=== PATIENT | male | born 1950 | race Caucasian/White ===

== ENCOUNTER → 2017-06-15 | Outpatient (CLI) | payer MEDICARE, OTHER ==
--- NOTE | 2017-06-15 11:23 | RAD ---
Indication restage lung malignancy. PET/CT was performed from the skull through the proximal thigh. CT was performed primarily for localization and attenuation purposes as opposed to primary diagnostic purposes. Note is made of a previous examination 03/22/2013 demonstrating a solid mass in the right lower lobe most compatible with primary malignancy and a semisolid mass in the right upper lobe compatible with inflammation or adenocarcinoma. 12.5 mCi of FDG was administered. The blood sugar during the examination was 79. The history of surgical removal of the right lower lobe has been provided. On CT the visualized brain appears unremarkable. No significant finding is seen in the neck. In the chest a nonsolid parenchymal opacity is noted in the right upper lobe. It appears slightly more organized on today's examination than on the study 4 years ago. There is a nodular density in the right lower lobe laterally measuring approximately 11 mm.. No significant finding is seen in the abdomen or pelvis. The prostate is slightly enlarged. There is deformity, compatible with a healed fracture, involving the right ischium. On PET the radiopharmaceutical is symmetrically distributed in the visualized brain. No abnormal activity is seen in the neck. The nonsolid parenchymal opacity in the right upper lobe demonstrates low level FDG activity with a maximum SUV is approximately 1.3. Again the findings could be reflective of an inflammatory process but a low-grade adenocarcinoma is not excluded. The 11 mm nodule in the right lower lobe is mildly FDG avid. Maximum SUV is 2.8. This may reflect a focus of inflammation or chronic scarring. Recurrent neoplastic disease is not entirely excluded The FDG is physiologically distributed in the abdomen and pelvis. IMPRESSION: 11 mm nodule in the right lower lobe is mildly FDG avid. Maximum SUV approximately 2.8. This may reflect a focus of scarring or inflammation. Recurrent neoplastic disease however is not entirely excluded. Nonsolid parenchymal opacity in the right upper lobe slightly more organized than on the study 4 years ago. There is low-level FDG uptake associated with this process. Maximum SUV approximately 1.3. Inflammation or low-grade malignancy are the primary considerations.
== END | disposition home or self-care (01) ==
LOC: PETSC 08:37
PROVIDERS: ATTEND Internal Medicine
DX: R91.1 Solitary pulmonary nodule (principal)
CPT/HCPCS: 78815; A9552

== ENCOUNTER 2017-08-07 16:02 | Inpatient (IN) | payer MEDICARE, OTHER ==
[~2017-08-07] VITALS: Ht 175.3 cm; Wt 51.3 kg
[2017-08-07 19:15] VITALS: BP 136/83
--- NOTE | 2017-08-07 23:05 | HP ---
ADMIT DATE: 08/07/2017 CHIEF COMPLAINT: Shortness of breath. HISTORY OF PRESENT ILLNESS: The patient is a pleasant elderly male who has known previous lung cancer, it was on the right. He had 2 wedge resections done. Apparently, he did not require any chemo or radiation therapy. Now he presents to [facility] ER with shortness of breath and was noted to have a massive left pleural effusion. I talked to the ER doctor who are transferring him here to our facility with consultation to Interventional Radiology to drain it and with Pulmonary Medicine. PAST MEDICAL HISTORY: Lung cancer, hard of hearing. ALLERGIES: None. FAMILY HISTORY: Diabetes. SOCIAL HISTORY: He is retired. Does not drink, smoke or take drugs. MEDICATIONS: Reviewed. REVIEW OF SYSTEMS: GENERAL: No history of weight change, weakness or fevers. SKIN: No bruising, hair changes or rashes. EYES: No blurred, double or loss of vision. NOSE AND THROAT: No history of nosebleeds, hoarseness or sore throat. HEART: No history of palpitations, chest pain or shortness of breath on exertion. PULMONARY: He complains of shortness of breath. GASTROINTESTINAL: Denies changes in appetite, nausea, vomiting, diarrhea or constipation. GENITOURINARY: No history of frequency, urgency, hesitancy or nocturia. NEUROLOGIC: Denies history of numbness, tingling, tremor or weakness. PSYCHIATRIC: No history of panic, anxiety or depression. ENDOCRINE: No history of heat or cold intolerance, polyuria or polydipsia. EXTREMITIES: Denies muscle weakness, joint pain, pain on walking or stiffness. PHYSICAL EXAMINATION: VITAL SIGNS: Temperature afebrile, pulse 74, respirations 18, blood pressure 142/91. GENERAL: He is alert, cooperative. HEART: Normal S1, S2. LUNGS: Diminished on the left. ABDOMEN: Soft. EXTREMITIES: 1+ edema. SKIN: No rashes. PSYCHIATRIC: He is a little anxious. VASCULAR: Good capillary refill. ENDOCRINE: No thyromegaly. LYMPHATICS: No cervical nodes. HEMATOPOIETIC: No bruising. LABORATORY DATA: Pending. ASSESSMENT AND PLAN: Large left pleural effusion, suspect possible malignancy. The patient is being admitted. We will consult Interventional Radiology to drain it and we will have to analyze it. Consult Pulmonary Medicine. DuoNeb, empiric intravenous antibiotics, oxygen per nasal cannula p.r.n. Continue his home medicines. Consult Dr. Goncalves. Prognosis is guarded. JENNIFER PAGAN DO DR: BRI/nini JOB#: [id number] / [id number]
[2017-08-07] MEDS ORDERED: ASPI-630 PO (23:09)
[2017-08-07] MEDS ORDERED: MELA3TAB2 PO (23:09)
[2017-08-07 23:12] VITALS: BP 129/79
[2017-08-08] VITALS (11 sets, daily range): BP systolic 85–142; BP diastolic 56–86
[2017-08-08] MEDS: LORazepam 1 MG TABLET PO PRN (01:52)
--- NOTE | 2017-08-08 04:04 | ACF ---
Admission Forms Criteria PLEURAL EFFUSION Clinical Indications for Admission to Inpatient Care (Place 'X' for any and all applicable criteria): Admission is indicated for 1 or more of the following (1)(2)(3): [X]I. Pneumonia-related effusion requiring drainage as indicated by 1 or more of the following [A]: [X]a) Large pleural effusion (symptomatic or greater than one-half of hemithorax) [ ]b) Loculated effusion [ ]c) Pleural fluid analysis results, including ANY ONE of the following: [ ]i) Positive Gram stain or culture for bacteria [ ]ii) Pus [ ]iii) pH less than 7.20 [ ]d) Parapneumonic effusion with glucose less than 60 mg/dL (3.33 mmol/L) [ ]II. Inpatient admission required rather than observation care (Also use Pleural Effusion: Observation Care criteria as appropriate) because of 1 or more of the following: [ ]1) Hemodynamic instability [ ]2) Respiratory findings (Tachypnea, dyspnea) that persist despite observation care treatment [ ]3) Hypoxemia or hypercapnia that persists despite observation care treatment [ ]4) Complication of drainage (e.g., pneumothorax) that requires inpatient care [ ]5) Etiology that requires inpatient care (e.g., pulmonary embolism, trauma) [ ]6) Severe pain requiring acute inpatient management [ ]7) Chest tube placement with active evacuation (eg, suction, drainage) [ ]8) Pulmonary artery catheter monitoring [ ]9) Epidural analgesia(7) [ ]10) Immediate inpatient surgery [ ]11) Other condition, treatment, or monitoring requiring inpatient admission [ ]III. Hemothorax [ ]IV. Empyema [ ]V. Pleural effusion with concomitant pneumothorax [ ]. Recurrent or malignant pleural effusion requiring pleurodesis (4) [ ]VII. Respiratory distress Extended stay beyond goal length of stay may be needed for (27)(28): [ ]a) Empyema or complicated parapneumonic effusion (24)(29) [ ]b) Malignant pleural effusion (4) [ ]c) Pleural effusion due to trauma or perforated esophagus [ ]d) Pleural effusion due to pulmonary embolism (30) [ ]e) Clinically significant re-expansion pulmonary edema [ ]f) Hemothorax [ ]g) Renal failure [ ]h) Complications of thoracentesis, thoracostomy tube, or pleural cath. placement [ ]j) Trapped lung (e.g., benign or malignant thickened pleura preventing lung re-expansion) (31) [ ]i) Underlying etiology necessitates ongoing inpatient care (e.g., pneumonia, heart failure, malignancy) The original [facility] [employer] content created by [facility] has been revised. The portions of the content which have been revised are identified through the use of italic text, and [facility] has neither reviewed nor approved the modified material. All other unmodified content is copyright [facility]. Please see references footnoted in the original [facility] edition 2014 Admission Criteria Met?: Yes WOLF ERVIN Aug 08, 2017 04:04
[2017-08-08 06:28] LABS: BASO % 0 % (0-3); EOS % 0 % (0-3); HEMATOCRIT 44.9 % (39.0-53.0); HEMOGLOBIN 15.7 g/dL (13.0-17.5); LYMPH # 0.5 x10^3/uL (1.0-4.8); LYMPH % 7 % (24-48); MEAN CORPUSCULAR HEMOGLOBIN 38 pg (25-35); MEAN CORPUSCULAR HGB CONC 35 g/dL (31-37); MEAN CORPUSCULAR VOLUME 110 fL (79-100); MONO % 11 % (0-9); NEUT % 81 % (31-73); PLATELET COUNT 107 x10^3/uL (140-400); RED CELL DISTRIBUTION WIDTH 16.5 % (11.5-14.5); WHITE BLOOD COUNT 6.7 x10^3/uL (4.0-11.0)
[2017-08-08 06:51] LABS: CALCIUM 8.1 mg/dL (8.5-10.1); CREATININE 0.5 mg/dL (0.7-1.3); GFR 165.4; POTASSIUM 4.2 mmol/L (3.5-5.1)
[2017-08-08] MEDS: ASPIRIN 325 MG TABLET PO SCH (08:00)
[2017-08-08 08:13] LABS: INR 1.2 (0.8-1.1); PROTHROMBIN TIME PATIENT 14.9 SEC (11.7-14.0)
[2017-08-08 08:25] LABS: HCO3 ABG 22 mmol/L (21-28); PCO2 ABG 38 mmHg (35-46); PO2 ABG 63 mmHg (65-108); SAT O2 ABG 91 % (92-99)
[2017-08-08 08:40] LABS: PH ABG 7.39 (7.35-7.45)
[2017-08-08] MEDS ORDERED: ONDANSETRON PF 4 MG/2 ML VIAL. IV PRN (09:00)
[2017-08-08] MEDS ORDERED: ACETAMINOPHEN 500 MG TABLET PO PRN (09:00)
[2017-08-08] MEDS ORDERED: KETOROLAC 15 MG/ML VIAL. IV PRN (09:00)
[2017-08-08] MEDS ORDERED: HYDROcodone/APAP 5/325MG 1 TAB TABLET PO PRN (09:00)
[2017-08-08] MEDS ORDERED: MAGNESIUM HYDROXIDE 2,400 MG/30 ML ORAL.SUSP. PO PRN (09:00)
[2017-08-08] MEDS ORDERED: MORPHINE SULFATE 2 MG/ML DISP.SYRIN. IV PRN (09:00)
[2017-08-08] MEDS: MULTIVITAMIN with MINERAL TABLET. PO SCH (09:00)
[2017-08-08 10:09] LABS: ALBUMIN 2.8 g/dL (3.4-5.0)
--- NOTE | 2017-08-08 12:00 | PDOC ---
PROGRESS NOTES Chief Complaint Chief Complaint 1. LArge pleural effusion 2. Hx lung CA s/p wedge resection x 2 (follows with onc in [place]) - no radiation or chemo needed 3. SOA sec to above 4., ANemai of malignancy/inflammation 5. MOd PCM 6. HYponatremia in a cancer pt (SIADH syndrome?) 7. HYpocalcemia in the background of low albumin History of Present Illness History of Present Illness SOA but hemodynamically stable Never had thoracentesis in past, pleural fluid is news to family HAd PET scans? not too long ago "ok" per family Follows closely with onc at [place] PLAN COnsult IR for thoracentesis Send for pleural fluid studies Pulmo consulted NPO for now till procedure Dw RN francois Cont home meds (not much) PT.OT Reg diet after procedure Vitals Vitals Vital Signs Date Time Temp Pulse Resp B/P (MAP) Pulse Ox O2 Delivery O2 Flow Rate FiO2 08/08/17 11:25 24 90 Nasal Cannula 3.0 08/08/17 07:55 97.9 93 131/77 (95) 97.9 Physical Exam General: Alert, Oriented X3, Cooperative Heart: Regular rate Lungs: Other (dec BS RT) Abdomen: Normal bowel sounds, Soft Extremities: No clubbing, No cyanosis Skin: No rashes, No breakdown Labs LABS Laboratory Tests Test 08/08/17 05:35 08/08/17 08:23 White Blood Count 6.7 x10^3/uL (4.0-11.0) Red Blood Count 4.10 x10^6/uL (4.30-5.70) Hemoglobin 15.7 g/dL (13.0-17.5) Hematocrit 44.9 % (39.0-53.0) Mean Corpuscular Volume 110 fL (79-100) Mean Corpuscular Hemoglobin 38 pg (25-35) Mean Corpuscular Hemoglobin Concent 35 g/dL (31-37) Red Cell Distribution Width 16.5 % (11.5-14.5) Platelet Count 107 x10^3/uL (140-400) Neutrophils (%) (Auto) 81 % (31-73) Lymphocytes (%) (Auto) 7 % (24-48) Monocytes (%) (Auto) 11 % (0-9) Eosinophils (%) (Auto) 0 % (0-3) Basophils (%) (Auto) 0 % (0-3) Neutrophils # (Auto) 5.4 x10^3uL (1.8-7.7) Lymphocytes # (Auto) 0.5 x10^3/uL (1.0-4.8) Monocytes # (Auto) 0.8 x10^3/uL (0.0-1.1) Eosinophils # (Auto) 0.0 x10^3/uL (0.0-0.7) Basophils # (Auto) 0.0 x10^3/uL (0.0-0.2) Prothrombin Time 14.9 SEC (11.7-14.0) Prothromb Time International Ratio 1.2 (0.8-1.1) Sodium Level 125 mmol/L (136-145) Potassium Level 4.2 mmol/L (3.5-5.1) Chloride Level 90 mmol/L (98-107) Carbon Dioxide Level 25 mmol/L (21-32) Anion Gap 10 (6-14) Blood Urea Nitrogen 9 mg/dL (8-26) Creatinine 0.5 mg/dL (0.7-1.3) Estimated GFR (Cockcroft-Gault) 165.4 Glucose Level 91 mg/dL (70-99) Calcium Level 8.1 mg/dL (8.5-10.1) Lactate Dehydrogenase 467 U/L (85-227) Albumin 2.8 g/dL (3.4-5.0) O2 Saturation 91 % (92-99) Arterial Blood pH 7.39 (7.35-7.45) Arterial Blood pCO2 at Patient Temp 38 mmHg (35-46) Arterial Blood pO2 at Patient Temp 63 mmHg (65-108) Arterial Blood HCO3 22 mmol/L (21-28) Arterial Blood Base Excess -2 mmol/L (-3-3) Review of Systems Review of Systems soa Comment Review of Relevant I have reviewed the following items tita (where applicable) has been applied. Labs Laboratory Tests Test 08/08/17 05:35 08/08/17 08:23 White Blood Count 6.7 x10^3/uL (4.0-11.0) Red Blood Count 4.10 x10^6/uL (4.30-5.70) Hemoglobin 15.7 g/dL (13.0-17.5) Hematocrit 44.9 % (39.0-53.0) Mean Corpuscular Volume 110 fL (79-100) Mean Corpuscular Hemoglobin 38 pg (25-35) Mean Corpuscular Hemoglobin Concent 35 g/dL (31-37) Red Cell Distribution Width 16.5 % (11.5-14.5) Platelet Count 107 x10^3/uL (140-400) Neutrophils (%) (Auto) 81 % (31-73) Lymphocytes (%) (Auto) 7 % (24-48) Monocytes (%) (Auto) 11 % (0-9) Eosinophils (%) (Auto) 0 % (0-3) Basophils (%) (Auto) 0 % (0-3) Neutrophils # (Auto) 5.4 x10^3uL (1.8-7.7) Lymphocytes # (Auto) 0.5 x10^3/uL (1.0-4.8) Monocytes # (Auto) 0.8 x10^3/uL (0.0-1.1) Eosinophils # (Auto) 0.0 x10^3/uL (0.0-0.7) Basophils # (Auto) 0.0 x10^3/uL (0.0-0.2) Prothrombin Time 14.9 SEC (11.7-14.0) Prothromb Time International Ratio 1.2 (0.8-1.1) Sodium Level 125 mmol/L (136-145) Potassium Level 4.2 mmol/L (3.5-5.1) Chloride Level 90 mmol/L (98-107) Carbon Dioxide Level 25 mmol/L (21-32) Anion Gap 10 (6-14) Blood Urea Nitrogen 9 mg/dL (8-26) Creatinine 0.5 mg/dL (0.7-1.3) Estimated GFR (Cockcroft-Gault) 165.4 Glucose Level 91 mg/dL (70-99) Calcium Level 8.1 mg/dL (8.5-10.1) Lactate Dehydrogenase 467 U/L (85-227) Albumin 2.8 g/dL (3.4-5.0) O2 Saturation 91 % (92-99) Arterial Blood pH 7.39 (7.35-7.45) Arterial Blood pCO2 at Patient Temp 38 mmHg (35-46) Arterial Blood pO2 at Patient Temp 63 mmHg (65-108) Arterial Blood HCO3 22 mmol/L (21-28) Arterial Blood Base Excess -2 mmol/L (-3-3) Laboratory Tests Test 08/08/17 05:35 08/08/17 08:23 White Blood Count 6.7 x10^3/uL (4.0-11.0) Red Blood Count 4.10 x10^6/uL (4.30-5.70) Hemoglobin 15.7 g/dL (13.0-17.5) Hematocrit 44.9 % (39.0-53.0) Mean Corpuscular Volume 110 fL (79-100) Mean Corpuscular Hemoglobin 38 pg (25-35) Mean Corpuscular Hemoglobin Concent 35 g/dL (31-37) Red Cell Distribution Width 16.5 % (11.5-14.5) Platelet Count 107 x10^3/uL (140-400) Neutrophils (%) (Auto) 81 % (31-73) Lymphocytes (%) (Auto) 7 % (24-48) Monocytes (%) (Auto) 11 % (0-9) Eosinophils (%) (Auto) 0 % (0-3) Basophils (%) (Auto) 0 % (0-3) Neutrophils # (Auto) 5.4 x10^3uL (1.8-7.7) Lymphocytes # (Auto) 0.5 x10^3/uL (1.0-4.8) Monocytes # (Auto) 0.8 x10^3/uL (0.0-1.1) Eosinophils # (Auto) 0.0 x10^3/uL (0.0-0.7) Basophils # (Auto) 0.0 x10^3/uL (0.0-0.2) Prothrombin Time 14.9 SEC (11.7-14.0) Prothromb Time International Ratio 1.2 (0.8-1.1) Sodium Level 125 mmol/L (136-145) Potassium Level 4.2 mmol/L (3.5-5.1) Chloride Level 90 mmol/L (98-107) Carbon Dioxide Level 25 mmol/L (21-32) Anion Gap 10 (6-14) Blood Urea Nitrogen 9 mg/dL (8-26) Creatinine 0.5 mg/dL (0.7-1.3) Estimated GFR (Cockcroft-Gault) 165.4 Glucose Level 91 mg/dL (70-99) Calcium Level 8.1 mg/dL (8.5-10.1) Lactate Dehydrogenase 467 U/L (85-227) Albumin 2.8 g/dL (3.4-5.0) O2 Saturation 91 % (92-99) Arterial Blood pH 7.39 (7.35-7.45) Arterial Blood pCO2 at Patient Temp 38 mmHg (35-46) Arterial Blood pO2 at Patient Temp 63 mmHg (65-108) Arterial Blood HCO3 22 mmol/L (21-28) Arterial Blood Base Excess -2 mmol/L (-3-3) Medications Current Medications Ceftriaxone Sodium 1 gm/ Sodium Chloride 50 ml @ 100 mls/hr Q24H IV Last administered on 08/07/17 21:23; Start 08/07/17 at 21:00 Aspirin (Yaneth Aspirin) 325 mg DAILYWBKFT PO ; Start 08/08/17 at 08:00 Multivitamins (Thera M Plus) 1 tab DAILY PO ; Start 08/08/17 at 09:00 Lorazepam (Ativan) 2 mg PRN Q6HRS PRN PO WITHDRAWAL IRRITABILITY Last administered on 08/08/17 01:52; Start 08/07/17 at 20:15 Ondansetron HCl (Zofran) 4 mg PRN Q6HRS PRN IV NAUSEA/VOMITING 1ST CHOICE; Start 08/08/17 at 09:00 Acetaminophen (Tylenol) 500 mg PRN Q6HRS PRN PO MILD PAIN / TEMP; Start at 09:00 Ketorolac Tromethamine (Toradol) 15 mg PRN Q6HRS PRN IV PAIN; Start 08/08/17 at 09:00; Stop 08/13/17 at 08:59 Morphine Sulfate 1 mg PRN Q2HR PRN IV PAIN PAIN SEV; Start 08/08/17 at 09:00 Non-Formulary Medication 1 tab QHS PO ; Start 08/08/17 at 21:00; Status UNV Acetaminophen/ Hydrocodone Bitart (Lortab 5/325) 1 tab PRN Q4HRS PRN PO PAIN MILD TO MOD; Start 08/08/17 at 09:00 Magnesium Hydroxide (Milk Of Magnesia) 2,400 mg PRN DAILY PRN PO CONSTIPATION; Start 08/08/17 at 09:00 Active Scripts Active Reported Melatonin 3 Mg Tablet 1 Tab PO QHS Aspirin 81 Mg Tab.chew 81 Mg PO DAILY Vitals/I & O Vital Sign - Last 24 Hours 08/07/17 08/07/17 08/07/17 08/07/17 19:15 19:15 19:15 19:20 Temp 97.7 97.7 97.7 97.7 Pulse 97 97 Resp 26 26 B/P (MAP) 136/83 (100) 136/83 (100) Pulse Ox 85 85 90 O2 Delivery Room Air Room Air Nasal Cannula Nasal Cannula O2 Flow Rate 4.0 2.0 08/07/17 08/07/17 08/07/17 08/08/17 19:25 20:00 23:12 03:45 Temp 98.2 97.7 98.2 97.7 Pulse 89 103 Resp 20 20 B/P (MAP) 129/79 (96) 142/86 (104) Pulse Ox 92 94 97 O2 Delivery Nasal Cannula Nasal Cannula Nasal Cannula Nasal Cannula O2 Flow Rate 4.0 4.0 4.0 2.0 08/08/17 08/08/17 08/08/17 08/08/17 07:55 08:15 08:18 09:45 Temp 97.9 97.9 Pulse 93 Resp 18 B/P (MAP) 131/77 (95) Pulse Ox 94 O2 Delivery Nasal Cannula Nasal Cannula Nasal Cannula Nasal Cannula O2 Flow Rate 4.0 3.0 2.0 4.0 08/08/17 11:25 Resp 24 Pulse Ox 90 O2 Delivery Nasal Cannula O2 Flow Rate 3.0 Intake and Output 08/08/17 08/08/17 08/09/17 15:00 23:00 07:00 Output Total 1400 ml Balance -1400 ml SCOT MORILLO MD Aug 08, 2017 12:00
--- NOTE | 2017-08-08 13:58 | RAD ---
Ultrasound and fluoroscopically guided placement of a left thoracostomy tube 08/08/2017 Impression: Large left pleural effusion. Discussion: The risks and benefits of the procedure were discussed the patient and/or his group sales representative. Informed consent was obtained. A timeout procedure was performed. The left chest was prepped and draped using sterile barrier technique. All elements of maximal sterile barrier technique including the use of a cap, mask, sterile gown, sterile gloves, large sterile sheet, appropriate hand hygiene, and 2% chlorhexidine for cutaneous antisepsis (or acceptable alternative antiseptic per current guidelines) were followed for this procedure. Ultrasound evaluation demonstrated a mildly complex left pleural fluid collection. Once the site for skin entry been selected 1% lidocaine without epinephrine was administered to the skin and subcutaneous tissues. Under direct ultrasound guidance a 5 Macedonian sheath needle was advanced into the pleural space. Serosanguineous fluid was aspirated. No 35 guidewire was advanced into the pleural space under fluoroscopy, over which, following dilatation, 14 Macedonian pigtail drainage catheter was advanced to the pleural space. The catheter was connected to a Pleur-evac device at -20 cm water. The catheter was secured in place with 2-0 Prolene suture. Sterile dressing was applied. No immediate complications were identified. Fluoroscopy time 0.9 minutes . Dose area product 4.0 Gycm2 The procedure was performed under conscious sedation including continuous cardiopulmonary monitoring via a dedicated sedation nurse. Sedation time: 20 minutes Impression: Successful placement of a left sided thoracostomy tube.
--- NOTE | 2017-08-08 14:14 | CONS ---
DATE OF CONSULTATION: 08/08/2017 DATE OF SERVICE: 08/08/2017 ATTENDING PHYSICIAN: Dr. Weldon. REASON FOR CONSULTATION: The patient is seen in pulmonary consultation at the request of Dr. Weldon for increasing shortness of air and abnormal x-ray. HISTORY OF PRESENT ILLNESS: The patient is a 67-year-old male with a history of lung cancer diagnosed approximately 4 years ago. He had some wedge resection of the right lung. Subsequently, he received no chemo or radiation. The patient has been closely followed by Dr. Fercho Rowe. According to the , he had a CT of the chest approximately 6 months ago. The patient has been more short of breath for approximately a month. Over the last 2-3 days, he had increasing shortness of breath, decreased level of activity. No fever, chills or night sweats. No productive cough. He apparently recently fell and had some pain and had an x-ray several days ago, he was not treated for any disorders. PAST MEDICAL HISTORY: 1. Lung cancer as described above, diagnosed 4 years ago, status post wedge resection of the right lung with no subsequent chemoradiation followed by Dr. Fercho Rowe. Surgery for was performed by Dr. Garcia. 2. No history of coronary artery disease, DVT, pulmonary embolism, tobacco dependence in remission, quit 4 years ago. ALLERGIES: No known drug allergies. FAMILY HISTORY: Remarkable for diabetes. SOCIAL HISTORY: He is currently retired. He has not been getting out of the house for the past month. He used to cut his grass approximately 4 weeks ago, quit tobacco 4 years ago. No history of alcoholism. REVIEW OF SYSTEMS: As indicated above, otherwise other systems were reviewed and negative. GENERAL: He has had some weakness, but no significant weight change. SKIN: No new skin lesions or pigmentations. HEART: No palpitations or chest pain and some increasing shortness of breath with exertion. PULMONARY: As indicated above. GASTROINTESTINAL: Denies nausea, vomiting, diarrhea. GENITOURINARY: No dysuria or frequency. NEUROLOGIC: Some weakness, no headaches or diplopia. PSYCHIATRIC: No panic disorders or depression. EXTREMITIES: Weakness, otherwise no increasing edema. PHYSICAL EXAMINATION: GENERAL: The patient appeared to be older than stated age. He appeared to be cachectic and chronically ill. VITAL SIGNS: He is on 2 liters of oxygen supplementation since admission, he has been afebrile. HEENT: Eyes, the sclerae were nonicteric. NECK: Jugular venous distention was not elevated. No lymphadenopathy. CHEST: Full expansion. LUNGS: Diminished breath sounds on the left. No wheezes. CARDIOVASCULAR: Regular rate and rhythm with S1, S2, no S3. ABDOMEN: Soft, nontender, nondistended. EXTREMITIES: No clubbing or cyanosis. No pitting edema. NEUROLOGIC: The patient was sitting up in the chair, weak, but able to follow commands. Detailed neuro exam was not performed. LABORATORY DATA: White count was normal. Hemoglobin and hematocrit were noted. INR was 1.2. Arterial blood gas: pH of 7.39, PaCO2 of 38, pO2 of 63. Electrolytes were noted. Sodium was low, potassium was normal. Chloride was low. BUN and creatinine were noted. Calcium level was low, albumin was low. Chest x-ray as indicated above. IMPRESSION: 1. Acute respiratory failure secondary to large left-sided effusion. 2. Abnormal x-ray/left-sided effusion, suspect malignant pleural effusion, clinically doubt parapneumonic effusion. 3. Hyponatremia secondary to above or related to his underlying history of malignancy with recurrence. 4. Generalized weakness. 5. Severe protein malnutrition, present upon admission. 6. Chronic obstructive pulmonary disease. 7. Tobacco dependence, quit 4 years ago. PLAN: 1. Case was discussed with the interventional radiologist. We will proceed with chest tube placement. Send pleural fluid for routine analysis. Chest tube will remain in place, possible talc pleurodesis in the near future. 2. Consult dietitian for protein malnutrition. 3. Monitor sodium. 4. Obtain old records. 5. Above was discussed with and daughter at the bedside, and answered all of their questions. HERNAN GARZA MD DR: RITA/nini JOB#: [id number] / [id number]
[2017-08-08 14:21] LABS: BF CLARITY TURBID; BF COLOR RED
[2017-08-08] MEDS ORDERED: NON FORMULARY ITEM (Melatonin 1 TAB) PO SCH (21:00)
--- NOTE | 2017-08-09 01:12 | CONS ---
DATE OF CONSULTATION: 08/08/2017 REQUESTING PHYSICIAN: Dr. Joanna Weldon. REASON FOR CONSULTATION: Lung cancer and pleural effusion on the left side. HISTORY OF PRESENT ILLNESS: Mr. William Heaton is a 67-year-old gentleman who was diagnosed with lung cancer approximately in 2012. He had wedge resection of the right lung and he did not receive any chemotherapy or radiation therapy. He has been followed by his agriculture professor, Dr. Fercho Rowe. He has been having a CT scan every 6 months per the patient's and he has not had any evidence of recurrence. Review of the records available at [facility] indicated that the patient had a PET scan on 06/15/2017 which revealed a 11 mm nodule in the right lower lobe with an SUV of 2.8, which could reflect scarring or inflammation. There is a nonsolid parenchymal opacity in the right upper lobe which is more organized when compared to the prior study, 4 years ago. He was admitted to [facility] on 08/07/2017 with complaints of worsening shortness of breath. He has had worsening shortness of breath for almost a month, but further increased 2 to 3 days prior to admission. He also had generalized weakness and decreased level of activity. No fevers, chills or night sweats. No loss of weight or loss of appetite. No hemoptysis. He underwent a chest x-ray that revealed left-sided pleural effusion. Interventional Radiology was consulted and the patient underwent left thoracostomy tube placement on 08/08/2017. Serosanguineous fluid was aspirated. I was asked to see the patient for further evaluation regarding lung cancer. PAST MEDICAL HISTORY: 1. Lung cancer as described above. I will also obtain records from his prior treatment. He was operated on by Dr. Garcia and he has been followed by agriculture professor, Dr. Fercho Rowe. 2. Coronary artery disease. 3. DVT. 4. PE. 5. History of tobacco abuse, that he quit in 2012. SOCIAL HISTORY: He has quit smoking in 2012. He is retired. No alcohol abuse. FAMILY HISTORY: Sister had lung cancer, mother had breast cancer. REVIEW OF SYSTEMS: A 12-point review of system was performed. Pertinent positives are mentioned in the history of present illness. Rest of the system review is negative. PHYSICAL EXAMINATION: GENERAL APPEARANCE: Mr. William Heaton is a 67-year-old gentleman who is in no acute cardiorespiratory distress. VITAL SIGNS: Blood pressure 85/56, temperature 98.3. HEENT: Atraumatic, normocephalic. Eyes: No icterus. NECK: Supple. CHEST: Bilaterally symmetrical. HEART: S1, S2 normal. ABDOMEN: Soft, nontender. CENTRAL NERVOUS SYSTEM: No focal deficits. LYMPHATICS: No lymphadenopathy. SKIN: No rashes. PSYCHOLOGIC: Mood and affect are appropriate. MUSCULOSKELETAL: No joint effusions. LABORATORY DATA: On 08/08/2017, WBC 6.7, hemoglobin 15.7, MCV 110, platelet count 107. Creatinine 0.5. IMPRESSION AND PLAN: 1. Lung cancer in 2012. I will obtain the records from his prior surgery and treatment. There is no history of chemotherapy or radiation therapy. His PET scan on 06/15/2017 did not reveal any definite evidence of recurrence. He has now developed significant pleural effusion on the left side. This is concerning for malignancy. Await cytology report. Appreciate pulmonary consultation. 2. Pleural effusion. He has got a thoracostomy tube in place. Appreciate interventional radiology management and pulmonary management. 3. Elevated MCV of 110. His platelets are also decreased to 107. Hemoglobin is normal at 15.7. I will check B12 and folic acid levels. 4. Thrombocytopenia. We will continue to monitor. This could be a reactive process. NATHALIE NAIDU MD DR: KAMILAH/nini JOB#: [id number] / [id number] IRVIN
[2017-08-09 03:47] VITALS: BP 141/77
[2017-08-09 05:07] LABS: BASO % 1 % (0-3); EOS % 0 % (0-3); HEMATOCRIT 47.1 % (39.0-53.0); HEMOGLOBIN 16.4 g/dL (13.0-17.5); LYMPH # 0.4 x10^3/uL (1.0-4.8); LYMPH % 10 % (24-48); MEAN CORPUSCULAR HEMOGLOBIN 38 pg (25-35); MEAN CORPUSCULAR HGB CONC 35 g/dL (31-37); MEAN CORPUSCULAR VOLUME 109 fL (79-100); MONO % 12 % (0-9); NEUT % 78 % (31-73); PLATELET COUNT 108 x10^3/uL (140-400); RED BLOOD COUNT 4.33 x10^6/uL (4.30-5.70); RED CELL DISTRIBUTION WIDTH 16.5 % (11.5-14.5); WHITE BLOOD COUNT 4.5 x10^3/uL (4.0-11.0)
[2017-08-09 05:22] LABS: CALCIUM 8.1 mg/dL (8.5-10.1); CREATININE 0.4 mg/dL (0.7-1.3); GFR 213.9; POTASSIUM 4.1 mmol/L (3.5-5.1)
[2017-08-09 07:00] VITALS: BP 140/91
[2017-08-09 07:54] LABS: PLT ESTIMATE DECREASED (ADEQUATE)
[2017-08-09 07:55] LABS: ANISOCYTOSIS SLIGHT
[2017-08-09] MEDS: ASPIRIN 325 MG TABLET PO SCH (08:54)
[2017-08-09] MEDS: MULTIVITAMIN with MINERAL TABLET. PO SCH (08:54)
--- NOTE | 2017-08-09 10:22 | PDOC ---
PROGRESS NOTES Chief Complaint Chief Complaint 1. LArge pleural effusion s/p thoracentesis 1.5 L (08/08) 2. Hx lung CA s/p wedge resection x 2 (follows with onc in [place]) - no radiation or chemo needed 3. SOA sec to above 4., ANemai of malignancy/inflammation 5. MOd PCM 6. HYponatremia in a cancer pt (SIADH syndrome?) 7. HYpocalcemia in the background of low albumin History of Present Illness History of Present Illness NA better 128 FAmily does not know if Na was low in [place] DOing well and looking good this AM! Munching on fruits 2 L out overnight> - per RN BLoody pleural fluid per tap Cytology not yet avail today - maybe matt PLAN: Re check CXR today Await pleural fluid studies PT/OT Follow pulmo and heme onc recs Monitor hyponatremia - TSH is normal Dw family Vitals Vitals Vital Signs Date Time Temp Pulse Resp B/P (MAP) Pulse Ox O2 Delivery O2 Flow Rate FiO2 08/09/17 07:00 98.0 90 20 140/91 (107) 98 Room Air 98.0 08/09/17 03:47 2.0 Physical Exam General: Alert, Oriented X3, Cooperative Heart: Regular rate Lungs: Other (dec BS RT) Abdomen: Normal bowel sounds, Soft Extremities: No clubbing, No cyanosis Skin: No rashes, No breakdown Labs LABS Laboratory Tests Test 08/08/17 11:15 08/09/17 04:35 Body Fluid Source Pleural Body Fluid Color Red Body Fluid Clarity Turbid Body Fluid pH 7.3 Body Fluid Nucleated Cells 1496 /cmm Body Fluid Mononuclear WBCs (%) 4 % Body Fluid Polymorphonuclear Cells 96 % Body Fluid Total RBCs Counted 233604 /cmm White Blood Count 4.5 x10^3/uL (4.0-11.0) Red Blood Count 4.33 x10^6/uL (4.30-5.70) Hemoglobin 16.4 g/dL (13.0-17.5) Hematocrit 47.1 % (39.0-53.0) Mean Corpuscular Volume 109 fL (79-100) Mean Corpuscular Hemoglobin 38 pg (25-35) Mean Corpuscular Hemoglobin Concent 35 g/dL (31-37) Red Cell Distribution Width 16.5 % (11.5-14.5) Platelet Count 108 x10^3/uL (140-400) Neutrophils (%) (Auto) 78 % (31-73) Lymphocytes (%) (Auto) 10 % (24-48) Monocytes (%) (Auto) 12 % (0-9) Eosinophils (%) (Auto) 0 % (0-3) Basophils (%) (Auto) 1 % (0-3) Neutrophils # (Auto) 3.5 x10^3uL (1.8-7.7) Lymphocytes # (Auto) 0.4 x10^3/uL (1.0-4.8) Monocytes # (Auto) 0.5 x10^3/uL (0.0-1.1) Eosinophils # (Auto) 0.0 x10^3/uL (0.0-0.7) Basophils # (Auto) 0.0 x10^3/uL (0.0-0.2) Segmented Neutrophils % 88 % (35-66) Lymphocytes % 7 % (24-48) Monocytes % 5 % (0-10) Platelet Estimate Decreased (ADEQUATE) Anisocytosis Slight Sodium Level 128 mmol/L (136-145) Potassium Level 4.1 mmol/L (3.5-5.1) Chloride Level 93 mmol/L (98-107) Carbon Dioxide Level 27 mmol/L (21-32) Anion Gap 8 (6-14) Blood Urea Nitrogen 8 mg/dL (8-26) Creatinine 0.4 mg/dL (0.7-1.3) Estimated GFR (Cockcroft-Gault) 213.9 Glucose Level 71 mg/dL (70-99) Calcium Level 8.1 mg/dL (8.5-10.1) Thyroid Stimulating Hormone (TSH) 1.782 uIU/mL (0.358-3.74) Review of Systems Review of Systems no pain post CT site Comment Review of Relevant I have reviewed the following items tita (where applicable) has been applied. Labs Laboratory Tests Test 08/08/17 05:35 08/08/17 08:23 08/08/17 11:15 08/09/17 04:35 White Blood Count 6.7 x10^3/uL (4.0-11.0) 4.5 x10^3/uL (4.0-11.0) Red Blood Count 4.10 x10^6/uL (4.30-5.70) 4.33 x10^6/uL (4.30-5.70) Hemoglobin 15.7 g/dL (13.0-17.5) 16.4 g/dL (13.0-17.5) Hematocrit 44.9 % (39.0-53.0) 47.1 % (39.0-53.0) Mean Corpuscular Volume 110 fL (79-100) 109 fL (79-100) Mean Corpuscular Hemoglobin 38 pg (25-35) 38 pg (25-35) Mean Corpuscular Hemoglobin Concent 35 g/dL (31-37) 35 g/dL (31-37) Red Cell Distribution Width 16.5 % (11.5-14.5) 16.5 % (11.5-14.5) Platelet Count 107 x10^3/uL (140-400) 108 x10^3/uL (140-400) Neutrophils (%) (Auto) 81 % (31-73) 78 % (31-73) Lymphocytes (%) (Auto) 7 % (24-48) 10 % (24-48) Monocytes (%) (Auto) 11 % (0-9) 12 % (0-9) Eosinophils (%) (Auto) 0 % (0-3) 0 % (0-3) Basophils (%) (Auto) 0 % (0-3) 1 % (0-3) Neutrophils # (Auto) 5.4 x10^3uL (1.8-7.7) 3.5 x10^3uL (1.8-7.7) Lymphocytes # (Auto) 0.5 x10^3/uL (1.0-4.8) 0.4 x10^3/uL (1.0-4.8) Monocytes # (Auto) 0.8 x10^3/uL (0.0-1.1) 0.5 x10^3/uL (0.0-1.1) Eosinophils # (Auto) 0.0 x10^3/uL (0.0-0.7) 0.0 x10^3/uL (0.0-0.7) Basophils # (Auto) 0.0 x10^3/uL (0.0-0.2) 0.0 x10^3/uL (0.0-0.2) Prothrombin Time 14.9 SEC (11.7-14.0) Prothromb Time International Ratio 1.2 (0.8-1.1) Sodium Level 125 mmol/L (136-145) 128 mmol/L (136-145) Potassium Level 4.2 mmol/L (3.5-5.1) 4.1 mmol/L (3.5-5.1) Chloride Level 90 mmol/L (98-107) 93 mmol/L (98-107) Carbon Dioxide Level 25 mmol/L (21-32) 27 mmol/L (21-32) Anion Gap 10 (6-14) 8 (6-14) Blood Urea Nitrogen 9 mg/dL (8-26) 8 mg/dL (8-26) Creatinine 0.5 mg/dL (0.7-1.3) 0.4 mg/dL (0.7-1.3) Estimated GFR (Cockcroft-Gault) 165.4 213.9 Glucose Level 91 mg/dL (70-99) 71 mg/dL (70-99) Calcium Level 8.1 mg/dL (8.5-10.1) 8.1 mg/dL (8.5-10.1) Lactate Dehydrogenase 467 U/L (85-227) Albumin 2.8 g/dL (3.4-5.0) O2 Saturation 91 % (92-99) Arterial Blood pH 7.39 (7.35-7.45) Arterial Blood pCO2 at Patient Temp 38 mmHg (35-46) Arterial Blood pO2 at Patient Temp 63 mmHg (65-108) Arterial Blood HCO3 22 mmol/L (21-28) Arterial Blood Base Excess -2 mmol/L (-3-3) Body Fluid Source Pleural Body Fluid Color Red Body Fluid Clarity Turbid Body Fluid pH 7.3 Body Fluid Nucleated Cells 1496 /cmm Body Fluid Mononuclear WBCs (%) 4 % Body Fluid Polymorphonuclear Cells 96 % Body Fluid Total RBCs Counted 554177 /cmm Segmented Neutrophils % 88 % (35-66) Lymphocytes % 7 % (24-48) Monocytes % 5 % (0-10) Platelet Estimate Decreased (ADEQUATE) Anisocytosis Slight Thyroid Stimulating Hormone (TSH) 1.782 uIU/mL (0.358-3.74) Laboratory Tests Test 08/08/17 11:15 08/09/17 04:35 Body Fluid Source Pleural Body Fluid Color Red Body Fluid Clarity Turbid Body Fluid pH 7.3 Body Fluid Nucleated Cells 1496 /cmm Body Fluid Mononuclear WBCs (%) 4 % Body Fluid Polymorphonuclear Cells 96 % Body Fluid Total RBCs Counted 875760 /cmm White Blood Count 4.5 x10^3/uL (4.0-11.0) Red Blood Count 4.33 x10^6/uL (4.30-5.70) Hemoglobin 16.4 g/dL (13.0-17.5) Hematocrit 47.1 % (39.0-53.0) Mean Corpuscular Volume 109 fL (79-100) Mean Corpuscular Hemoglobin 38 pg (25-35) Mean Corpuscular Hemoglobin Concent 35 g/dL (31-37) Red Cell Distribution Width 16.5 % (11.5-14.5) Platelet Count 108 x10^3/uL (140-400) Neutrophils (%) (Auto) 78 % (31-73) Lymphocytes (%) (Auto) 10 % (24-48) Monocytes (%) (Auto) 12 % (0-9) Eosinophils (%) (Auto) 0 % (0-3) Basophils (%) (Auto) 1 % (0-3) Neutrophils # (Auto) 3.5 x10^3uL (1.8-7.7) Lymphocytes # (Auto) 0.4 x10^3/uL (1.0-4.8) Monocytes # (Auto) 0.5 x10^3/uL (0.0-1.1) Eosinophils # (Auto) 0.0 x10^3/uL (0.0-0.7) Basophils # (Auto) 0.0 x10^3/uL (0.0-0.2) Segmented Neutrophils % 88 % (35-66) Lymphocytes % 7 % (24-48) Monocytes % 5 % (0-10) Platelet Estimate Decreased (ADEQUATE) Anisocytosis Slight Sodium Level 128 mmol/L (136-145) Potassium Level 4.1 mmol/L (3.5-5.1) Chloride Level 93 mmol/L (98-107) Carbon Dioxide Level 27 mmol/L (21-32) Anion Gap 8 (6-14) Blood Urea Nitrogen 8 mg/dL (8-26) Creatinine 0.4 mg/dL (0.7-1.3) Estimated GFR (Cockcroft-Gault) 213.9 Glucose Level 71 mg/dL (70-99) Calcium Level 8.1 mg/dL (8.5-10.1) Thyroid Stimulating Hormone (TSH) 1.782 uIU/mL (0.358-3.74) Medications Current Medications Ceftriaxone Sodium 1 gm/ Sodium Chloride 50 ml @ 100 mls/hr Q24H IV Last administered on 08/08/17 20:01; Start 08/07/17 at 21:00 Aspirin (Yaneth Aspirin) 325 mg DAILYWBKFT PO Last administered on 08/09/17 08: 54; Start 08/08/17 at 08:00 Multivitamins (Thera M Plus) 1 tab DAILY PO Last administered on 08/09/17 08: 54; Start 08/08/17 at 09:00 Lorazepam (Ativan) 2 mg PRN Q6HRS PRN PO WITHDRAWAL IRRITABILITY Last administered on 08/08/17 01:52; Start 08/07/17 at 20:15 Ondansetron HCl (Zofran) 4 mg PRN Q6HRS PRN IV NAUSEA/VOMITING 1ST CHOICE; Start 08/08/17 at 09:00 Acetaminophen (Tylenol) 500 mg PRN Q6HRS PRN PO MILD PAIN / TEMP; Start at 09:00 Ketorolac Tromethamine (Toradol) 15 mg PRN Q6HRS PRN IV PAIN; Start 08/08/17 at 09:00; Stop 08/13/17 at 08:59 Morphine Sulfate 1 mg PRN Q2HR PRN IV PAIN PAIN SEV; Start 08/08/17 at 09:00 Non-Formulary Medication 1 tab QHS PO ; Start 08/08/17 at 21:00; Status UNV Acetaminophen/ Hydrocodone Bitart (Lortab 5/325) 1 tab PRN Q4HRS PRN PO PAIN MILD TO MOD; Start 08/08/17 at 09:00 Magnesium Hydroxide (Milk Of Magnesia) 2,400 mg PRN DAILY PRN PO CONSTIPATION; Start 08/08/17 at 09:00 Active Scripts Active Reported Melatonin 3 Mg Tablet 1 Tab PO QHS Aspirin 81 Mg Tab.chew 81 Mg PO DAILY Vitals/I & O Vital Sign - Last 24 Hours 08/08/17 08/08/17 08/08/17 08/08/17 11:25 11:53 12:08 12:23 Temp 97.9 97.9 Pulse 94 88 83 Resp 24 19 14 15 B/P (MAP) 94/63 (73) 93/64 (74) 95/63 (74) Pulse Ox 90 100 100 100 O2 Delivery Nasal Cannula Nasal Cannula Nasal Cannula Nasal Cannula O2 Flow Rate 3.0 2.0 2.0 2.0 08/08/17 08/08/17 08/08/17 08/08/17 12:38 13:09 13:38 15:00 Temp 97.5 97.5 Pulse 84 83 87 83 Resp 16 16 15 15 B/P (MAP) 102/64 (77) 98/62 (74) 96/63 (74) 94/63 (73) Pulse Ox 100 100 100 100 O2 Delivery Nasal Cannula Nasal Cannula Nasal Cannula Nasal Cannula O2 Flow Rate 2.0 2.0 2.0 2.0 08/08/17 08/08/17 08/08/17 08/09/17 19:00 20:00 22:48 03:47 Temp 98.3 98.2 98.6 98.3 98.2 98.6 Pulse 87 84 78 Resp 18 18 18 B/P (MAP) 85/56 (66) 94/63 (73) 141/77 (98) Pulse Ox 100 97 100 O2 Delivery Nasal Cannula Nasal Cannula Nasal Cannula Nasal Cannula O2 Flow Rate 2.0 4.0 2.0 2.0 08/09/17 07:00 Temp 98.0 98.0 Pulse 90 Resp 20 B/P (MAP) 140/91 (107) Pulse Ox 98 O2 Delivery Room Air SCOT MORILLO MD Aug 09, 2017 10:22
[2017-08-09 10:26] LABS: FOLATE 4.69 ng/ml (3.2-20.0)
[2017-08-09 11:00] VITALS: BP 126/78
--- NOTE | 2017-08-09 11:14 | PDOC ---
PROGRESS NOTES Subjective Subjective c/c - f/u of Lung cancer ROS - Dyspnea better Objective Objective Vital Signs Date Time Temp Pulse Resp B/P (MAP) Pulse Ox O2 Delivery O2 Flow Rate FiO2 08/09/17 07:00 98.0 90 20 140/91 (107) 98 Room Air 98.0 08/09/17 03:47 2.0 Physical Exam Heart: Normal S1, Normal S2 General: Alert, Oriented X3 Lungs: Clear to auscultation Assessment Assessment IMPRESSION AND PLAN: 1. Lung cancer in 2012. I will obtain the records from his prior surgery and treatment. There is no history of chemotherapy or radiation therapy. His PET scan on 06/15/2017 did not reveal any definite evidence of recurrence. He has now developed significant pleural effusion on the left side. This is concerning for malignancy. Await cytology report. Appreciate pulmonary consultation. 2. Pleural effusion. He has got a thoracostomy tube in place. Appreciate interventional radiology management and pulmonary management. Dyspnea better 3. Elevated MCV of 110. His platelets are also decreased to 107. Hemoglobin is normal at 15.7. B12 and folic acid levels are normal. 4. Thrombocytopenia. We will continue to monitor. This could be a reactive process. Comment Review of Relevant I have reviewed the following items tita (where applicable) has been applied. Labs Laboratory Tests Test 08/08/17 05:35 08/08/17 08:23 08/08/17 11:15 08/09/17 04:35 White Blood Count 6.7 x10^3/uL (4.0-11.0) 4.5 x10^3/uL (4.0-11.0) Red Blood Count 4.10 x10^6/uL (4.30-5.70) 4.33 x10^6/uL (4.30-5.70) Hemoglobin 15.7 g/dL (13.0-17.5) 16.4 g/dL (13.0-17.5) Hematocrit 44.9 % (39.0-53.0) 47.1 % (39.0-53.0) Mean Corpuscular Volume 110 fL (79-100) 109 fL (79-100) Mean Corpuscular Hemoglobin 38 pg (25-35) 38 pg (25-35) Mean Corpuscular Hemoglobin Concent 35 g/dL (31-37) 35 g/dL (31-37) Red Cell Distribution Width 16.5 % (11.5-14.5) 16.5 % (11.5-14.5) Platelet Count 107 x10^3/uL (140-400) 108 x10^3/uL (140-400) Neutrophils (%) (Auto) 81 % (31-73) 78 % (31-73) Lymphocytes (%) (Auto) 7 % (24-48) 10 % (24-48) Monocytes (%) (Auto) 11 % (0-9) 12 % (0-9) Eosinophils (%) (Auto) 0 % (0-3) 0 % (0-3) Basophils (%) (Auto) 0 % (0-3) 1 % (0-3) Neutrophils # (Auto) 5.4 x10^3uL (1.8-7.7) 3.5 x10^3uL (1.8-7.7) Lymphocytes # (Auto) 0.5 x10^3/uL (1.0-4.8) 0.4 x10^3/uL (1.0-4.8) Monocytes # (Auto) 0.8 x10^3/uL (0.0-1.1) 0.5 x10^3/uL (0.0-1.1) Eosinophils # (Auto) 0.0 x10^3/uL (0.0-0.7) 0.0 x10^3/uL (0.0-0.7) Basophils # (Auto) 0.0 x10^3/uL (0.0-0.2) 0.0 x10^3/uL (0.0-0.2) Prothrombin Time 14.9 SEC (11.7-14.0) Prothromb Time International Ratio 1.2 (0.8-1.1) Sodium Level 125 mmol/L (136-145) 128 mmol/L (136-145) Potassium Level 4.2 mmol/L (3.5-5.1) 4.1 mmol/L (3.5-5.1) Chloride Level 90 mmol/L (98-107) 93 mmol/L (98-107) Carbon Dioxide Level 25 mmol/L (21-32) 27 mmol/L (21-32) Anion Gap 10 (6-14) 8 (6-14) Blood Urea Nitrogen 9 mg/dL (8-26) 8 mg/dL (8-26) Creatinine 0.5 mg/dL (0.7-1.3) 0.4 mg/dL (0.7-1.3) Estimated GFR (Cockcroft-Gault) 165.4 213.9 Glucose Level 91 mg/dL (70-99) 71 mg/dL (70-99) Calcium Level 8.1 mg/dL (8.5-10.1) 8.1 mg/dL (8.5-10.1) Lactate Dehydrogenase 467 U/L (85-227) Albumin 2.8 g/dL (3.4-5.0) O2 Saturation 91 % (92-99) Arterial Blood pH 7.39 (7.35-7.45) Arterial Blood pCO2 at Patient Temp 38 mmHg (35-46) Arterial Blood pO2 at Patient Temp 63 mmHg (65-108) Arterial Blood HCO3 22 mmol/L (21-28) Arterial Blood Base Excess -2 mmol/L (-3-3) Body Fluid Source Pleural Body Fluid Color Red Body Fluid Clarity Turbid Body Fluid pH 7.3 Body Fluid Nucleated Cells 1496 /cmm Body Fluid Mononuclear WBCs (%) 4 % Body Fluid Polymorphonuclear Cells 96 % Body Fluid Total RBCs Counted 926219 /cmm Segmented Neutrophils % 88 % (35-66) Lymphocytes % 7 % (24-48) Monocytes % 5 % (0-10) Platelet Estimate Decreased (ADEQUATE) Anisocytosis Slight Vitamin B12 Level 525 pg/mL (247-911) Serum Folate 4.69 ng/ml (3.2-20.0) Thyroid Stimulating Hormone (TSH) 1.782 uIU/mL (0.358-3.74) Laboratory Tests Test 08/08/17 11:15 08/09/17 04:35 Body Fluid Source Pleural Body Fluid Color Red Body Fluid Clarity Turbid Body Fluid pH 7.3 Body Fluid Nucleated Cells 1496 /cmm Body Fluid Mononuclear WBCs (%) 4 % Body Fluid Polymorphonuclear Cells 96 % Body Fluid Total RBCs Counted 372989 /cmm White Blood Count 4.5 x10^3/uL (4.0-11.0) Red Blood Count 4.33 x10^6/uL (4.30-5.70) Hemoglobin 16.4 g/dL (13.0-17.5) Hematocrit 47.1 % (39.0-53.0) Mean Corpuscular Volume 109 fL (79-100) Mean Corpuscular Hemoglobin 38 pg (25-35) Mean Corpuscular Hemoglobin Concent 35 g/dL (31-37) Red Cell Distribution Width 16.5 % (11.5-14.5) Platelet Count 108 x10^3/uL (140-400) Neutrophils (%) (Auto) 78 % (31-73) Lymphocytes (%) (Auto) 10 % (24-48) Monocytes (%) (Auto) 12 % (0-9) Eosinophils (%) (Auto) 0 % (0-3) Basophils (%) (Auto) 1 % (0-3) Neutrophils # (Auto) 3.5 x10^3uL (1.8-7.7) Lymphocytes # (Auto) 0.4 x10^3/uL (1.0-4.8) Monocytes # (Auto) 0.5 x10^3/uL (0.0-1.1) Eosinophils # (Auto) 0.0 x10^3/uL (0.0-0.7) Basophils # (Auto) 0.0 x10^3/uL (0.0-0.2) Segmented Neutrophils % 88 % (35-66) Lymphocytes % 7 % (24-48) Monocytes % 5 % (0-10) Platelet Estimate Decreased (ADEQUATE) Anisocytosis Slight Sodium Level 128 mmol/L (136-145) Potassium Level 4.1 mmol/L (3.5-5.1) Chloride Level 93 mmol/L (98-107) Carbon Dioxide Level 27 mmol/L (21-32) Anion Gap 8 (6-14) Blood Urea Nitrogen 8 mg/dL (8-26) Creatinine 0.4 mg/dL (0.7-1.3) Estimated GFR (Cockcroft-Gault) 213.9 Glucose Level 71 mg/dL (70-99) Calcium Level 8.1 mg/dL (8.5-10.1) Vitamin B12 Level 525 pg/mL (247-911) Serum Folate 4.69 ng/ml (3.2-20.0) Thyroid Stimulating Hormone (TSH) 1.782 uIU/mL (0.358-3.74) Medications Current Medications Ceftriaxone Sodium 1 gm/ Sodium Chloride 50 ml @ 100 mls/hr Q24H IV Last administered on 08/08/17 20:01; Start 08/07/17 at 21:00 Aspirin (Yaneth Aspirin) 325 mg DAILYWBKFT PO Last administered on 08/09/17 08: 54; Start 08/08/17 at 08:00 Multivitamins (Thera M Plus) 1 tab DAILY PO Last administered on 08/09/17 08: 54; Start 08/08/17 at 09:00 Lorazepam (Ativan) 2 mg PRN Q6HRS PRN PO WITHDRAWAL IRRITABILITY Last administered on 08/08/17 01:52; Start 08/07/17 at 20:15 Ondansetron HCl (Zofran) 4 mg PRN Q6HRS PRN IV NAUSEA/VOMITING 1ST CHOICE; Start 08/08/17 at 09:00 Acetaminophen (Tylenol) 500 mg PRN Q6HRS PRN PO MILD PAIN / TEMP; Start at 09:00 Ketorolac Tromethamine (Toradol) 15 mg PRN Q6HRS PRN IV PAIN; Start 08/08/17 at 09:00; Stop 08/13/17 at 08:59 Morphine Sulfate 1 mg PRN Q2HR PRN IV PAIN PAIN SEV; Start 08/08/17 at 09:00 Non-Formulary Medication 1 tab QHS PO ; Start 08/08/17 at 21:00; Status UNV Acetaminophen/ Hydrocodone Bitart (Lortab 5/325) 1 tab PRN Q4HRS PRN PO PAIN MILD TO MOD; Start 08/08/17 at 09:00 Magnesium Hydroxide (Milk Of Magnesia) 2,400 mg PRN DAILY PRN PO CONSTIPATION; Start 08/08/17 at 09:00 Active Scripts Active Reported Melatonin 3 Mg Tablet 1 Tab PO QHS Aspirin 81 Mg Tab.chew 81 Mg PO DAILY Vitals/I & O Vital Sign - Last 24 Hours 08/08/17 08/08/17 08/08/17 08/08/17 11:25 11:53 12:08 12:23 Temp 97.9 97.9 Pulse 94 88 83 Resp 24 19 14 15 B/P (MAP) 94/63 (73) 93/64 (74) 95/63 (74) Pulse Ox 90 100 100 100 O2 Delivery Nasal Cannula Nasal Cannula Nasal Cannula Nasal Cannula O2 Flow Rate 3.0 2.0 2.0 2.0 08/08/17 08/08/17 08/08/17 08/08/17 12:38 13:09 13:38 15:00 Temp 97.5 97.5 Pulse 84 83 87 83 Resp 16 16 15 15 B/P (MAP) 102/64 (77) 98/62 (74) 96/63 (74) 94/63 (73) Pulse Ox 100 100 100 100 O2 Delivery Nasal Cannula Nasal Cannula Nasal Cannula Nasal Cannula O2 Flow Rate 2.0 2.0 2.0 2.0 08/08/17 08/08/17 08/08/17 08/09/17 19:00 20:00 22:48 03:47 Temp 98.3 98.2 98.6 98.3 98.2 98.6 Pulse 87 84 78 Resp 18 18 18 B/P (MAP) 85/56 (66) 94/63 (73) 141/77 (98) Pulse Ox 100 97 100 O2 Delivery Nasal Cannula Nasal Cannula Nasal Cannula Nasal Cannula O2 Flow Rate 2.0 4.0 2.0 2.0 08/09/17 07:00 Temp 98.0 98.0 Pulse 90 Resp 20 B/P (MAP) 140/91 (107) Pulse Ox 98 O2 Delivery Room NATHALIE Boo MD Aug 09, 2017 11:14
[2017-08-09] MEDS ORDERED: chlordiazePOXIDE HCL 25 MG CAPSULE PO PRN (11:15)
[2017-08-09] MEDS: MULTIVIT INFUSN,ADULT 4,VIT K 10 ML, FOLIC ACID 1 MG, THIAMINE 100 MG in IV DEXTROSE 5 ... IV SCH (11:51)
--- NOTE | 2017-08-09 14:05 | PDOC ---
PULMONARY PROGRESS NOTES Subjective PT LESS SOA Vitals Vital Signs Date Time Temp Pulse Resp B/P (MAP) Pulse Ox O2 Delivery O2 Flow Rate FiO2 08/09/17 11:00 97.8 87 20 126/78 (94) 98 Room Air 97.8 08/09/17 03:47 2.0 ROS: No Nausea, No Abdominal Pain, No Increase Cough General: Alert Lungs: Clear, Other (dec BS RT) Cardiovascular: S1, S2 Abdomen: Soft, Non-tender Neuro Exam: Alert Extremities: No Edema Skin: Warm Labs Laboratory Tests Test 08/08/17 05:35 08/08/17 08:23 08/08/17 11:15 08/09/17 04:35 White Blood Count 6.7 x10^3/uL (4.0-11.0) 4.5 x10^3/uL (4.0-11.0) Red Blood Count 4.10 x10^6/uL (4.30-5.70) 4.33 x10^6/uL (4.30-5.70) Hemoglobin 15.7 g/dL (13.0-17.5) 16.4 g/dL (13.0-17.5) Hematocrit 44.9 % (39.0-53.0) 47.1 % (39.0-53.0) Mean Corpuscular Volume 110 fL (79-100) 109 fL (79-100) Mean Corpuscular Hemoglobin 38 pg (25-35) 38 pg (25-35) Mean Corpuscular Hemoglobin Concent 35 g/dL (31-37) 35 g/dL (31-37) Red Cell Distribution Width 16.5 % (11.5-14.5) 16.5 % (11.5-14.5) Platelet Count 107 x10^3/uL (140-400) 108 x10^3/uL (140-400) Neutrophils (%) (Auto) 81 % (31-73) 78 % (31-73) Lymphocytes (%) (Auto) 7 % (24-48) 10 % (24-48) Monocytes (%) (Auto) 11 % (0-9) 12 % (0-9) Eosinophils (%) (Auto) 0 % (0-3) 0 % (0-3) Basophils (%) (Auto) 0 % (0-3) 1 % (0-3) Neutrophils # (Auto) 5.4 x10^3uL (1.8-7.7) 3.5 x10^3uL (1.8-7.7) Lymphocytes # (Auto) 0.5 x10^3/uL (1.0-4.8) 0.4 x10^3/uL (1.0-4.8) Monocytes # (Auto) 0.8 x10^3/uL (0.0-1.1) 0.5 x10^3/uL (0.0-1.1) Eosinophils # (Auto) 0.0 x10^3/uL (0.0-0.7) 0.0 x10^3/uL (0.0-0.7) Basophils # (Auto) 0.0 x10^3/uL (0.0-0.2) 0.0 x10^3/uL (0.0-0.2) Prothrombin Time 14.9 SEC (11.7-14.0) Prothromb Time International Ratio 1.2 (0.8-1.1) Sodium Level 125 mmol/L (136-145) 128 mmol/L (136-145) Potassium Level 4.2 mmol/L (3.5-5.1) 4.1 mmol/L (3.5-5.1) Chloride Level 90 mmol/L (98-107) 93 mmol/L (98-107) Carbon Dioxide Level 25 mmol/L (21-32) 27 mmol/L (21-32) Anion Gap 10 (6-14) 8 (6-14) Blood Urea Nitrogen 9 mg/dL (8-26) 8 mg/dL (8-26) Creatinine 0.5 mg/dL (0.7-1.3) 0.4 mg/dL (0.7-1.3) Estimated GFR (Cockcroft-Gault) 165.4 213.9 Glucose Level 91 mg/dL (70-99) 71 mg/dL (70-99) Calcium Level 8.1 mg/dL (8.5-10.1) 8.1 mg/dL (8.5-10.1) Lactate Dehydrogenase 467 U/L (85-227) Albumin 2.8 g/dL (3.4-5.0) O2 Saturation 91 % (92-99) Arterial Blood pH 7.39 (7.35-7.45) Arterial Blood pCO2 at Patient Temp 38 mmHg (35-46) Arterial Blood pO2 at Patient Temp 63 mmHg (65-108) Arterial Blood HCO3 22 mmol/L (21-28) Arterial Blood Base Excess -2 mmol/L (-3-3) Body Fluid Source Pleural Body Fluid Color Red Body Fluid Clarity Turbid Body Fluid pH 7.3 Body Fluid Nucleated Cells 1496 /cmm Body Fluid Mononuclear WBCs (%) 4 % Body Fluid Polymorphonuclear Cells 96 % Body Fluid Total RBCs Counted 173196 /cmm Segmented Neutrophils % 88 % (35-66) Lymphocytes % 7 % (24-48) Monocytes % 5 % (0-10) Platelet Estimate Decreased (ADEQUATE) Anisocytosis Slight Vitamin B12 Level 525 pg/mL (247-911) Serum Folate 4.69 ng/ml (3.2-20.0) Thyroid Stimulating Hormone (TSH) 1.782 uIU/mL (0.358-3.74) Laboratory Tests Test 08/09/17 04:35 White Blood Count 4.5 x10^3/uL (4.0-11.0) Red Blood Count 4.33 x10^6/uL (4.30-5.70) Hemoglobin 16.4 g/dL (13.0-17.5) Hematocrit 47.1 % (39.0-53.0) Mean Corpuscular Volume 109 fL (79-100) Mean Corpuscular Hemoglobin 38 pg (25-35) Mean Corpuscular Hemoglobin Concent 35 g/dL (31-37) Red Cell Distribution Width 16.5 % (11.5-14.5) Platelet Count 108 x10^3/uL (140-400) Neutrophils (%) (Auto) 78 % (31-73) Lymphocytes (%) (Auto) 10 % (24-48) Monocytes (%) (Auto) 12 % (0-9) Eosinophils (%) (Auto) 0 % (0-3) Basophils (%) (Auto) 1 % (0-3) Neutrophils # (Auto) 3.5 x10^3uL (1.8-7.7) Lymphocytes # (Auto) 0.4 x10^3/uL (1.0-4.8) Monocytes # (Auto) 0.5 x10^3/uL (0.0-1.1) Eosinophils # (Auto) 0.0 x10^3/uL (0.0-0.7) Basophils # (Auto) 0.0 x10^3/uL (0.0-0.2) Segmented Neutrophils % 88 % (35-66) Lymphocytes % 7 % (24-48) Monocytes % 5 % (0-10) Platelet Estimate Decreased (ADEQUATE) Anisocytosis Slight Sodium Level 128 mmol/L (136-145) Potassium Level 4.1 mmol/L (3.5-5.1) Chloride Level 93 mmol/L (98-107) Carbon Dioxide Level 27 mmol/L (21-32) Anion Gap 8 (6-14) Blood Urea Nitrogen 8 mg/dL (8-26) Creatinine 0.4 mg/dL (0.7-1.3) Estimated GFR (Cockcroft-Gault) 213.9 Glucose Level 71 mg/dL (70-99) Calcium Level 8.1 mg/dL (8.5-10.1) Vitamin B12 Level 525 pg/mL (247-911) Serum Folate 4.69 ng/ml (3.2-20.0) Thyroid Stimulating Hormone (TSH) 1.782 uIU/mL (0.358-3.74) Medications Active Scripts Medications Dose Route/Sig Max Daily Dose Days Date Category Melatonin 3 Mg Tablet 1 Tab PO QHS 08/07/17 Reported Aspirin 81 Mg Tab.chew 81 Mg PO DAILY 08/07/17 Reported Impression . 1. Acute respiratory failure secondary to large left-sided effusion. 2. Abnormal x-ray/left-sided effusion, suspect malignant pleural effusion, clinically doubt parapneumonic effusion. 3. Hyponatremia secondary to above or related to his underlying history of malignancy with recurrence. 4. Generalized weakness. 5. Severe protein malnutrition, present upon admission. 6. Chronic obstructive pulmonary disease. 7. Tobacco dependence, quit 4 years ago. Plan . SUSPECT PLEURAL FLUID SEC TO RECENT FALL/HEMOTHORAX 1. CONTINUE CHEST TUBE DRAINAGE 2. Consult dietitian for protein malnutrition. 3. Monitor sodium. 4. Obtain old records. HERNAN GARZA MD Aug 09, 2017 14:05
[2017-08-09 14:24] LABS: BODY FLUID ALBUMIN 1.8 g/dL (.)
[2017-08-09 15:00] VITALS: BP 115/73
[2017-08-09] MEDS ORDERED: hydrALAZINE 20 MG/ML VIAL. IVP PRN (15:45)
[2017-08-09 19:00] VITALS: BP 114/77
[2017-08-09 23:00] VITALS: BP_SYST 125; BP_SYST 141; BP_DIAS 69; BP_DIAS 86
[2017-08-10 03:00] VITALS: BP 135/82
[2017-08-10 05:34] LABS: BASO % 1 % (0-3); EOS % 0 % (0-3); HEMATOCRIT 45.6 % (39.0-53.0); HEMOGLOBIN 16.1 g/dL (13.0-17.5); LYMPH # 0.4 x10^3/uL (1.0-4.8); LYMPH % 9 % (24-48); MEAN CORPUSCULAR HEMOGLOBIN 39 pg (25-35); MEAN CORPUSCULAR HGB CONC 35 g/dL (31-37); MEAN CORPUSCULAR VOLUME 110 fL (79-100); MONO % 11 % (0-9); NEUT % 79 % (31-73); PLATELET COUNT 115 x10^3/uL (140-400); RED BLOOD COUNT 4.16 x10^6/uL (4.30-5.70); RED CELL DISTRIBUTION WIDTH 16.1 % (11.5-14.5)
[2017-08-10 05:52] LABS: CALCIUM 7.9 mg/dL (8.5-10.1); CREATININE 0.5 mg/dL (0.7-1.3); GFR 165.4; POTASSIUM 3.4 mmol/L (3.5-5.1)
[2017-08-10 07:50] VITALS: BP 140/82
--- NOTE | 2017-08-10 08:19 | RAD ---
Indication pleural fluid. A single view of the chest was obtained and is compared to an examination one day earlier. Volume loss in the left lung is unchanged. Chronic background changes of emphysema or fibrosis are noted appearing similar. Heart and pulmonary vessels are unchanged. Pleural-based catheter on the left is noted. A significant change in the appearance of the chest is not seen. IMPRESSION: No significant change relative to yesterday's study
[2017-08-10] MEDS: ASPIRIN 325 MG TABLET PO SCH (08:39)
[2017-08-10] MEDS: MULTIVIT INFUSN,ADULT 4,VIT K 10 ML, FOLIC ACID 1 MG, THIAMINE 100 MG in IV DEXTROSE 5 ... IV SCH (08:39)
[2017-08-10] MEDS: MULTIVITAMIN with MINERAL TABLET. PO SCH (08:39)
--- NOTE | 2017-08-10 09:07 | RAD ---
Indication reevaluate pleural fluid. A single view of the chest was obtained. No prior plain film imaging of the chest is available. Note is made of the interventional procedure at which time a thoracostomy tube was placed 08/08/2017. The heart and pulmonary vessels appear within normal limits. Pleural drainage catheter is noted at the left lung base. There is some volume loss in the left mid and lower lung field likely reflecting atelectasis or scar. An acute finding on the right is not seen. There is no pneumothorax. IMPRESSION: Volume loss in the left lung likely reflecting atelectasis or scar. Thoracostomy tube on the left.
--- NOTE | 2017-08-10 09:09 | PDOC ---
PROGRESS NOTES Subjective Subjective c/c - f/u of Lung cancer ROS - dyspnea better Objective Objective Vital Signs Date Time Temp Pulse Resp B/P (MAP) Pulse Ox O2 Delivery O2 Flow Rate FiO2 08/10/17 07:50 97.5 81 19 140/82 (101) 94 Room Air 97.5 08/09/17 03:47 2.0 Physical Exam Heart: Normal S1, Normal S2 General: Alert, Oriented X3 Neuro: Normal speech Psych/Mental Status: Mental status NL Assessment Assessment IMPRESSION AND PLAN: 1. Lung cancer in 2012. I will obtain the records from his prior surgery and treatment. There is no history of chemotherapy or radiation therapy. His PET scan on 06/15/2017 did not reveal any definite evidence of recurrence. He has now developed significant pleural effusion on the left side. This is concerning for malignancy vs fall related. Await cytology report. Appreciate pulmonary consultation. 2. Pleural effusion. He has got a thoracostomy tube in place. Appreciate interventional radiology management and pulmonary management. Dyspnea better 3. Elevated MCV of 110. His platelets are also decreased to 107. Hemoglobin is normal at 15.7. B12 and folic acid levels are normal. Monitor. 4. Thrombocytopenia. We will continue to monitor. This could be a reactive process. Comment Review of Relevant I have reviewed the following items tita (where applicable) has been applied. Labs Laboratory Tests Test 08/08/17 11:15 08/09/17 04:35 08/10/17 03:25 Body Fluid Source Pleural Body Fluid Color Red Body Fluid Clarity Turbid Body Fluid pH 7.3 Body Fluid Nucleated Cells 1496 /cmm Body Fluid Mononuclear WBCs (%) 4 % Body Fluid Polymorphonuclear Cells 96 % Body Fluid Total RBCs Counted 044144 /cmm Body Fluid Glucose 78 mg/dL (.) Body Fluid Albumin 1.8 g/dL (.) Body Fluid Lactate Dehydrogenase 834 IU/L (.) White Blood Count 4.5 x10^3/uL (4.0-11.0) 4.0 x10^3/uL (4.0-11.0) Red Blood Count 4.33 x10^6/uL (4.30-5.70) 4.16 x10^6/uL (4.30-5.70) Hemoglobin 16.4 g/dL (13.0-17.5) 16.1 g/dL (13.0-17.5) Hematocrit 47.1 % (39.0-53.0) 45.6 % (39.0-53.0) Mean Corpuscular Volume 109 fL (79-100) 110 fL (79-100) Mean Corpuscular Hemoglobin 38 pg (25-35) 39 pg (25-35) Mean Corpuscular Hemoglobin Concent 35 g/dL (31-37) 35 g/dL (31-37) Red Cell Distribution Width 16.5 % (11.5-14.5) 16.1 % (11.5-14.5) Platelet Count 108 x10^3/uL (140-400) 115 x10^3/uL (140-400) Neutrophils (%) (Auto) 78 % (31-73) 79 % (31-73) Lymphocytes (%) (Auto) 10 % (24-48) 9 % (24-48) Monocytes (%) (Auto) 12 % (0-9) 11 % (0-9) Eosinophils (%) (Auto) 0 % (0-3) 0 % (0-3) Basophils (%) (Auto) 1 % (0-3) 1 % (0-3) Neutrophils # (Auto) 3.5 x10^3uL (1.8-7.7) 3.2 x10^3uL (1.8-7.7) Lymphocytes # (Auto) 0.4 x10^3/uL (1.0-4.8) 0.4 x10^3/uL (1.0-4.8) Monocytes # (Auto) 0.5 x10^3/uL (0.0-1.1) 0.5 x10^3/uL (0.0-1.1) Eosinophils # (Auto) 0.0 x10^3/uL (0.0-0.7) 0.0 x10^3/uL (0.0-0.7) Basophils # (Auto) 0.0 x10^3/uL (0.0-0.2) 0.0 x10^3/uL (0.0-0.2) Segmented Neutrophils % 88 % (35-66) Lymphocytes % 7 % (24-48) Monocytes % 5 % (0-10) Platelet Estimate Decreased (ADEQUATE) Anisocytosis Slight Sodium Level 128 mmol/L (136-145) 130 mmol/L (136-145) Potassium Level 4.1 mmol/L (3.5-5.1) 3.4 mmol/L (3.5-5.1) Chloride Level 93 mmol/L (98-107) 95 mmol/L (98-107) Carbon Dioxide Level 27 mmol/L (21-32) 30 mmol/L (21-32) Anion Gap 8 (6-14) 5 (6-14) Blood Urea Nitrogen 8 mg/dL (8-26) 5 mg/dL (8-26) Creatinine 0.4 mg/dL (0.7-1.3) 0.5 mg/dL (0.7-1.3) Estimated GFR (Cockcroft-Gault) 213.9 165.4 Glucose Level 71 mg/dL (70-99) 75 mg/dL (70-99) Calcium Level 8.1 mg/dL (8.5-10.1) 7.9 mg/dL (8.5-10.1) Vitamin B12 Level 525 pg/mL (247-911) Serum Folate 4.69 ng/ml (3.2-20.0) Thyroid Stimulating Hormone (TSH) 1.782 uIU/mL (0.358-3.74) Magnesium Level 1.9 mg/dL (1.8-2.4) Laboratory Tests Test 08/10/17 03:25 White Blood Count 4.0 x10^3/uL (4.0-11.0) Red Blood Count 4.16 x10^6/uL (4.30-5.70) Hemoglobin 16.1 g/dL (13.0-17.5) Hematocrit 45.6 % (39.0-53.0) Mean Corpuscular Volume 110 fL (79-100) Mean Corpuscular Hemoglobin 39 pg (25-35) Mean Corpuscular Hemoglobin Concent 35 g/dL (31-37) Red Cell Distribution Width 16.1 % (11.5-14.5) Platelet Count 115 x10^3/uL (140-400) Neutrophils (%) (Auto) 79 % (31-73) Lymphocytes (%) (Auto) 9 % (24-48) Monocytes (%) (Auto) 11 % (0-9) Eosinophils (%) (Auto) 0 % (0-3) Basophils (%) (Auto) 1 % (0-3) Neutrophils # (Auto) 3.2 x10^3uL (1.8-7.7) Lymphocytes # (Auto) 0.4 x10^3/uL (1.0-4.8) Monocytes # (Auto) 0.5 x10^3/uL (0.0-1.1) Eosinophils # (Auto) 0.0 x10^3/uL (0.0-0.7) Basophils # (Auto) 0.0 x10^3/uL (0.0-0.2) Sodium Level 130 mmol/L (136-145) Potassium Level 3.4 mmol/L (3.5-5.1) Chloride Level 95 mmol/L (98-107) Carbon Dioxide Level 30 mmol/L (21-32) Anion Gap 5 (6-14) Blood Urea Nitrogen 5 mg/dL (8-26) Creatinine 0.5 mg/dL (0.7-1.3) Estimated GFR (Cockcroft-Gault) 165.4 Glucose Level 75 mg/dL (70-99) Calcium Level 7.9 mg/dL (8.5-10.1) Magnesium Level 1.9 mg/dL (1.8-2.4) Microbiology 08/08/17 Gram Stain - Final, Complete Medications Current Medications Ceftriaxone Sodium 1 gm/ Sodium Chloride 50 ml @ 100 mls/hr Q24H IV Last administered on 08/08/17 20:01; Start 08/07/17 at 21:00; Stop 08/09/17 at 11:16 ; Status DC Aspirin (Yaneth Aspirin) 325 mg [id number] PO Last administered on 08/10/17 08: 39; Start 08/08/17 at 08:00 Multivitamins (Thera M Plus) 1 tab DAILY PO Last administered on 08/10/17 08: 39; Start 08/08/17 at 09:00 Lorazepam (Ativan) 2 mg PRN Q6HRS PRN PO WITHDRAWAL IRRITABILITY Last administered on 08/08/17 01:52; Start 08/07/17 at 20:15 Ondansetron HCl (Zofran) 4 mg PRN Q6HRS PRN IV NAUSEA/VOMITING 1ST CHOICE; Start 08/08/17 at 09:00 Acetaminophen (Tylenol) 500 mg PRN Q6HRS PRN PO MILD PAIN / TEMP; Start at 09:00 Ketorolac Tromethamine (Toradol) 15 mg PRN Q6HRS PRN IV PAIN; Start 08/08/17 at 09:00; Stop 08/13/17 at 08:59 Morphine Sulfate 1 mg PRN Q2HR PRN IV PAIN PAIN SEV; Start 08/08/17 at 09:00 Non-Formulary Medication 1 tab QHS PO ; Start 08/08/17 at 21:00; Status UNV Acetaminophen/ Hydrocodone Bitart (Lortab 5/325) 1 tab PRN Q4HRS PRN PO PAIN MILD TO MOD Last administered on 08/09/17 18:25; Start 08/08/17 at 09:00 Magnesium Hydroxide (Milk Of Magnesia) 2,400 mg PRN DAILY PRN PO CONSTIPATION Last administered on 08/10/17 06:34; Start 08/08/17 at 09:00 Chlordiazepoxide (Librium) 25 mg PRN Q6HRS PRN PO ANXIETY / AGITATION; Start at 11:15 Multivitamins 10 ml/Folic Acid 1 mg/Thiamine HCl 100 mg/Dextrose/ Sodium Chloride 1,011.1 ml @ 100 mls/ hr DAILY IV Last administered on 08/10/17 08: 39; Start 08/09/17 at 12:00 Hydralazine HCl (Apresoline) 10 mg PRN Q4HRS PRN IVP ELEVATED BP, SEE COMMENTS ; Start 08/09/17 at 15:45; Status Cancel Active Scripts Active Reported Melatonin 3 Mg Tablet 1 Tab PO QHS Aspirin 81 Mg Tab.chew 81 Mg PO DAILY Vitals/I & O Vital Sign - Last 24 Hours 08/09/17 08/09/17 08/09/17 08/09/17 11:00 15:00 18:25 19:00 Temp 97.8 97.7 97.4 97.8 97.7 97.4 Pulse 87 85 80 Resp 20 20 18 B/P (MAP) 126/78 (94) 115/73 (87) 114/77 (89) Pulse Ox 98 100 94 O2 Delivery Room Air Room Air Room Air Room Air 9/13/17 08/09/17 08/09/17 08/10/17 19:30 20:00 23:00 03:00 Temp 97.6 98.1 97.6 98.1 Pulse 81 75 Resp 18 18 18 B/P (MAP) 125/86 (99) 135/82 (99) Pulse Ox 97 98 99 O2 Delivery Room Air Room Air Room Air Room Air 08/10/17 07:50 Temp 97.5 97.5 Pulse 81 Resp 19 B/P (MAP) 140/82 (101) Pulse Ox 94 O2 Delivery Room Air NATHALIE NAIDU MD Aug 10, 2017 09:09
--- NOTE | 2017-08-10 09:09 | PDOC ---
PULMONARY PROGRESS NOTES Subjective PT LESS SOA Vitals Vital Signs Date Time Temp Pulse Resp B/P (MAP) Pulse Ox O2 Delivery O2 Flow Rate FiO2 08/10/17 07:50 97.5 81 19 140/82 (101) 94 Room Air 97.5 ROS: No Nausea, No Abdominal Pain, No Increase Cough General: Alert Lungs: Clear, Other (dec BS RT) Cardiovascular: S1, S2 Abdomen: Soft, Non-tender Neuro Exam: Alert Extremities: No Edema Skin: Warm Labs Laboratory Tests Test 08/08/17 11:15 08/09/17 04:35 08/10/17 03:25 Body Fluid Source Pleural Body Fluid Color Red Body Fluid Clarity Turbid Body Fluid pH 7.3 Body Fluid Nucleated Cells 1496 /cmm Body Fluid Mononuclear WBCs (%) 4 % Body Fluid Polymorphonuclear Cells 96 % Body Fluid Total RBCs Counted 140056 /cmm Body Fluid Glucose 78 mg/dL (.) Body Fluid Albumin 1.8 g/dL (.) Body Fluid Lactate Dehydrogenase 834 IU/L (.) White Blood Count 4.5 x10^3/uL (4.0-11.0) 4.0 x10^3/uL (4.0-11.0) Red Blood Count 4.33 x10^6/uL (4.30-5.70) 4.16 x10^6/uL (4.30-5.70) Hemoglobin 16.4 g/dL (13.0-17.5) 16.1 g/dL (13.0-17.5) Hematocrit 47.1 % (39.0-53.0) 45.6 % (39.0-53.0) Mean Corpuscular Volume 109 fL (79-100) 110 fL (79-100) Mean Corpuscular Hemoglobin 38 pg (25-35) 39 pg (25-35) Mean Corpuscular Hemoglobin Concent 35 g/dL (31-37) 35 g/dL (31-37) Red Cell Distribution Width 16.5 % (11.5-14.5) 16.1 % (11.5-14.5) Platelet Count 108 x10^3/uL (140-400) 115 x10^3/uL (140-400) Neutrophils (%) (Auto) 78 % (31-73) 79 % (31-73) Lymphocytes (%) (Auto) 10 % (24-48) 9 % (24-48) Monocytes (%) (Auto) 12 % (0-9) 11 % (0-9) Eosinophils (%) (Auto) 0 % (0-3) 0 % (0-3) Basophils (%) (Auto) 1 % (0-3) 1 % (0-3) Neutrophils # (Auto) 3.5 x10^3uL (1.8-7.7) 3.2 x10^3uL (1.8-7.7) Lymphocytes # (Auto) 0.4 x10^3/uL (1.0-4.8) 0.4 x10^3/uL (1.0-4.8) Monocytes # (Auto) 0.5 x10^3/uL (0.0-1.1) 0.5 x10^3/uL (0.0-1.1) Eosinophils # (Auto) 0.0 x10^3/uL (0.0-0.7) 0.0 x10^3/uL (0.0-0.7) Basophils # (Auto) 0.0 x10^3/uL (0.0-0.2) 0.0 x10^3/uL (0.0-0.2) Segmented Neutrophils % 88 % (35-66) Lymphocytes % 7 % (24-48) Monocytes % 5 % (0-10) Platelet Estimate Decreased (ADEQUATE) Anisocytosis Slight Sodium Level 128 mmol/L (136-145) 130 mmol/L (136-145) Potassium Level 4.1 mmol/L (3.5-5.1) 3.4 mmol/L (3.5-5.1) Chloride Level 93 mmol/L (98-107) 95 mmol/L (98-107) Carbon Dioxide Level 27 mmol/L (21-32) 30 mmol/L (21-32) Anion Gap 8 (6-14) 5 (6-14) Blood Urea Nitrogen 8 mg/dL (8-26) 5 mg/dL (8-26) Creatinine 0.4 mg/dL (0.7-1.3) 0.5 mg/dL (0.7-1.3) Estimated GFR (Cockcroft-Gault) 213.9 165.4 Glucose Level 71 mg/dL (70-99) 75 mg/dL (70-99) Calcium Level 8.1 mg/dL (8.5-10.1) 7.9 mg/dL (8.5-10.1) Vitamin B12 Level 525 pg/mL (247-911) Serum Folate 4.69 ng/ml (3.2-20.0) Thyroid Stimulating Hormone (TSH) 1.782 uIU/mL (0.358-3.74) Magnesium Level 1.9 mg/dL (1.8-2.4) Laboratory Tests Test 08/10/17 03:25 White Blood Count 4.0 x10^3/uL (4.0-11.0) Red Blood Count 4.16 x10^6/uL (4.30-5.70) Hemoglobin 16.1 g/dL (13.0-17.5) Hematocrit 45.6 % (39.0-53.0) Mean Corpuscular Volume 110 fL (79-100) Mean Corpuscular Hemoglobin 39 pg (25-35) Mean Corpuscular Hemoglobin Concent 35 g/dL (31-37) Red Cell Distribution Width 16.1 % (11.5-14.5) Platelet Count 115 x10^3/uL (140-400) Neutrophils (%) (Auto) 79 % (31-73) Lymphocytes (%) (Auto) 9 % (24-48) Monocytes (%) (Auto) 11 % (0-9) Eosinophils (%) (Auto) 0 % (0-3) Basophils (%) (Auto) 1 % (0-3) Neutrophils # (Auto) 3.2 x10^3uL (1.8-7.7) Lymphocytes # (Auto) 0.4 x10^3/uL (1.0-4.8) Monocytes # (Auto) 0.5 x10^3/uL (0.0-1.1) Eosinophils # (Auto) 0.0 x10^3/uL (0.0-0.7) Basophils # (Auto) 0.0 x10^3/uL (0.0-0.2) Sodium Level 130 mmol/L (136-145) Potassium Level 3.4 mmol/L (3.5-5.1) Chloride Level 95 mmol/L (98-107) Carbon Dioxide Level 30 mmol/L (21-32) Anion Gap 5 (6-14) Blood Urea Nitrogen 5 mg/dL (8-26) Creatinine 0.5 mg/dL (0.7-1.3) Estimated GFR (Cockcroft-Gault) 165.4 Glucose Level 75 mg/dL (70-99) Calcium Level 7.9 mg/dL (8.5-10.1) Magnesium Level 1.9 mg/dL (1.8-2.4) Medications Active Scripts Medications Dose Route/Sig Max Daily Dose Days Date Category Melatonin 3 Mg Tablet 1 Tab PO QHS 08/07/17 Reported Aspirin 81 Mg Tab.chew 81 Mg PO DAILY 08/07/17 Reported Impression . 1. Acute respiratory failure secondary to large left-sided effusion. 2. Abnormal x-ray/left-sided effusion, suspect malignant pleural effusion, clinically doubt parapneumonic effusion. 3. Hyponatremia secondary to above or related to his underlying history of malignancy with recurrence. 4. Generalized weakness. 5. Severe protein malnutrition, present upon admission. 6. Chronic obstructive pulmonary disease. 7. Tobacco dependence, quit 4 years ago. Plan . SUSPECT PLEURAL FLUID SEC TO RECENT FALL/HEMOTHORAX 1. CONTINUE CHEST TUBE DRAINAGE HAD GREATER THAN 200 CC IN 24 HOURS 2. Consult dietitian for protein malnutrition. 3. Monitor sodium. 4. Obtain old records. HERNAN GARZA MD Aug 10, 2017 09:09
--- NOTE | 2017-08-10 09:20 | EKG ---
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
--- NOTE | 2017-08-10 09:29 | PATHOLOGY ---
CYTOPATHOLOGY REPORT CLINICAL HISTORY: Left pleural effusion SPECIMEN(S) RECEIVED: A.Pleural fluid, Left FINAL DIAGNOSIS: A. Pleural fluid, left: - Few atypical cells identified. - See comment. COMMENT: Immunoperoxidase stain BerEP4: Negative Immunoperoxidase stain Calretinin. Positive The atypical cells are mesothelial in origin and likely reactive. Suggest clinical correlation. (SHA:mml; 08/09/2017) PATHOLOGIST: Rashi Baker M.D. REPORT ELECTRONICALLY SIGNED BY: Rashi Baker M.D. DATE/TIME: 08/10/2017 09:28 GROSS PATHOLOGY: A. Pleural fluid, Left: The specimen is submitted unfixed, labeled "Ravinder Heaton". Received by the Cytology Department is 30 mL of cloudy red fluid. One ThinPrep slide and a formalin fixed cell block were prepared. ( 08.08.2017) CREATIVE SERVICES COORDINATOR(S): COOKIE Guy(ASCP) INITIAL CPT CODE(S): A; 22913, 67945, 77382, 71792 Professional services performed [place] [address] Technical services performed by [facility] at [address] [place] [address], [address], [place] [address]. PATIENT: RAVINDER HEATON /AGE: 8 1950 (Age: 67) SEX: M PATIENT #: [id number] ALT CASE #: SPECIMEN COLLECTION DATE: 08/07/2017 SPECIMEN RECEIVED DATE: 08/08/[address] [facility] [address] [place] [address], [address] [place] [address] PHONE: [phone] DIRECTOR: Bartolome Baker M.D. * * * END OF REPORT * * *
[2017-08-10] MEDS ORDERED: POTASSIUM CHLORIDE 20 MEQ TABLET.ER. PO ONE (09:30)
[2017-08-10] MEDS: POTASSIUM & SODIUM PHOSPHATES PACKET. PO SCH ×2 (09:52→22:49)
--- NOTE | 2017-08-10 09:57 | PDOC2 ---
TEJINDER SELF ASSISTANT FIELD HOCKEY COACH 08/10/17 0957: CARDIAC CONSULT DATE OF CONSULT Date of Consult DATE: 08/10/17 TIME: 09:46 REASON FOR CONSULT Reason for Consult: SOA BNP 1350 ? new CHF REFERRING PHYSICIAN Referring Physician: Dr. Singh SOURCE Source: Chart review, Patient HISTORY OF PRESENT ILLNESS HISTORY OF PRESENT ILLNESS This is a 67 yo male who initially presented to [facility] with complaints of shortness of breath and cough that had been present for the last week. Patient reports traumatic fall about a month ago. Stood up and lost his balance. Fell striking his left lateral side. reports "extremely large, dark" bruising to his left side, which has vastly resolved. Upon arrival to [facility], CXR noted with large left pleural effusion. BNP mildly elevated at 1076. Patient was transferred to [facility] for further evaluation and care. Left chest pleural tub was placed. Patient reports immediate improvement in symptoms. Previous h/o lung CA s/p right lung resection. Had recent PET scan that was reportedly normal. No previous history of CAD or CHF. Presently denies any chest pain, SOA, orthopnea , [place], palpitations, dizziness, or diaphoresis. Does have some mild pedal edema , which has improved since admission. PAST MEDICAL HISTORY Cardiovascular: No pertinent hx Pulmonary: COPD GI: No pertinent hx Heme/Onc: Cancer (lung ) Hepatobiliary: No pertinent hx Psych: No pertinent hx Musculoskeletal: Osteoarthritis Rheumatologic: No pertinent hx Infectious disease: No pertinent hx ENT: No pertinent hx Renal/: No pertinent hx Endocrine: No pertinent hx Dermatology: Basal cell PAST SURGICAL HISTORY Past Surgical History: Other (right lung resection ) FAMILY HISTORY Family History: Diabetes SOCIAL HISTORY Smoke: No ALCOHOL: other (daily (6-7 beers per day)) Lives: with Family CURRENT MEDICATIONS CURRENT MEDICATIONS Current Medications Medications (Trade) Dose Ordered Sig/[place] Route PRN Reason Start Time Stop Time Status Last Admin Dose Admin Multivitamins 10 ml/Folic Acid 1 mg/Thiamine HCl 100 mg/Dextrose/ Sodium Chloride 1,011.1 ml @ 100 mls/ hr DAILY IV 08/09/17 12:00 08/10/17 08:39 ALLERGIES ALLERGIES: Coded Allergies: No Known Allergies (Verified Allergy, Unknown, 08/07/17) ROS Review of System 14 point ROS conducted with pertinent positives noted above in HPI. PHYSICAL EXAM General: Alert, Oriented X3, Cooperative, No acute distress HEENT: Atraumatic, Mucous membr. moist/pink Lungs: Clear to auscultation, Other (Left pleural tube intact) Heart: Regular rate, Normal S1, Normal S2, Other (No JVD) Abdomen: Soft Extremities: Normal pulses, Other (trace pedal edema ) Skin: Other (thin, friable ) Neuro: Normal speech, Sensation intact Psych/Mental Status: Mental status NL, Mood NL MUSCULOSKELETAL: Osteoarthritic changes both hands VITALS VITALS Vital Signs Date Time Temp Pulse Resp B/P (MAP) Pulse Ox O2 Delivery O2 Flow Rate FiO2 08/10/17 07:50 97.5 81 19 140/82 (101) 94 Room Air 97.5 LABS Lab: Laboratory Tests Test 08/10/17 03:25 White Blood Count 4.0 x10^3/uL (4.0-11.0) Red Blood Count 4.16 x10^6/uL (4.30-5.70) Hemoglobin 16.1 g/dL (13.0-17.5) Hematocrit 45.6 % (39.0-53.0) Mean Corpuscular Volume 110 fL (79-100) Mean Corpuscular Hemoglobin 39 pg (25-35) Mean Corpuscular Hemoglobin Concent 35 g/dL (31-37) Red Cell Distribution Width 16.1 % (11.5-14.5) Platelet Count 115 x10^3/uL (140-400) Neutrophils (%) (Auto) 79 % (31-73) Lymphocytes (%) (Auto) 9 % (24-48) Monocytes (%) (Auto) 11 % (0-9) Eosinophils (%) (Auto) 0 % (0-3) Basophils (%) (Auto) 1 % (0-3) Neutrophils # (Auto) 3.2 x10^3uL (1.8-7.7) Lymphocytes # (Auto) 0.4 x10^3/uL (1.0-4.8) Monocytes # (Auto) 0.5 x10^3/uL (0.0-1.1) Eosinophils # (Auto) 0.0 x10^3/uL (0.0-0.7) Basophils # (Auto) 0.0 x10^3/uL (0.0-0.2) Sodium Level 130 mmol/L (136-145) Potassium Level 3.4 mmol/L (3.5-5.1) Chloride Level 95 mmol/L (98-107) Carbon Dioxide Level 30 mmol/L (21-32) Anion Gap 5 (6-14) Blood Urea Nitrogen 5 mg/dL (8-26) Creatinine 0.5 mg/dL (0.7-1.3) Estimated GFR (Cockcroft-Gault) 165.4 Glucose Level 75 mg/dL (70-99) Calcium Level 7.9 mg/dL (8.5-10.1) Magnesium Level 1.9 mg/dL (1.8-2.4) ASSESSMENT/PLAN ASSESSMENT/PLAN 1. Mild NT Pro BNP elevation 2. Acute respiratory failure; resolved 3. Large left pleural effusion likely secondary to recent traumatic fall; s/p chest tube placement 4. H/o lung CA s/p wedge resection 5. Hyponatremia Recommendations Dyspnea related to localized pleural fluid secondary to hemothorax, doubt CHF Will check echo to assess LV function May hold ASA as warranted Supportive care. Further recommendations pending diagnostics. Problems: DAMON HEAD MD 08/10/17 2247: CARDIAC CONSULT ALLERGIES ALLERGIES: Coded Allergies: No Known Allergies (Verified Allergy, Unknown, 08/07/17) ASSESSMENT/PLAN ASSESSMENT/PLAN Pt. seen and examined. 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 67 y.o male with near syncopal fall related to vagal issues. Echo reviewed, no clear cardiac abnormalities to cause significant effusion supportive care. outpt f/u to determine if symptoms improved. thanks for consultation. pls call with questions. Problems: TEJINDER SELF APRN Aug 10, 2017 09:57 DAMON HEAD MD Aug 10, 2017 22:47
[2017-08-10 10:48] VITALS: BP 114/81
--- NOTE | 2017-08-10 11:16 | PDOC ---
PROGRESS NOTES Chief Complaint Chief Complaint 1. LArge pleural effusion s/p thoracentesis 1.5 L (08/08) 2. Hx lung CA s/p wedge resection x 2 (follows with onc in [place]) - no radiation or chemo needed 3. SOA sec to above 4., ANemai of malignancy/inflammation 5. MOd PCM 6. HYponatremia in a cancer pt (SIADH syndrome?) BETTER 7. HYpocalcemia in the background of low albumin History of Present Illness History of Present Illness NA cont to improve to 130 from 125 on admit Less confusion, on banana bag - drinks 6-7 beers a day CHets tube output 280s yesterday day shift , 150cc rn night No pain, SOA better K and NA low side Eating some CXR today no change from post CT CXR PLAN: Start neurophosp packate, BID first dose today Chest tube usually dc if output < 30 Eager to go home -hopefully 48 hrs when output < 30cc Dw dtr and YAO Gregg Vitals Vitals Vital Signs Date Time Temp Pulse Resp B/P (MAP) Pulse Ox O2 Delivery O2 Flow Rate FiO2 08/10/17 10:48 98.0 88 18 114/81 (92) 100 Room Air 98.0 Physical Exam General: Alert, Oriented X3 Heart: Normal S1, Normal S2 Lungs: Clear, Other (dec BS RT) Abdomen: Normal bowel sounds, Soft Extremities: No clubbing, No cyanosis Skin: No rashes, No breakdown Labs LABS Laboratory Tests Test 08/10/17 03:25 White Blood Count 4.0 x10^3/uL (4.0-11.0) Red Blood Count 4.16 x10^6/uL (4.30-5.70) Hemoglobin 16.1 g/dL (13.0-17.5) Hematocrit 45.6 % (39.0-53.0) Mean Corpuscular Volume 110 fL (79-100) Mean Corpuscular Hemoglobin 39 pg (25-35) Mean Corpuscular Hemoglobin Concent 35 g/dL (31-37) Red Cell Distribution Width 16.1 % (11.5-14.5) Platelet Count 115 x10^3/uL (140-400) Neutrophils (%) (Auto) 79 % (31-73) Lymphocytes (%) (Auto) 9 % (24-48) Monocytes (%) (Auto) 11 % (0-9) Eosinophils (%) (Auto) 0 % (0-3) Basophils (%) (Auto) 1 % (0-3) Neutrophils # (Auto) 3.2 x10^3uL (1.8-7.7) Lymphocytes # (Auto) 0.4 x10^3/uL (1.0-4.8) Monocytes # (Auto) 0.5 x10^3/uL (0.0-1.1) Eosinophils # (Auto) 0.0 x10^3/uL (0.0-0.7) Basophils # (Auto) 0.0 x10^3/uL (0.0-0.2) Sodium Level 130 mmol/L (136-145) Potassium Level 3.4 mmol/L (3.5-5.1) Chloride Level 95 mmol/L (98-107) Carbon Dioxide Level 30 mmol/L (21-32) Anion Gap 5 (6-14) Blood Urea Nitrogen 5 mg/dL (8-26) Creatinine 0.5 mg/dL (0.7-1.3) Estimated GFR (Cockcroft-Gault) 165.4 Glucose Level 75 mg/dL (70-99) Calcium Level 7.9 mg/dL (8.5-10.1) Magnesium Level 1.9 mg/dL (1.8-2.4) Review of Systems Review of Systems no inc soa, less confusion Comment Review of Relevant I have reviewed the following items tita (where applicable) has been applied. Labs Laboratory Tests Test 08/08/17 11:15 08/09/17 04:35 08/10/17 03:25 Body Fluid Source Pleural Body Fluid Color Red Body Fluid Clarity Turbid Body Fluid pH 7.3 Body Fluid Nucleated Cells 1496 /cmm Body Fluid Mononuclear WBCs (%) 4 % Body Fluid Polymorphonuclear Cells 96 % Body Fluid Total RBCs Counted 588892 /cmm Body Fluid Glucose 78 mg/dL (.) Body Fluid Albumin 1.8 g/dL (.) Body Fluid Lactate Dehydrogenase 834 IU/L (.) White Blood Count 4.5 x10^3/uL (4.0-11.0) 4.0 x10^3/uL (4.0-11.0) Red Blood Count 4.33 x10^6/uL (4.30-5.70) 4.16 x10^6/uL (4.30-5.70) Hemoglobin 16.4 g/dL (13.0-17.5) 16.1 g/dL (13.0-17.5) Hematocrit 47.1 % (39.0-53.0) 45.6 % (39.0-53.0) Mean Corpuscular Volume 109 fL (79-100) 110 fL (79-100) Mean Corpuscular Hemoglobin 38 pg (25-35) 39 pg (25-35) Mean Corpuscular Hemoglobin Concent 35 g/dL (31-37) 35 g/dL (31-37) Red Cell Distribution Width 16.5 % (11.5-14.5) 16.1 % (11.5-14.5) Platelet Count 108 x10^3/uL (140-400) 115 x10^3/uL (140-400) Neutrophils (%) (Auto) 78 % (31-73) 79 % (31-73) Lymphocytes (%) (Auto) 10 % (24-48) 9 % (24-48) Monocytes (%) (Auto) 12 % (0-9) 11 % (0-9) Eosinophils (%) (Auto) 0 % (0-3) 0 % (0-3) Basophils (%) (Auto) 1 % (0-3) 1 % (0-3) Neutrophils # (Auto) 3.5 x10^3uL (1.8-7.7) 3.2 x10^3uL (1.8-7.7) Lymphocytes # (Auto) 0.4 x10^3/uL (1.0-4.8) 0.4 x10^3/uL (1.0-4.8) Monocytes # (Auto) 0.5 x10^3/uL (0.0-1.1) 0.5 x10^3/uL (0.0-1.1) Eosinophils # (Auto) 0.0 x10^3/uL (0.0-0.7) 0.0 x10^3/uL (0.0-0.7) Basophils # (Auto) 0.0 x10^3/uL (0.0-0.2) 0.0 x10^3/uL (0.0-0.2) Segmented Neutrophils % 88 % (35-66) Lymphocytes % 7 % (24-48) Monocytes % 5 % (0-10) Platelet Estimate Decreased (ADEQUATE) Anisocytosis Slight Sodium Level 128 mmol/L (136-145) 130 mmol/L (136-145) Potassium Level 4.1 mmol/L (3.5-5.1) 3.4 mmol/L (3.5-5.1) Chloride Level 93 mmol/L (98-107) 95 mmol/L (98-107) Carbon Dioxide Level 27 mmol/L (21-32) 30 mmol/L (21-32) Anion Gap 8 (6-14) 5 (6-14) Blood Urea Nitrogen 8 mg/dL (8-26) 5 mg/dL (8-26) Creatinine 0.4 mg/dL (0.7-1.3) 0.5 mg/dL (0.7-1.3) Estimated GFR (Cockcroft-Gault) 213.9 165.4 Glucose Level 71 mg/dL (70-99) 75 mg/dL (70-99) Calcium Level 8.1 mg/dL (8.5-10.1) 7.9 mg/dL (8.5-10.1) Vitamin B12 Level 525 pg/mL (247-911) Serum Folate 4.69 ng/ml (3.2-20.0) Thyroid Stimulating Hormone (TSH) 1.782 uIU/mL (0.358-3.74) Magnesium Level 1.9 mg/dL (1.8-2.4) Laboratory Tests Test 08/10/17 03:25 White Blood Count 4.0 x10^3/uL (4.0-11.0) Red Blood Count 4.16 x10^6/uL (4.30-5.70) Hemoglobin 16.1 g/dL (13.0-17.5) Hematocrit 45.6 % (39.0-53.0) Mean Corpuscular Volume 110 fL (79-100) Mean Corpuscular Hemoglobin 39 pg (25-35) Mean Corpuscular Hemoglobin Concent 35 g/dL (31-37) Red Cell Distribution Width 16.1 % (11.5-14.5) Platelet Count 115 x10^3/uL (140-400) Neutrophils (%) (Auto) 79 % (31-73) Lymphocytes (%) (Auto) 9 % (24-48) Monocytes (%) (Auto) 11 % (0-9) Eosinophils (%) (Auto) 0 % (0-3) Basophils (%) (Auto) 1 % (0-3) Neutrophils # (Auto) 3.2 x10^3uL (1.8-7.7) Lymphocytes # (Auto) 0.4 x10^3/uL (1.0-4.8) Monocytes # (Auto) 0.5 x10^3/uL (0.0-1.1) Eosinophils # (Auto) 0.0 x10^3/uL (0.0-0.7) Basophils # (Auto) 0.0 x10^3/uL (0.0-0.2) Sodium Level 130 mmol/L (136-145) Potassium Level 3.4 mmol/L (3.5-5.1) Chloride Level 95 mmol/L (98-107) Carbon Dioxide Level 30 mmol/L (21-32) Anion Gap 5 (6-14) Blood Urea Nitrogen 5 mg/dL (8-26) Creatinine 0.5 mg/dL (0.7-1.3) Estimated GFR (Cockcroft-Gault) 165.4 Glucose Level 75 mg/dL (70-99) Calcium Level 7.9 mg/dL (8.5-10.1) Magnesium Level 1.9 mg/dL (1.8-2.4) Microbiology 08/08/17 Gram Stain - Final, Complete Medications Current Medications Ceftriaxone Sodium 1 gm/ Sodium Chloride 50 ml @ 100 mls/hr Q24H IV Last administered on 08/08/17 20:01; Start 08/07/17 at 21:00; Stop 08/09/17 at 11:16 ; Status DC Aspirin (Yaneth Aspirin) 325 mg DAILYWBKFT PO Last administered on 08/10/17 08: 39; Start 08/08/17 at 08:00 Multivitamins (Thera M Plus) 1 tab DAILY PO Last administered on 08/10/17 08: 39; Start 08/08/17 at 09:00 Lorazepam (Ativan) 2 mg PRN Q6HRS PRN PO WITHDRAWAL IRRITABILITY Last administered on 08/08/17 01:52; Start 08/07/17 at 20:15 Ondansetron HCl (Zofran) 4 mg PRN Q6HRS PRN IV NAUSEA/VOMITING 1ST CHOICE; Start 08/08/17 at 09:00 Acetaminophen (Tylenol) 500 mg PRN Q6HRS PRN PO MILD PAIN / TEMP; Start at 09:00 Ketorolac Tromethamine (Toradol) 15 mg PRN Q6HRS PRN IV PAIN; Start 08/08/17 at 09:00; Stop 08/13/17 at 08:59 Morphine Sulfate 1 mg PRN Q2HR PRN IV PAIN PAIN SEV; Start 08/08/17 at 09:00 Non-Formulary Medication 1 tab QHS PO ; Start 08/08/17 at 21:00; Status UNV Acetaminophen/ Hydrocodone Bitart (Lortab 5/325) 1 tab PRN Q4HRS PRN PO PAIN MILD TO MOD Last administered on 08/09/17 18:25; Start 08/08/17 at 09:00 Magnesium Hydroxide (Milk Of Magnesia) 2,400 mg PRN DAILY PRN PO CONSTIPATION Last administered on 08/10/17 06:34; Start 08/08/17 at 09:00 Chlordiazepoxide (Librium) 25 mg PRN Q6HRS PRN PO ANXIETY / AGITATION; Start at 11:15 Multivitamins 10 ml/Folic Acid 1 mg/Thiamine HCl 100 mg/Dextrose/ Sodium Chloride 1,011.1 ml @ 100 mls/ hr DAILY IV Last administered on 08/10/17 08: 39; Start 08/09/17 at 12:00 Hydralazine HCl (Apresoline) 10 mg PRN Q4HRS PRN IVP ELEVATED BP, SEE COMMENTS ; Start 08/09/17 at 15:45; Status Cancel Potassium Phos/ Sodium Phos (Phos-Nak) 1 pkt BID PO Last administered on 09:52; Start 08/10/17 at 09:30 Potassium Chloride (Klor-Con) 20 meq 1X ONCE PO Last administered on 09:51; Start 08/10/17 at 09:30; Stop 08/10/17 at 09:31; Status DC Active Scripts Active Reported Melatonin 3 Mg Tablet 1 Tab PO QHS Aspirin 81 Mg Tab.chew 81 Mg PO DAILY Vitals/I & O Vital Sign - Last 24 Hours 08/09/17 08/09/17 08/09/17 08/09/17 15:00 18:25 19:00 19:30 Temp 97.7 97.4 97.7 97.4 Pulse 85 80 Resp 20 18 18 B/P (MAP) 115/73 (87) 114/77 (89) Pulse Ox 100 94 97 O2 Delivery Room Air Room Air Room Air Room Air 08/09/17 08/09/17 08/10/17 08/10/17 20:00 23:00 03:00 07:50 Temp 97.6 98.1 97.5 97.6 98.1 97.5 Pulse 81 75 81 Resp 18 18 19 B/P (MAP) 125/86 (99) 135/82 (99) 140/82 (101) Pulse Ox 98 99 94 O2 Delivery Room Air Room Air Room Air Room Air 08/10/17 08/10/17 07:50 10:48 Temp 98.0 98.0 Pulse 88 Resp 18 B/P (MAP) 114/81 (92) Pulse Ox 100 O2 Delivery Room Air Room Air Intake and Output 08/10/17 08/10/17 08/11/17 15:00 23:00 07:00 Intake Total 180 ml Balance 180 ml SCOT MORILLO MD Aug 10, 2017 11:16
[2017-08-10 14:45] VITALS: BP 126/83
--- NOTE | 2017-08-10 16:24 | CARD ---
APPROVED REPORT EXAM: Two-dimensional and M-mode echocardiogram with Doppler and color Doppler. Other Information Quality : Technically Limited Rhythm : NSRTechnically limited study due to body habitus and positioning. INDICATION Dyspnea 2D DIMENSIONS Left Atrium(2D)2.7 (1.6-4.0cm)IVSd0.8 (0.7-1.1cm) Aortic Root(2D)3.1 (2.0-3.7cm)LVDd3.7 (3.9-5.9cm) LVOT Diameter2.2 (1.8-2.4cm)PWd0.8 (0.7-1.1cm) LVDs2.0 (2.5-4.0cm)SV17.8 ml LVEF(%)60.0 (>50%) Aortic Valve AoV Peak Noe.78.8cm/sAoV VTI14.5cm AO Peak GR.2.5mmHgLVOT VTI 12.44cm AO Mean GR.1mmHg Mitral Valve MV E Nctrvcbk47.6cm/sMV E Peak Gr.1mmHg MV DECEL [id number] A Cdzffpbj37.6cm/s MV E Mean Gr.1mmHgMV PLC71gw E/A Ratio0.7MV A Ndhcvedf93oa MVA (PHT)3.79cm2 TDI Lateral E' P. V7.60cm/sMedial E' P. V11.15cm/s E/Lateral E'6.5E/Medial E'4.4 Tricuspid Valve TR P. Epjewwjw992fx/sRAP FKNSVOTO9ueQm TR Peak Gr.57zkFtIVLD49suNq LEFT VENTRICLE The left ventricle is normal size. There is normal left ventricular wall thickness. Left ventricle sy stolic function is normal. The Ejection Fraction is 60-65%. Wall motion difficult to characterize due to suboptimal images. Grossly normal. Tissue Doppler imaging reveals mild left ventricular diastolic dysfunction. RIGHT VENTRICLE The right ventricle is normal size. The right ventricular systolic function is normal. AORTIC VALVE The aortic valve is not well visualized due to off axis images. No short axis image obtained. Doppler and Color Flow revealed no significant aortic regurgitation. There is no significant aortic valvular stenosis. MITRAL VALVE There is no mitral valve stenosis. Doppler and Color Flow revealed mild mitral regurgitation. TRICUSPID VALVE Doppler and Color Flow revealed mild tricuspid regurgitation. The PA pressure was estimated at 19 mmH g. There is no tricuspid valve stenosis. PULMONIC VALVE The pulmonic valve was not visualized. GREAT VESSELS Not well visualized. Pulmonary veins not recorded. The IVC is normal in size and collapses >50% with inspiration. PERICARDIAL EFFUSION There is no evidence of significant pericardial effusion. Critical Notification Critical Value: No <Conclusion> Left ventricle systolic function is normal. The Ejection Fraction is 60-65%. There is normal LV segmental wall motion. Wall motion difficult to characterize due to suboptimal images. Grossly normal. Doppler and Color Flow revealed mild tricuspid regurgitation. The PA pressure was estimated at 19 mmH g.
[2017-08-10 19:00] VITALS: BP 141/82
[2017-08-10] MEDS: LORazepam 1 MG TABLET PO PRN (22:49)
[2017-08-10 22:54] VITALS: BP 157/85
[2017-08-11 03:00] VITALS: BP 140/80
[2017-08-11 05:30] LABS: BASO % 1 % (0-3); EOS % 1 % (0-3); HEMATOCRIT 41.1 % (39.0-53.0); HEMOGLOBIN 14.6 g/dL (13.0-17.5); LYMPH # 0.4 x10^3/uL (1.0-4.8); LYMPH % 14 % (24-48); MEAN CORPUSCULAR HEMOGLOBIN 38 pg (25-35); MEAN CORPUSCULAR HGB CONC 36 g/dL (31-37); MEAN CORPUSCULAR VOLUME 108 fL (79-100); MONO % 16 % (0-9); NEUT % 68 % (31-73); PLATELET COUNT 127 x10^3/uL (140-400); RED BLOOD COUNT 3.81 x10^6/uL (4.30-5.70); RED CELL DISTRIBUTION WIDTH 16.2 % (11.5-14.5)
[2017-08-11 05:46] LABS: CALCIUM 7.5 mg/dL (8.5-10.1); CREATININE 0.4 mg/dL (0.7-1.3); GFR 213.9; POTASSIUM 3.7 mmol/L (3.5-5.1)
[2017-08-11 07:00] VITALS: BP 117/80
--- NOTE | 2017-08-11 08:40 | RAD ---
Indication pleural fluid. A single view of the chest was obtained and is compared to a study yesterday. There has not been a significant change. Some volume loss in the left lung persists appearing similar. Pleural-based catheter on the left is again noted. IMPRESSION: No significant change in the appearance of the chest
[2017-08-11] MEDS: ASPIRIN 325 MG TABLET PO SCH (09:34)
[2017-08-11] MEDS: POTASSIUM & SODIUM PHOSPHATES PACKET. PO SCH ×2 (09:35→20:27)
[2017-08-11] MEDS: MULTIVIT INFUSN,ADULT 4,VIT K 10 ML, FOLIC ACID 1 MG, THIAMINE 100 MG in IV DEXTROSE 5 ... IV SCH (09:35)
--- NOTE | 2017-08-11 10:19 | PDOC ---
PULMONARY PROGRESS NOTES Subjective PT LESS SOA Vitals Vital Signs Date Time Temp Pulse Resp B/P (MAP) Pulse Ox O2 Delivery O2 Flow Rate FiO2 08/11/17 03:00 97.5 77 16 140/80 (100) 94 Nasal Cannula 2.0 97.5 ROS: No Nausea, No Abdominal Pain, No Increase Cough General: Alert Lungs: Clear, Other (dec BS RT) Cardiovascular: S1, S2 Abdomen: Soft, Non-tender Neuro Exam: Alert Extremities: No Edema Skin: Warm Labs Laboratory Tests Test 08/10/17 03:25 08/11/17 04:45 White Blood Count 4.0 x10^3/uL (4.0-11.0) 3.0 x10^3/uL (4.0-11.0) Red Blood Count 4.16 x10^6/uL (4.30-5.70) 3.81 x10^6/uL (4.30-5.70) Hemoglobin 16.1 g/dL (13.0-17.5) 14.6 g/dL (13.0-17.5) Hematocrit 45.6 % (39.0-53.0) 41.1 % (39.0-53.0) Mean Corpuscular Volume 110 fL (79-100) 108 fL (79-100) Mean Corpuscular Hemoglobin 39 pg (25-35) 38 pg (25-35) Mean Corpuscular Hemoglobin Concent 35 g/dL (31-37) 36 g/dL (31-37) Red Cell Distribution Width 16.1 % (11.5-14.5) 16.2 % (11.5-14.5) Platelet Count 115 x10^3/uL (140-400) 127 x10^3/uL (140-400) Neutrophils (%) (Auto) 79 % (31-73) 68 % (31-73) Lymphocytes (%) (Auto) 9 % (24-48) 14 % (24-48) Monocytes (%) (Auto) 11 % (0-9) 16 % (0-9) Eosinophils (%) (Auto) 0 % (0-3) 1 % (0-3) Basophils (%) (Auto) 1 % (0-3) 1 % (0-3) Neutrophils # (Auto) 3.2 x10^3uL (1.8-7.7) 2.1 x10^3uL (1.8-7.7) Lymphocytes # (Auto) 0.4 x10^3/uL (1.0-4.8) 0.4 x10^3/uL (1.0-4.8) Monocytes # (Auto) 0.5 x10^3/uL (0.0-1.1) 0.5 x10^3/uL (0.0-1.1) Eosinophils # (Auto) 0.0 x10^3/uL (0.0-0.7) 0.0 x10^3/uL (0.0-0.7) Basophils # (Auto) 0.0 x10^3/uL (0.0-0.2) 0.0 x10^3/uL (0.0-0.2) Sodium Level 130 mmol/L (136-145) 132 mmol/L (136-145) Potassium Level 3.4 mmol/L (3.5-5.1) 3.7 mmol/L (3.5-5.1) Chloride Level 95 mmol/L (98-107) 98 mmol/L (98-107) Carbon Dioxide Level 30 mmol/L (21-32) 31 mmol/L (21-32) Anion Gap 5 (6-14) 3 (6-14) Blood Urea Nitrogen 5 mg/dL (8-26) 4 mg/dL (8-26) Creatinine 0.5 mg/dL (0.7-1.3) 0.4 mg/dL (0.7-1.3) Estimated GFR (Cockcroft-Gault) 165.4 213.9 Glucose Level 75 mg/dL (70-99) 81 mg/dL (70-99) Calcium Level 7.9 mg/dL (8.5-10.1) 7.5 mg/dL (8.5-10.1) Magnesium Level 1.9 mg/dL (1.8-2.4) Laboratory Tests Test 08/11/17 04:45 White Blood Count 3.0 x10^3/uL (4.0-11.0) Red Blood Count 3.81 x10^6/uL (4.30-5.70) Hemoglobin 14.6 g/dL (13.0-17.5) Hematocrit 41.1 % (39.0-53.0) Mean Corpuscular Volume 108 fL (79-100) Mean Corpuscular Hemoglobin 38 pg (25-35) Mean Corpuscular Hemoglobin Concent 36 g/dL (31-37) Red Cell Distribution Width 16.2 % (11.5-14.5) Platelet Count 127 x10^3/uL (140-400) Neutrophils (%) (Auto) 68 % (31-73) Lymphocytes (%) (Auto) 14 % (24-48) Monocytes (%) (Auto) 16 % (0-9) Eosinophils (%) (Auto) 1 % (0-3) Basophils (%) (Auto) 1 % (0-3) Neutrophils # (Auto) 2.1 x10^3uL (1.8-7.7) Lymphocytes # (Auto) 0.4 x10^3/uL (1.0-4.8) Monocytes # (Auto) 0.5 x10^3/uL (0.0-1.1) Eosinophils # (Auto) 0.0 x10^3/uL (0.0-0.7) Basophils # (Auto) 0.0 x10^3/uL (0.0-0.2) Sodium Level 132 mmol/L (136-145) Potassium Level 3.7 mmol/L (3.5-5.1) Chloride Level 98 mmol/L (98-107) Carbon Dioxide Level 31 mmol/L (21-32) Anion Gap 3 (6-14) Blood Urea Nitrogen 4 mg/dL (8-26) Creatinine 0.4 mg/dL (0.7-1.3) Estimated GFR (Cockcroft-Gault) 213.9 Glucose Level 81 mg/dL (70-99) Calcium Level 7.5 mg/dL (8.5-10.1) Medications Active Scripts Medications Dose Route/Sig Max Daily Dose Days Date Category Melatonin 3 Mg Tablet 1 Tab PO QHS 08/07/17 Reported Aspirin 81 Mg Tab.chew 81 Mg PO DAILY 08/07/17 Reported Impression . 1. Acute respiratory failure secondary to large left-sided effusion. 2. Abnormal x-ray/left-sided effusion 3. Hyponatremia 4. Generalized weakness. 5. Severe protein malnutrition, present upon admission. 6. Chronic obstructive pulmonary disease. 7. Tobacco dependence, quit 4 years ago. Plan . SUSPECT PLEURAL FLUID SEC TO RECENT FALL/HEMOTHORAX COLOR OF FLUID IS SOMEWHAT DIFFERENT WILL ADD AMYLASE AND CREATINE TO FLUID ANALYSIS 1. CONTINUE CHEST TUBE DRAINAGE HAD GREATER THAN 300 CC IN 24 HOURS 2. Consult dietitian for protein malnutrition. 3. Monitor sodium. 4. Obtain old records. REVIEWED PT WAS SEEN RECENTLY BY HIS [employer] AFFIXER WITH REPEAT PET THERE WAS NO NEW DISEASE HERNAN GARZA MD Aug 11, 2017 10:19
--- NOTE | 2017-08-11 10:28 | PDOC ---
PROGRESS NOTES Subjective Subjective c/c -f/u of Lung cancer ROS - dyspnea better Objective Objective Vital Signs Date Time Temp Pulse Resp B/P (MAP) Pulse Ox O2 Delivery O2 Flow Rate FiO2 08/11/17 03:00 97.5 77 16 140/80 (100) 94 Nasal Cannula 2.0 97.5 Physical Exam Heart: Normal S1, Normal S2 General: Alert, Oriented X3 Neuro: Normal speech Psych/Mental Status: Mental status NL Assessment Assessment IMPRESSION AND PLAN: 1. Lung cancer in 2012. I will obtain the records from his prior surgery and treatment. There is no history of chemotherapy or radiation therapy. His PET scan on 06/15/2017 did not reveal any definite evidence of recurrence. He has now developed significant pleural effusion on the left side. Cytology report reviewed - negative for malignancy. Etiology could be fall related/hemothorax. Malignancy cannot be ruled out and needs f/u with pulmonary. Appreciate pulmonary consultation. 2. Pleural effusion. He has got a thoracostomy tube in place. Appreciate interventional radiology management and pulmonary management. Dyspnea better 3. Elevated MCV of 110. His platelets are also decreased to 107. Hemoglobin is normal at 15.7. B12 and folic acid levels are normal. Monitor. 4. Thrombocytopenia. We will continue to monitor. This could be a reactive process. Comment Review of Relevant I have reviewed the following items tita (where applicable) has been applied. Labs Laboratory Tests Test 08/10/17 03:25 08/11/17 04:45 White Blood Count 4.0 x10^3/uL (4.0-11.0) 3.0 x10^3/uL (4.0-11.0) Red Blood Count 4.16 x10^6/uL (4.30-5.70) 3.81 x10^6/uL (4.30-5.70) Hemoglobin 16.1 g/dL (13.0-17.5) 14.6 g/dL (13.0-17.5) Hematocrit 45.6 % (39.0-53.0) 41.1 % (39.0-53.0) Mean Corpuscular Volume 110 fL (79-100) 108 fL (79-100) Mean Corpuscular Hemoglobin 39 pg (25-35) 38 pg (25-35) Mean Corpuscular Hemoglobin Concent 35 g/dL (31-37) 36 g/dL (31-37) Red Cell Distribution Width 16.1 % (11.5-14.5) 16.2 % (11.5-14.5) Platelet Count 115 x10^3/uL (140-400) 127 x10^3/uL (140-400) Neutrophils (%) (Auto) 79 % (31-73) 68 % (31-73) Lymphocytes (%) (Auto) 9 % (24-48) 14 % (24-48) Monocytes (%) (Auto) 11 % (0-9) 16 % (0-9) Eosinophils (%) (Auto) 0 % (0-3) 1 % (0-3) Basophils (%) (Auto) 1 % (0-3) 1 % (0-3) Neutrophils # (Auto) 3.2 x10^3uL (1.8-7.7) 2.1 x10^3uL (1.8-7.7) Lymphocytes # (Auto) 0.4 x10^3/uL (1.0-4.8) 0.4 x10^3/uL (1.0-4.8) Monocytes # (Auto) 0.5 x10^3/uL (0.0-1.1) 0.5 x10^3/uL (0.0-1.1) Eosinophils # (Auto) 0.0 x10^3/uL (0.0-0.7) 0.0 x10^3/uL (0.0-0.7) Basophils # (Auto) 0.0 x10^3/uL (0.0-0.2) 0.0 x10^3/uL (0.0-0.2) Sodium Level 130 mmol/L (136-145) 132 mmol/L (136-145) Potassium Level 3.4 mmol/L (3.5-5.1) 3.7 mmol/L (3.5-5.1) Chloride Level 95 mmol/L (98-107) 98 mmol/L (98-107) Carbon Dioxide Level 30 mmol/L (21-32) 31 mmol/L (21-32) Anion Gap 5 (6-14) 3 (6-14) Blood Urea Nitrogen 5 mg/dL (8-26) 4 mg/dL (8-26) Creatinine 0.5 mg/dL (0.7-1.3) 0.4 mg/dL (0.7-1.3) Estimated GFR (Cockcroft-Gault) 165.4 213.9 Glucose Level 75 mg/dL (70-99) 81 mg/dL (70-99) Calcium Level 7.9 mg/dL (8.5-10.1) 7.5 mg/dL (8.5-10.1) Magnesium Level 1.9 mg/dL (1.8-2.4) Laboratory Tests Test 08/11/17 04:45 White Blood Count 3.0 x10^3/uL (4.0-11.0) Red Blood Count 3.81 x10^6/uL (4.30-5.70) Hemoglobin 14.6 g/dL (13.0-17.5) Hematocrit 41.1 % (39.0-53.0) Mean Corpuscular Volume 108 fL (79-100) Mean Corpuscular Hemoglobin 38 pg (25-35) Mean Corpuscular Hemoglobin Concent 36 g/dL (31-37) Red Cell Distribution Width 16.2 % (11.5-14.5) Platelet Count 127 x10^3/uL (140-400) Neutrophils (%) (Auto) 68 % (31-73) Lymphocytes (%) (Auto) 14 % (24-48) Monocytes (%) (Auto) 16 % (0-9) Eosinophils (%) (Auto) 1 % (0-3) Basophils (%) (Auto) 1 % (0-3) Neutrophils # (Auto) 2.1 x10^3uL (1.8-7.7) Lymphocytes # (Auto) 0.4 x10^3/uL (1.0-4.8) Monocytes # (Auto) 0.5 x10^3/uL (0.0-1.1) Eosinophils # (Auto) 0.0 x10^3/uL (0.0-0.7) Basophils # (Auto) 0.0 x10^3/uL (0.0-0.2) Sodium Level 132 mmol/L (136-145) Potassium Level 3.7 mmol/L (3.5-5.1) Chloride Level 98 mmol/L (98-107) Carbon Dioxide Level 31 mmol/L (21-32) Anion Gap 3 (6-14) Blood Urea Nitrogen 4 mg/dL (8-26) Creatinine 0.4 mg/dL (0.7-1.3) Estimated GFR (Cockcroft-Gault) 213.9 Glucose Level 81 mg/dL (70-99) Calcium Level 7.5 mg/dL (8.5-10.1) Microbiology 08/08/17 Gram Stain - Final, Complete Medications Current Medications Ceftriaxone Sodium 1 gm/ Sodium Chloride 50 ml @ 100 mls/hr Q24H IV Last administered on 08/08/17 20:01; Start 08/07/17 at 21:00; Stop 08/09/17 at 11:16 ; Status DC Aspirin ([employer] Aspirin) 325 mg DAILYWBKFT PO Last administered on 08/11/17 09: 34; Start 08/08/17 at 08:00 Multivitamins (Thera M Plus) 1 tab DAILY PO Last administered on 08/10/17 08: 39; Start 08/08/17 at 09:00; Stop 08/10/17 at 13:03; Status DC Lorazepam (Ativan) 2 mg PRN Q6HRS PRN PO WITHDRAWAL IRRITABILITY Last administered on 08/10/17 22:49; Start 08/07/17 at 20:15 Ondansetron HCl (Zofran) 4 mg PRN Q6HRS PRN IV NAUSEA/VOMITING 1ST CHOICE; Start 08/08/17 at 09:00 Acetaminophen (Tylenol) 500 mg PRN Q6HRS PRN PO MILD PAIN / TEMP; Start at 09:00 Ketorolac Tromethamine (Toradol) 15 mg PRN Q6HRS PRN IV PAIN; Start 08/08/17 at 09:00; Stop 08/13/17 at 08:59 Morphine Sulfate 1 mg PRN Q2HR PRN IV PAIN PAIN SEV; Start 08/08/17 at 09:00 Non-Formulary Medication 1 tab QHS PO ; Start 08/08/17 at 21:00; Status UNV Acetaminophen/ Hydrocodone Bitart (Lortab 5/325) 1 tab PRN Q4HRS PRN PO PAIN MILD TO MOD Last administered on 08/09/17 18:25; Start 08/08/17 at 09:00 Magnesium Hydroxide (Milk Of Magnesia) 2,400 mg PRN DAILY PRN PO CONSTIPATION Last administered on 08/10/17 06:34; Start 08/08/17 at 09:00 Chlordiazepoxide (Librium) 25 mg PRN Q6HRS PRN PO ANXIETY / AGITATION; Start at 11:15 Multivitamins 10 ml/Folic Acid 1 mg/Thiamine HCl 100 mg/Dextrose/ Sodium Chloride 1,011.1 ml @ 100 mls/ hr DAILY IV Last administered on 08/11/17 09: 35; Start 08/09/17 at 12:00 Hydralazine HCl (Apresoline) 10 mg PRN Q4HRS PRN IVP ELEVATED BP, SEE COMMENTS ; Start 08/09/17 at 15:45; Status Cancel Potassium Phos/ Sodium Phos (Phos-Nak) 1 pkt BID PO Last administered on 09:35; Start 08/10/17 at 09:30 Potassium Chloride (Klor-Con) 20 meq 1X ONCE PO Last administered on 09:51; Start 08/10/17 at 09:30; Stop 08/10/17 at 09:31; Status DC Lorazepam (Ativan) 1 mg PRN Q4HRS PRN IV ANXIETY / AGITATION; Start 08/11/17 at 10:00 Active Scripts Active Reported Melatonin 3 Mg Tablet 1 Tab PO QHS Aspirin 81 Mg Tab.chew 81 Mg PO DAILY Vitals/I & O Vital Sign - Last 24 Hours 08/10/17 08/10/17 08/10/17 08/10/17 10:48 14:45 19:00 20:00 Temp 98.0 97.9 97.7 98.0 97.9 97.7 Pulse 88 81 88 Resp 18 18 16 B/P (MAP) 114/81 (92) 126/83 (97) 141/82 (101) Pulse Ox 100 100 98 O2 Delivery Room Air Room Air Room Air Room Air 08/10/17 08/11/17 22:54 03:00 Temp 98.0 97.5 98.0 97.5 Pulse 88 77 Resp 16 16 B/P (MAP) 157/85 (109) 140/80 (100) Pulse Ox 97 94 O2 Delivery Room Air Nasal Cannula O2 Flow Rate 2.0 NATHALIE NAIDU MD Aug 11, 2017 10:28
[2017-08-11 11:00] VITALS: BP 111/68
--- NOTE | 2017-08-11 12:22 | PDOC ---
PROGRESS NOTES Chief Complaint Chief Complaint 1. LArge pleural effusion s/p thoracentesis 1.5 L (08/08) 2. Hx lung CA s/p wedge resection x 2 (follows with onc in [place]) - no radiation or chemo needed 3. SOA sec to above 4., ANemai of malignancy/inflammation 5. MOd PCM 6. HYponatremia in a cancer pt (SIADH syndrome?) BETTER 7. HYpocalcemia in the background of low albumin History of Present Illness History of Present Illness NA cont to improve 132 now from 125 on admit Less confusion, on banana bag - drinks 6-7 beers a day CHest tube output 200s cc still Wants to go home HX of having a pleurovac R chest when he had wedge resection Eating some CXR today no change from post CT CXR PLAN: COntt neurophosp packate, BID Chest tube usually dc if output < 30 Eager to go home -but not ready yet as high outout Dw Dtr Vitals Vitals Vital Signs Date Time Temp Pulse Resp B/P (MAP) Pulse Ox O2 Delivery O2 Flow Rate FiO2 08/11/17 11:00 96.8 73 111/68 (82) 96 Nasal Cannula 2.0 96.8 08/11/17 07:00 16 Physical Exam General: Alert, Oriented X3 Heart: Normal S1, Normal S2 Lungs: Clear, Other (dec BS RT) Abdomen: Soft Extremities: Normal pulses, Other (trace pedal edema ) Skin: Other (thin, friable ) Labs LABS Laboratory Tests Test 08/11/17 04:45 White Blood Count 3.0 x10^3/uL (4.0-11.0) Red Blood Count 3.81 x10^6/uL (4.30-5.70) Hemoglobin 14.6 g/dL (13.0-17.5) Hematocrit 41.1 % (39.0-53.0) Mean Corpuscular Volume 108 fL (79-100) Mean Corpuscular Hemoglobin 38 pg (25-35) Mean Corpuscular Hemoglobin Concent 36 g/dL (31-37) Red Cell Distribution Width 16.2 % (11.5-14.5) Platelet Count 127 x10^3/uL (140-400) Neutrophils (%) (Auto) 68 % (31-73) Lymphocytes (%) (Auto) 14 % (24-48) Monocytes (%) (Auto) 16 % (0-9) Eosinophils (%) (Auto) 1 % (0-3) Basophils (%) (Auto) 1 % (0-3) Neutrophils # (Auto) 2.1 x10^3uL (1.8-7.7) Lymphocytes # (Auto) 0.4 x10^3/uL (1.0-4.8) Monocytes # (Auto) 0.5 x10^3/uL (0.0-1.1) Eosinophils # (Auto) 0.0 x10^3/uL (0.0-0.7) Basophils # (Auto) 0.0 x10^3/uL (0.0-0.2) Sodium Level 132 mmol/L (136-145) Potassium Level 3.7 mmol/L (3.5-5.1) Chloride Level 98 mmol/L (98-107) Carbon Dioxide Level 31 mmol/L (21-32) Anion Gap 3 (6-14) Blood Urea Nitrogen 4 mg/dL (8-26) Creatinine 0.4 mg/dL (0.7-1.3) Estimated GFR (Cockcroft-Gault) 213.9 Glucose Level 81 mg/dL (70-99) Calcium Level 7.5 mg/dL (8.5-10.1) Review of Systems Review of Systems weak, wants to go hoem Comment Review of Relevant I have reviewed the following items tita (where applicable) has been applied. Labs Laboratory Tests Test 08/10/17 03:25 08/11/17 04:45 White Blood Count 4.0 x10^3/uL (4.0-11.0) 3.0 x10^3/uL (4.0-11.0) Red Blood Count 4.16 x10^6/uL (4.30-5.70) 3.81 x10^6/uL (4.30-5.70) Hemoglobin 16.1 g/dL (13.0-17.5) 14.6 g/dL (13.0-17.5) Hematocrit 45.6 % (39.0-53.0) 41.1 % (39.0-53.0) Mean Corpuscular Volume 110 fL (79-100) 108 fL (79-100) Mean Corpuscular Hemoglobin 39 pg (25-35) 38 pg (25-35) Mean Corpuscular Hemoglobin Concent 35 g/dL (31-37) 36 g/dL (31-37) Red Cell Distribution Width 16.1 % (11.5-14.5) 16.2 % (11.5-14.5) Platelet Count 115 x10^3/uL (140-400) 127 x10^3/uL (140-400) Neutrophils (%) (Auto) 79 % (31-73) 68 % (31-73) Lymphocytes (%) (Auto) 9 % (24-48) 14 % (24-48) Monocytes (%) (Auto) 11 % (0-9) 16 % (0-9) Eosinophils (%) (Auto) 0 % (0-3) 1 % (0-3) Basophils (%) (Auto) 1 % (0-3) 1 % (0-3) Neutrophils # (Auto) 3.2 x10^3uL (1.8-7.7) 2.1 x10^3uL (1.8-7.7) Lymphocytes # (Auto) 0.4 x10^3/uL (1.0-4.8) 0.4 x10^3/uL (1.0-4.8) Monocytes # (Auto) 0.5 x10^3/uL (0.0-1.1) 0.5 x10^3/uL (0.0-1.1) Eosinophils # (Auto) 0.0 x10^3/uL (0.0-0.7) 0.0 x10^3/uL (0.0-0.7) Basophils # (Auto) 0.0 x10^3/uL (0.0-0.2) 0.0 x10^3/uL (0.0-0.2) Sodium Level 130 mmol/L (136-145) 132 mmol/L (136-145) Potassium Level 3.4 mmol/L (3.5-5.1) 3.7 mmol/L (3.5-5.1) Chloride Level 95 mmol/L (98-107) 98 mmol/L (98-107) Carbon Dioxide Level 30 mmol/L (21-32) 31 mmol/L (21-32) Anion Gap 5 (6-14) 3 (6-14) Blood Urea Nitrogen 5 mg/dL (8-26) 4 mg/dL (8-26) Creatinine 0.5 mg/dL (0.7-1.3) 0.4 mg/dL (0.7-1.3) Estimated GFR (Cockcroft-Gault) 165.4 213.9 Glucose Level 75 mg/dL (70-99) 81 mg/dL (70-99) Calcium Level 7.9 mg/dL (8.5-10.1) 7.5 mg/dL (8.5-10.1) Magnesium Level 1.9 mg/dL (1.8-2.4) Laboratory Tests Test 08/11/17 04:45 White Blood Count 3.0 x10^3/uL (4.0-11.0) Red Blood Count 3.81 x10^6/uL (4.30-5.70) Hemoglobin 14.6 g/dL (13.0-17.5) Hematocrit 41.1 % (39.0-53.0) Mean Corpuscular Volume 108 fL (79-100) Mean Corpuscular Hemoglobin 38 pg (25-35) Mean Corpuscular Hemoglobin Concent 36 g/dL (31-37) Red Cell Distribution Width 16.2 % (11.5-14.5) Platelet Count 127 x10^3/uL (140-400) Neutrophils (%) (Auto) 68 % (31-73) Lymphocytes (%) (Auto) 14 % (24-48) Monocytes (%) (Auto) 16 % (0-9) Eosinophils (%) (Auto) 1 % (0-3) Basophils (%) (Auto) 1 % (0-3) Neutrophils # (Auto) 2.1 x10^3uL (1.8-7.7) Lymphocytes # (Auto) 0.4 x10^3/uL (1.0-4.8) Monocytes # (Auto) 0.5 x10^3/uL (0.0-1.1) Eosinophils # (Auto) 0.0 x10^3/uL (0.0-0.7) Basophils # (Auto) 0.0 x10^3/uL (0.0-0.2) Sodium Level 132 mmol/L (136-145) Potassium Level 3.7 mmol/L (3.5-5.1) Chloride Level 98 mmol/L (98-107) Carbon Dioxide Level 31 mmol/L (21-32) Anion Gap 3 (6-14) Blood Urea Nitrogen 4 mg/dL (8-26) Creatinine 0.4 mg/dL (0.7-1.3) Estimated GFR (Cockcroft-Gault) 213.9 Glucose Level 81 mg/dL (70-99) Calcium Level 7.5 mg/dL (8.5-10.1) Microbiology 08/08/17 Gram Stain - Final, Complete Medications Current Medications Ceftriaxone Sodium 1 gm/ Sodium Chloride 50 ml @ 100 mls/hr Q24H IV Last administered on 08/08/17 20:01; Start 08/07/17 at 21:00; Stop 08/09/17 at 11:16 ; Status DC Aspirin ([employer] Aspirin) 325 mg DAILYWBKFT PO Last administered on 08/11/17 09: 34; Start 08/08/17 at 08:00 Multivitamins (Thera M Plus) 1 tab DAILY PO Last administered on 08/10/17 08: 39; Start 08/08/17 at 09:00; Stop 08/10/17 at 13:03; Status DC Lorazepam (Ativan) 2 mg PRN Q6HRS PRN PO WITHDRAWAL IRRITABILITY Last administered on 08/10/17 22:49; Start 08/07/17 at 20:15 Ondansetron HCl (Zofran) 4 mg PRN Q6HRS PRN IV NAUSEA/VOMITING 1ST CHOICE; Start 08/08/17 at 09:00 Acetaminophen (Tylenol) 500 mg PRN Q6HRS PRN PO MILD PAIN / TEMP; Start at 09:00 Ketorolac Tromethamine (Toradol) 15 mg PRN Q6HRS PRN IV PAIN; Start 08/08/17 at 09:00; Stop 08/13/17 at 08:59 Morphine Sulfate 1 mg PRN Q2HR PRN IV PAIN PAIN SEV; Start 08/08/17 at 09:00 Non-Formulary Medication 1 tab QHS PO ; Start 08/08/17 at 21:00; Status UNV Acetaminophen/ Hydrocodone Bitart (Lortab 5/325) 1 tab PRN Q4HRS PRN PO PAIN MILD TO MOD Last administered on 08/09/17 18:25; Start 08/08/17 at 09:00 Magnesium Hydroxide (Milk Of Magnesia) 2,400 mg PRN DAILY PRN PO CONSTIPATION Last administered on 08/10/17 06:34; Start 08/08/17 at 09:00 Chlordiazepoxide (Librium) 25 mg PRN Q6HRS PRN PO ANXIETY / AGITATION; Start at 11:15 Multivitamins 10 ml/Folic Acid 1 mg/Thiamine HCl 100 mg/Dextrose/ Sodium Chloride 1,011.1 ml @ 100 mls/ hr DAILY IV Last administered on 08/11/17 09: 35; Start 08/09/17 at 12:00 Hydralazine HCl (Apresoline) 10 mg PRN Q4HRS PRN IVP ELEVATED BP, SEE COMMENTS ; Start 08/09/17 at 15:45; Status Cancel Potassium Phos/ Sodium Phos (Phos-Nak) 1 pkt BID PO Last administered on 09:35; Start 08/10/17 at 09:30 Potassium Chloride (Klor-Con) 20 meq 1X ONCE PO Last administered on 09:51; Start 08/10/17 at 09:30; Stop 08/10/17 at 09:31; Status DC Lorazepam (Ativan) 1 mg PRN Q4HRS PRN IV ANXIETY / AGITATION; Start 08/11/17 at 10:00 Active Scripts Active Reported Melatonin 3 Mg Tablet 1 Tab PO QHS Aspirin 81 Mg Tab.chew 81 Mg PO DAILY Vitals/I & O Vital Sign - Last 24 Hours 08/10/17 08/10/17 08/10/17 08/10/17 14:45 19:00 20:00 22:54 Temp 97.9 97.7 98.0 97.9 97.7 98.0 Pulse 81 88 88 Resp 18 16 16 B/P (MAP) 126/83 (97) 141/82 (101) 157/85 (109) Pulse Ox 100 98 97 O2 Delivery Room Air Room Air Room Air Room Air 08/11/17 08/11/17 08/11/17 08/11/17 03:00 07:00 08:00 11:00 Temp 97.5 98.0 96.8 97.5 98.0 96.8 Pulse 77 77 73 Resp 16 16 B/P (MAP) 140/80 (100) 117/80 (92) 111/68 (82) Pulse Ox 94 92 96 O2 Delivery Nasal Cannula Room Air Room Air Nasal Cannula O2 Flow Rate 2.0 2.0 SCOT MORILLO MD Aug 11, 2017 12:22
[2017-08-11 15:00] VITALS: BP 96/63
[2017-08-11 19:10] VITALS: BP 124/77
[2017-08-11 22:50] VITALS: BP 147/95
[2017-08-12] VITALS (8 sets, daily range): BP systolic 109–145; BP diastolic 78–88
[2017-08-12 05:31] LABS: BASO % 1 % (0-3); EOS % 1 % (0-3); HEMATOCRIT 43.3 % (39.0-53.0); LYMPH # 0.4 x10^3/uL (1.0-4.8); LYMPH % 12 % (24-48); MEAN CORPUSCULAR HEMOGLOBIN 38 pg (25-35); MEAN CORPUSCULAR HGB CONC 35 g/dL (31-37); MEAN CORPUSCULAR VOLUME 110 fL (79-100); MONO % 17 % (0-9); NEUT % 70 % (31-73); PLATELET COUNT 159 x10^3/uL (140-400); RED BLOOD COUNT 3.94 x10^6/uL (4.30-5.70); RED CELL DISTRIBUTION WIDTH 16.2 % (11.5-14.5); WHITE BLOOD COUNT 3.4 x10^3/uL (4.0-11.0)
[2017-08-12 06:12] LABS: CALCIUM 7.7 mg/dL (8.5-10.1); CREATININE 0.5 mg/dL (0.7-1.3); GFR 165.4; POTASSIUM 3.6 mmol/L (3.5-5.1)
--- NOTE | 2017-08-12 08:27 | PDOC ---
PULMONARY PROGRESS NOTES Subjective ct 335cc drainage, sleepy, was agitated last night ativan given Vitals Vital Signs Date Time Temp Pulse Resp B/P (MAP) Pulse Ox O2 Delivery O2 Flow Rate FiO2 08/12/17 08:00 Nasal Cannula 2.0 08/12/17 07:00 96.4 88 20 140/87 (104) 94 96.4 ROS: No Nausea, No Abdominal Pain, No Increase Cough General: Lethargic Lungs: Other (basilar crackle. l dullness at base, l ct) Cardiovascular: S1, S2 Abdomen: Soft, Non-tender Extremities: No Edema Skin: Warm Labs Laboratory Tests Test 08/11/17 04:45 08/12/17 04:45 White Blood Count 3.0 x10^3/uL (4.0-11.0) 3.4 x10^3/uL (4.0-11.0) Red Blood Count 3.81 x10^6/uL (4.30-5.70) 3.94 x10^6/uL (4.30-5.70) Hemoglobin 14.6 g/dL (13.0-17.5) 15.0 g/dL (13.0-17.5) Hematocrit 41.1 % (39.0-53.0) 43.3 % (39.0-53.0) Mean Corpuscular Volume 108 fL (79-100) 110 fL (79-100) Mean Corpuscular Hemoglobin 38 pg (25-35) 38 pg (25-35) Mean Corpuscular Hemoglobin Concent 36 g/dL (31-37) 35 g/dL (31-37) Red Cell Distribution Width 16.2 % (11.5-14.5) 16.2 % (11.5-14.5) Platelet Count 127 x10^3/uL (140-400) 159 x10^3/uL (140-400) Neutrophils (%) (Auto) 68 % (31-73) 70 % (31-73) Lymphocytes (%) (Auto) 14 % (24-48) 12 % (24-48) Monocytes (%) (Auto) 16 % (0-9) 17 % (0-9) Eosinophils (%) (Auto) 1 % (0-3) 1 % (0-3) Basophils (%) (Auto) 1 % (0-3) 1 % (0-3) Neutrophils # (Auto) 2.1 x10^3uL (1.8-7.7) 2.4 x10^3uL (1.8-7.7) Lymphocytes # (Auto) 0.4 x10^3/uL (1.0-4.8) 0.4 x10^3/uL (1.0-4.8) Monocytes # (Auto) 0.5 x10^3/uL (0.0-1.1) 0.6 x10^3/uL (0.0-1.1) Eosinophils # (Auto) 0.0 x10^3/uL (0.0-0.7) 0.0 x10^3/uL (0.0-0.7) Basophils # (Auto) 0.0 x10^3/uL (0.0-0.2) 0.0 x10^3/uL (0.0-0.2) Sodium Level 132 mmol/L (136-145) 132 mmol/L (136-145) Potassium Level 3.7 mmol/L (3.5-5.1) 3.6 mmol/L (3.5-5.1) Chloride Level 98 mmol/L (98-107) 97 mmol/L (98-107) Carbon Dioxide Level 31 mmol/L (21-32) 31 mmol/L (21-32) Anion Gap 3 (6-14) 4 (6-14) Blood Urea Nitrogen 4 mg/dL (8-26) 5 mg/dL (8-26) Creatinine 0.4 mg/dL (0.7-1.3) 0.5 mg/dL (0.7-1.3) Estimated GFR (Cockcroft-Gault) 213.9 165.4 Glucose Level 81 mg/dL (70-99) 82 mg/dL (70-99) Calcium Level 7.5 mg/dL (8.5-10.1) 7.7 mg/dL (8.5-10.1) Laboratory Tests Test 08/12/17 04:45 White Blood Count 3.4 x10^3/uL (4.0-11.0) Red Blood Count 3.94 x10^6/uL (4.30-5.70) Hemoglobin 15.0 g/dL (13.0-17.5) Hematocrit 43.3 % (39.0-53.0) Mean Corpuscular Volume 110 fL (79-100) Mean Corpuscular Hemoglobin 38 pg (25-35) Mean Corpuscular Hemoglobin Concent 35 g/dL (31-37) Red Cell Distribution Width 16.2 % (11.5-14.5) Platelet Count 159 x10^3/uL (140-400) Neutrophils (%) (Auto) 70 % (31-73) Lymphocytes (%) (Auto) 12 % (24-48) Monocytes (%) (Auto) 17 % (0-9) Eosinophils (%) (Auto) 1 % (0-3) Basophils (%) (Auto) 1 % (0-3) Neutrophils # (Auto) 2.4 x10^3uL (1.8-7.7) Lymphocytes # (Auto) 0.4 x10^3/uL (1.0-4.8) Monocytes # (Auto) 0.6 x10^3/uL (0.0-1.1) Eosinophils # (Auto) 0.0 x10^3/uL (0.0-0.7) Basophils # (Auto) 0.0 x10^3/uL (0.0-0.2) Sodium Level 132 mmol/L (136-145) Potassium Level 3.6 mmol/L (3.5-5.1) Chloride Level 97 mmol/L (98-107) Carbon Dioxide Level 31 mmol/L (21-32) Anion Gap 4 (6-14) Blood Urea Nitrogen 5 mg/dL (8-26) Creatinine 0.5 mg/dL (0.7-1.3) Estimated GFR (Cockcroft-Gault) 165.4 Glucose Level 82 mg/dL (70-99) Calcium Level 7.7 mg/dL (8.5-10.1) Medications Active Scripts Medications Dose Route/Sig Max Daily Dose Days Date Category Melatonin 3 Mg Tablet 1 Tab PO QHS 08/07/17 Reported Aspirin 81 Mg Tab.chew 81 Mg PO DAILY 08/07/17 Reported Comments cxr reviewed, Small left pleural effusion with suggestion of a loculated component along left lateral chest wall appears unchanged since 08/11/2017. Left lung base pleural catheter is in similar position. Impression . 1. Acute respiratory failure secondary to large left-sided effusion. 2. Abnormal x-ray/left-sided effusion 3. Hyponatremia 4. Generalized weakness. 5. Severe protein malnutrition, present upon admission. 6. Chronic obstructive pulmonary disease. 7. Tobacco dependence, quit 4 years ago. Plan . SUSPECT PLEURAL FLUID SEC TO RECENT FALL/HEMOTHORAX COLOR OF FLUID IS SOMEWHAT DIFFERENT WILL ADD AMYLASE AND CREATINE TO FLUID ANALYSIS 1. CONTINUE CHEST TUBE DRAINAGE HAD GREATER THAN 300 CC IN 24 HOURS 2. elevate hob 3. Monitor sodium. 4. REVIEWED PT WAS SEEN RECENTLY BY HIS HAND [employer] WITH REPEAT PET THERE WAS NO NEW DISEASE 5. avoid oversedation 6. am cxr discussed w JOÃO Sow MD Aug 12, 2017 08:27
[2017-08-12] MEDS: POTASSIUM & SODIUM PHOSPHATES PACKET. PO SCH ×2 (08:43→21:42)
[2017-08-12] MEDS: ASPIRIN 325 MG TABLET PO SCH (08:43)
[2017-08-12] MEDS: MULTIVIT INFUSN,ADULT 4,VIT K 10 ML, FOLIC ACID 1 MG, THIAMINE 100 MG in IV DEXTROSE 5 ... IV SCH (08:44)
--- NOTE | 2017-08-12 09:30 | RAD ---
Chest radiograph 08/12/2017 11:00 AM Indication: Pleural effusion Comparison: Chest radiograph 08/11/2017, 08/10/2017 Technique: Single portable upright frontal view of the chest is provided. Findings: Cardiomediastinal silhouette appears similar. There is biapical pleural parenchymal scarring. There is a small left pleural effusion with suggestion of a loculated component along the left lateral chest wall which appears similar compared to the most recent prior from 08/11/2017 . Left pleural catheter is in similar position. There is volume loss in the left lung with atelectasis and/or scarring. Patchy density at the right lung base may represent subsegmental atelectasis versus scarring versus infiltrate. Findings are stable since prior examination. There is dextroconvex scoliosis of the thoracic spine. Impression: Small left pleural effusion with suggestion of a loculated component along left lateral chest wall appears unchanged since 08/11/2017. Left lung base pleural catheter is in similar position.
--- NOTE | 2017-08-12 12:33 | PDOC ---
PROGRESS NOTES Chief Complaint Chief Complaint Large pleural effusion s/p thoracentesis 1.5 L (08/08) Hx lung CA Anemia of malignancy/inflammation Hyponatremia in a cancer pt (SIADH syndrome?) Hypocalcemia in the background of low albumin History of Present Illness History of Present Illness Pt laying in bed. Status appears to be improving. Anxious to go home but needs to have chest tube removed before considering d/c Vitals Vitals Vital Signs Date Time Temp Pulse Resp B/P (MAP) Pulse Ox O2 Delivery O2 Flow Rate FiO2 08/12/17 08:10 Nasal Cannula 2.0 08/12/17 07:45 96.4 87 20 140/87 (104) 94 96.4 Physical Exam General: Alert, Oriented X3 Heart: Normal S1, Normal S2 Lungs: Clear, Other (dec BS RT) Abdomen: Normal bowel sounds, Soft Extremities: Normal pulses, Other (trace pedal edema ) Skin: No rashes, No breakdown, Other (thin, friable ) Labs LABS Laboratory Tests Test 08/12/17 04:45 White Blood Count 3.4 x10^3/uL (4.0-11.0) Red Blood Count 3.94 x10^6/uL (4.30-5.70) Hemoglobin 15.0 g/dL (13.0-17.5) Hematocrit 43.3 % (39.0-53.0) Mean Corpuscular Volume 110 fL (79-100) Mean Corpuscular Hemoglobin 38 pg (25-35) Mean Corpuscular Hemoglobin Concent 35 g/dL (31-37) Red Cell Distribution Width 16.2 % (11.5-14.5) Platelet Count 159 x10^3/uL (140-400) Neutrophils (%) (Auto) 70 % (31-73) Lymphocytes (%) (Auto) 12 % (24-48) Monocytes (%) (Auto) 17 % (0-9) Eosinophils (%) (Auto) 1 % (0-3) Basophils (%) (Auto) 1 % (0-3) Neutrophils # (Auto) 2.4 x10^3uL (1.8-7.7) Lymphocytes # (Auto) 0.4 x10^3/uL (1.0-4.8) Monocytes # (Auto) 0.6 x10^3/uL (0.0-1.1) Eosinophils # (Auto) 0.0 x10^3/uL (0.0-0.7) Basophils # (Auto) 0.0 x10^3/uL (0.0-0.2) Sodium Level 132 mmol/L (136-145) Potassium Level 3.6 mmol/L (3.5-5.1) Chloride Level 97 mmol/L (98-107) Carbon Dioxide Level 31 mmol/L (21-32) Anion Gap 4 (6-14) Blood Urea Nitrogen 5 mg/dL (8-26) Creatinine 0.5 mg/dL (0.7-1.3) Estimated GFR (Cockcroft-Gault) 165.4 Glucose Level 82 mg/dL (70-99) Calcium Level 7.7 mg/dL (8.5-10.1) Review of Systems Review of Systems c/o fatigue c/o hunger Assessment and Plan Assessmemt and Plan 1. Large pleural effusion s/p thoracentesis 1.5 L (08/08) 2. Hx lung CA s/p wedge resection x 2 (follows with onc in [place]) - no radiation or chemo needed 3. SOA sec to above 4. Anemai of malignancy/inflammation 5. MOd PCM 6. HYponatremia in a cancer pt (SIADH syndrome?) BETTER 7. HYpocalcemia in the background of low albumin PLAN: Chest tube removal when stable Eager to go home -but chest tube output needs to decrease & be removed before d/ c Possible d/c this weekend if ok w/ subspecialists Problems: Comment Review of Relevant I have reviewed the following items tita (where applicable) has been applied. Labs Laboratory Tests Test 08/11/17 04:45 08/12/17 04:45 White Blood Count 3.0 x10^3/uL (4.0-11.0) 3.4 x10^3/uL (4.0-11.0) Red Blood Count 3.81 x10^6/uL (4.30-5.70) 3.94 x10^6/uL (4.30-5.70) Hemoglobin 14.6 g/dL (13.0-17.5) 15.0 g/dL (13.0-17.5) Hematocrit 41.1 % (39.0-53.0) 43.3 % (39.0-53.0) Mean Corpuscular Volume 108 fL (79-100) 110 fL (79-100) Mean Corpuscular Hemoglobin 38 pg (25-35) 38 pg (25-35) Mean Corpuscular Hemoglobin Concent 36 g/dL (31-37) 35 g/dL (31-37) Red Cell Distribution Width 16.2 % (11.5-14.5) 16.2 % (11.5-14.5) Platelet Count 127 x10^3/uL (140-400) 159 x10^3/uL (140-400) Neutrophils (%) (Auto) 68 % (31-73) 70 % (31-73) Lymphocytes (%) (Auto) 14 % (24-48) 12 % (24-48) Monocytes (%) (Auto) 16 % (0-9) 17 % (0-9) Eosinophils (%) (Auto) 1 % (0-3) 1 % (0-3) Basophils (%) (Auto) 1 % (0-3) 1 % (0-3) Neutrophils # (Auto) 2.1 x10^3uL (1.8-7.7) 2.4 x10^3uL (1.8-7.7) Lymphocytes # (Auto) 0.4 x10^3/uL (1.0-4.8) 0.4 x10^3/uL (1.0-4.8) Monocytes # (Auto) 0.5 x10^3/uL (0.0-1.1) 0.6 x10^3/uL (0.0-1.1) Eosinophils # (Auto) 0.0 x10^3/uL (0.0-0.7) 0.0 x10^3/uL (0.0-0.7) Basophils # (Auto) 0.0 x10^3/uL (0.0-0.2) 0.0 x10^3/uL (0.0-0.2) Sodium Level 132 mmol/L (136-145) 132 mmol/L (136-145) Potassium Level 3.7 mmol/L (3.5-5.1) 3.6 mmol/L (3.5-5.1) Chloride Level 98 mmol/L (98-107) 97 mmol/L (98-107) Carbon Dioxide Level 31 mmol/L (21-32) 31 mmol/L (21-32) Anion Gap 3 (6-14) 4 (6-14) Blood Urea Nitrogen 4 mg/dL (8-26) 5 mg/dL (8-26) Creatinine 0.4 mg/dL (0.7-1.3) 0.5 mg/dL (0.7-1.3) Estimated GFR (Cockcroft-Gault) 213.9 165.4 Glucose Level 81 mg/dL (70-99) 82 mg/dL (70-99) Calcium Level 7.5 mg/dL (8.5-10.1) 7.7 mg/dL (8.5-10.1) Laboratory Tests Test 08/12/17 04:45 White Blood Count 3.4 x10^3/uL (4.0-11.0) Red Blood Count 3.94 x10^6/uL (4.30-5.70) Hemoglobin 15.0 g/dL (13.0-17.5) Hematocrit 43.3 % (39.0-53.0) Mean Corpuscular Volume 110 fL (79-100) Mean Corpuscular Hemoglobin 38 pg (25-35) Mean Corpuscular Hemoglobin Concent 35 g/dL (31-37) Red Cell Distribution Width 16.2 % (11.5-14.5) Platelet Count 159 x10^3/uL (140-400) Neutrophils (%) (Auto) 70 % (31-73) Lymphocytes (%) (Auto) 12 % (24-48) Monocytes (%) (Auto) 17 % (0-9) Eosinophils (%) (Auto) 1 % (0-3) Basophils (%) (Auto) 1 % (0-3) Neutrophils # (Auto) 2.4 x10^3uL (1.8-7.7) Lymphocytes # (Auto) 0.4 x10^3/uL (1.0-4.8) Monocytes # (Auto) 0.6 x10^3/uL (0.0-1.1) Eosinophils # (Auto) 0.0 x10^3/uL (0.0-0.7) Basophils # (Auto) 0.0 x10^3/uL (0.0-0.2) Sodium Level 132 mmol/L (136-145) Potassium Level 3.6 mmol/L (3.5-5.1) Chloride Level 97 mmol/L (98-107) Carbon Dioxide Level 31 mmol/L (21-32) Anion Gap 4 (6-14) Blood Urea Nitrogen 5 mg/dL (8-26) Creatinine 0.5 mg/dL (0.7-1.3) Estimated GFR (Cockcroft-Gault) 165.4 Glucose Level 82 mg/dL (70-99) Calcium Level 7.7 mg/dL (8.5-10.1) Microbiology 08/08/17 Gram Stain - Final, Complete Medications Current Medications Ceftriaxone Sodium 1 gm/ Sodium Chloride 50 ml @ 100 mls/hr Q24H IV Last administered on 08/08/17 20:01; Start 08/07/17 at 21:00; Stop 08/09/17 at 11:16 ; Status DC Aspirin (Yaneth Aspirin) 325 mg DAILYWBKFT PO Last administered on 08/12/17 08: 43; Start 08/08/17 at 08:00 Multivitamins (Thera M Plus) 1 tab DAILY PO Last administered on 08/10/17 08: 39; Start 08/08/17 at 09:00; Stop 08/10/17 at 13:03; Status DC Lorazepam (Ativan) 2 mg PRN Q6HRS PRN PO WITHDRAWAL IRRITABILITY Last administered on 08/10/17 22:49; Start 08/07/17 at 20:15 Ondansetron HCl (Zofran) 4 mg PRN Q6HRS PRN IV NAUSEA/VOMITING 1ST CHOICE; Start 08/08/17 at 09:00 Acetaminophen (Tylenol) 500 mg PRN Q6HRS PRN PO MILD PAIN / TEMP; Start at 09:00 Ketorolac Tromethamine (Toradol) 15 mg PRN Q6HRS PRN IV PAIN; Start 08/08/17 at 09:00; Stop 08/13/17 at 08:59 Morphine Sulfate 1 mg PRN Q2HR PRN IV PAIN PAIN SEV; Start 08/08/17 at 09:00 Non-Formulary Medication 1 tab QHS PO ; Start 08/08/17 at 21:00; Status UNV Acetaminophen/ Hydrocodone Bitart (Lortab 5/325) 1 tab PRN Q4HRS PRN PO MODERATE - SEVERE PAIN Last administered on 08/09/17 18:25; Start 08/08/17 at 09:00 Magnesium Hydroxide (Milk Of Magnesia) 2,400 mg PRN DAILY PRN PO CONSTIPATION Last administered on 08/10/17 06:34; Start 08/08/17 at 09:00 Chlordiazepoxide (Librium) 25 mg PRN Q6HRS PRN PO ANXIETY / AGITATION; Start at 11:15 Multivitamins 10 ml/Folic Acid 1 mg/Thiamine HCl 100 mg/Dextrose/ Sodium Chloride 1,011.1 ml @ 100 mls/ hr DAILY IV Last administered on 08/12/17 08: 44; Start 08/09/17 at 12:00 Hydralazine HCl (Apresoline) 10 mg PRN Q4HRS PRN IVP ELEVATED BP, SEE COMMENTS ; Start 08/09/17 at 15:45; Status Cancel Potassium Phos/ Sodium Phos (Phos-Nak) 1 pkt BID PO Last administered on 08:43; Start 08/10/17 at 09:30 Potassium Chloride (Klor-Con) 20 meq 1X ONCE PO Last administered on 09:51; Start 08/10/17 at 09:30; Stop 08/10/17 at 09:31; Status DC Lorazepam (Ativan) 1 mg PRN Q4HRS PRN IV ANXIETY / AGITATION Last administered on 08/12/17 01:02; Start 08/11/17 at 10:00 Active Scripts Active Reported Melatonin 3 Mg Tablet 1 Tab PO QHS Aspirin 81 Mg Tab.chew 81 Mg PO DAILY Vitals/I & O Vital Sign - Last 24 Hours 08/11/17 08/11/17 08/11/17 08/11/17 15:00 19:10 19:39 22:50 Temp 97.7 97.5 98.2 97.7 97.5 98.2 Pulse 83 86 87 Resp 16 24 22 B/P (MAP) 96/63 (74) 124/77 (93) 147/95 (112) Pulse Ox 95 94 90 O2 Delivery Nasal Cannula Room Air Room Air Room Air O2 Flow Rate 2.0 2.0 08/12/17 08/12/17 08/12/17 08/12/17 03:30 07:00 07:45 08:00 Temp 97.5 96.4 96.4 97.5 96.4 96.4 Pulse 83 88 87 Resp 20 20 20 B/P (MAP) 145/88 (107) 140/87 (104) 140/87 (104) Pulse Ox 96 94 94 O2 Delivery Nasal Cannula Nasal Cannula Nasal Cannula Nasal Cannula O2 Flow Rate 2.0 2.0 2.0 2.0 08/12/17 08:10 O2 Delivery Nasal Cannula O2 Flow Rate 2.0 Intake and Output 08/12/17 08/12/17 08/13/17 15:00 23:00 07:00 Intake Total 75 ml Output Total 325 ml Balance -250 ml JENNIFER PAGAN III DO Aug 12, 2017 12:33
--- NOTE | 2017-08-12 17:56 | PDOC ---
PROGRESS NOTES Subjective Subjective c/c - f/u of Pleural effusion. ROS - no CP Objective Objective Vital Signs Date Time Temp Pulse Resp B/P (MAP) Pulse Ox O2 Delivery O2 Flow Rate FiO2 08/12/17 15:00 97.4 74 18 126/80 (95) 94 Nasal Cannula 2.0 97.4 Intake and Output 08/13/17 07:00 Intake Total 75 ml Output Total 425 ml Balance -350 ml Intake Oral 75 ml Output Urine Total 225 ml Chest Tube Drainage Total 200 ml # Voids 2 Physical Exam Heart: Normal S1, Normal S2 General: Alert, Oriented X3 Neuro: Normal speech Assessment Assessment IMPRESSION AND PLAN: 1. Lung cancer in 2012. I will obtain the records from his prior surgery and treatment. There is no history of chemotherapy or radiation therapy. His PET scan on 06/15/2017 did not reveal any definite evidence of recurrence. He has now developed significant pleural effusion on the left side. Cytology report reviewed - negative for malignancy. Etiology could be fall related/hemothorax. Malignancy cannot be ruled out and needs f/u with pulmonary. Appreciate pulmonary consultation. 2. Pleural effusion. He has got a thoracostomy tube in place. Appreciate interventional radiology management and pulmonary management. Dyspnea better 3. Elevated MCV of 110. His platelets are also decreased to 107. Hemoglobin is normal at 15.7. B12 and folic acid levels are normal. Monitor. 4. Thrombocytopenia. We will continue to monitor. This could be a reactive process. improved to 159. Comment Review of Relevant I have reviewed the following items tita (where applicable) has been applied. Labs Laboratory Tests Test 08/11/17 04:45 08/12/17 04:45 White Blood Count 3.0 x10^3/uL (4.0-11.0) 3.4 x10^3/uL (4.0-11.0) Red Blood Count 3.81 x10^6/uL (4.30-5.70) 3.94 x10^6/uL (4.30-5.70) Hemoglobin 14.6 g/dL (13.0-17.5) 15.0 g/dL (13.0-17.5) Hematocrit 41.1 % (39.0-53.0) 43.3 % (39.0-53.0) Mean Corpuscular Volume 108 fL (79-100) 110 fL (79-100) Mean Corpuscular Hemoglobin 38 pg (25-35) 38 pg (25-35) Mean Corpuscular Hemoglobin Concent 36 g/dL (31-37) 35 g/dL (31-37) Red Cell Distribution Width 16.2 % (11.5-14.5) 16.2 % (11.5-14.5) Platelet Count 127 x10^3/uL (140-400) 159 x10^3/uL (140-400) Neutrophils (%) (Auto) 68 % (31-73) 70 % (31-73) Lymphocytes (%) (Auto) 14 % (24-48) 12 % (24-48) Monocytes (%) (Auto) 16 % (0-9) 17 % (0-9) Eosinophils (%) (Auto) 1 % (0-3) 1 % (0-3) Basophils (%) (Auto) 1 % (0-3) 1 % (0-3) Neutrophils # (Auto) 2.1 x10^3uL (1.8-7.7) 2.4 x10^3uL (1.8-7.7) Lymphocytes # (Auto) 0.4 x10^3/uL (1.0-4.8) 0.4 x10^3/uL (1.0-4.8) Monocytes # (Auto) 0.5 x10^3/uL (0.0-1.1) 0.6 x10^3/uL (0.0-1.1) Eosinophils # (Auto) 0.0 x10^3/uL (0.0-0.7) 0.0 x10^3/uL (0.0-0.7) Basophils # (Auto) 0.0 x10^3/uL (0.0-0.2) 0.0 x10^3/uL (0.0-0.2) Sodium Level 132 mmol/L (136-145) 132 mmol/L (136-145) Potassium Level 3.7 mmol/L (3.5-5.1) 3.6 mmol/L (3.5-5.1) Chloride Level 98 mmol/L (98-107) 97 mmol/L (98-107) Carbon Dioxide Level 31 mmol/L (21-32) 31 mmol/L (21-32) Anion Gap 3 (6-14) 4 (6-14) Blood Urea Nitrogen 4 mg/dL (8-26) 5 mg/dL (8-26) Creatinine 0.4 mg/dL (0.7-1.3) 0.5 mg/dL (0.7-1.3) Estimated GFR (Cockcroft-Gault) 213.9 165.4 Glucose Level 81 mg/dL (70-99) 82 mg/dL (70-99) Calcium Level 7.5 mg/dL (8.5-10.1) 7.7 mg/dL (8.5-10.1) Laboratory Tests Test 08/12/17 04:45 White Blood Count 3.4 x10^3/uL (4.0-11.0) Red Blood Count 3.94 x10^6/uL (4.30-5.70) Hemoglobin 15.0 g/dL (13.0-17.5) Hematocrit 43.3 % (39.0-53.0) Mean Corpuscular Volume 110 fL (79-100) Mean Corpuscular Hemoglobin 38 pg (25-35) Mean Corpuscular Hemoglobin Concent 35 g/dL (31-37) Red Cell Distribution Width 16.2 % (11.5-14.5) Platelet Count 159 x10^3/uL (140-400) Neutrophils (%) (Auto) 70 % (31-73) Lymphocytes (%) (Auto) 12 % (24-48) Monocytes (%) (Auto) 17 % (0-9) Eosinophils (%) (Auto) 1 % (0-3) Basophils (%) (Auto) 1 % (0-3) Neutrophils # (Auto) 2.4 x10^3uL (1.8-7.7) Lymphocytes # (Auto) 0.4 x10^3/uL (1.0-4.8) Monocytes # (Auto) 0.6 x10^3/uL (0.0-1.1) Eosinophils # (Auto) 0.0 x10^3/uL (0.0-0.7) Basophils # (Auto) 0.0 x10^3/uL (0.0-0.2) Sodium Level 132 mmol/L (136-145) Potassium Level 3.6 mmol/L (3.5-5.1) Chloride Level 97 mmol/L (98-107) Carbon Dioxide Level 31 mmol/L (21-32) Anion Gap 4 (6-14) Blood Urea Nitrogen 5 mg/dL (8-26) Creatinine 0.5 mg/dL (0.7-1.3) Estimated GFR (Cockcroft-Gault) 165.4 Glucose Level 82 mg/dL (70-99) Calcium Level 7.7 mg/dL (8.5-10.1) Microbiology 08/08/17 Gram Stain - Final, Complete Medications Current Medications Ceftriaxone Sodium 1 gm/ Sodium Chloride 50 ml @ 100 mls/hr Q24H IV Last administered on 08/08/17 20:01; Start 08/07/17 at 21:00; Stop 08/09/17 at 11:16 ; Status DC Aspirin (Yaneth Aspirin) 325 mg DAILYWBKFT PO Last administered on 08/12/17 08: 43; Start 08/08/17 at 08:00 Multivitamins (Thera M Plus) 1 tab DAILY PO Last administered on 08/10/17 08: 39; Start 08/08/17 at 09:00; Stop 08/10/17 at 13:03; Status DC Lorazepam (Ativan) 2 mg PRN Q6HRS PRN PO WITHDRAWAL IRRITABILITY Last administered on 08/10/17 22:49; Start 08/07/17 at 20:15 Ondansetron HCl (Zofran) 4 mg PRN Q6HRS PRN IV NAUSEA/VOMITING 1ST CHOICE; Start 08/08/17 at 09:00 Acetaminophen (Tylenol) 500 mg PRN Q6HRS PRN PO MILD PAIN / TEMP; Start at 09:00 Ketorolac Tromethamine (Toradol) 15 mg PRN Q6HRS PRN IV PAIN; Start 08/08/17 at 09:00; Stop 08/13/17 at 08:59 Morphine Sulfate 1 mg PRN Q2HR PRN IV PAIN PAIN SEV; Start 08/08/17 at 09:00 Non-Formulary Medication 1 tab QHS PO ; Start 08/08/17 at 21:00; Status UNV Acetaminophen/ Hydrocodone Bitart (Lortab 5/325) 1 tab PRN Q4HRS PRN PO MODERATE - SEVERE PAIN Last administered on 08/09/17 18:25; Start 08/08/17 at 09:00 Magnesium Hydroxide (Milk Of Magnesia) 2,400 mg PRN DAILY PRN PO CONSTIPATION Last administered on 08/10/17 06:34; Start 08/08/17 at 09:00 Chlordiazepoxide (Librium) 25 mg PRN Q6HRS PRN PO ANXIETY / AGITATION; Start at 11:15 Multivitamins 10 ml/Folic Acid 1 mg/Thiamine HCl 100 mg/Dextrose/ Sodium Chloride 1,011.1 ml @ 100 mls/ hr DAILY IV Last administered on 08/12/17 08: 44; Start 08/09/17 at 12:00 Hydralazine HCl (Apresoline) 10 mg PRN Q4HRS PRN IVP ELEVATED BP, SEE COMMENTS ; Start 08/09/17 at 15:45; Status Cancel Potassium Phos/ Sodium Phos (Phos-Nak) 1 pkt BID PO Last administered on 08:43; Start 08/10/17 at 09:30 Potassium Chloride (Klor-Con) 20 meq 1X ONCE PO Last administered on 09:51; Start 08/10/17 at 09:30; Stop 08/10/17 at 09:31; Status DC Lorazepam (Ativan) 1 mg PRN Q4HRS PRN IV ANXIETY / AGITATION Last administered on 08/12/17 01:02; Start 08/11/17 at 10:00 Active Scripts Active Reported Melatonin 3 Mg Tablet 1 Tab PO QHS Aspirin 81 Mg Tab.chew 81 Mg PO DAILY Vitals/I & O Vital Sign - Last 24 Hours 08/11/17 08/11/17 08/11/17 08/12/17 19:10 19:39 22:50 03:30 Temp 97.5 98.2 97.5 97.5 98.2 97.5 Pulse 86 87 83 Resp 24 22 20 B/P (MAP) 124/77 (93) 147/95 (112) 145/88 (107) Pulse Ox 94 90 96 O2 Delivery Room Air Room Air Room Air Nasal Cannula O2 Flow Rate 2.0 2.0 08/12/17 08/12/17 08/12/17 08/12/17 07:00 07:45 08:00 08:10 Temp 96.4 96.4 96.4 96.4 Pulse 88 87 Resp 20 20 B/P (MAP) 140/87 (104) 140/87 (104) Pulse Ox 94 94 O2 Delivery Nasal Cannula Nasal Cannula Nasal Cannula Nasal Cannula O2 Flow Rate 2.0 2.0 2.0 2.0 08/12/17 08/12/17 08/12/17 11:00 12:59 15:00 Temp 98.1 98.1 97.4 98.1 98.1 97.4 Pulse 77 77 74 Resp 16 16 18 B/P (MAP) 109/81 (90) 109/81 (90) 126/80 (95) Pulse Ox 98 98 94 O2 Delivery Nasal Cannula Nasal Cannula Nasal Cannula O2 Flow Rate 2.0 2.0 2.0 Intake and Output 08/12/17 08/12/17 08/13/17 15:00 23:00 07:00 Intake Total 75 ml Output Total 425 ml Balance -350 ml NATHALIE NAIDU MD Aug 12, 2017 17:56
[2017-08-12 22:08] LABS: BODY FLUID CREATININE 0.4 mg/dL (.)
[2017-08-13 03:10] VITALS: BP 121/82
[2017-08-13 05:31] LABS: BASO % 2 % (0-3); EOS % 1 % (0-3); HEMATOCRIT 41.7 % (39.0-53.0); HEMOGLOBIN 14.4 g/dL (13.0-17.5); LYMPH # 0.4 x10^3/uL (1.0-4.8); LYMPH % 12 % (24-48); MEAN CORPUSCULAR HEMOGLOBIN 38 pg (25-35); MEAN CORPUSCULAR HGB CONC 35 g/dL (31-37); MEAN CORPUSCULAR VOLUME 109 fL (79-100); MONO % 21 % (0-9); NEUT % 65 % (31-73); PLATELET COUNT 186 x10^3/uL (140-400); RED BLOOD COUNT 3.83 x10^6/uL (4.30-5.70); RED CELL DISTRIBUTION WIDTH 16.1 % (11.5-14.5); WHITE BLOOD COUNT 3.2 x10^3/uL (4.0-11.0)
[2017-08-13 05:41] LABS: CALCIUM 7.8 mg/dL (8.5-10.1); CREATININE 0.4 mg/dL (0.7-1.3); GFR 213.9; POTASSIUM 3.6 mmol/L (3.5-5.1)
[2017-08-13 07:56] VITALS: BP 105/74
[2017-08-13] MEDS: ASPIRIN 325 MG TABLET PO SCH (08:00)
--- NOTE | 2017-08-13 08:51 | PDOC ---
PULMONARY PROGRESS NOTES Subjective ct 300cc drainage, alert, no pain, sob, cough Vitals Vital Signs Date Time Temp Pulse Resp B/P (MAP) Pulse Ox O2 Delivery O2 Flow Rate FiO2 08/13/17 07:56 97.9 92 18 105/74 (84) 93 Nasal Cannula 2.0 97.9 ROS: No Nausea, No Abdominal Pain, No Increase Cough General: Alert, Lethargic Lungs: Other (basilar crackle. l dullness at base, l ct) Cardiovascular: S1, S2 Abdomen: Soft, Non-tender Neuro Exam: Alert, Oriented Extremities: No Edema Skin: Warm Labs Laboratory Tests Test 08/11/17 19:20 08/12/17 04:45 08/13/17 04:00 Body Fluid Amylase 48 U/L (.) Body Fluid Creatinine 0.4 mg/dL (.) White Blood Count 3.4 x10^3/uL (4.0-11.0) 3.2 x10^3/uL (4.0-11.0) Red Blood Count 3.94 x10^6/uL (4.30-5.70) 3.83 x10^6/uL (4.30-5.70) Hemoglobin 15.0 g/dL (13.0-17.5) 14.4 g/dL (13.0-17.5) Hematocrit 43.3 % (39.0-53.0) 41.7 % (39.0-53.0) Mean Corpuscular Volume 110 fL (79-100) 109 fL (79-100) Mean Corpuscular Hemoglobin 38 pg (25-35) 38 pg (25-35) Mean Corpuscular Hemoglobin Concent 35 g/dL (31-37) 35 g/dL (31-37) Red Cell Distribution Width 16.2 % (11.5-14.5) 16.1 % (11.5-14.5) Platelet Count 159 x10^3/uL (140-400) 186 x10^3/uL (140-400) Neutrophils (%) (Auto) 70 % (31-73) 65 % (31-73) Lymphocytes (%) (Auto) 12 % (24-48) 12 % (24-48) Monocytes (%) (Auto) 17 % (0-9) 21 % (0-9) Eosinophils (%) (Auto) 1 % (0-3) 1 % (0-3) Basophils (%) (Auto) 1 % (0-3) 2 % (0-3) Neutrophils # (Auto) 2.4 x10^3uL (1.8-7.7) 2.1 x10^3uL (1.8-7.7) Lymphocytes # (Auto) 0.4 x10^3/uL (1.0-4.8) 0.4 x10^3/uL (1.0-4.8) Monocytes # (Auto) 0.6 x10^3/uL (0.0-1.1) 0.7 x10^3/uL (0.0-1.1) Eosinophils # (Auto) 0.0 x10^3/uL (0.0-0.7) 0.0 x10^3/uL (0.0-0.7) Basophils # (Auto) 0.0 x10^3/uL (0.0-0.2) 0.0 x10^3/uL (0.0-0.2) Sodium Level 132 mmol/L (136-145) 132 mmol/L (136-145) Potassium Level 3.6 mmol/L (3.5-5.1) 3.6 mmol/L (3.5-5.1) Chloride Level 97 mmol/L (98-107) 98 mmol/L (98-107) Carbon Dioxide Level 31 mmol/L (21-32) 31 mmol/L (21-32) Anion Gap 4 (6-14) 3 (6-14) Blood Urea Nitrogen 5 mg/dL (8-26) 4 mg/dL (8-26) Creatinine 0.5 mg/dL (0.7-1.3) 0.4 mg/dL (0.7-1.3) Estimated GFR (Cockcroft-Gault) 165.4 213.9 Glucose Level 82 mg/dL (70-99) 88 mg/dL (70-99) Calcium Level 7.7 mg/dL (8.5-10.1) 7.8 mg/dL (8.5-10.1) Laboratory Tests Test 08/13/17 04:00 White Blood Count 3.2 x10^3/uL (4.0-11.0) Red Blood Count 3.83 x10^6/uL (4.30-5.70) Hemoglobin 14.4 g/dL (13.0-17.5) Hematocrit 41.7 % (39.0-53.0) Mean Corpuscular Volume 109 fL (79-100) Mean Corpuscular Hemoglobin 38 pg (25-35) Mean Corpuscular Hemoglobin Concent 35 g/dL (31-37) Red Cell Distribution Width 16.1 % (11.5-14.5) Platelet Count 186 x10^3/uL (140-400) Neutrophils (%) (Auto) 65 % (31-73) Lymphocytes (%) (Auto) 12 % (24-48) Monocytes (%) (Auto) 21 % (0-9) Eosinophils (%) (Auto) 1 % (0-3) Basophils (%) (Auto) 2 % (0-3) Neutrophils # (Auto) 2.1 x10^3uL (1.8-7.7) Lymphocytes # (Auto) 0.4 x10^3/uL (1.0-4.8) Monocytes # (Auto) 0.7 x10^3/uL (0.0-1.1) Eosinophils # (Auto) 0.0 x10^3/uL (0.0-0.7) Basophils # (Auto) 0.0 x10^3/uL (0.0-0.2) Sodium Level 132 mmol/L (136-145) Potassium Level 3.6 mmol/L (3.5-5.1) Chloride Level 98 mmol/L (98-107) Carbon Dioxide Level 31 mmol/L (21-32) Anion Gap 3 (6-14) Blood Urea Nitrogen 4 mg/dL (8-26) Creatinine 0.4 mg/dL (0.7-1.3) Estimated GFR (Cockcroft-Gault) 213.9 Glucose Level 88 mg/dL (70-99) Calcium Level 7.8 mg/dL (8.5-10.1) Medications Active Scripts Medications Dose Route/Sig Max Daily Dose Days Date Category Melatonin 3 Mg Tablet 1 Tab PO QHS 08/07/17 Reported Aspirin 81 Mg Tab.chew 81 Mg PO DAILY 08/07/17 Reported Comments cxr reviewed, Small left pleural effusion with suggestion of a loculated component along left lateral chest wall appears unchanged since 08/11/2017. Left lung base pleural catheter is in similar position. Impression . 1. Acute respiratory failure secondary to large left-sided effusion. 2. Abnormal x-ray/left-sided effusion 3. Hyponatremia 4. Generalized weakness. 5. Severe protein malnutrition, present upon admission. 6. Chronic obstructive pulmonary disease. 7. Tobacco dependence, quit 4 years ago. Plan . SUSPECT PLEURAL FLUID SEC TO RECENT FALL/HEMOTHORAX, pleural fluid was sent for repeat cytology 1. CONTINUE CHEST TUBE DRAINAGE HAD GREATER THAN 300 CC IN 24 HOURS, dc suction , cxr in am 2. elevate hob 3. Monitor sodium. 4. REVIEWED PT WAS SEEN RECENTLY BY HIS [employer] WITH REPEAT PET THERE WAS NO NEW DISEASE 5. avoid oversedation discussed w JOÃO Sow MD Aug 13, 2017 08:51
[2017-08-13 10:59] VITALS: BP 95/65
--- NOTE | 2017-08-13 11:06 | RAD ---
Chest radiograph 08/13/2017 9:00 AM Indication: Pleural effusion Comparison: Chest radiograph 08/12/2017 Technique: Single portable upright frontal view of the chest is provided. Findings: Similar appearance of the cardiomediastinal silhouette. There is similar aeration of the left lung with small pleural effusion tracking along the left lateral wall and into the fissure. There is persistent patchy airspace disease at the right lung base. No pulmonary vascular congestion or pneumothorax. Impression: Similar appearance of the chest compared to prior examination.
[2017-08-13] MEDS: POTASSIUM & SODIUM PHOSPHATES PACKET. PO SCH ×2 (11:20→22:00)
[2017-08-13] MEDS: MULTIVIT INFUSN,ADULT 4,VIT K 10 ML, FOLIC ACID 1 MG, THIAMINE 100 MG in IV DEXTROSE 5 ... IV SCH (11:21)
--- NOTE | 2017-08-13 12:42 | PDOC ---
PROGRESS NOTES Subjective Subjective c/c - f/u of Pleural effusion ROS - no dyspnea Objective Objective Vital Signs Date Time Temp Pulse Resp B/P (MAP) Pulse Ox O2 Delivery O2 Flow Rate FiO2 08/13/17 10:59 97.7 43 17 95/65 (75) 95 Nasal Cannula 2.0 97.7 Physical Exam Heart: Normal S1, Normal S2 General: Alert, No acute distress Neuro: Normal speech Psych/Mental Status: Mental status NL Assessment Assessment IMPRESSION AND PLAN: 1. Lung cancer in 2012. I will obtain the records from his prior surgery and treatment. There is no history of chemotherapy or radiation therapy. His PET scan on 06/15/2017 did not reveal any definite evidence of recurrence. He has now developed significant pleural effusion on the left side. Cytology report reviewed - negative for malignancy. Etiology could be fall related/hemothorax. Malignancy cannot be ruled out and needs f/u with pulmonary. Appreciate pulmonary consultation. 2. Pleural effusion. He has got a thoracostomy tube in place. Appreciate interventional radiology management and pulmonary management. Dyspnea better 3. Elevated MCV of 110. His platelets are also decreased to 107. Hemoglobin is normal at 15.7. B12 and folic acid levels are normal. Monitor. 4. Thrombocytopenia. We will continue to monitor. This could be a reactive process. improved to 186. 5. Leukopenia, reactive, monitor Comment Review of Relevant I have reviewed the following items tita (where applicable) has been applied. Labs Laboratory Tests Test 08/11/17 19:20 08/12/17 04:45 08/13/17 04:00 Body Fluid Amylase 48 U/L (.) Body Fluid Creatinine 0.4 mg/dL (.) White Blood Count 3.4 x10^3/uL (4.0-11.0) 3.2 x10^3/uL (4.0-11.0) Red Blood Count 3.94 x10^6/uL (4.30-5.70) 3.83 x10^6/uL (4.30-5.70) Hemoglobin 15.0 g/dL (13.0-17.5) 14.4 g/dL (13.0-17.5) Hematocrit 43.3 % (39.0-53.0) 41.7 % (39.0-53.0) Mean Corpuscular Volume 110 fL (79-100) 109 fL (79-100) Mean Corpuscular Hemoglobin 38 pg (25-35) 38 pg (25-35) Mean Corpuscular Hemoglobin Concent 35 g/dL (31-37) 35 g/dL (31-37) Red Cell Distribution Width 16.2 % (11.5-14.5) 16.1 % (11.5-14.5) Platelet Count 159 x10^3/uL (140-400) 186 x10^3/uL (140-400) Neutrophils (%) (Auto) 70 % (31-73) 65 % (31-73) Lymphocytes (%) (Auto) 12 % (24-48) 12 % (24-48) Monocytes (%) (Auto) 17 % (0-9) 21 % (0-9) Eosinophils (%) (Auto) 1 % (0-3) 1 % (0-3) Basophils (%) (Auto) 1 % (0-3) 2 % (0-3) Neutrophils # (Auto) 2.4 x10^3uL (1.8-7.7) 2.1 x10^3uL (1.8-7.7) Lymphocytes # (Auto) 0.4 x10^3/uL (1.0-4.8) 0.4 x10^3/uL (1.0-4.8) Monocytes # (Auto) 0.6 x10^3/uL (0.0-1.1) 0.7 x10^3/uL (0.0-1.1) Eosinophils # (Auto) 0.0 x10^3/uL (0.0-0.7) 0.0 x10^3/uL (0.0-0.7) Basophils # (Auto) 0.0 x10^3/uL (0.0-0.2) 0.0 x10^3/uL (0.0-0.2) Sodium Level 132 mmol/L (136-145) 132 mmol/L (136-145) Potassium Level 3.6 mmol/L (3.5-5.1) 3.6 mmol/L (3.5-5.1) Chloride Level 97 mmol/L (98-107) 98 mmol/L (98-107) Carbon Dioxide Level 31 mmol/L (21-32) 31 mmol/L (21-32) Anion Gap 4 (6-14) 3 (6-14) Blood Urea Nitrogen 5 mg/dL (8-26) 4 mg/dL (8-26) Creatinine 0.5 mg/dL (0.7-1.3) 0.4 mg/dL (0.7-1.3) Estimated GFR (Cockcroft-Gault) 165.4 213.9 Glucose Level 82 mg/dL (70-99) 88 mg/dL (70-99) Calcium Level 7.7 mg/dL (8.5-10.1) 7.8 mg/dL (8.5-10.1) Laboratory Tests Test 08/13/17 04:00 White Blood Count 3.2 x10^3/uL (4.0-11.0) Red Blood Count 3.83 x10^6/uL (4.30-5.70) Hemoglobin 14.4 g/dL (13.0-17.5) Hematocrit 41.7 % (39.0-53.0) Mean Corpuscular Volume 109 fL (79-100) Mean Corpuscular Hemoglobin 38 pg (25-35) Mean Corpuscular Hemoglobin Concent 35 g/dL (31-37) Red Cell Distribution Width 16.1 % (11.5-14.5) Platelet Count 186 x10^3/uL (140-400) Neutrophils (%) (Auto) 65 % (31-73) Lymphocytes (%) (Auto) 12 % (24-48) Monocytes (%) (Auto) 21 % (0-9) Eosinophils (%) (Auto) 1 % (0-3) Basophils (%) (Auto) 2 % (0-3) Neutrophils # (Auto) 2.1 x10^3uL (1.8-7.7) Lymphocytes # (Auto) 0.4 x10^3/uL (1.0-4.8) Monocytes # (Auto) 0.7 x10^3/uL (0.0-1.1) Eosinophils # (Auto) 0.0 x10^3/uL (0.0-0.7) Basophils # (Auto) 0.0 x10^3/uL (0.0-0.2) Sodium Level 132 mmol/L (136-145) Potassium Level 3.6 mmol/L (3.5-5.1) Chloride Level 98 mmol/L (98-107) Carbon Dioxide Level 31 mmol/L (21-32) Anion Gap 3 (6-14) Blood Urea Nitrogen 4 mg/dL (8-26) Creatinine 0.4 mg/dL (0.7-1.3) Estimated GFR (Cockcroft-Gault) 213.9 Glucose Level 88 mg/dL (70-99) Calcium Level 7.8 mg/dL (8.5-10.1) Microbiology 08/08/17 Gram Stain - Final, Complete Medications Current Medications Ceftriaxone Sodium 1 gm/ Sodium Chloride 50 ml @ 100 mls/hr Q24H IV Last administered on 08/08/17 20:01; Start 08/07/17 at 21:00; Stop 08/09/17 at 11:16 ; Status DC Aspirin (Yaneth Aspirin) 325 mg DAILYWBKFT PO Last administered on 08/13/17 08: 00; Start 08/08/17 at 08:00 Multivitamins (Thera M Plus) 1 tab DAILY PO Last administered on 08/10/17 08: 39; Start 08/08/17 at 09:00; Stop 08/10/17 at 13:03; Status DC Lorazepam (Ativan) 2 mg PRN Q6HRS PRN PO WITHDRAWAL IRRITABILITY Last administered on 08/10/17 22:49; Start 08/07/17 at 20:15 Ondansetron HCl (Zofran) 4 mg PRN Q6HRS PRN IV NAUSEA/VOMITING 1ST CHOICE; Start 08/08/17 at 09:00 Acetaminophen (Tylenol) 500 mg PRN Q6HRS PRN PO MILD PAIN / TEMP; Start at 09:00 Ketorolac Tromethamine (Toradol) 15 mg PRN Q6HRS PRN IV PAIN; Start 08/08/17 at 09:00; Stop 08/13/17 at 08:59; Status DC Morphine Sulfate 1 mg PRN Q2HR PRN IV PAIN PAIN SEV; Start 08/08/17 at 09:00 Non-Formulary Medication 1 tab QHS PO ; Start 08/08/17 at 21:00; Status UNV Acetaminophen/ Hydrocodone Bitart (Lortab 5/325) 1 tab PRN Q4HRS PRN PO MODERATE - SEVERE PAIN Last administered on 08/09/17 18:25; Start 08/08/17 at 09:00 Magnesium Hydroxide (Milk Of Magnesia) 2,400 mg PRN DAILY PRN PO CONSTIPATION Last administered on 08/10/17 06:34; Start 08/08/17 at 09:00 Chlordiazepoxide (Librium) 25 mg PRN Q6HRS PRN PO ANXIETY / AGITATION; Start at 11:15 Multivitamins 10 ml/Folic Acid 1 mg/Thiamine HCl 100 mg/Dextrose/ Sodium Chloride 1,011.1 ml @ 100 mls/ hr DAILY IV Last administered on 08/13/17 11: 21; Start 08/09/17 at 12:00 Hydralazine HCl (Apresoline) 10 mg PRN Q4HRS PRN IVP ELEVATED BP, SEE COMMENTS ; Start 08/09/17 at 15:45; Status Cancel Potassium Phos/ Sodium Phos (Phos-Nak) 1 pkt BID PO Last administered on 11:20; Start 08/10/17 at 09:30 Potassium Chloride (Klor-Con) 20 meq 1X ONCE PO Last administered on 09:51; Start 08/10/17 at 09:30; Stop 08/10/17 at 09:31; Status DC Lorazepam (Ativan) 1 mg PRN Q4HRS PRN IV ANXIETY / AGITATION Last administered on 08/12/17 01:02; Start 08/11/17 at 10:00 Active Scripts Active Reported Melatonin 3 Mg Tablet 1 Tab PO QHS Aspirin 81 Mg Tab.chew 81 Mg PO DAILY Vitals/I & O Vital Sign - Last 24 Hours 08/12/17 08/12/17 08/12/17 08/12/17 12:59 15:00 19:10 20:00 Temp 98.1 97.4 98.2 98.1 97.4 98.2 Pulse 77 74 95 Resp 16 18 20 B/P (MAP) 109/81 (90) 126/80 (95) 122/79 (93) Pulse Ox 98 94 94 O2 Delivery Nasal Cannula Nasal Cannula Nasal Cannula O2 Flow Rate 2.0 2.0 2.0 08/12/17 08/13/17 08/13/17 08/13/17 23:10 03:10 07:56 08:00 Temp 98.4 98.3 97.9 98.4 98.3 97.9 Pulse 87 86 92 Resp 20 18 18 B/P (MAP) 123/78 (93) 121/82 (95) 105/74 (84) Pulse Ox 96 96 93 O2 Delivery Room Air Room Air Nasal Cannula Nasal Cannula O2 Flow Rate 2.0 2.0 08/13/17 10:59 Temp 97.7 97.7 Pulse 43 Resp 17 B/P (MAP) 95/65 (75) Pulse Ox 95 O2 Delivery Nasal Cannula O2 Flow Rate 2.0 NATHALIE NAIDU MD Aug 13, 2017 12:42
--- NOTE | 2017-08-13 14:43 | PDOC ---
PROGRESS NOTES Chief Complaint Chief Complaint Large pleural effusion s/p thoracentesis 1.5 L (08/08) Hx lung CA Anemia of malignancy/inflammation Hyponatremia in a cancer pt (SIADH syndrome?) Hypocalcemia in the background of low albumin History of Present Illness History of Present Illness Patient sitting in bedside chair, chest tube in place, suction has been removed. Spoke with RN: with suction on, pt had 300 cc of drainage over 24 hours; pleural fluid analysis pending Labs: Na 132 - stable, will continue to monitor Albumin 2.8 Vitals Vitals Vital Signs Date Time Temp Pulse Resp B/P (MAP) Pulse Ox O2 Delivery O2 Flow Rate FiO2 08/13/17 10:59 97.7 43 17 95/65 (75) 95 Nasal Cannula 2.0 97.7 Physical Exam General: Alert, No acute distress Heart: Normal S1, Normal S2 Lungs: Other (basilar crackle. l dullness at base, l ct) Abdomen: Normal bowel sounds, Soft Extremities: Normal pulses, Other (trace pedal edema ) Skin: No rashes, No breakdown, Other (thin, friable ) Labs LABS Laboratory Tests Test 08/13/17 04:00 White Blood Count 3.2 x10^3/uL (4.0-11.0) Red Blood Count 3.83 x10^6/uL (4.30-5.70) Hemoglobin 14.4 g/dL (13.0-17.5) Hematocrit 41.7 % (39.0-53.0) Mean Corpuscular Volume 109 fL (79-100) Mean Corpuscular Hemoglobin 38 pg (25-35) Mean Corpuscular Hemoglobin Concent 35 g/dL (31-37) Red Cell Distribution Width 16.1 % (11.5-14.5) Platelet Count 186 x10^3/uL (140-400) Neutrophils (%) (Auto) 65 % (31-73) Lymphocytes (%) (Auto) 12 % (24-48) Monocytes (%) (Auto) 21 % (0-9) Eosinophils (%) (Auto) 1 % (0-3) Basophils (%) (Auto) 2 % (0-3) Neutrophils # (Auto) 2.1 x10^3uL (1.8-7.7) Lymphocytes # (Auto) 0.4 x10^3/uL (1.0-4.8) Monocytes # (Auto) 0.7 x10^3/uL (0.0-1.1) Eosinophils # (Auto) 0.0 x10^3/uL (0.0-0.7) Basophils # (Auto) 0.0 x10^3/uL (0.0-0.2) Sodium Level 132 mmol/L (136-145) Potassium Level 3.6 mmol/L (3.5-5.1) Chloride Level 98 mmol/L (98-107) Carbon Dioxide Level 31 mmol/L (21-32) Anion Gap 3 (6-14) Blood Urea Nitrogen 4 mg/dL (8-26) Creatinine 0.4 mg/dL (0.7-1.3) Estimated GFR (Cockcroft-Gault) 213.9 Glucose Level 88 mg/dL (70-99) Calcium Level 7.8 mg/dL (8.5-10.1) Review of Systems Review of Systems c/o fatigue dyspnea improving Assessment and Plan Assessmemt and Plan Pleural Effusion - fall related/hemothorax Thrombocytopenia - ?reactive, improving Leukopenia - reactive Hyponatremia Moderate malnutrition - albumin 2.8 Hx Lung cancer - PET 06/15/17 no evidence of recurrence 1. Pleural Effusion: Dr. Joshua prieto - chest tube in place, off suction; elevate HOB, avoid oversedation 2. Hyponatremia - continue to monitor 3. Thrombocytopenia, Leukopenia: Dr. Sacha prieto, continue to monitor 4. Recheck labs in AM 5. Continue PT/OT 6. Appreciate subspecialty input Problems: Comment Review of Relevant I have reviewed the following items tita (where applicable) has been applied. Labs Laboratory Tests Test 08/11/17 19:20 08/12/17 04:45 08/13/17 04:00 Body Fluid Amylase 48 U/L (.) Body Fluid Creatinine 0.4 mg/dL (.) White Blood Count 3.4 x10^3/uL (4.0-11.0) 3.2 x10^3/uL (4.0-11.0) Red Blood Count 3.94 x10^6/uL (4.30-5.70) 3.83 x10^6/uL (4.30-5.70) Hemoglobin 15.0 g/dL (13.0-17.5) 14.4 g/dL (13.0-17.5) Hematocrit 43.3 % (39.0-53.0) 41.7 % (39.0-53.0) Mean Corpuscular Volume 110 fL (79-100) 109 fL (79-100) Mean Corpuscular Hemoglobin 38 pg (25-35) 38 pg (25-35) Mean Corpuscular Hemoglobin Concent 35 g/dL (31-37) 35 g/dL (31-37) Red Cell Distribution Width 16.2 % (11.5-14.5) 16.1 % (11.5-14.5) Platelet Count 159 x10^3/uL (140-400) 186 x10^3/uL (140-400) Neutrophils (%) (Auto) 70 % (31-73) 65 % (31-73) Lymphocytes (%) (Auto) 12 % (24-48) 12 % (24-48) Monocytes (%) (Auto) 17 % (0-9) 21 % (0-9) Eosinophils (%) (Auto) 1 % (0-3) 1 % (0-3) Basophils (%) (Auto) 1 % (0-3) 2 % (0-3) Neutrophils # (Auto) 2.4 x10^3uL (1.8-7.7) 2.1 x10^3uL (1.8-7.7) Lymphocytes # (Auto) 0.4 x10^3/uL (1.0-4.8) 0.4 x10^3/uL (1.0-4.8) Monocytes # (Auto) 0.6 x10^3/uL (0.0-1.1) 0.7 x10^3/uL (0.0-1.1) Eosinophils # (Auto) 0.0 x10^3/uL (0.0-0.7) 0.0 x10^3/uL (0.0-0.7) Basophils # (Auto) 0.0 x10^3/uL (0.0-0.2) 0.0 x10^3/uL (0.0-0.2) Sodium Level 132 mmol/L (136-145) 132 mmol/L (136-145) Potassium Level 3.6 mmol/L (3.5-5.1) 3.6 mmol/L (3.5-5.1) Chloride Level 97 mmol/L (98-107) 98 mmol/L (98-107) Carbon Dioxide Level 31 mmol/L (21-32) 31 mmol/L (21-32) Anion Gap 4 (6-14) 3 (6-14) Blood Urea Nitrogen 5 mg/dL (8-26) 4 mg/dL (8-26) Creatinine 0.5 mg/dL (0.7-1.3) 0.4 mg/dL (0.7-1.3) Estimated GFR (Cockcroft-Gault) 165.4 213.9 Glucose Level 82 mg/dL (70-99) 88 mg/dL (70-99) Calcium Level 7.7 mg/dL (8.5-10.1) 7.8 mg/dL (8.5-10.1) Laboratory Tests Test 08/13/17 04:00 White Blood Count 3.2 x10^3/uL (4.0-11.0) Red Blood Count 3.83 x10^6/uL (4.30-5.70) Hemoglobin 14.4 g/dL (13.0-17.5) Hematocrit 41.7 % (39.0-53.0) Mean Corpuscular Volume 109 fL (79-100) Mean Corpuscular Hemoglobin 38 pg (25-35) Mean Corpuscular Hemoglobin Concent 35 g/dL (31-37) Red Cell Distribution Width 16.1 % (11.5-14.5) Platelet Count 186 x10^3/uL (140-400) Neutrophils (%) (Auto) 65 % (31-73) Lymphocytes (%) (Auto) 12 % (24-48) Monocytes (%) (Auto) 21 % (0-9) Eosinophils (%) (Auto) 1 % (0-3) Basophils (%) (Auto) 2 % (0-3) Neutrophils # (Auto) 2.1 x10^3uL (1.8-7.7) Lymphocytes # (Auto) 0.4 x10^3/uL (1.0-4.8) Monocytes # (Auto) 0.7 x10^3/uL (0.0-1.1) Eosinophils # (Auto) 0.0 x10^3/uL (0.0-0.7) Basophils # (Auto) 0.0 x10^3/uL (0.0-0.2) Sodium Level 132 mmol/L (136-145) Potassium Level 3.6 mmol/L (3.5-5.1) Chloride Level 98 mmol/L (98-107) Carbon Dioxide Level 31 mmol/L (21-32) Anion Gap 3 (6-14) Blood Urea Nitrogen 4 mg/dL (8-26) Creatinine 0.4 mg/dL (0.7-1.3) Estimated GFR (Cockcroft-Gault) 213.9 Glucose Level 88 mg/dL (70-99) Calcium Level 7.8 mg/dL (8.5-10.1) Microbiology 08/08/17 Gram Stain - Final, Complete Medications Current Medications Ceftriaxone Sodium 1 gm/ Sodium Chloride 50 ml @ 100 mls/hr Q24H IV Last administered on 08/08/17 20:01; Start 08/07/17 at 21:00; Stop 08/09/17 at 11:16 ; Status DC Aspirin (Allovue Aspirin) 325 mg DAILYWBKFT PO Last administered on 08/13/17 08: 00; Start 08/08/17 at 08:00 Multivitamins (Thera M Plus) 1 tab DAILY PO Last administered on 08/10/17 08: 39; Start 08/08/17 at 09:00; Stop 08/10/17 at 13:03; Status DC Lorazepam (Ativan) 2 mg PRN Q6HRS PRN PO WITHDRAWAL IRRITABILITY Last administered on 08/10/17 22:49; Start 08/07/17 at 20:15 Ondansetron HCl (Zofran) 4 mg PRN Q6HRS PRN IV NAUSEA/VOMITING 1ST CHOICE; Start 08/08/17 at 09:00 Acetaminophen (Tylenol) 500 mg PRN Q6HRS PRN PO MILD PAIN / TEMP; Start at 09:00 Ketorolac Tromethamine (Toradol) 15 mg PRN Q6HRS PRN IV PAIN; Start 08/08/17 at 09:00; Stop 08/13/17 at 08:59; Status DC Morphine Sulfate 1 mg PRN Q2HR PRN IV PAIN PAIN SEV; Start 08/08/17 at 09:00 Non-Formulary Medication 1 tab QHS PO ; Start 08/08/17 at 21:00; Status UNV Acetaminophen/ Hydrocodone Bitart (Lortab 5/325) 1 tab PRN Q4HRS PRN PO MODERATE - SEVERE PAIN Last administered on 08/09/17 18:25; Start 08/08/17 at 09:00 Magnesium Hydroxide (Milk Of Magnesia) 2,400 mg PRN DAILY PRN PO CONSTIPATION Last administered on 08/10/17 06:34; Start 08/08/17 at 09:00 Chlordiazepoxide (Librium) 25 mg PRN Q6HRS PRN PO ANXIETY / AGITATION; Start at 11:15 Multivitamins 10 ml/Folic Acid 1 mg/Thiamine HCl 100 mg/Dextrose/ Sodium Chloride 1,011.1 ml @ 100 mls/ hr DAILY IV Last administered on 08/13/17 11: 21; Start 08/09/17 at 12:00; Stop 08/13/17 at 23:59 Hydralazine HCl (Apresoline) 10 mg PRN Q4HRS PRN IVP ELEVATED BP, SEE COMMENTS ; Start 08/09/17 at 15:45; Status Cancel Potassium Phos/ Sodium Phos (Phos-Nak) 1 pkt BID PO Last administered on 11:20; Start 08/10/17 at 09:30 Potassium Chloride (Klor-Con) 20 meq 1X ONCE PO Last administered on 09:51; Start 08/10/17 at 09:30; Stop 08/10/17 at 09:31; Status DC Lorazepam (Ativan) 1 mg PRN Q4HRS PRN IV ANXIETY / AGITATION Last administered on 08/12/17 01:02; Start 08/11/17 at 10:00 Multivitamins (Thera M Plus) 1 tab DAILY PO ; Start 08/14/17 at 09:00 Thiamine Mononitrate (Vitamin B-1) 100 mg DAILY PO ; Start 08/14/17 at 09:00 Folic Acid (Folic Acid) 1 mg DAILY PO ; Start 08/14/17 at 09:00 Active Scripts Active Reported Melatonin 3 Mg Tablet 1 Tab PO QHS Aspirin 81 Mg Tab.chew 81 Mg PO DAILY Vitals/I & O Vital Sign - Last 24 Hours 08/12/17 08/12/17 08/12/17 08/12/17 15:00 19:10 20:00 23:10 Temp 97.4 98.2 98.4 97.4 98.2 98.4 Pulse 74 95 87 Resp 18 20 20 B/P (MAP) 126/80 (95) 122/79 (93) 123/78 (93) Pulse Ox 94 94 96 O2 Delivery Nasal Cannula Nasal Cannula Room Air O2 Flow Rate 2.0 2.0 08/13/17 08/13/17 08/13/17 08/13/17 03:10 07:56 08:00 10:59 Temp 98.3 97.9 97.7 98.3 97.9 97.7 Pulse 86 92 43 Resp 17 B/P (MAP) 121/82 (95) 105/74 (84) 95/65 (75) Pulse Ox 96 93 95 O2 Delivery Room Air Nasal Cannula Nasal Cannula Nasal Cannula O2 Flow Rate 2.0 2.0 2.0 JENNIFER PAGAN III DO Aug 13, 2017 14:43
[2017-08-13 15:55] VITALS: BP 125/77
[2017-08-13 19:25] VITALS: BP 125/76
[2017-08-13 23:15] VITALS: BP 134/82
[2017-08-14 03:15] VITALS: BP 124/73
[2017-08-14 04:58] LABS: BASO # 0.1 x10^3/uL (0.0-0.2); BASO % 3 % (0-3); EOS % 1 % (0-3); HEMATOCRIT 41.3 % (39.0-53.0); HEMOGLOBIN 14.5 g/dL (13.0-17.5); LYMPH # 0.5 x10^3/uL (1.0-4.8); LYMPH % 15 % (24-48); MEAN CORPUSCULAR HEMOGLOBIN 38 pg (25-35); MEAN CORPUSCULAR HGB CONC 35 g/dL (31-37); MEAN CORPUSCULAR VOLUME 108 fL (79-100); MONO % 23 % (0-9); NEUT % 59 % (31-73); PLATELET COUNT 203 x10^3/uL (140-400); RED BLOOD COUNT 3.84 x10^6/uL (4.30-5.70); RED CELL DISTRIBUTION WIDTH 15.5 % (11.5-14.5); WHITE BLOOD COUNT 3.2 x10^3/uL (4.0-11.0)
[2017-08-14 05:22] LABS: CALCIUM 7.8 mg/dL (8.5-10.1); CREATININE 0.4 mg/dL (0.7-1.3); GFR 213.9; POTASSIUM 3.8 mmol/L (3.5-5.1)
[2017-08-14 07:54] VITALS: BP 131/74
--- NOTE | 2017-08-14 09:16 | PDOC ---
PROGRESS NOTES Subjective Subjective c/c - f/u of Lung cancer ROS - no CP Objective Objective Vital Signs Date Time Temp Pulse Resp B/P (MAP) Pulse Ox O2 Delivery O2 Flow Rate FiO2 08/14/17 07:54 97.6 75 20 131/74 (93) 95 Nasal Cannula 2.0 97.6 Physical Exam Heart: Normal S1, Normal S2 General: Alert, Oriented X3 Neuro: Normal speech Psych/Mental Status: Mental status NL Assessment Assessment IMPRESSION AND PLAN: 1. Lung cancer in 2012. I will obtain the records from his prior surgery and treatment. There is no history of chemotherapy or radiation therapy. His PET scan on 06/15/2017 did not reveal any definite evidence of recurrence. He has now developed significant pleural effusion on the left side. Cytology report reviewed - negative for malignancy. Etiology could be fall related/hemothorax. Malignancy cannot be ruled out and needs f/u with pulmonary. Appreciate pulmonary consultation. 2. Pleural effusion. He has got a thoracostomy tube in place. Appreciate interventional radiology management and pulmonary management. Dyspnea better 3. Elevated MCV of 110. His platelets are also decreased to 107. Hemoglobin is normal at 15.7. B12 and folic acid levels are normal. Monitor. 4. Thrombocytopenia. We will continue to monitor. This could be a reactive process. improved to 203. 5. Leukopenia, reactive, monitor. 3.2. I d/w DR Weldon f/u with pulmonary after discharge. Please reconsult as needed. Comment Review of Relevant I have reviewed the following items tita (where applicable) has been applied. Labs Laboratory Tests Test 08/13/17 04:00 08/14/17 04:30 White Blood Count 3.2 x10^3/uL (4.0-11.0) 3.2 x10^3/uL (4.0-11.0) Red Blood Count 3.83 x10^6/uL (4.30-5.70) 3.84 x10^6/uL (4.30-5.70) Hemoglobin 14.4 g/dL (13.0-17.5) 14.5 g/dL (13.0-17.5) Hematocrit 41.7 % (39.0-53.0) 41.3 % (39.0-53.0) Mean Corpuscular Volume 109 fL (79-100) 108 fL (79-100) Mean Corpuscular Hemoglobin 38 pg (25-35) 38 pg (25-35) Mean Corpuscular Hemoglobin Concent 35 g/dL (31-37) 35 g/dL (31-37) Red Cell Distribution Width 16.1 % (11.5-14.5) 15.5 % (11.5-14.5) Platelet Count 186 x10^3/uL (140-400) 203 x10^3/uL (140-400) Neutrophils (%) (Auto) 65 % (31-73) 59 % (31-73) Lymphocytes (%) (Auto) 12 % (24-48) 15 % (24-48) Monocytes (%) (Auto) 21 % (0-9) 23 % (0-9) Eosinophils (%) (Auto) 1 % (0-3) 1 % (0-3) Basophils (%) (Auto) 2 % (0-3) 3 % (0-3) Neutrophils # (Auto) 2.1 x10^3uL (1.8-7.7) 1.9 x10^3uL (1.8-7.7) Lymphocytes # (Auto) 0.4 x10^3/uL (1.0-4.8) 0.5 x10^3/uL (1.0-4.8) Monocytes # (Auto) 0.7 x10^3/uL (0.0-1.1) 0.7 x10^3/uL (0.0-1.1) Eosinophils # (Auto) 0.0 x10^3/uL (0.0-0.7) 0.0 x10^3/uL (0.0-0.7) Basophils # (Auto) 0.0 x10^3/uL (0.0-0.2) 0.1 x10^3/uL (0.0-0.2) Sodium Level 132 mmol/L (136-145) 132 mmol/L (136-145) Potassium Level 3.6 mmol/L (3.5-5.1) 3.8 mmol/L (3.5-5.1) Chloride Level 98 mmol/L (98-107) 99 mmol/L (98-107) Carbon Dioxide Level 31 mmol/L (21-32) 31 mmol/L (21-32) Anion Gap 3 (6-14) 2 (6-14) Blood Urea Nitrogen 4 mg/dL (8-26) 5 mg/dL (8-26) Creatinine 0.4 mg/dL (0.7-1.3) 0.4 mg/dL (0.7-1.3) Estimated GFR (Cockcroft-Gault) 213.9 213.9 Glucose Level 88 mg/dL (70-99) 86 mg/dL (70-99) Calcium Level 7.8 mg/dL (8.5-10.1) 7.8 mg/dL (8.5-10.1) Laboratory Tests Test 08/14/17 04:30 White Blood Count 3.2 x10^3/uL (4.0-11.0) Red Blood Count 3.84 x10^6/uL (4.30-5.70) Hemoglobin 14.5 g/dL (13.0-17.5) Hematocrit 41.3 % (39.0-53.0) Mean Corpuscular Volume 108 fL (79-100) Mean Corpuscular Hemoglobin 38 pg (25-35) Mean Corpuscular Hemoglobin Concent 35 g/dL (31-37) Red Cell Distribution Width 15.5 % (11.5-14.5) Platelet Count 203 x10^3/uL (140-400) Neutrophils (%) (Auto) 59 % (31-73) Lymphocytes (%) (Auto) 15 % (24-48) Monocytes (%) (Auto) 23 % (0-9) Eosinophils (%) (Auto) 1 % (0-3) Basophils (%) (Auto) 3 % (0-3) Neutrophils # (Auto) 1.9 x10^3uL (1.8-7.7) Lymphocytes # (Auto) 0.5 x10^3/uL (1.0-4.8) Monocytes # (Auto) 0.7 x10^3/uL (0.0-1.1) Eosinophils # (Auto) 0.0 x10^3/uL (0.0-0.7) Basophils # (Auto) 0.1 x10^3/uL (0.0-0.2) Sodium Level 132 mmol/L (136-145) Potassium Level 3.8 mmol/L (3.5-5.1) Chloride Level 99 mmol/L (98-107) Carbon Dioxide Level 31 mmol/L (21-32) Anion Gap 2 (6-14) Blood Urea Nitrogen 5 mg/dL (8-26) Creatinine 0.4 mg/dL (0.7-1.3) Estimated GFR (Cockcroft-Gault) 213.9 Glucose Level 86 mg/dL (70-99) Calcium Level 7.8 mg/dL (8.5-10.1) Microbiology 08/08/17 Gram Stain - Final, Complete Medications Current Medications Ceftriaxone Sodium 1 gm/ Sodium Chloride 50 ml @ 100 mls/hr Q24H IV Last administered on 08/08/17 20:01; Start 08/07/17 at 21:00; Stop 08/09/17 at 11:16 ; Status DC Aspirin (Yaneth Aspirin) 325 mg [id number] PO Last administered on 08/13/17 08: 00; Start 08/08/17 at 08:00 Multivitamins (Thera M Plus) 1 tab DAILY PO Last administered on 08/10/17 08: 39; Start 08/08/17 at 09:00; Stop 08/10/17 at 13:03; Status DC Lorazepam (Ativan) 2 mg PRN Q6HRS PRN PO WITHDRAWAL IRRITABILITY Last administered on 08/10/17 22:49; Start 08/07/17 at 20:15 Ondansetron HCl (Zofran) 4 mg PRN Q6HRS PRN IV NAUSEA/VOMITING 1ST CHOICE; Start 08/08/17 at 09:00 Acetaminophen (Tylenol) 500 mg PRN Q6HRS PRN PO MILD PAIN / TEMP; Start at 09:00 Ketorolac Tromethamine (Toradol) 15 mg PRN Q6HRS PRN IV PAIN; Start 08/08/17 at 09:00; Stop 08/13/17 at 08:59; Status DC Morphine Sulfate 1 mg PRN Q2HR PRN IV PAIN PAIN SEV; Start 08/08/17 at 09:00 Non-Formulary Medication 1 tab QHS PO ; Start 08/08/17 at 21:00; Status UNV Acetaminophen/ Hydrocodone Bitart (Lortab 5/325) 1 tab PRN Q4HRS PRN PO MODERATE - SEVERE PAIN Last administered on 08/09/17 18:25; Start 08/08/17 at 09:00 Magnesium Hydroxide (Milk Of Magnesia) 2,400 mg PRN DAILY PRN PO CONSTIPATION Last administered on 08/10/17 06:34; Start 08/08/17 at 09:00 Chlordiazepoxide (Librium) 25 mg PRN Q6HRS PRN PO ANXIETY / AGITATION; Start at 11:15 Multivitamins 10 ml/Folic Acid 1 mg/Thiamine HCl 100 mg/Dextrose/ Sodium Chloride 1,011.1 ml @ 100 mls/ hr DAILY IV Last administered on 08/13/17 11: 21; Start 08/09/17 at 12:00; Stop 08/13/17 at 23:59; Status DC Hydralazine HCl (Apresoline) 10 mg PRN Q4HRS PRN IVP ELEVATED BP, SEE COMMENTS ; Start 08/09/17 at 15:45; Status Cancel Potassium Phos/ Sodium Phos (Phos-Nak) 1 pkt BID PO Last administered on 22:00; Start 08/10/17 at 09:30 Potassium Chloride (Klor-Con) 20 meq 1X ONCE PO Last administered on 09:51; Start 08/10/17 at 09:30; Stop 08/10/17 at 09:31; Status DC Lorazepam (Ativan) 1 mg PRN Q4HRS PRN IV ANXIETY / AGITATION Last administered on 08/12/17 01:02; Start 08/11/17 at 10:00 Multivitamins (Thera M Plus) 1 tab DAILY PO ; Start 08/14/17 at 09:00 Thiamine Mononitrate (Vitamin B-1) 100 mg DAILY PO ; Start 08/14/17 at 09:00 Folic Acid (Folic Acid) 1 mg DAILY PO ; Start 08/14/17 at 09:00 Active Scripts Active Reported Melatonin 3 Mg Tablet 1 Tab PO QHS Aspirin 81 Mg Tab.chew 81 Mg PO DAILY Vitals/I & O Vital Sign - Last 24 Hours 08/13/17 08/13/17 08/13/17 08/13/17 10:59 15:55 19:25 20:00 Temp 97.7 97.9 97.8 97.7 97.9 97.8 Pulse 43 93 91 Resp 17 18 20 B/P (MAP) 95/65 (75) 125/77 (93) 125/76 (92) Pulse Ox 95 97 96 O2 Delivery Nasal Cannula Nasal Cannula Nasal Cannula Nasal Cannula O2 Flow Rate 2.0 2.0 2.0 2.0 08/13/17 08/14/17 08/14/17 23:15 03:15 07:54 Temp 97.7 97.8 97.6 97.7 97.8 97.6 Pulse 76 78 75 Resp 18 20 20 B/P (MAP) 134/82 (99) 124/73 (90) 131/74 (93) Pulse Ox 97 96 95 O2 Delivery Nasal Cannula Nasal Cannula Nasal Cannula O2 Flow Rate 2.0 2.0 2.0 NATHALIE NAIDU MD Aug 14, 2017 09:16
[2017-08-14] MEDS: FOLIC ACID 1 MG TABLET. PO SCH (09:34)
[2017-08-14] MEDS: POTASSIUM & SODIUM PHOSPHATES PACKET. PO SCH ×2 (09:34→21:23)
[2017-08-14] MEDS: MULTIVITAMIN with MINERAL TABLET. PO SCH (09:34)
[2017-08-14] MEDS: THIAMINE 100 MG TABLET. PO SCH (09:34)
[2017-08-14] MEDS: ASPIRIN 325 MG TABLET PO SCH (09:34)
[2017-08-14 10:43] VITALS: BP 115/71
--- NOTE | 2017-08-14 10:47 | RAD ---
Indication shortness of air. Single view of the chest was obtained. Comparison is made to yesterday's exam. There has not been a significant change. Volume loss in the left lung appears similar. Pleural catheter is noted. Scoliosis is noted. IMPRESSION: No significant change in the appearance of the chest
--- NOTE | 2017-08-14 11:51 | PDOC ---
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 Left sided chest tube in place draining approx. 300 cc/day Pleural fluid cytology negative for malignancy Discussed plan of care regarding removal of chest tube pending decrease in fluid to 100cc/day CXR shows a left sided pleural effusion Labs: MCV - 108 WBC 3.2 Consults: Heme/Onc Vitals Vitals Vital Signs Date Time Temp Pulse Resp B/P (MAP) Pulse Ox O2 Delivery O2 Flow Rate FiO2 08/14/17 10:43 97.5 81 19 115/71 (86) 96 Nasal Cannula 2.0 97.5 Physical Exam General: Alert, Oriented X3, Cooperative, No acute distress Heart: Regular rate, Normal S1, Normal S2 Lungs: Other (left sided chest tube, crackles at base of left lung) Abdomen: Normal bowel sounds, Soft Extremities: Normal pulses Skin: No rashes, No breakdown, Other (thin, friable ) Labs LABS Laboratory Tests Test 08/14/17 04:30 White Blood Count 3.2 x10^3/uL (4.0-11.0) Red Blood Count 3.84 x10^6/uL (4.30-5.70) Hemoglobin 14.5 g/dL (13.0-17.5) Hematocrit 41.3 % (39.0-53.0) Mean Corpuscular Volume 108 fL (79-100) Mean Corpuscular Hemoglobin 38 pg (25-35) Mean Corpuscular Hemoglobin Concent 35 g/dL (31-37) Red Cell Distribution Width 15.5 % (11.5-14.5) Platelet Count 203 x10^3/uL (140-400) Neutrophils (%) (Auto) 59 % (31-73) Lymphocytes (%) (Auto) 15 % (24-48) Monocytes (%) (Auto) 23 % (0-9) Eosinophils (%) (Auto) 1 % (0-3) Basophils (%) (Auto) 3 % (0-3) Neutrophils # (Auto) 1.9 x10^3uL (1.8-7.7) Lymphocytes # (Auto) 0.5 x10^3/uL (1.0-4.8) Monocytes # (Auto) 0.7 x10^3/uL (0.0-1.1) Eosinophils # (Auto) 0.0 x10^3/uL (0.0-0.7) Basophils # (Auto) 0.1 x10^3/uL (0.0-0.2) Sodium Level 132 mmol/L (136-145) Potassium Level 3.8 mmol/L (3.5-5.1) Chloride Level 99 mmol/L (98-107) Carbon Dioxide Level 31 mmol/L (21-32) Anion Gap 2 (6-14) Blood Urea Nitrogen 5 mg/dL (8-26) Creatinine 0.4 mg/dL (0.7-1.3) Estimated GFR (Cockcroft-Gault) 213.9 Glucose Level 86 mg/dL (70-99) Calcium Level 7.8 mg/dL (8.5-10.1) Review of Systems Review of Systems Pt complains of fatigue Pt complains of hunger Assessment and Plan Assessmemt and Plan Assessment Large pleural effusion s/p thoracentesis 1.5 L (08/08) Hx lung CA Anemia of malignancy/inflammation 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 cardiac monitoring recheck labs Hope to D/C chest tube pending pulmonary approval PT/OT Continue home medications Appreciate subspecialist input Problems: Comment Review of Relevant I have reviewed the following items tita (where applicable) has been applied. Labs Laboratory Tests Test 08/13/17 04:00 08/14/17 04:30 White Blood Count 3.2 x10^3/uL (4.0-11.0) 3.2 x10^3/uL (4.0-11.0) Red Blood Count 3.83 x10^6/uL (4.30-5.70) 3.84 x10^6/uL (4.30-5.70) Hemoglobin 14.4 g/dL (13.0-17.5) 14.5 g/dL (13.0-17.5) Hematocrit 41.7 % (39.0-53.0) 41.3 % (39.0-53.0) Mean Corpuscular Volume 109 fL (79-100) 108 fL (79-100) Mean Corpuscular Hemoglobin 38 pg (25-35) 38 pg (25-35) Mean Corpuscular Hemoglobin Concent 35 g/dL (31-37) 35 g/dL (31-37) Red Cell Distribution Width 16.1 % (11.5-14.5) 15.5 % (11.5-14.5) Platelet Count 186 x10^3/uL (140-400) 203 x10^3/uL (140-400) Neutrophils (%) (Auto) 65 % (31-73) 59 % (31-73) Lymphocytes (%) (Auto) 12 % (24-48) 15 % (24-48) Monocytes (%) (Auto) 21 % (0-9) 23 % (0-9) Eosinophils (%) (Auto) 1 % (0-3) 1 % (0-3) Basophils (%) (Auto) 2 % (0-3) 3 % (0-3) Neutrophils # (Auto) 2.1 x10^3uL (1.8-7.7) 1.9 x10^3uL (1.8-7.7) Lymphocytes # (Auto) 0.4 x10^3/uL (1.0-4.8) 0.5 x10^3/uL (1.0-4.8) Monocytes # (Auto) 0.7 x10^3/uL (0.0-1.1) 0.7 x10^3/uL (0.0-1.1) Eosinophils # (Auto) 0.0 x10^3/uL (0.0-0.7) 0.0 x10^3/uL (0.0-0.7) Basophils # (Auto) 0.0 x10^3/uL (0.0-0.2) 0.1 x10^3/uL (0.0-0.2) Sodium Level 132 mmol/L (136-145) 132 mmol/L (136-145) Potassium Level 3.6 mmol/L (3.5-5.1) 3.8 mmol/L (3.5-5.1) Chloride Level 98 mmol/L (98-107) 99 mmol/L (98-107) Carbon Dioxide Level 31 mmol/L (21-32) 31 mmol/L (21-32) Anion Gap 3 (6-14) 2 (6-14) Blood Urea Nitrogen 4 mg/dL (8-26) 5 mg/dL (8-26) Creatinine 0.4 mg/dL (0.7-1.3) 0.4 mg/dL (0.7-1.3) Estimated GFR (Cockcroft-Gault) 213.9 213.9 Glucose Level 88 mg/dL (70-99) 86 mg/dL (70-99) Calcium Level 7.8 mg/dL (8.5-10.1) 7.8 mg/dL (8.5-10.1) Laboratory Tests Test 08/14/17 04:30 White Blood Count 3.2 x10^3/uL (4.0-11.0) Red Blood Count 3.84 x10^6/uL (4.30-5.70) Hemoglobin 14.5 g/dL (13.0-17.5) Hematocrit 41.3 % (39.0-53.0) Mean Corpuscular Volume 108 fL (79-100) Mean Corpuscular Hemoglobin 38 pg (25-35) Mean Corpuscular Hemoglobin Concent 35 g/dL (31-37) Red Cell Distribution Width 15.5 % (11.5-14.5) Platelet Count 203 x10^3/uL (140-400) Neutrophils (%) (Auto) 59 % (31-73) Lymphocytes (%) (Auto) 15 % (24-48) Monocytes (%) (Auto) 23 % (0-9) Eosinophils (%) (Auto) 1 % (0-3) Basophils (%) (Auto) 3 % (0-3) Neutrophils # (Auto) 1.9 x10^3uL (1.8-7.7) Lymphocytes # (Auto) 0.5 x10^3/uL (1.0-4.8) Monocytes # (Auto) 0.7 x10^3/uL (0.0-1.1) Eosinophils # (Auto) 0.0 x10^3/uL (0.0-0.7) Basophils # (Auto) 0.1 x10^3/uL (0.0-0.2) Sodium Level 132 mmol/L (136-145) Potassium Level 3.8 mmol/L (3.5-5.1) Chloride Level 99 mmol/L (98-107) Carbon Dioxide Level 31 mmol/L (21-32) Anion Gap 2 (6-14) Blood Urea Nitrogen 5 mg/dL (8-26) Creatinine 0.4 mg/dL (0.7-1.3) Estimated GFR (Cockcroft-Gault) 213.9 Glucose Level 86 mg/dL (70-99) Calcium Level 7.8 mg/dL (8.5-10.1) Microbiology 08/08/17 Gram Stain - Final, Complete Medications Current Medications Ceftriaxone Sodium 1 gm/ Sodium Chloride 50 ml @ 100 mls/hr Q24H IV Last administered on 08/08/17 20:01; Start 08/07/17 at 21:00; Stop 08/09/17 at 11:16 ; Status DC Aspirin (Yaneth Aspirin) 325 mg DAILYWBKFT PO Last administered on 08/14/17 09: 34; Start 08/08/17 at 08:00 Multivitamins (Thera M Plus) 1 tab DAILY PO Last administered on 08/10/17 08: 39; Start 08/08/17 at 09:00; Stop 08/10/17 at 13:03; Status DC Lorazepam (Ativan) 2 mg PRN Q6HRS PRN PO WITHDRAWAL IRRITABILITY Last administered on 08/10/17 22:49; Start 08/07/17 at 20:15 Ondansetron HCl (Zofran) 4 mg PRN Q6HRS PRN IV NAUSEA/VOMITING 1ST CHOICE; Start 08/08/17 at 09:00 Acetaminophen (Tylenol) 500 mg PRN Q6HRS PRN PO MILD PAIN / TEMP; Start at 09:00 Ketorolac Tromethamine (Toradol) 15 mg PRN Q6HRS PRN IV PAIN; Start 08/08/17 at 09:00; Stop 08/13/17 at 08:59; Status DC Morphine Sulfate 1 mg PRN Q2HR PRN IV PAIN PAIN SEV; Start 08/08/17 at 09:00 Non-Formulary Medication 1 tab QHS PO ; Start 08/08/17 at 21:00; Status UNV Acetaminophen/ Hydrocodone Bitart (Lortab 5/325) 1 tab PRN Q4HRS PRN PO MODERATE - SEVERE PAIN Last administered on 08/09/17 18:25; Start 08/08/17 at 09:00 Magnesium Hydroxide (Milk Of Magnesia) 2,400 mg PRN DAILY PRN PO CONSTIPATION Last administered on 08/10/17 06:34; Start 08/08/17 at 09:00 Chlordiazepoxide (Librium) 25 mg PRN Q6HRS PRN PO ANXIETY / AGITATION; Start at 11:15 Multivitamins 10 ml/Folic Acid 1 mg/Thiamine HCl 100 mg/Dextrose/ Sodium Chloride 1,011.1 ml @ 100 mls/ hr DAILY IV Last administered on 08/13/17 11: 21; Start 08/09/17 at 12:00; Stop 08/13/17 at 23:59; Status DC Hydralazine HCl (Apresoline) 10 mg PRN Q4HRS PRN IVP ELEVATED BP, SEE COMMENTS ; Start 08/09/17 at 15:45; Status Cancel Potassium Phos/ Sodium Phos (Phos-Nak) 1 pkt BID PO Last administered on 09:34; Start 08/10/17 at 09:30 Potassium Chloride (Klor-Con) 20 meq 1X ONCE PO Last administered on 09:51; Start 08/10/17 at 09:30; Stop 08/10/17 at 09:31; Status DC Lorazepam (Ativan) 1 mg PRN Q4HRS PRN IV ANXIETY / AGITATION Last administered on 08/12/17 01:02; Start 08/11/17 at 10:00 Multivitamins (Thera M Plus) 1 tab DAILY PO Last administered on 08/14/17 09: 34; Start 08/14/17 at 09:00 Thiamine Mononitrate (Vitamin B-1) 100 mg DAILY PO Last administered on 09:34; Start 08/14/17 at 09:00 Folic Acid (Folic Acid) 1 mg DAILY PO Last administered on 08/14/17 09:34; Start 08/14/17 at 09:00 Active Scripts Active Reported Melatonin 3 Mg Tablet 1 Tab PO QHS Aspirin 81 Mg Tab.chew 81 Mg PO DAILY Vitals/I & O Vital Sign - Last 24 Hours 08/13/17 08/13/17 08/13/17 08/13/17 15:55 19:25 20:00 23:15 Temp 97.9 97.8 97.7 97.9 97.8 97.7 Pulse 93 91 76 Resp 18 18 B/P (MAP) 125/77 (93) 125/76 (92) 134/82 (99) Pulse Ox 97 96 97 O2 Delivery Nasal Cannula Nasal Cannula Nasal Cannula Nasal Cannula O2 Flow Rate 2.0 2.0 2.0 2.0 08/14/17 08/14/17 08/14/17 08/14/17 03:15 07:54 08:00 10:43 Temp 97.8 97.6 97.5 97.8 97.6 97.5 Pulse 78 75 81 Resp 19 B/P (MAP) 124/73 (90) 131/74 (93) 115/71 (86) Pulse Ox 96 95 96 O2 Delivery Nasal Cannula Nasal Cannula Nasal Cannula Nasal Cannula O2 Flow Rate 2.0 2.0 2.0 2.0 JENNIFER PAGAN III DO Aug 14, 2017 11:51
--- NOTE | 2017-08-14 13:50 | PDOC ---
PULMONARY PROGRESS NOTES Subjective ct 600cc drainage since yesterday, alert, no pain, sob, cough Vitals Vital Signs Date Time Temp Pulse Resp B/P (MAP) Pulse Ox O2 Delivery O2 Flow Rate FiO2 08/14/17 10:43 97.5 81 19 115/71 (86) 96 Nasal Cannula 2.0 97.5 ROS: No Nausea, No Abdominal Pain, No Increase Cough General: Alert, No acute distress Lungs: Other (left sided chest tube, crackles at base of left lung) Cardiovascular: S1, S2 Abdomen: Soft, Non-tender Neuro Exam: Alert, Oriented Extremities: No Edema Skin: Warm Labs Laboratory Tests Test 08/13/17 04:00 08/14/17 04:30 White Blood Count 3.2 x10^3/uL (4.0-11.0) 3.2 x10^3/uL (4.0-11.0) Red Blood Count 3.83 x10^6/uL (4.30-5.70) 3.84 x10^6/uL (4.30-5.70) Hemoglobin 14.4 g/dL (13.0-17.5) 14.5 g/dL (13.0-17.5) Hematocrit 41.7 % (39.0-53.0) 41.3 % (39.0-53.0) Mean Corpuscular Volume 109 fL (79-100) 108 fL (79-100) Mean Corpuscular Hemoglobin 38 pg (25-35) 38 pg (25-35) Mean Corpuscular Hemoglobin Concent 35 g/dL (31-37) 35 g/dL (31-37) Red Cell Distribution Width 16.1 % (11.5-14.5) 15.5 % (11.5-14.5) Platelet Count 186 x10^3/uL (140-400) 203 x10^3/uL (140-400) Neutrophils (%) (Auto) 65 % (31-73) 59 % (31-73) Lymphocytes (%) (Auto) 12 % (24-48) 15 % (24-48) Monocytes (%) (Auto) 21 % (0-9) 23 % (0-9) Eosinophils (%) (Auto) 1 % (0-3) 1 % (0-3) Basophils (%) (Auto) 2 % (0-3) 3 % (0-3) Neutrophils # (Auto) 2.1 x10^3uL (1.8-7.7) 1.9 x10^3uL (1.8-7.7) Lymphocytes # (Auto) 0.4 x10^3/uL (1.0-4.8) 0.5 x10^3/uL (1.0-4.8) Monocytes # (Auto) 0.7 x10^3/uL (0.0-1.1) 0.7 x10^3/uL (0.0-1.1) Eosinophils # (Auto) 0.0 x10^3/uL (0.0-0.7) 0.0 x10^3/uL (0.0-0.7) Basophils # (Auto) 0.0 x10^3/uL (0.0-0.2) 0.1 x10^3/uL (0.0-0.2) Sodium Level 132 mmol/L (136-145) 132 mmol/L (136-145) Potassium Level 3.6 mmol/L (3.5-5.1) 3.8 mmol/L (3.5-5.1) Chloride Level 98 mmol/L (98-107) 99 mmol/L (98-107) Carbon Dioxide Level 31 mmol/L (21-32) 31 mmol/L (21-32) Anion Gap 3 (6-14) 2 (6-14) Blood Urea Nitrogen 4 mg/dL (8-26) 5 mg/dL (8-26) Creatinine 0.4 mg/dL (0.7-1.3) 0.4 mg/dL (0.7-1.3) Estimated GFR (Cockcroft-Gault) 213.9 213.9 Glucose Level 88 mg/dL (70-99) 86 mg/dL (70-99) Calcium Level 7.8 mg/dL (8.5-10.1) 7.8 mg/dL (8.5-10.1) Laboratory Tests Test 08/14/17 04:30 White Blood Count 3.2 x10^3/uL (4.0-11.0) Red Blood Count 3.84 x10^6/uL (4.30-5.70) Hemoglobin 14.5 g/dL (13.0-17.5) Hematocrit 41.3 % (39.0-53.0) Mean Corpuscular Volume 108 fL (79-100) Mean Corpuscular Hemoglobin 38 pg (25-35) Mean Corpuscular Hemoglobin Concent 35 g/dL (31-37) Red Cell Distribution Width 15.5 % (11.5-14.5) Platelet Count 203 x10^3/uL (140-400) Neutrophils (%) (Auto) 59 % (31-73) Lymphocytes (%) (Auto) 15 % (24-48) Monocytes (%) (Auto) 23 % (0-9) Eosinophils (%) (Auto) 1 % (0-3) Basophils (%) (Auto) 3 % (0-3) Neutrophils # (Auto) 1.9 x10^3uL (1.8-7.7) Lymphocytes # (Auto) 0.5 x10^3/uL (1.0-4.8) Monocytes # (Auto) 0.7 x10^3/uL (0.0-1.1) Eosinophils # (Auto) 0.0 x10^3/uL (0.0-0.7) Basophils # (Auto) 0.1 x10^3/uL (0.0-0.2) Sodium Level 132 mmol/L (136-145) Potassium Level 3.8 mmol/L (3.5-5.1) Chloride Level 99 mmol/L (98-107) Carbon Dioxide Level 31 mmol/L (21-32) Anion Gap 2 (6-14) Blood Urea Nitrogen 5 mg/dL (8-26) Creatinine 0.4 mg/dL (0.7-1.3) Estimated GFR (Cockcroft-Gault) 213.9 Glucose Level 86 mg/dL (70-99) Calcium Level 7.8 mg/dL (8.5-10.1) Medications Active Scripts Medications Dose Route/Sig Max Daily Dose Days Date Category Melatonin 3 Mg Tablet 1 Tab PO QHS 08/07/17 Reported Aspirin 81 Mg Tab.chew 81 Mg PO DAILY 08/07/17 Reported Comments cxr reviewed, 08/14 Small left pleural effusion with suggestion of a loculated component along left lateral chest wall appears unchanged since 08/11/2017. Left lung base pleural catheter is in similar position. Impression . 1. Acute respiratory failure secondary to large left-sided effusion. most likey traumatic, cytology negative 2. Abnormal x-ray/left-sided effusion, s/p left chest tube 3. Hyponatremia 4. Generalized weakness. 5. Severe protein malnutrition, present upon admission. 6. Chronic obstructive pulmonary disease. 7. Tobacco dependence, quit 4 years ago. 8. h/o lung cancer diagnosed 2012, s/p wedge resection Plan . SUSPECT PLEURAL FLUID SEC TO RECENT FALL/HEMOTHORAX, pleural fluid was sent for repeat cytology and it is negative 1. CONTINUE CHEST TUBE DRAINAGE HAD GREATER THAN 600 CC IN 24 HOURS,, 2. elevate hob 3. Monitor sodium. 4. PT WAS SEEN RECENTLY BY HIS ARM MAKER WITH REPEAT PET THERE WAS NO NEW DISEASE 5. monitor Hb discussed w rn/ MICKIE AVELAR MD Aug 14, 2017 13:50
[2017-08-14 15:38] VITALS: BP 89/59
[2017-08-14 19:10] VITALS: BP 95/64
[2017-08-14 22:45] VITALS: BP 110/74
[2017-08-15 03:05] VITALS: BP 113/70
[2017-08-15 05:54] LABS: BASO % 1 % (0-3); EOS % 2 % (0-3); HEMATOCRIT 40.2 % (39.0-53.0); HEMOGLOBIN 13.9 g/dL (13.0-17.5); LYMPH # 0.4 x10^3/uL (1.0-4.8); LYMPH % 12 % (24-48); MEAN CORPUSCULAR HEMOGLOBIN 38 pg (25-35); MEAN CORPUSCULAR HGB CONC 35 g/dL (31-37); MEAN CORPUSCULAR VOLUME 108 fL (79-100); MONO % 23 % (0-9); NEUT % 62 % (31-73); PLATELET COUNT 257 x10^3/uL (140-400); RED BLOOD COUNT 3.72 x10^6/uL (4.30-5.70); WHITE BLOOD COUNT 3.3 x10^3/uL (4.0-11.0)
[2017-08-15 06:18] LABS: CALCIUM 8.1 mg/dL (8.5-10.1); CREATININE 0.4 mg/dL (0.7-1.3); GFR 213.9; POTASSIUM 3.7 mmol/L (3.5-5.1)
[2017-08-15 07:30] VITALS: BP 100/65
[2017-08-15] MEDS: THIAMINE 100 MG TABLET. PO SCH (09:01)
[2017-08-15] MEDS: MULTIVITAMIN with MINERAL TABLET. PO SCH (09:02)
[2017-08-15] MEDS: ASPIRIN 325 MG TABLET PO SCH (09:02)
[2017-08-15] MEDS: FOLIC ACID 1 MG TABLET. PO SCH (09:02)
[2017-08-15] MEDS: POTASSIUM & SODIUM PHOSPHATES PACKET. PO SCH ×2 (09:06→20:33)
[2017-08-15 09:42] LABS: ANISOCYTOSIS PRESENT; PLT ESTIMATE ADEQUATE (ADEQUATE)
[2017-08-15 10:21] VITALS: BP 86/59
--- NOTE | 2017-08-15 11:34 | PDOC ---
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 Left sided chest tube in place draining approx. 300 cc in the past 24h, previous day was 600cc Pleural fluid cytology negative for malignancy CXR shows a left sided pleural effusion much better with chest tube in pt feels frustrated staying here with chest tube on on NC 2 L Vitals Vitals Vital Signs Date Time Temp Pulse Resp B/P (MAP) Pulse Ox O2 Delivery O2 Flow Rate FiO2 08/15/17 10:21 97.1 82 18 86/59 (68) 94 Nasal Cannula 2.0 97.1 Physical Exam General: Alert, Oriented X3, Cooperative, No acute distress Heart: Regular rate, Normal S1, Normal S2 Lungs: Other (left sided chest tube, crackles at base of left lung) Abdomen: Normal bowel sounds, Soft Extremities: Normal pulses Skin: No rashes, No breakdown, Other (thin, friable ) Labs LABS Laboratory Tests Test 08/15/17 04:35 White Blood Count 3.3 x10^3/uL (4.0-11.0) Red Blood Count 3.72 x10^6/uL (4.30-5.70) Hemoglobin 13.9 g/dL (13.0-17.5) Hematocrit 40.2 % (39.0-53.0) Mean Corpuscular Volume 108 fL (79-100) Mean Corpuscular Hemoglobin 38 pg (25-35) Mean Corpuscular Hemoglobin Concent 35 g/dL (31-37) Red Cell Distribution Width 16.0 % (11.5-14.5) Platelet Count 257 x10^3/uL (140-400) Neutrophils (%) (Auto) 62 % (31-73) Lymphocytes (%) (Auto) 12 % (24-48) Monocytes (%) (Auto) 23 % (0-9) Eosinophils (%) (Auto) 2 % (0-3) Basophils (%) (Auto) 1 % (0-3) Neutrophils # (Auto) 2.1 x10^3uL (1.8-7.7) Lymphocytes # (Auto) 0.4 x10^3/uL (1.0-4.8) Monocytes # (Auto) 0.8 x10^3/uL (0.0-1.1) Eosinophils # (Auto) 0.1 x10^3/uL (0.0-0.7) Basophils # (Auto) 0.0 x10^3/uL (0.0-0.2) Segmented Neutrophils % 82 % (35-66) Lymphocytes % 7 % (24-48) Monocytes % 11 % (0-10) Platelet Estimate Adequate (ADEQUATE) Anisocytosis Present Macrocytosis Present Sodium Level 133 mmol/L (136-145) Potassium Level 3.7 mmol/L (3.5-5.1) Chloride Level 98 mmol/L (98-107) Carbon Dioxide Level 32 mmol/L (21-32) Anion Gap 3 (6-14) Blood Urea Nitrogen 7 mg/dL (8-26) Creatinine 0.4 mg/dL (0.7-1.3) Estimated GFR (Cockcroft-Gault) 213.9 Glucose Level 79 mg/dL (70-99) Calcium Level 8.1 mg/dL (8.5-10.1) Comment Review of Relevant I have reviewed the following items tita (where applicable) has been applied. Labs Laboratory Tests Test 08/14/17 04:30 08/15/17 04:35 White Blood Count 3.2 x10^3/uL (4.0-11.0) 3.3 x10^3/uL (4.0-11.0) Red Blood Count 3.84 x10^6/uL (4.30-5.70) 3.72 x10^6/uL (4.30-5.70) Hemoglobin 14.5 g/dL (13.0-17.5) 13.9 g/dL (13.0-17.5) Hematocrit 41.3 % (39.0-53.0) 40.2 % (39.0-53.0) Mean Corpuscular Volume 108 fL (79-100) 108 fL (79-100) Mean Corpuscular Hemoglobin 38 pg (25-35) 38 pg (25-35) Mean Corpuscular Hemoglobin Concent 35 g/dL (31-37) 35 g/dL (31-37) Red Cell Distribution Width 15.5 % (11.5-14.5) 16.0 % (11.5-14.5) Platelet Count 203 x10^3/uL (140-400) 257 x10^3/uL (140-400) Neutrophils (%) (Auto) 59 % (31-73) 62 % (31-73) Lymphocytes (%) (Auto) 15 % (24-48) 12 % (24-48) Monocytes (%) (Auto) 23 % (0-9) 23 % (0-9) Eosinophils (%) (Auto) 1 % (0-3) 2 % (0-3) Basophils (%) (Auto) 3 % (0-3) 1 % (0-3) Neutrophils # (Auto) 1.9 x10^3uL (1.8-7.7) 2.1 x10^3uL (1.8-7.7) Lymphocytes # (Auto) 0.5 x10^3/uL (1.0-4.8) 0.4 x10^3/uL (1.0-4.8) Monocytes # (Auto) 0.7 x10^3/uL (0.0-1.1) 0.8 x10^3/uL (0.0-1.1) Eosinophils # (Auto) 0.0 x10^3/uL (0.0-0.7) 0.1 x10^3/uL (0.0-0.7) Basophils # (Auto) 0.1 x10^3/uL (0.0-0.2) 0.0 x10^3/uL (0.0-0.2) Sodium Level 132 mmol/L (136-145) 133 mmol/L (136-145) Potassium Level 3.8 mmol/L (3.5-5.1) 3.7 mmol/L (3.5-5.1) Chloride Level 99 mmol/L (98-107) 98 mmol/L (98-107) Carbon Dioxide Level 31 mmol/L (21-32) 32 mmol/L (21-32) Anion Gap 2 (6-14) 3 (6-14) Blood Urea Nitrogen 5 mg/dL (8-26) 7 mg/dL (8-26) Creatinine 0.4 mg/dL (0.7-1.3) 0.4 mg/dL (0.7-1.3) Estimated GFR (Cockcroft-Gault) 213.9 213.9 Glucose Level 86 mg/dL (70-99) 79 mg/dL (70-99) Calcium Level 7.8 mg/dL (8.5-10.1) 8.1 mg/dL (8.5-10.1) Segmented Neutrophils % 82 % (35-66) Lymphocytes % 7 % (24-48) Monocytes % 11 % (0-10) Platelet Estimate Adequate (ADEQUATE) Anisocytosis Present Macrocytosis Present Laboratory Tests Test 08/15/17 04:35 White Blood Count 3.3 x10^3/uL (4.0-11.0) Red Blood Count 3.72 x10^6/uL (4.30-5.70) Hemoglobin 13.9 g/dL (13.0-17.5) Hematocrit 40.2 % (39.0-53.0) Mean Corpuscular Volume 108 fL (79-100) Mean Corpuscular Hemoglobin 38 pg (25-35) Mean Corpuscular Hemoglobin Concent 35 g/dL (31-37) Red Cell Distribution Width 16.0 % (11.5-14.5) Platelet Count 257 x10^3/uL (140-400) Neutrophils (%) (Auto) 62 % (31-73) Lymphocytes (%) (Auto) 12 % (24-48) Monocytes (%) (Auto) 23 % (0-9) Eosinophils (%) (Auto) 2 % (0-3) Basophils (%) (Auto) 1 % (0-3) Neutrophils # (Auto) 2.1 x10^3uL (1.8-7.7) Lymphocytes # (Auto) 0.4 x10^3/uL (1.0-4.8) Monocytes # (Auto) 0.8 x10^3/uL (0.0-1.1) Eosinophils # (Auto) 0.1 x10^3/uL (0.0-0.7) Basophils # (Auto) 0.0 x10^3/uL (0.0-0.2) Segmented Neutrophils % 82 % (35-66) Lymphocytes % 7 % (24-48) Monocytes % 11 % (0-10) Platelet Estimate Adequate (ADEQUATE) Anisocytosis Present Macrocytosis Present Sodium Level 133 mmol/L (136-145) Potassium Level 3.7 mmol/L (3.5-5.1) Chloride Level 98 mmol/L (98-107) Carbon Dioxide Level 32 mmol/L (21-32) Anion Gap 3 (6-14) Blood Urea Nitrogen 7 mg/dL (8-26) Creatinine 0.4 mg/dL (0.7-1.3) Estimated GFR (Cockcroft-Gault) 213.9 Glucose Level 79 mg/dL (70-99) Calcium Level 8.1 mg/dL (8.5-10.1) Microbiology 08/08/17 Gram Stain - Final, Complete Medications Current Medications Ceftriaxone Sodium 1 gm/ Sodium Chloride 50 ml @ 100 mls/hr Q24H IV Last administered on 08/08/17 20:01; Start 08/07/17 at 21:00; Stop 08/09/17 at 11:16 ; Status DC Aspirin (Apparent Aspirin) 325 mg DAILYWBKFT PO Last administered on 08/15/17 09: 02; Start 08/08/17 at 08:00 Multivitamins (Thera M Plus) 1 tab DAILY PO Last administered on 08/10/17 08: 39; Start 08/08/17 at 09:00; Stop 08/10/17 at 13:03; Status DC Lorazepam (Ativan) 2 mg PRN Q6HRS PRN PO WITHDRAWAL IRRITABILITY Last administered on 08/10/17 22:49; Start 08/07/17 at 20:15 Ondansetron HCl (Zofran) 4 mg PRN Q6HRS PRN IV NAUSEA/VOMITING 1ST CHOICE; Start 08/08/17 at 09:00 Acetaminophen (Tylenol) 500 mg PRN Q6HRS PRN PO MILD PAIN / TEMP; Start at 09:00 Ketorolac Tromethamine (Toradol) 15 mg PRN Q6HRS PRN IV PAIN; Start 08/08/17 at 09:00; Stop 08/13/17 at 08:59; Status DC Morphine Sulfate 1 mg PRN Q2HR PRN IV PAIN PAIN SEV; Start 08/08/17 at 09:00 Non-Formulary Medication 1 tab QHS PO ; Start 08/08/17 at 21:00; Status UNV Acetaminophen/ Hydrocodone Bitart (Lortab 5/325) 1 tab PRN Q4HRS PRN PO MODERATE - SEVERE PAIN Last administered on 08/09/17 18:25; Start 08/08/17 at 09:00 Magnesium Hydroxide (Milk Of Magnesia) 2,400 mg PRN DAILY PRN PO CONSTIPATION Last administered on 08/10/17 06:34; Start 08/08/17 at 09:00 Chlordiazepoxide (Librium) 25 mg PRN Q6HRS PRN PO ANXIETY / AGITATION; Start at 11:15 Multivitamins 10 ml/Folic Acid 1 mg/Thiamine HCl 100 mg/Dextrose/ Sodium Chloride 1,011.1 ml @ 100 mls/ hr DAILY IV Last administered on 08/13/17 11: 21; Start 08/09/17 at 12:00; Stop 08/13/17 at 23:59; Status DC Hydralazine HCl (Apresoline) 10 mg PRN Q4HRS PRN IVP ELEVATED BP, SEE COMMENTS ; Start 08/09/17 at 15:45; Status Cancel Potassium Phos/ Sodium Phos (Phos-Nak) 1 pkt BID PO Last administered on 09:06; Start 08/10/17 at 09:30 Potassium Chloride (Klor-Con) 20 meq 1X ONCE PO Last administered on 09:51; Start 08/10/17 at 09:30; Stop 08/10/17 at 09:31; Status DC Lorazepam (Ativan) 1 mg PRN Q4HRS PRN IV ANXIETY / AGITATION Last administered on 08/12/17 01:02; Start 08/11/17 at 10:00 Multivitamins (Thera M Plus) 1 tab DAILY PO Last administered on 08/15/17 09: 02; Start 08/14/17 at 09:00 Thiamine Mononitrate (Vitamin B-1) 100 mg DAILY PO Last administered on 09:01; Start 08/14/17 at 09:00 Folic Acid (Folic Acid) 1 mg DAILY PO Last administered on 08/15/17t 09:02; Start 08/14/17 at 09:00 Active Scripts Active Reported Melatonin 3 Mg Tablet 1 Tab PO QHS Aspirin 81 Mg Tab.chew 81 Mg PO DAILY Vitals/I & O Vital Sign - Last 24 Hours 08/14/17 08/14/17 08/14/17 08/14/17 15:38 19:10 19:45 22:45 Temp 98.0 97.5 97.4 98.0 97.5 97.4 Pulse 85 91 80 Resp B/P (MAP) 89/59 (69) 95/64 (74) 110/74 (86) Pulse Ox 94 96 97 O2 Delivery Nasal Cannula Nasal Cannula Nasal Cannula Nasal Cannula O2 Flow Rate 2.0 2.0 2.0 2.0 08/15/17 08/15/17 08/15/17 08/15/17 03:05 07:30 08:00 10:21 Temp 97.7 97.4 97.1 97.7 97.4 97.1 Pulse 74 83 82 Resp 18 B/P (MAP) 113/70 (84) 100/65 (77) 86/59 (68) Pulse Ox 94 95 94 O2 Delivery Nasal Cannula Nasal Cannula Nasal Cannula Nasal Cannula O2 Flow Rate 2.0 2.0 2.0 2.0 CHRISTINA BRIGHT MD Aug 15, 2017 11:34
--- NOTE | 2017-08-15 12:27 | RAD ---
Indication pleural fluid. Single view of the chest was obtained and is compared to a study yesterday. Aeration at the left lung base has improved slightly. There is now some new volume loss at the right lung base. This may reflect atelectasis or pneumonia. Heart and pulmonary vessels are similar. Pleural-based catheter on the left is again noted. IMPRESSION: Improved aeration of the left lung base. Modest volume loss at the right lung base laterally on the current examination may reflect atelectasis or pneumonia
--- NOTE | 2017-08-15 13:12 | PDOC ---
PULMONARY PROGRESS NOTES Subjective ct 250 cc drainage since yesterday, alert, no pain, sob, cough Vitals Vital Signs Date Time Temp Pulse Resp B/P (MAP) Pulse Ox O2 Delivery O2 Flow Rate FiO2 08/15/17 10:21 97.1 82 18 86/59 (68) 94 Nasal Cannula 2.0 97.1 ROS: No Nausea, No Abdominal Pain, No Increase Cough General: Alert, No acute distress Lungs: Other (left sided chest tube, crackles at base of left lung) Cardiovascular: S1, S2 Abdomen: Soft, Non-tender Neuro Exam: Alert, Oriented Extremities: No Edema Skin: Warm Labs Laboratory Tests Test 08/14/17 04:30 08/15/17 04:35 White Blood Count 3.2 x10^3/uL (4.0-11.0) 3.3 x10^3/uL (4.0-11.0) Red Blood Count 3.84 x10^6/uL (4.30-5.70) 3.72 x10^6/uL (4.30-5.70) Hemoglobin 14.5 g/dL (13.0-17.5) 13.9 g/dL (13.0-17.5) Hematocrit 41.3 % (39.0-53.0) 40.2 % (39.0-53.0) Mean Corpuscular Volume 108 fL (79-100) 108 fL (79-100) Mean Corpuscular Hemoglobin 38 pg (25-35) 38 pg (25-35) Mean Corpuscular Hemoglobin Concent 35 g/dL (31-37) 35 g/dL (31-37) Red Cell Distribution Width 15.5 % (11.5-14.5) 16.0 % (11.5-14.5) Platelet Count 203 x10^3/uL (140-400) 257 x10^3/uL (140-400) Neutrophils (%) (Auto) 59 % (31-73) 62 % (31-73) Lymphocytes (%) (Auto) 15 % (24-48) 12 % (24-48) Monocytes (%) (Auto) 23 % (0-9) 23 % (0-9) Eosinophils (%) (Auto) 1 % (0-3) 2 % (0-3) Basophils (%) (Auto) 3 % (0-3) 1 % (0-3) Neutrophils # (Auto) 1.9 x10^3uL (1.8-7.7) 2.1 x10^3uL (1.8-7.7) Lymphocytes # (Auto) 0.5 x10^3/uL (1.0-4.8) 0.4 x10^3/uL (1.0-4.8) Monocytes # (Auto) 0.7 x10^3/uL (0.0-1.1) 0.8 x10^3/uL (0.0-1.1) Eosinophils # (Auto) 0.0 x10^3/uL (0.0-0.7) 0.1 x10^3/uL (0.0-0.7) Basophils # (Auto) 0.1 x10^3/uL (0.0-0.2) 0.0 x10^3/uL (0.0-0.2) Sodium Level 132 mmol/L (136-145) 133 mmol/L (136-145) Potassium Level 3.8 mmol/L (3.5-5.1) 3.7 mmol/L (3.5-5.1) Chloride Level 99 mmol/L (98-107) 98 mmol/L (98-107) Carbon Dioxide Level 31 mmol/L (21-32) 32 mmol/L (21-32) Anion Gap 2 (6-14) 3 (6-14) Blood Urea Nitrogen 5 mg/dL (8-26) 7 mg/dL (8-26) Creatinine 0.4 mg/dL (0.7-1.3) 0.4 mg/dL (0.7-1.3) Estimated GFR (Cockcroft-Gault) 213.9 213.9 Glucose Level 86 mg/dL (70-99) 79 mg/dL (70-99) Calcium Level 7.8 mg/dL (8.5-10.1) 8.1 mg/dL (8.5-10.1) Segmented Neutrophils % 82 % (35-66) Lymphocytes % 7 % (24-48) Monocytes % 11 % (0-10) Platelet Estimate Adequate (ADEQUATE) Anisocytosis Present Macrocytosis Present Laboratory Tests Test 08/15/17 04:35 White Blood Count 3.3 x10^3/uL (4.0-11.0) Red Blood Count 3.72 x10^6/uL (4.30-5.70) Hemoglobin 13.9 g/dL (13.0-17.5) Hematocrit 40.2 % (39.0-53.0) Mean Corpuscular Volume 108 fL (79-100) Mean Corpuscular Hemoglobin 38 pg (25-35) Mean Corpuscular Hemoglobin Concent 35 g/dL (31-37) Red Cell Distribution Width 16.0 % (11.5-14.5) Platelet Count 257 x10^3/uL (140-400) Neutrophils (%) (Auto) 62 % (31-73) Lymphocytes (%) (Auto) 12 % (24-48) Monocytes (%) (Auto) 23 % (0-9) Eosinophils (%) (Auto) 2 % (0-3) Basophils (%) (Auto) 1 % (0-3) Neutrophils # (Auto) 2.1 x10^3uL (1.8-7.7) Lymphocytes # (Auto) 0.4 x10^3/uL (1.0-4.8) Monocytes # (Auto) 0.8 x10^3/uL (0.0-1.1) Eosinophils # (Auto) 0.1 x10^3/uL (0.0-0.7) Basophils # (Auto) 0.0 x10^3/uL (0.0-0.2) Segmented Neutrophils % 82 % (35-66) Lymphocytes % 7 % (24-48) Monocytes % 11 % (0-10) Platelet Estimate Adequate (ADEQUATE) Anisocytosis Present Macrocytosis Present Sodium Level 133 mmol/L (136-145) Potassium Level 3.7 mmol/L (3.5-5.1) Chloride Level 98 mmol/L (98-107) Carbon Dioxide Level 32 mmol/L (21-32) Anion Gap 3 (6-14) Blood Urea Nitrogen 7 mg/dL (8-26) Creatinine 0.4 mg/dL (0.7-1.3) Estimated GFR (Cockcroft-Gault) 213.9 Glucose Level 79 mg/dL (70-99) Calcium Level 8.1 mg/dL (8.5-10.1) Medications Active Scripts Medications Dose Route/Sig Max Daily Dose Days Date Category Melatonin 3 Mg Tablet 1 Tab PO QHS 08/07/17 Reported Aspirin 81 Mg Tab.chew 81 Mg PO DAILY 08/07/17 Reported Comments cxr reviewed, 08/15 NO SIG CHANGE Impression . 1. Acute respiratory failure secondary to large left-sided effusion. most likey traumatic, cytology negative 2. Abnormal x-ray/left-sided effusion, s/p left chest tube 3. Hyponatremia 4. Generalized weakness. 5. Severe protein malnutrition, present upon admission. 6. Chronic obstructive pulmonary disease. 7. Tobacco dependence, quit 4 years ago. 8. h/o lung cancer diagnosed 2012, s/p wedge resection,PET in May, no sig recurrence except 11 mm Right lung nodule Plan . SUSPECT PLEURAL FLUID SEC TO RECENT FALL/HEMOTHORAX, pleural fluid was sent for cytology and it is negative 1. CONTINUE CHEST TUBE DRAINAGE/ ONLY 250 CC IN PAST 24 HRS. POSSIBLE DC CHEST TUBE IN AM IF < 200 CC 2. elevate hob 3. Monitor sodium. 4. Consider repeat ct chest as OP 5. monitor Hb madhavi w rn/ MICKIE AVELAR MD Aug 15, 2017 13:12
[2017-08-15 14:33] VITALS: BP 98/65
--- NOTE | 2017-08-15 14:43 | PDOC ---
PROGRESS NOTES Subjective Subjective c/c - f/u of Pleural effusion Objective Objective Vital Signs Date Time Temp Pulse Resp B/P (MAP) Pulse Ox O2 Delivery O2 Flow Rate FiO2 08/15/17 14:33 97.7 79 19 98/65 (76) 96 Nasal Cannula 2.0 97.7 Physical Exam Heart: Normal S1, Normal S2 General: Alert, Oriented X3 Lungs: Clear to auscultation Assessment Assessment IMPRESSION AND PLAN: 1. Lung cancer in 2012. I will obtain the records from his prior surgery and treatment. There is no history of chemotherapy or radiation therapy. His PET scan on 06/15/2017 did not reveal any definite evidence of recurrence. He has now developed significant pleural effusion on the left side. Cytology report reviewed - negative for malignancy. Etiology could be fall related/hemothorax. Malignancy cannot be ruled out and needs f/u with pulmonary. Appreciate pulmonary consultation. 2. Pleural effusion. He has got a thoracostomy tube in place. Appreciate interventional radiology management and pulmonary management. CONTINUE CHEST TUBE DRAINAGE/ ONLY 250 CC IN PAST 24 HRS. POSSIBLE DC CHEST TUBE IN AM IF < 200 CC Dyspnea better 3. Elevated MCV of 110. His platelets are also decreased to 107. Hemoglobin is normal at 15.7. B12 and folic acid levels are normal. Monitor. 4. Thrombocytopenia. We will continue to monitor. This could be a reactive process. improved to 203. 5. Leukopenia, reactive, monitor. 3.2. I d/w DR Weldon f/u with pulmonary after discharge. Please reconsult as needed. Comment Review of Relevant I have reviewed the following items tita (where applicable) has been applied. Labs Laboratory Tests Test 08/14/17 04:30 08/15/17 04:35 White Blood Count 3.2 x10^3/uL (4.0-11.0) 3.3 x10^3/uL (4.0-11.0) Red Blood Count 3.84 x10^6/uL (4.30-5.70) 3.72 x10^6/uL (4.30-5.70) Hemoglobin 14.5 g/dL (13.0-17.5) 13.9 g/dL (13.0-17.5) Hematocrit 41.3 % (39.0-53.0) 40.2 % (39.0-53.0) Mean Corpuscular Volume 108 fL (79-100) 108 fL (79-100) Mean Corpuscular Hemoglobin 38 pg (25-35) 38 pg (25-35) Mean Corpuscular Hemoglobin Concent 35 g/dL (31-37) 35 g/dL (31-37) Red Cell Distribution Width 15.5 % (11.5-14.5) 16.0 % (11.5-14.5) Platelet Count 203 x10^3/uL (140-400) 257 x10^3/uL (140-400) Neutrophils (%) (Auto) 59 % (31-73) 62 % (31-73) Lymphocytes (%) (Auto) 15 % (24-48) 12 % (24-48) Monocytes (%) (Auto) 23 % (0-9) 23 % (0-9) Eosinophils (%) (Auto) 1 % (0-3) 2 % (0-3) Basophils (%) (Auto) 3 % (0-3) 1 % (0-3) Neutrophils # (Auto) 1.9 x10^3uL (1.8-7.7) 2.1 x10^3uL (1.8-7.7) Lymphocytes # (Auto) 0.5 x10^3/uL (1.0-4.8) 0.4 x10^3/uL (1.0-4.8) Monocytes # (Auto) 0.7 x10^3/uL (0.0-1.1) 0.8 x10^3/uL (0.0-1.1) Eosinophils # (Auto) 0.0 x10^3/uL (0.0-0.7) 0.1 x10^3/uL (0.0-0.7) Basophils # (Auto) 0.1 x10^3/uL (0.0-0.2) 0.0 x10^3/uL (0.0-0.2) Sodium Level 132 mmol/L (136-145) 133 mmol/L (136-145) Potassium Level 3.8 mmol/L (3.5-5.1) 3.7 mmol/L (3.5-5.1) Chloride Level 99 mmol/L (98-107) 98 mmol/L (98-107) Carbon Dioxide Level 31 mmol/L (21-32) 32 mmol/L (21-32) Anion Gap 2 (6-14) 3 (6-14) Blood Urea Nitrogen 5 mg/dL (8-26) 7 mg/dL (8-26) Creatinine 0.4 mg/dL (0.7-1.3) 0.4 mg/dL (0.7-1.3) Estimated GFR (Cockcroft-Gault) 213.9 213.9 Glucose Level 86 mg/dL (70-99) 79 mg/dL (70-99) Calcium Level 7.8 mg/dL (8.5-10.1) 8.1 mg/dL (8.5-10.1) Segmented Neutrophils % 82 % (35-66) Lymphocytes % 7 % (24-48) Monocytes % 11 % (0-10) Platelet Estimate Adequate (ADEQUATE) Anisocytosis Present Macrocytosis Present Laboratory Tests Test 08/15/17 04:35 White Blood Count 3.3 x10^3/uL (4.0-11.0) Red Blood Count 3.72 x10^6/uL (4.30-5.70) Hemoglobin 13.9 g/dL (13.0-17.5) Hematocrit 40.2 % (39.0-53.0) Mean Corpuscular Volume 108 fL (79-100) Mean Corpuscular Hemoglobin 38 pg (25-35) Mean Corpuscular Hemoglobin Concent 35 g/dL (31-37) Red Cell Distribution Width 16.0 % (11.5-14.5) Platelet Count 257 x10^3/uL (140-400) Neutrophils (%) (Auto) 62 % (31-73) Lymphocytes (%) (Auto) 12 % (24-48) Monocytes (%) (Auto) 23 % (0-9) Eosinophils (%) (Auto) 2 % (0-3) Basophils (%) (Auto) 1 % (0-3) Neutrophils # (Auto) 2.1 x10^3uL (1.8-7.7) Lymphocytes # (Auto) 0.4 x10^3/uL (1.0-4.8) Monocytes # (Auto) 0.8 x10^3/uL (0.0-1.1) Eosinophils # (Auto) 0.1 x10^3/uL (0.0-0.7) Basophils # (Auto) 0.0 x10^3/uL (0.0-0.2) Segmented Neutrophils % 82 % (35-66) Lymphocytes % 7 % (24-48) Monocytes % 11 % (0-10) Platelet Estimate Adequate (ADEQUATE) Anisocytosis Present Macrocytosis Present Sodium Level 133 mmol/L (136-145) Potassium Level 3.7 mmol/L (3.5-5.1) Chloride Level 98 mmol/L (98-107) Carbon Dioxide Level 32 mmol/L (21-32) Anion Gap 3 (6-14) Blood Urea Nitrogen 7 mg/dL (8-26) Creatinine 0.4 mg/dL (0.7-1.3) Estimated GFR (Cockcroft-Gault) 213.9 Glucose Level 79 mg/dL (70-99) Calcium Level 8.1 mg/dL (8.5-10.1) Microbiology 08/08/17 Gram Stain - Final, Complete Medications Current Medications Ceftriaxone Sodium 1 gm/ Sodium Chloride 50 ml @ 100 mls/hr Q24H IV Last administered on 08/08/17 20:01; Start 08/07/17 at 21:00; Stop 08/09/17 at 11:16 ; Status DC Aspirin ([employer] Aspirin) 325 mg DAILYWBKFT PO Last administered on 08/15/17 09: 02; Start 08/08/17 at 08:00 Multivitamins (Thera M Plus) 1 tab DAILY PO Last administered on 08/10/17 08: 39; Start 08/08/17 at 09:00; Stop 08/10/17 at 13:03; Status DC Lorazepam (Ativan) 2 mg PRN Q6HRS PRN PO WITHDRAWAL IRRITABILITY Last administered on 08/10/17 22:49; Start 08/07/17 at 20:15 Ondansetron HCl (Zofran) 4 mg PRN Q6HRS PRN IV NAUSEA/VOMITING 1ST CHOICE; Start 08/08/17 at 09:00 Acetaminophen (Tylenol) 500 mg PRN Q6HRS PRN PO MILD PAIN / TEMP; Start at 09:00 Ketorolac Tromethamine (Toradol) 15 mg PRN Q6HRS PRN IV PAIN; Start 08/08/17 at 09:00; Stop 08/13/17 at 08:59; Status DC Morphine Sulfate 1 mg PRN Q2HR PRN IV PAIN PAIN SEV; Start 08/08/17 at 09:00 Non-Formulary Medication 1 tab QHS PO ; Start 08/08/17 at 21:00; Status UNV Acetaminophen/ Hydrocodone Bitart (Lortab 5/325) 1 tab PRN Q4HRS PRN PO MODERATE - SEVERE PAIN Last administered on 08/09/17 18:25; Start 08/08/17 at 09:00 Magnesium Hydroxide (Milk Of Magnesia) 2,400 mg PRN DAILY PRN PO CONSTIPATION Last administered on 08/10/17 06:34; Start 08/08/17 at 09:00 Chlordiazepoxide (Librium) 25 mg PRN Q6HRS PRN PO ANXIETY / AGITATION; Start at 11:15 Multivitamins 10 ml/Folic Acid 1 mg/Thiamine HCl 100 mg/Dextrose/ Sodium Chloride 1,011.1 ml @ 100 mls/ hr DAILY IV Last administered on 08/13/17 11: 21; Start 08/09/17 at 12:00; Stop 08/13/17 at 23:59; Status DC Hydralazine HCl (Apresoline) 10 mg PRN Q4HRS PRN IVP ELEVATED BP, SEE COMMENTS ; Start 08/09/17 at 15:45; Status Cancel Potassium Phos/ Sodium Phos (Phos-Nak) 1 pkt BID PO Last administered on 09:06; Start 08/10/17 at 09:30 Potassium Chloride (Klor-Con) 20 meq 1X ONCE PO Last administered on 09:51; Start 08/10/17 at 09:30; Stop 08/10/17 at 09:31; Status DC Lorazepam (Ativan) 1 mg PRN Q4HRS PRN IV ANXIETY / AGITATION Last administered on 08/12/17 01:02; Start 08/11/17 at 10:00 Multivitamins (Thera M Plus) 1 tab DAILY PO Last administered on 08/15/17 09: 02; Start 08/14/17 at 09:00 Thiamine Mononitrate (Vitamin B-1) 100 mg DAILY PO Last administered on 09:01; Start 08/14/17 at 09:00 Folic Acid (Folic Acid) 1 mg DAILY PO Last administered on 08/15/17 09:02; Start 08/14/17 at 09:00 Active Scripts Active Reported Melatonin 3 Mg Tablet 1 Tab PO QHS Aspirin 81 Mg Tab.chew 81 Mg PO DAILY Vitals/I & O Vital Sign - Last 24 Hours 08/14/17 08/14/17 08/14/17 08/14/17 15:38 19:10 19:45 22:45 Temp 98.0 97.5 97.4 98.0 97.5 97.4 Pulse 85 91 80 Resp 18 18 B/P (MAP) 89/59 (69) 95/64 (74) 110/74 (86) Pulse Ox 94 96 97 O2 Delivery Nasal Cannula Nasal Cannula Nasal Cannula Nasal Cannula O2 Flow Rate 2.0 2.0 2.0 2.0 08/15/17 08/15/17 08/15/17 08/15/17 03:05 07:30 08:00 10:21 Temp 97.7 97.4 97.1 97.7 97.4 97.1 Pulse 74 83 82 Resp 18 18 B/P (MAP) 113/70 (84) 100/65 (77) 86/59 (68) Pulse Ox 94 95 94 O2 Delivery Nasal Cannula Nasal Cannula Nasal Cannula Nasal Cannula O2 Flow Rate 2.0 2.0 2.0 2.0 08/15/17 14:33 Temp 97.7 97.7 Pulse 79 Resp 19 B/P (MAP) 98/65 (76) Pulse Ox 96 O2 Delivery Nasal Cannula O2 Flow Rate 2.0 NATHALIE NAIDU MD Aug 15, 2017 14:43
[2017-08-15 16:17] LABS: BF CLARITY TURBID
[2017-08-15 19:25] VITALS: BP 94/60
[2017-08-15 22:50] VITALS: BP 114/71
[2017-08-16 03:10] VITALS: BP 121/73
[2017-08-16 05:31] LABS: BASO # 0.1 x10^3/uL (0.0-0.2); BASO % 2 % (0-3); EOS % 2 % (0-3); HEMATOCRIT 44.1 % (39.0-53.0); HEMOGLOBIN 15.4 g/dL (13.0-17.5); LYMPH # 0.7 x10^3/uL (1.0-4.8); LYMPH % 18 % (24-48); MEAN CORPUSCULAR HEMOGLOBIN 38 pg (25-35); MEAN CORPUSCULAR HGB CONC 35 g/dL (31-37); MEAN CORPUSCULAR VOLUME 108 fL (79-100); MONO % 19 % (0-9); NEUT % 59 % (31-73); PLATELET COUNT 302 x10^3/uL (140-400); RED CELL DISTRIBUTION WIDTH 15.8 % (11.5-14.5); WHITE BLOOD COUNT 3.6 x10^3/uL (4.0-11.0)
[2017-08-16 05:40] LABS: CALCIUM 8.4 mg/dL (8.5-10.1); CREATININE 0.4 mg/dL (0.7-1.3); GFR 213.9; POTASSIUM 3.8 mmol/L (3.5-5.1)
[2017-08-16 07:00] VITALS: BP 117/71
[2017-08-16] MEDS: MULTIVITAMIN with MINERAL TABLET. PO SCH (08:12)
[2017-08-16] MEDS: FOLIC ACID 1 MG TABLET. PO SCH (08:13)
[2017-08-16] MEDS: THIAMINE 100 MG TABLET. PO SCH (08:13)
[2017-08-16] MEDS: POTASSIUM & SODIUM PHOSPHATES PACKET. PO SCH (08:13)
[2017-08-16] MEDS: ASPIRIN 325 MG TABLET PO SCH (08:13)
--- NOTE | 2017-08-16 09:13 | RAD ---
Indication effusion. Follow-up. A single view of the chest was obtained and is compared to a study yesterday. There has not been a significant change. Volume loss in the left lung is similar. Heart and pulmonary vessels are similar. A pleural-based catheter and the left is again noted. IMPRESSION: No significant change in the appearance of the chest
--- NOTE | 2017-08-16 10:14 | PDOC ---
PROGRESS NOTES Subjective Subjective c/c - f/u of Pleural effusion ROS - no CP Objective Objective Vital Signs Date Time Temp Pulse Resp B/P (MAP) Pulse Ox O2 Delivery O2 Flow Rate FiO2 08/16/17 08:15 Room Air 08/16/17 07:00 98.1 70 19 117/71 (86) 98 2.0 98.1 Physical Exam Heart: Normal S1, Normal S2 General: Alert, Oriented X3 Lungs: Clear to auscultation Neuro: Normal speech Psych/Mental Status: Mental status NL Assessment Assessment IMPRESSION AND PLAN: 1. Lung cancer in 2012. I will obtain the records from his prior surgery and treatment. There is no history of chemotherapy or radiation therapy. His PET scan on 06/15/2017 did not reveal any definite evidence of recurrence. He has now developed significant pleural effusion on the left side. Cytology report reviewed - negative for malignancy. Etiology could be fall related/hemothorax. Malignancy cannot be ruled out and needs f/u with pulmonary. Appreciate pulmonary consultation. 2. Pleural effusion. He has got a thoracostomy tube in place. Appreciate interventional radiology management and pulmonary management. CONTINUE CHEST TUBE DRAINAGE/ ONLY 250 CC IN PAST 24 HRS. POSSIBLE DC CHEST TUBE IF < 200 CC Dyspnea better 3. Elevated MCV of 110. His platelets are also decreased to 108. Hemoglobin is normal at 15.4. B12 and folic acid levels are normal. Monitor. 4. Thrombocytopenia. We will continue to monitor. This could be a reactive process. improved to 302. 5. Leukopenia, reactive, monitor. 3.6. I d/w DR Weldon f/u with pulmonary after discharge. Please reconsult as needed. Comment Review of Relevant I have reviewed the following items tita (where applicable) has been applied. Labs Laboratory Tests Test 08/15/17 04:35 08/15/17 15:50 08/16/17 04:25 White Blood Count 3.3 x10^3/uL (4.0-11.0) 3.6 x10^3/uL (4.0-11.0) Red Blood Count 3.72 x10^6/uL (4.30-5.70) 4.10 x10^6/uL (4.30-5.70) Hemoglobin 13.9 g/dL (13.0-17.5) 15.4 g/dL (13.0-17.5) Hematocrit 40.2 % (39.0-53.0) 44.1 % (39.0-53.0) Mean Corpuscular Volume 108 fL (79-100) 108 fL (79-100) Mean Corpuscular Hemoglobin 38 pg (25-35) 38 pg (25-35) Mean Corpuscular Hemoglobin Concent 35 g/dL (31-37) 35 g/dL (31-37) Red Cell Distribution Width 16.0 % (11.5-14.5) 15.8 % (11.5-14.5) Platelet Count 257 x10^3/uL (140-400) 302 x10^3/uL (140-400) Neutrophils (%) (Auto) 62 % (31-73) 59 % (31-73) Lymphocytes (%) (Auto) 12 % (24-48) 18 % (24-48) Monocytes (%) (Auto) 23 % (0-9) 19 % (0-9) Eosinophils (%) (Auto) 2 % (0-3) 2 % (0-3) Basophils (%) (Auto) 1 % (0-3) 2 % (0-3) Neutrophils # (Auto) 2.1 x10^3uL (1.8-7.7) 2.1 x10^3uL (1.8-7.7) Lymphocytes # (Auto) 0.4 x10^3/uL (1.0-4.8) 0.7 x10^3/uL (1.0-4.8) Monocytes # (Auto) 0.8 x10^3/uL (0.0-1.1) 0.7 x10^3/uL (0.0-1.1) Eosinophils # (Auto) 0.1 x10^3/uL (0.0-0.7) 0.1 x10^3/uL (0.0-0.7) Basophils # (Auto) 0.0 x10^3/uL (0.0-0.2) 0.1 x10^3/uL (0.0-0.2) Segmented Neutrophils % 82 % (35-66) Lymphocytes % 7 % (24-48) Monocytes % 11 % (0-10) Platelet Estimate Adequate (ADEQUATE) Anisocytosis Present Macrocytosis Present Sodium Level 133 mmol/L (136-145) 133 mmol/L (136-145) Potassium Level 3.7 mmol/L (3.5-5.1) 3.8 mmol/L (3.5-5.1) Chloride Level 98 mmol/L (98-107) 99 mmol/L (98-107) Carbon Dioxide Level 32 mmol/L (21-32) 30 mmol/L (21-32) Anion Gap 3 (6-14) 4 (6-14) Blood Urea Nitrogen 7 mg/dL (8-26) 7 mg/dL (8-26) Creatinine 0.4 mg/dL (0.7-1.3) 0.4 mg/dL (0.7-1.3) Estimated GFR (Cockcroft-Gault) 213.9 213.9 Glucose Level 79 mg/dL (70-99) 88 mg/dL (70-99) Calcium Level 8.1 mg/dL (8.5-10.1) 8.4 mg/dL (8.5-10.1) Body Fluid Source Pleural Body Fluid Color Body Fluid Clarity Turbid Body Fluid Nucleated Cells /cmm Body Fluid Mononuclear WBCs (%) 95 % Body Fluid Polymorphonuclear Cells 5 % Body Fluid Total RBCs Counted /cmm Laboratory Tests Test 08/15/17 15:50 08/16/17 04:25 Body Fluid Source Pleural Body Fluid Color Body Fluid Clarity Turbid Body Fluid Nucleated Cells /cmm Body Fluid Mononuclear WBCs (%) 95 % Body Fluid Polymorphonuclear Cells 5 % Body Fluid Total RBCs Counted /cmm White Blood Count 3.6 x10^3/uL (4.0-11.0) Red Blood Count 4.10 x10^6/uL (4.30-5.70) Hemoglobin 15.4 g/dL (13.0-17.5) Hematocrit 44.1 % (39.0-53.0) Mean Corpuscular Volume 108 fL (79-100) Mean Corpuscular Hemoglobin 38 pg (25-35) Mean Corpuscular Hemoglobin Concent 35 g/dL (31-37) Red Cell Distribution Width 15.8 % (11.5-14.5) Platelet Count 302 x10^3/uL (140-400) Neutrophils (%) (Auto) 59 % (31-73) Lymphocytes (%) (Auto) 18 % (24-48) Monocytes (%) (Auto) 19 % (0-9) Eosinophils (%) (Auto) 2 % (0-3) Basophils (%) (Auto) 2 % (0-3) Neutrophils # (Auto) 2.1 x10^3uL (1.8-7.7) Lymphocytes # (Auto) 0.7 x10^3/uL (1.0-4.8) Monocytes # (Auto) 0.7 x10^3/uL (0.0-1.1) Eosinophils # (Auto) 0.1 x10^3/uL (0.0-0.7) Basophils # (Auto) 0.1 x10^3/uL (0.0-0.2) Sodium Level 133 mmol/L (136-145) Potassium Level 3.8 mmol/L (3.5-5.1) Chloride Level 99 mmol/L (98-107) Carbon Dioxide Level 30 mmol/L (21-32) Anion Gap 4 (6-14) Blood Urea Nitrogen 7 mg/dL (8-26) Creatinine 0.4 mg/dL (0.7-1.3) Estimated GFR (Cockcroft-Gault) 213.9 Glucose Level 88 mg/dL (70-99) Calcium Level 8.4 mg/dL (8.5-10.1) Microbiology 08/08/17 Gram Stain - Final, Complete Medications Current Medications Ceftriaxone Sodium 1 gm/ Sodium Chloride 50 ml @ 100 mls/hr Q24H IV Last administered on 08/08/17 20:01; Start 08/07/17 at 21:00; Stop 08/09/17 at 11:16 ; Status DC Aspirin ([employer] Aspirin) 325 mg DAILYWBKFT PO Last administered on 08/16/17 08: 13; Start 08/08/17 at 08:00 Multivitamins (Thera M Plus) 1 tab DAILY PO Last administered on 08/10/17 08: 39; Start 08/08/17 at 09:00; Stop 08/10/17 at 13:03; Status DC Lorazepam (Ativan) 2 mg PRN Q6HRS PRN PO WITHDRAWAL IRRITABILITY Last administered on 08/10/17 22:49; Start 08/07/17 at 20:15 Ondansetron HCl (Zofran) 4 mg PRN Q6HRS PRN IV NAUSEA/VOMITING 1ST CHOICE; Start 08/08/17 at 09:00 Acetaminophen (Tylenol) 500 mg PRN Q6HRS PRN PO MILD PAIN / TEMP; Start at 09:00 Ketorolac Tromethamine (Toradol) 15 mg PRN Q6HRS PRN IV PAIN; Start 08/08/17 at 09:00; Stop 08/13/17 at 08:59; Status DC Morphine Sulfate 1 mg PRN Q2HR PRN IV PAIN PAIN SEV; Start 08/08/17 at 09:00 Non-Formulary Medication 1 tab QHS PO ; Start 08/08/17 at 21:00; Status UNV Acetaminophen/ Hydrocodone Bitart (Lortab 5/325) 1 tab PRN Q4HRS PRN PO MODERATE - SEVERE PAIN Last administered on 08/09/17 18:25; Start 08/08/17 at 09:00 Magnesium Hydroxide (Milk Of Magnesia) 2,400 mg PRN DAILY PRN PO CONSTIPATION Last administered on 08/10/17 06:34; Start 08/08/17 at 09:00 Chlordiazepoxide (Librium) 25 mg PRN Q6HRS PRN PO ANXIETY / AGITATION; Start at 11:15 Multivitamins 10 ml/Folic Acid 1 mg/Thiamine HCl 100 mg/Dextrose/ Sodium Chloride 1,011.1 ml @ 100 mls/ hr DAILY IV Last administered on 08/13/17 11: 21; Start 08/09/17 at 12:00; Stop 08/13/17 at 23:59; Status DC Hydralazine HCl (Apresoline) 10 mg PRN Q4HRS PRN IVP ELEVATED BP, SEE COMMENTS ; Start 08/09/17 at 15:45; Status Cancel Potassium Phos/ Sodium Phos (Phos-Nak) 1 pkt BID PO Last administered on 08:13; Start 08/10/17 at 09:30 Potassium Chloride (Klor-Con) 20 meq 1X ONCE PO Last administered on 09:51; Start 08/10/17 at 09:30; Stop 08/10/17 at 09:31; Status DC Lorazepam (Ativan) 1 mg PRN Q4HRS PRN IV ANXIETY / AGITATION Last administered on 08/12/17 01:02; Start 08/11/17 at 10:00 Multivitamins (Thera M Plus) 1 tab DAILY PO Last administered on 08/16/17 08: 12; Start 08/14/17 at 09:00 Thiamine Mononitrate (Vitamin B-1) 100 mg DAILY PO Last administered on 08:13; Start 08/14/17 at 09:00 Folic Acid (Folic Acid) 1 mg DAILY PO Last administered on 08/16/17 08:13; Start 08/14/17 at 09:00 Active Scripts Active Reported Melatonin 3 Mg Tablet 1 Tab PO QHS Aspirin 81 Mg Tab.chew 81 Mg PO DAILY Vitals/I & O Vital Sign - Last 24 Hours 08/15/17 08/15/17 08/15/17 08/15/17 10:21 14:33 19:25 20:00 Temp 97.1 97.7 97.7 97.1 97.7 97.7 Pulse 82 79 82 Resp B/P (MAP) 86/59 (68) 98/65 (76) 94/60 (71) Pulse Ox 94 96 97 O2 Delivery Nasal Cannula Nasal Cannula Nasal Cannula Nasal Cannula O2 Flow Rate 2.0 2.0 2.0 2.0 08/15/17 08/16/17 08/16/17 08/16/17 22:50 03:10 07:00 08:15 Temp 97.8 98.1 98.1 97.8 98.1 98.1 Pulse 80 77 70 Resp B/P (MAP) 114/71 (85) 121/73 (89) 117/71 (86) Pulse Ox 96 91 98 O2 Delivery Nasal Cannula Room Air Nasal Cannula Room Air O2 Flow Rate 2.0 2.0 NATHALIE NAIDU MD Aug 16, 2017 10:14
[2017-08-16 11:00] VITALS: BP 107/73
--- NOTE | 2017-08-16 11:09 | PDOC ---
PULMONARY PROGRESS NOTES Subjective ct 100 cc drainage since yesterday, alert, no pain, sob, cough Vitals Vital Signs Date Time Temp Pulse Resp B/P (MAP) Pulse Ox O2 Delivery O2 Flow Rate FiO2 08/16/17 08:15 Room Air 08/16/17 07:00 98.1 70 19 117/71 (86) 98 2.0 98.1 ROS: No Nausea, No Abdominal Pain, No Increase Cough General: Alert, No acute distress Lungs: Other (left sided chest tube, crackles at base of left lung) Cardiovascular: S1, S2 Abdomen: Soft, Non-tender Neuro Exam: Alert, Oriented Extremities: No Edema Skin: Warm Labs Laboratory Tests Test 08/15/17 04:35 08/15/17 15:50 08/16/17 04:25 White Blood Count 3.3 x10^3/uL (4.0-11.0) 3.6 x10^3/uL (4.0-11.0) Red Blood Count 3.72 x10^6/uL (4.30-5.70) 4.10 x10^6/uL (4.30-5.70) Hemoglobin 13.9 g/dL (13.0-17.5) 15.4 g/dL (13.0-17.5) Hematocrit 40.2 % (39.0-53.0) 44.1 % (39.0-53.0) Mean Corpuscular Volume 108 fL (79-100) 108 fL (79-100) Mean Corpuscular Hemoglobin 38 pg (25-35) 38 pg (25-35) Mean Corpuscular Hemoglobin Concent 35 g/dL (31-37) 35 g/dL (31-37) Red Cell Distribution Width 16.0 % (11.5-14.5) 15.8 % (11.5-14.5) Platelet Count 257 x10^3/uL (140-400) 302 x10^3/uL (140-400) Neutrophils (%) (Auto) 62 % (31-73) 59 % (31-73) Lymphocytes (%) (Auto) 12 % (24-48) 18 % (24-48) Monocytes (%) (Auto) 23 % (0-9) 19 % (0-9) Eosinophils (%) (Auto) 2 % (0-3) 2 % (0-3) Basophils (%) (Auto) 1 % (0-3) 2 % (0-3) Neutrophils # (Auto) 2.1 x10^3uL (1.8-7.7) 2.1 x10^3uL (1.8-7.7) Lymphocytes # (Auto) 0.4 x10^3/uL (1.0-4.8) 0.7 x10^3/uL (1.0-4.8) Monocytes # (Auto) 0.8 x10^3/uL (0.0-1.1) 0.7 x10^3/uL (0.0-1.1) Eosinophils # (Auto) 0.1 x10^3/uL (0.0-0.7) 0.1 x10^3/uL (0.0-0.7) Basophils # (Auto) 0.0 x10^3/uL (0.0-0.2) 0.1 x10^3/uL (0.0-0.2) Segmented Neutrophils % 82 % (35-66) Lymphocytes % 7 % (24-48) Monocytes % 11 % (0-10) Platelet Estimate Adequate (ADEQUATE) Anisocytosis Present Macrocytosis Present Sodium Level 133 mmol/L (136-145) 133 mmol/L (136-145) Potassium Level 3.7 mmol/L (3.5-5.1) 3.8 mmol/L (3.5-5.1) Chloride Level 98 mmol/L (98-107) 99 mmol/L (98-107) Carbon Dioxide Level 32 mmol/L (21-32) 30 mmol/L (21-32) Anion Gap 3 (6-14) 4 (6-14) Blood Urea Nitrogen 7 mg/dL (8-26) 7 mg/dL (8-26) Creatinine 0.4 mg/dL (0.7-1.3) 0.4 mg/dL (0.7-1.3) Estimated GFR (Cockcroft-Gault) 213.9 213.9 Glucose Level 79 mg/dL (70-99) 88 mg/dL (70-99) Calcium Level 8.1 mg/dL (8.5-10.1) 8.4 mg/dL (8.5-10.1) Body Fluid Source Pleural Body Fluid Color Body Fluid Clarity Turbid Body Fluid Nucleated Cells /cmm Body Fluid Mononuclear WBCs (%) 95 % Body Fluid Polymorphonuclear Cells 5 % Body Fluid Total RBCs Counted /cmm Laboratory Tests Test 08/15/17 15:50 08/16/17 04:25 Body Fluid Source Pleural Body Fluid Color Body Fluid Clarity Turbid Body Fluid Nucleated Cells /cmm Body Fluid Mononuclear WBCs (%) 95 % Body Fluid Polymorphonuclear Cells 5 % Body Fluid Total RBCs Counted /cmm White Blood Count 3.6 x10^3/uL (4.0-11.0) Red Blood Count 4.10 x10^6/uL (4.30-5.70) Hemoglobin 15.4 g/dL (13.0-17.5) Hematocrit 44.1 % (39.0-53.0) Mean Corpuscular Volume 108 fL (79-100) Mean Corpuscular Hemoglobin 38 pg (25-35) Mean Corpuscular Hemoglobin Concent 35 g/dL (31-37) Red Cell Distribution Width 15.8 % (11.5-14.5) Platelet Count 302 x10^3/uL (140-400) Neutrophils (%) (Auto) 59 % (31-73) Lymphocytes (%) (Auto) 18 % (24-48) Monocytes (%) (Auto) 19 % (0-9) Eosinophils (%) (Auto) 2 % (0-3) Basophils (%) (Auto) 2 % (0-3) Neutrophils # (Auto) 2.1 x10^3uL (1.8-7.7) Lymphocytes # (Auto) 0.7 x10^3/uL (1.0-4.8) Monocytes # (Auto) 0.7 x10^3/uL (0.0-1.1) Eosinophils # (Auto) 0.1 x10^3/uL (0.0-0.7) Basophils # (Auto) 0.1 x10^3/uL (0.0-0.2) Sodium Level 133 mmol/L (136-145) Potassium Level 3.8 mmol/L (3.5-5.1) Chloride Level 99 mmol/L (98-107) Carbon Dioxide Level 30 mmol/L (21-32) Anion Gap 4 (6-14) Blood Urea Nitrogen 7 mg/dL (8-26) Creatinine 0.4 mg/dL (0.7-1.3) Estimated GFR (Cockcroft-Gault) 213.9 Glucose Level 88 mg/dL (70-99) Calcium Level 8.4 mg/dL (8.5-10.1) Medications Active Scripts Medications Dose Route/Sig Max Daily Dose Days Date Category Melatonin 3 Mg Tablet 1 Tab PO QHS 08/07/17 Reported Aspirin 81 Mg Tab.chew 81 Mg PO DAILY 08/07/17 Reported Comments cxr reviewed, 08/16 NO SIG CHANGE Impression . 1. Acute respiratory failure secondary to large left-sided effusion. most likey traumatic, cytology negative 2. Abnormal x-ray/left-sided effusion, s/p left chest tube 3. Hyponatremia 4. Generalized weakness. 5. Severe protein malnutrition, present upon admission. 6. Chronic obstructive pulmonary disease. 7. Tobacco dependence, quit 4 years ago. 8. h/o lung cancer diagnosed 2012, s/p wedge resection,PET in May, no sig recurrence except 11 mm Right lung nodule Plan . SUSPECT PLEURAL FLUID SEC TO RECENT FALL/HEMOTHORAX, pleural fluid was sent for cytology and it is negative 1. WILL DC CHEST TUBE .DRAINAGE/ ONLY 100 CC IN PAST 24 HRS. 2. elevate hob 3. Monitor sodium. 4. Consider repeat cxr in 4-6 WEEKS POST DISCHARGE. IF FLUID RE-ACCUMULATES, WILL NEED CT CHEST TO BETTER ASSESS FOR PLEURAL METASTASIS 5. monitor Hb discussed w rn/ 6. F/U GIVEN WITH DR GARZA ON Sep /CXR PRIOR MICKIE AVELAR MD Aug 16, 2017 11:09
--- NOTE | 2017-08-16 12:02 | PDOC ---
PROGRESS NOTES Chief Complaint Chief Complaint left Large pleural effusion s/p thoracentesis 1.5 L (08/08) with chest tube on, cytology neg for malig Hx lung CA 2013 Anemia of malignancy/inflammation Hyponatremia in a cancer pt (SIADH syndrome?) Hypocalcemia in the background of low albumin leukocytopenia thrombocytopenia, reactive, resolved copd, stable plan: fu with pulm, onco still significant pleural drainage through left side chest tube, on water seal now monitor drainage and CXR daily cont home meds History of Present Illness History of Present Illness Patient awake and alert, sitting up in bed. Patient conversant with ( present in room) and healthcare team. Chest tube with still present in left side of chest. Nurse (also present in room) relayed that there was minimal drainage from tube overnight and during the day. The patient and his indicated they would like for him to be discharged home rather than to SNF (SW advised dc to SNF). plasma specialist (via phone conversation) indicated he was going to visit the patient's room and evaluate the chest tube and drainage with the end goal of discharging patient. Patient's indicated that he was closely followed by another physician with regular CTs and has recently had a PET because of the patient's hx of cancer. Vitals Vitals Vital Signs Date Time Temp Pulse Resp B/P (MAP) Pulse Ox O2 Delivery O2 Flow Rate FiO2 08/16/17 11:00 97.7 92 17 107/73 (84) 95 Nasal Cannula 2.0 97.7 Physical Exam Physical Exam Patient AAOx3. Patient was pleasant and conversant with healthcare team and . Patient indicated he would like to be discharged. General: Alert, Oriented X3, Cooperative, No acute distress Heart: Normal S1, Normal S2 Lungs: Wheezing, Other (mild bilateral expiratory wheezing. ) Abdomen: Normal bowel sounds, Soft Extremities: Normal pulses Skin: No rashes, No breakdown, Other (thin, friable ) Labs LABS Laboratory Tests Test 08/15/17 15:50 08/16/17 04:25 Body Fluid Source Pleural Body Fluid Color Body Fluid Clarity Turbid Body Fluid Nucleated Cells /cmm Body Fluid Mononuclear WBCs (%) 95 % Body Fluid Polymorphonuclear Cells 5 % Body Fluid Total RBCs Counted /cmm White Blood Count 3.6 x10^3/uL (4.0-11.0) Red Blood Count 4.10 x10^6/uL (4.30-5.70) Hemoglobin 15.4 g/dL (13.0-17.5) Hematocrit 44.1 % (39.0-53.0) Mean Corpuscular Volume 108 fL (79-100) Mean Corpuscular Hemoglobin 38 pg (25-35) Mean Corpuscular Hemoglobin Concent 35 g/dL (31-37) Red Cell Distribution Width 15.8 % (11.5-14.5) Platelet Count 302 x10^3/uL (140-400) Neutrophils (%) (Auto) 59 % (31-73) Lymphocytes (%) (Auto) 18 % (24-48) Monocytes (%) (Auto) 19 % (0-9) Eosinophils (%) (Auto) 2 % (0-3) Basophils (%) (Auto) 2 % (0-3) Neutrophils # (Auto) 2.1 x10^3uL (1.8-7.7) Lymphocytes # (Auto) 0.7 x10^3/uL (1.0-4.8) Monocytes # (Auto) 0.7 x10^3/uL (0.0-1.1) Eosinophils # (Auto) 0.1 x10^3/uL (0.0-0.7) Basophils # (Auto) 0.1 x10^3/uL (0.0-0.2) Sodium Level 133 mmol/L (136-145) Potassium Level 3.8 mmol/L (3.5-5.1) Chloride Level 99 mmol/L (98-107) Carbon Dioxide Level 30 mmol/L (21-32) Anion Gap 4 (6-14) Blood Urea Nitrogen 7 mg/dL (8-26) Creatinine 0.4 mg/dL (0.7-1.3) Estimated GFR (Cockcroft-Gault) 213.9 Glucose Level 88 mg/dL (70-99) Calcium Level 8.4 mg/dL (8.5-10.1) Review of Systems Review of Systems Patient admits lethargy. Patient admits hunger. Assessment and Plan Assessmemt and Plan Assessment: left Large pleural effusion s/p thoracentesis 1.5 L (08/08) with chest tube on, cytology neg for malig Hx lung CA 2013 Anemia of malignancy/inflammation Hyponatremia in a cancer pt (SIADH syndrome?) Hypocalcemia in the background of low albumin leukocytopenia thrombocytopenia, reactive, resolved copd, stable Plan: 1. probably discharge per okay from commissions specialist 2. Continue home medications 3. Continue regular care and close monitoring with physician. 4. Smoking cessation 5. Patient advised to use salt on food to address low serum Na. Problems: Comment Review of Relevant I have reviewed the following items tita (where applicable) has been applied. Labs Laboratory Tests Test 08/15/17 04:35 08/15/17 15:50 08/16/17 04:25 White Blood Count 3.3 x10^3/uL (4.0-11.0) 3.6 x10^3/uL (4.0-11.0) Red Blood Count 3.72 x10^6/uL (4.30-5.70) 4.10 x10^6/uL (4.30-5.70) Hemoglobin 13.9 g/dL (13.0-17.5) 15.4 g/dL (13.0-17.5) Hematocrit 40.2 % (39.0-53.0) 44.1 % (39.0-53.0) Mean Corpuscular Volume 108 fL (79-100) 108 fL (79-100) Mean Corpuscular Hemoglobin 38 pg (25-35) 38 pg (25-35) Mean Corpuscular Hemoglobin Concent 35 g/dL (31-37) 35 g/dL (31-37) Red Cell Distribution Width 16.0 % (11.5-14.5) 15.8 % (11.5-14.5) Platelet Count 257 x10^3/uL (140-400) 302 x10^3/uL (140-400) Neutrophils (%) (Auto) 62 % (31-73) 59 % (31-73) Lymphocytes (%) (Auto) 12 % (24-48) 18 % (24-48) Monocytes (%) (Auto) 23 % (0-9) 19 % (0-9) Eosinophils (%) (Auto) 2 % (0-3) 2 % (0-3) Basophils (%) (Auto) 1 % (0-3) 2 % (0-3) Neutrophils # (Auto) 2.1 x10^3uL (1.8-7.7) 2.1 x10^3uL (1.8-7.7) Lymphocytes # (Auto) 0.4 x10^3/uL (1.0-4.8) 0.7 x10^3/uL (1.0-4.8) Monocytes # (Auto) 0.8 x10^3/uL (0.0-1.1) 0.7 x10^3/uL (0.0-1.1) Eosinophils # (Auto) 0.1 x10^3/uL (0.0-0.7) 0.1 x10^3/uL (0.0-0.7) Basophils # (Auto) 0.0 x10^3/uL (0.0-0.2) 0.1 x10^3/uL (0.0-0.2) Segmented Neutrophils % 82 % (35-66) Lymphocytes % 7 % (24-48) Monocytes % 11 % (0-10) Platelet Estimate Adequate (ADEQUATE) Anisocytosis Present Macrocytosis Present Sodium Level 133 mmol/L (136-145) 133 mmol/L (136-145) Potassium Level 3.7 mmol/L (3.5-5.1) 3.8 mmol/L (3.5-5.1) Chloride Level 98 mmol/L (98-107) 99 mmol/L (98-107) Carbon Dioxide Level 32 mmol/L (21-32) 30 mmol/L (21-32) Anion Gap 3 (6-14) 4 (6-14) Blood Urea Nitrogen 7 mg/dL (8-26) 7 mg/dL (8-26) Creatinine 0.4 mg/dL (0.7-1.3) 0.4 mg/dL (0.7-1.3) Estimated GFR (Cockcroft-Gault) 213.9 213.9 Glucose Level 79 mg/dL (70-99) 88 mg/dL (70-99) Calcium Level 8.1 mg/dL (8.5-10.1) 8.4 mg/dL (8.5-10.1) Body Fluid Source Pleural Body Fluid Color Body Fluid Clarity Turbid Body Fluid Nucleated Cells /cmm Body Fluid Mononuclear WBCs (%) 95 % Body Fluid Polymorphonuclear Cells 5 % Body Fluid Total RBCs Counted /cmm Laboratory Tests Test 08/15/17 15:50 08/16/17 04:25 Body Fluid Source Pleural Body Fluid Color Body Fluid Clarity Turbid Body Fluid Nucleated Cells /cmm Body Fluid Mononuclear WBCs (%) 95 % Body Fluid Polymorphonuclear Cells 5 % Body Fluid Total RBCs Counted /cmm White Blood Count 3.6 x10^3/uL (4.0-11.0) Red Blood Count 4.10 x10^6/uL (4.30-5.70) Hemoglobin 15.4 g/dL (13.0-17.5) Hematocrit 44.1 % (39.0-53.0) Mean Corpuscular Volume 108 fL (79-100) Mean Corpuscular Hemoglobin 38 pg (25-35) Mean Corpuscular Hemoglobin Concent 35 g/dL (31-37) Red Cell Distribution Width 15.8 % (11.5-14.5) Platelet Count 302 x10^3/uL (140-400) Neutrophils (%) (Auto) 59 % (31-73) Lymphocytes (%) (Auto) 18 % (24-48) Monocytes (%) (Auto) 19 % (0-9) Eosinophils (%) (Auto) 2 % (0-3) Basophils (%) (Auto) 2 % (0-3) Neutrophils # (Auto) 2.1 x10^3uL (1.8-7.7) Lymphocytes # (Auto) 0.7 x10^3/uL (1.0-4.8) Monocytes # (Auto) 0.7 x10^3/uL (0.0-1.1) Eosinophils # (Auto) 0.1 x10^3/uL (0.0-0.7) Basophils # (Auto) 0.1 x10^3/uL (0.0-0.2) Sodium Level 133 mmol/L (136-145) Potassium Level 3.8 mmol/L (3.5-5.1) Chloride Level 99 mmol/L (98-107) Carbon Dioxide Level 30 mmol/L (21-32) Anion Gap 4 (6-14) Blood Urea Nitrogen 7 mg/dL (8-26) Creatinine 0.4 mg/dL (0.7-1.3) Estimated GFR (Cockcroft-Gault) 213.9 Glucose Level 88 mg/dL (70-99) Calcium Level 8.4 mg/dL (8.5-10.1) Microbiology 08/08/17 Gram Stain - Final, Complete Medications Current Medications Ceftriaxone Sodium 1 gm/ Sodium Chloride 50 ml @ 100 mls/hr Q24H IV Last administered on 08/08/17 20:01; Start 08/07/17 at 21:00; Stop 08/09/17 at 11:16 ; Status DC Aspirin (Yaneth Aspirin) 325 mg [id number] PO Last administered on 08/16/17 08: 13; Start 08/08/17 at 08:00; Stop 08/16/17 at 11:33; Status DC Multivitamins (Thera M Plus) 1 tab DAILY PO Last administered on 08/10/17 08: 39; Start 08/08/17 at 09:00; Stop 08/10/17 at 13:03; Status DC Lorazepam (Ativan) 2 mg PRN Q6HRS PRN PO WITHDRAWAL IRRITABILITY Last administered on 08/10/17 22:49; Start 08/07/17 at 20:15; Stop 08/16/17 at 11:33 ; Status DC Ondansetron HCl (Zofran) 4 mg PRN Q6HRS PRN IV NAUSEA/VOMITING 1ST CHOICE; Start 08/08/17 at 09:00; Stop 08/16/17 at 11:33; Status DC Acetaminophen (Tylenol) 500 mg PRN Q6HRS PRN PO MILD PAIN / TEMP; Start at 09:00; Stop 08/16/17 at 11:33; Status DC Ketorolac Tromethamine (Toradol) 15 mg PRN Q6HRS PRN IV PAIN; Start 08/08/17 at 09:00; Stop 08/13/17 at 08:59; Status DC Morphine Sulfate 1 mg PRN Q2HR PRN IV PAIN PAIN SEV; Start 08/08/17 at 09:00; Stop 08/16/17 at 11:33; Status DC Non-Formulary Medication 1 tab QHS PO ; Start 08/08/17 at 21:00; Status UNV Acetaminophen/ Hydrocodone Bitart (Lortab 5/325) 1 tab PRN Q4HRS PRN PO MODERATE - SEVERE PAIN Last administered on 08/09/17 18:25; Start 08/08/17 at 09:00; Stop 08/16/17 at 11:33; Status DC Magnesium Hydroxide (Milk Of Magnesia) 2,400 mg PRN DAILY PRN PO CONSTIPATION Last administered on 08/10/17 06:34; Start 08/08/17 at 09:00; Stop 08/16/17 at 11:33; Status DC Chlordiazepoxide (Librium) 25 mg PRN Q6HRS PRN PO ANXIETY / AGITATION; Start at 11:15; Stop 08/16/17 at 11:33; Status DC Multivitamins 10 ml/Folic Acid 1 mg/Thiamine HCl 100 mg/Dextrose/ Sodium Chloride 1,011.1 ml @ 100 mls/ hr DAILY IV Last administered on 08/13/17 11: 21; Start 08/09/17 at 12:00; Stop 08/13/17 at 23:59; Status DC Hydralazine HCl (Apresoline) 10 mg PRN Q4HRS PRN IVP ELEVATED BP, SEE COMMENTS ; Start 08/09/17 at 15:45; Status Cancel Potassium Phos/ Sodium Phos (Phos-Nak) 1 pkt BID PO Last administered on 08:13; Start 08/10/17 at 09:30; Stop 08/16/17 at 11:33; Status DC Potassium Chloride (Klor-Con) 20 meq 1X ONCE PO Last administered on 09:51; Start 08/10/17 at 09:30; Stop 08/10/17 at 09:31; Status DC Lorazepam (Ativan) 1 mg PRN Q4HRS PRN IV ANXIETY / AGITATION Last administered on 08/12/17 01:02; Start 08/11/17 at 10:00; Stop 08/16/17 at 11:33; Status DC Multivitamins (Thera M Plus) 1 tab DAILY PO Last administered on 08/16/17 08: 12; Start 08/14/17 at 09:00; Stop 08/16/17 at 11:33; Status DC Thiamine Mononitrate (Vitamin B-1) 100 mg DAILY PO Last administered on 08:13; Start 08/14/17 at 09:00; Stop 08/16/17 at 11:33; Status DC Folic Acid (Folic Acid) 1 mg DAILY PO Last administered on 08/16/17t 08:13; Start 08/14/17 at 09:00; Stop 08/16/17 at 11:33; Status DC Active Scripts Active Reported Melatonin 3 Mg Tablet 1 Tab PO QHS Aspirin 81 Mg Tab.chew 81 Mg PO DAILY Vitals/I & O Vital Sign - Last 24 Hours 08/15/17 08/15/17 08/15/17 08/15/17 14:33 19:25 20:00 22:50 Temp 97.7 97.7 97.8 97.7 97.7 97.8 Pulse 79 82 80 Resp B/P (MAP) 98/65 (76) 94/60 (71) 114/71 (85) Pulse Ox 96 97 96 O2 Delivery Nasal Cannula Nasal Cannula Nasal Cannula Nasal Cannula O2 Flow Rate 2.0 2.0 2.0 2.0 08/16/17 08/16/17 08/16/17 08/16/17 03:10 07:00 08:15 11:00 Temp 98.1 98.1 97.7 98.1 98.1 97.7 Pulse 77 70 92 Resp B/P (MAP) 121/73 (89) 117/71 (86) 107/73 (84) Pulse Ox 91 98 95 O2 Delivery Room Air Nasal Cannula Room Air Nasal Cannula O2 Flow Rate 2.0 2.0 JENNIFER PAGAN III DO Aug 16, 2017 12:02
== END 2017-08-16 11:20 | disposition home or self-care (01) | DRG 186 ==
LOC: 2 NORTH 18:30 → 2 SOUTH 08-12 16:05
PROVIDERS: ADMIT Internal Medicine; ATTEND Internal Medicine
PROC: 0W9B30Z Drainage of Left Pleural Cavity with Drainage Device, Percutaneous Approach (ICD-10-PCS; principal; 2017-08-08)
DX: J90 Pleural effusion, not elsewhere classified (principal); J96.00 Acute respiratory failure, unspecified whether with hypoxia or hypercapnia; E43 Unspecified severe protein-calorie malnutrition; D69.6 Thrombocytopenia, unspecified; E87.1 Hypo-osmolality and hyponatremia; J44.9 Chronic obstructive pulmonary disease, unspecified; E83.51 Hypocalcemia; Z68.1 Body mass index [BMI] 19.9 or less, adult; I25.10 Atherosclerotic heart disease of native coronary artery without angina pectoris; D72.819 Decreased white blood cell count, unspecified; D63.0 Anemia in neoplastic disease; M19.90 Unspecified osteoarthritis, unspecified site; Z90.2 Acquired absence of lung [part of]; Z87.891 Personal history of nicotine dependence; Z85.118 Personal history of other malignant neoplasm of bronchus and lung; Z86.718 Personal history of other venous thrombosis and embolism; Z86.711 Personal history of pulmonary embolism; Z83.3 Family history of diabetes mellitus; Z80.1 Family history of malignant neoplasm of trachea, bronchus and lung; Z80.3 Family history of malignant neoplasm of breast
CPT/HCPCS: 32557; 36415; 36600; 71010; 80048; 82040; 82042; 82150; 82570; 82607; 82746; 82805; 82945; 83615; 83735; 83986; 84443; 85007; 85025; 85610; 87071; 87075; 87102; 87116; 87205; 88112; 88305; 88341; 88342; 89050; 93005; 93306; C1729; C1769; J0696; J2060; 97110; 97116; 97530; 97535

== ENCOUNTER 2017-09-04 12:40 | Inpatient (IN) | payer MEDICARE, OTHER ==
[~2017-09-04] VITALS: Ht 175.3 cm; Wt 57.2 kg
[~2017-09-04 12:40] MED LIST: ASPI-630 PO; MELA3TAB2 PO
--- NOTE | 2017-09-04 13:05 | EKG ---
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
[2017-09-04 13:26] LABS: BASO % 0 % (0-3); EOS % 0 % (0-3); HEMOGLOBIN 16.6 g/dL (13.0-17.5); LYMPH # 0.9 x10^3/uL (1.0-4.8); LYMPH % 6 % (24-48); MEAN CORPUSCULAR HEMOGLOBIN 35 pg (25-35); MEAN CORPUSCULAR HGB CONC 34 g/dL (31-37); MEAN CORPUSCULAR VOLUME 105 fL (79-100); MONO % 14 % (0-9); NEUT % 80 % (31-73); PLATELET COUNT 493 x10^3/uL (140-400); RED BLOOD COUNT 4.68 x10^6/uL (4.30-5.70); RED CELL DISTRIBUTION WIDTH 15.5 % (11.5-14.5); WHITE BLOOD COUNT 14.5 x10^3/uL (4.0-11.0)
--- NOTE | 2017-09-04 13:32 | PHYS DOC ---
Adult General Chief Complaint Chief Complaint: SHORTNESS OF BREATH HPI HPI Patient is a 67 year old male sent from his primary care doctor's office for hypoxia and worsening pleural effusion on x-ray. Patient was admitted for similar from August 10 the of last month and had a chest tube place the fluid was analyzed and he ended up going home on Lasix. Patient says that he has been feeling worse over the past few days but he denies any cough fevers chills nausea vomiting or chest pain. He says that he gets very short of breath with exertion but at rest he is not too short of breath. Reportedly PCP said that his oxygen saturation was 84% on room air but he thinks he may have been exerting himself during that time. He is in no obvious distress with normal vital signs including auction saturation of 95% however he is slightly tachycardic at 111. Review of Systems Review of Systems Constitutional: Denies fever or chills [] Eyes: Denies change in visual acuity, redness, or eye pain [] HENT: Denies nasal congestion or sore throat [] Respiratory: Denies cough. + shortness of breath [] Cardiovascular: No additional information not addressed in HPI [] GI: Denies abdominal pain, nausea, vomiting, bloody stools or diarrhea [] : Denies dysuria or hematuria [] Musculoskeletal: Denies back pain or joint pain [] Integument: Denies rash or skin lesions [] Neurologic: Denies headache, focal weakness or sensory changes [] Current Medications Current Medications Current Medications Medications (Trade) Dose Ordered Sig/[place] Start Time Stop Time Status Last Admin Dose Admin Fentanyl Citrate (Fentanyl 2ml Vial) 50 mcg PRN Q2HR PRN 09/04/17 14:15 09/05/17 14:14 Furosemide (Lasix) 40 mg 1X ONCE 09/04/17 14:15 09/04/17 14:16 DC 09/04/17 14:23 40 MG Levofloxacin/ Dextrose 100 ml @ 100 mls/hr 1X ONCE 09/04/17 14:15 09/04/17 15:14 09/04/17 14:23 100 MLS/HR Ondansetron HCl (Zofran) 4 mg PRN Q8HRS PRN 09/04/17 14:15 09/05/17 14:14 Allergies Allergies Allergies Coded Allergies Type Severity Reaction Last Updated Verified No Known Allergies Allergy Unknown 9/11/17 Yes Physical Exam Physical Exam Constitutional: Well developed, well nourished, no acute distress, non-toxic appearance. [] HENT: Normocephalic, atraumatic, bilateral external ears normal, oropharynx moist, no oral exudates, nose normal. [] Eyes: PERRLA, EOMI, conjunctiva normal, no discharge. [] Neck: Normal range of motion, no tenderness, supple, no stridor. [] Cardiovascular:Heart rate regular rhythm, no murmur [] Lungs & Thorax: Diminished breath sounds on left with crackles at the base. Abdomen: Bowel sounds normal, soft, no tenderness, no masses, no pulsatile masses. [] Skin: Warm, dry, no erythema, no rash. [] Back: No tenderness, no CVA tenderness. [] Extremities: No tenderness, no cyanosis, no clubbing, ROM intact, no edema. [] Neurologic: Alert and oriented X 3, normal motor function, normal sensory function, no focal deficits noted. [] Current Patient Data Vital Signs Vital Signs Date Time Temp Pulse Resp B/P (MAP) Pulse Ox O2 Delivery O2 Flow Rate FiO2 09/04/17 13:53 112 146/98 (114) 96 Room Air 09/04/17 12:45 97.8 20 97.8 Lab Values Laboratory Tests Test 09/04/17 13:13 White Blood Count 14.5 x10^3/uL (4.0-11.0) H Red Blood Count 4.68 x10^6/uL (4.30-5.70) Hemoglobin 16.6 g/dL (13.0-17.5) Hematocrit 49.0 % (39.0-53.0) Mean Corpuscular Volume 105 fL (79-100) H Mean Corpuscular Hemoglobin 35 pg (25-35) Mean Corpuscular Hemoglobin Concent 34 g/dL (31-37) Red Cell Distribution Width 15.5 % (11.5-14.5) H Platelet Count 493 x10^3/uL (140-400) H Neutrophils (%) (Auto) 80 % (31-73) H Lymphocytes (%) (Auto) 6 % (24-48) L Monocytes (%) (Auto) 14 % (0-9) H Eosinophils (%) (Auto) 0 % (0-3) Basophils (%) (Auto) 0 % (0-3) Neutrophils # (Auto) 11.6 x10^3uL (1.8-7.7) H Lymphocytes # (Auto) 0.9 x10^3/uL (1.0-4.8) L Monocytes # (Auto) 2.0 x10^3/uL (0.0-1.1) H Eosinophils # (Auto) 0.0 x10^3/uL (0.0-0.7) Basophils # (Auto) 0.0 x10^3/uL (0.0-0.2) Platelet Estimate Pending Prothrombin Time 13.5 SEC (11.7-14.0) Prothrombin Time INR 1.1 (0.8-1.1) PTT 25 SEC (24-38) Sodium Level 133 mmol/L (136-145) L Potassium Level 4.6 mmol/L (3.5-5.1) Chloride Level 94 mmol/L (98-107) L Carbon Dioxide Level 31 mmol/L (21-32) Anion Gap 8 (6-14) Blood Urea Nitrogen 6 mg/dL (8-26) L Creatinine 0.5 mg/dL (0.7-1.3) L Estimated GFR (Cockcroft-Gault) 165.4 BUN/Creatinine Ratio 12 (6-20) Glucose Level 95 mg/dL (70-99) Lactic Acid Level 2.2 mmol/L (0.4-2.0) H Calcium Level 9.3 mg/dL (8.5-10.1) Magnesium Level 2.0 mg/dL (1.8-2.4) Total Bilirubin 1.1 mg/dL (0.2-1.0) H Aspartate Amino Transferase (AST) 35 U/L (15-37) Alanine Aminotransferase (ALT) 18 U/L (16-63) Alkaline Phosphatase 91 U/L (46-116) Troponin I Quantitative < 0.017 ng/mL (0.000-0.055) PO-Off-Z-Type Natriuretic Peptide 1179 pg/mL (0-124) H Total Protein 6.6 g/dL (6.4-8.2) Albumin 2.2 g/dL (3.4-5.0) L Albumin/Globulin Ratio 0.5 (1.0-1.7) L Laboratory Tests 09/04/17 13:13 Laboratory Tests 09/04/17 13:13 EKG EKG Sinus tachycardia at 111 beats per minutes with normal axis no obvious ST elevation or depression and normal T waves. Radiology/Procedures Radiology/Procedures Exam performed: One view chest. History: History of lung cancer. Date of service: 09/04/17. Comparison: Single view chest from 08/16/17. Single AP upright portable view chest findings: Worsening opacity left lung base likely a combination of airspace opacity and pleural effusion. Left cardiac silhouette and left hemidiaphragm is obscured due to opacity. The right lung is clear. Impression: Worsening opacity left mid and lower lung. DICTATED and SIGNED BY: ASH FRANCIS MD DATE: 09/04/17 4013 Course & Med Decision Making Course & Med Decision Making Patient with pleural effusion that is just as bad or worse in size than prior admission. Given hypoxia and shortness of breath patient will be admitted for further observation and treatment. Patient has leukocytosis and possible parapneumonic effusion so will start Levaquin for now. Dragon Disclaimer Dragon Disclaimer This electronic medical record was generated, in whole or in part, using a voice recognition dictation system. Departure Departure Impression: Primary Impression: Pleural effusion Additional Impressions: Leukocytosis Parapneumonic effusion Disposition: ADMITTED INPATIENT Admitting Physician: Olvin Castle Condition: STABLE Referrals: JASON AGUIRRE APRN (PCP) Problem Qualifiers FERNIE ROBBINS DO Sep 04, 2017 13:32
[2017-09-04 13:38] LABS: CALCIUM 9.3 mg/dL (8.5-10.1); CREATININE 0.5 mg/dL (0.7-1.3); GFR 165.4; POTASSIUM 4.6 mmol/L (3.5-5.1)
[2017-09-04 13:44] LABS: ALBUMIN 2.2 g/dL (3.4-5.0); ALBUMIN/GLOBULIN RATIO 0.5 (1.0-1.7); TOTAL BILIRUBIN 1.1 mg/dL (0.2-1.0); TOTAL PROTEIN 6.6 g/dL (6.4-8.2)
[2017-09-04 13:58] LABS: INR 1.1 (0.8-1.1); PROTHROMBIN TIME PATIENT 13.5 SEC (11.7-14.0)
--- NOTE | 2017-09-04 14:10 | RAD ---
Exam performed: One view chest. History: History of lung cancer. Date of service: 09/04/17. Comparison: Single view chest from 08/16/17. Single AP upright portable view chest findings: Worsening opacity left lung base likely a combination of airspace opacity and pleural effusion. Left cardiac silhouette and left hemidiaphragm is obscured due to opacity. The right lung is clear. Impression: Worsening opacity left mid and lower lung.
[2017-09-04] MEDS ORDERED: ONDANSETRON PF 4 MG/2 ML VIAL. IV PRN (14:15)
[2017-09-04] MEDS ORDERED: fentaNYL PF VIAL 100 MCG/2 ML VIAL IV PRN (14:15)
[2017-09-04] MEDS ORDERED: FUROSEMIDE 40 MG/4 ML VIAL. IVP ONE (14:15)
[2017-09-04 15:57] VITALS: BP 141/96
[2017-09-04 16:48] LABS: PLT ESTIMATE INCREASED (ADEQUATE)
[2017-09-04 16:49] LABS: TOXIC GRANULATION SLIGHT; TOXIC VACUOLATION SLIGHT
[2017-09-04] MEDS ORDERED: ACET-1571 PO (16:49)
[2017-09-04] MEDS ORDERED: MULT1TAB52 PO (16:49)
--- NOTE | 2017-09-04 16:59 | PDOC ---
PULMONARY PROGRESS NOTES Vitals Vital Signs Date Time Temp Pulse Resp B/P (MAP) Pulse Ox O2 Delivery O2 Flow Rate FiO2 09/04/17 15:57 98.0 116 18 141/96 (111) 97 Room Air 98.0 General: Alert, No acute distress Lungs: Wheezing, Other Cardiovascular: S1, S2 Abdomen: Soft, Non-tender Extremities: No Edema Labs Laboratory Tests Test 09/04/17 13:13 White Blood Count 14.5 x10^3/uL (4.0-11.0) Red Blood Count 4.68 x10^6/uL (4.30-5.70) Hemoglobin 16.6 g/dL (13.0-17.5) Hematocrit 49.0 % (39.0-53.0) Mean Corpuscular Volume 105 fL (79-100) Mean Corpuscular Hemoglobin 35 pg (25-35) Mean Corpuscular Hemoglobin Concent 34 g/dL (31-37) Red Cell Distribution Width 15.5 % (11.5-14.5) Platelet Count 493 x10^3/uL (140-400) Neutrophils (%) (Auto) 80 % (31-73) Lymphocytes (%) (Auto) 6 % (24-48) Monocytes (%) (Auto) 14 % (0-9) Eosinophils (%) (Auto) 0 % (0-3) Basophils (%) (Auto) 0 % (0-3) Neutrophils # (Auto) 11.6 x10^3uL (1.8-7.7) Lymphocytes # (Auto) 0.9 x10^3/uL (1.0-4.8) Monocytes # (Auto) 2.0 x10^3/uL (0.0-1.1) Eosinophils # (Auto) 0.0 x10^3/uL (0.0-0.7) Basophils # (Auto) 0.0 x10^3/uL (0.0-0.2) Segmented Neutrophils % 85 % (35-66) Band Neutrophils % 1 % (0-9) Lymphocytes % 3 % (24-48) Monocytes % 11 % (0-10) Toxic Granulation Slight Toxic Vacuolation Slight Platelet Estimate Increased (ADEQUATE) Macrocytosis Slight Prothrombin Time 13.5 SEC (11.7-14.0) Prothromb Time International Ratio 1.1 (0.8-1.1) Activated Partial Thromboplast Time 25 SEC (24-38) Sodium Level 133 mmol/L (136-145) Potassium Level 4.6 mmol/L (3.5-5.1) Chloride Level 94 mmol/L (98-107) Carbon Dioxide Level 31 mmol/L (21-32) Anion Gap 8 (6-14) Blood Urea Nitrogen 6 mg/dL (8-26) Creatinine 0.5 mg/dL (0.7-1.3) Estimated GFR (Cockcroft-Gault) 165.4 BUN/Creatinine Ratio 12 (6-20) Glucose Level 95 mg/dL (70-99) Lactic Acid Level 2.2 mmol/L (0.4-2.0) Calcium Level 9.3 mg/dL (8.5-10.1) Magnesium Level 2.0 mg/dL (1.8-2.4) Total Bilirubin 1.1 mg/dL (0.2-1.0) Aspartate Amino Transf (AST/SGOT) 35 U/L (15-37) Alanine Aminotransferase (ALT/SGPT) 18 U/L (16-63) Alkaline Phosphatase 91 U/L (46-116) Troponin I Quantitative < 0.017 ng/mL (0.000-0.055) LE-Dux-Z-Type Natriuretic Peptide 1179 pg/mL (0-124) Total Protein 6.6 g/dL (6.4-8.2) Albumin 2.2 g/dL (3.4-5.0) Albumin/Globulin Ratio 0.5 (1.0-1.7) Laboratory Tests Test 09/04/17 13:13 White Blood Count 14.5 x10^3/uL (4.0-11.0) Red Blood Count 4.68 x10^6/uL (4.30-5.70) Hemoglobin 16.6 g/dL (13.0-17.5) Hematocrit 49.0 % (39.0-53.0) Mean Corpuscular Volume 105 fL (79-100) Mean Corpuscular Hemoglobin 35 pg (25-35) Mean Corpuscular Hemoglobin Concent 34 g/dL (31-37) Red Cell Distribution Width 15.5 % (11.5-14.5) Platelet Count 493 x10^3/uL (140-400) Neutrophils (%) (Auto) 80 % (31-73) Lymphocytes (%) (Auto) 6 % (24-48) Monocytes (%) (Auto) 14 % (0-9) Eosinophils (%) (Auto) 0 % (0-3) Basophils (%) (Auto) 0 % (0-3) Neutrophils # (Auto) 11.6 x10^3uL (1.8-7.7) Lymphocytes # (Auto) 0.9 x10^3/uL (1.0-4.8) Monocytes # (Auto) 2.0 x10^3/uL (0.0-1.1) Eosinophils # (Auto) 0.0 x10^3/uL (0.0-0.7) Basophils # (Auto) 0.0 x10^3/uL (0.0-0.2) Segmented Neutrophils % 85 % (35-66) Band Neutrophils % 1 % (0-9) Lymphocytes % 3 % (24-48) Monocytes % 11 % (0-10) Toxic Granulation Slight Toxic Vacuolation Slight Platelet Estimate Increased (ADEQUATE) Macrocytosis Slight Prothrombin Time 13.5 SEC (11.7-14.0) Prothromb Time International Ratio 1.1 (0.8-1.1) Activated Partial Thromboplast Time 25 SEC (24-38) Sodium Level 133 mmol/L (136-145) Potassium Level 4.6 mmol/L (3.5-5.1) Chloride Level 94 mmol/L (98-107) Carbon Dioxide Level 31 mmol/L (21-32) Anion Gap 8 (6-14) Blood Urea Nitrogen 6 mg/dL (8-26) Creatinine 0.5 mg/dL (0.7-1.3) Estimated GFR (Cockcroft-Gault) 165.4 BUN/Creatinine Ratio 12 (6-20) Glucose Level 95 mg/dL (70-99) Lactic Acid Level 2.2 mmol/L (0.4-2.0) Calcium Level 9.3 mg/dL (8.5-10.1) Magnesium Level 2.0 mg/dL (1.8-2.4) Total Bilirubin 1.1 mg/dL (0.2-1.0) Aspartate Amino Transf (AST/SGOT) 35 U/L (15-37) Alanine Aminotransferase (ALT/SGPT) 18 U/L (16-63) Alkaline Phosphatase 91 U/L (46-116) Troponin I Quantitative < 0.017 ng/mL (0.000-0.055) SV-Fiy-H-Type Natriuretic Peptide 1179 pg/mL (0-124) Total Protein 6.6 g/dL (6.4-8.2) Albumin 2.2 g/dL (3.4-5.0) Albumin/Globulin Ratio 0.5 (1.0-1.7) Medications Active Scripts Medications Dose Route/Sig Max Daily Dose Days Date Category Extra Strength Non-Aspirin (Acetaminophen) 500 Mg Tablet 500 Mg PO BID PRN 09/04/17 Reported Multivitamins (Multivitamin) 1 Each Tablet 1 Tab PO DAILY 09/04/17 Reported Melatonin 3 Mg Tablet 1 Tab PO QHS 08/07/17 Reported Impression . DICTATED SEE ORDERS WILL PROCEED WITH THORACENTESIS HERNAN GARZA MD Sep 04, 2017 16:59
[2017-09-04] MEDS ORDERED: ACETAMINOPHEN 500 MG TABLET PO PRN (18:00)
--- NOTE | 2017-09-04 18:18 | PDOC1 ---
History and Physical Date of Admission Date of Admission DATE: 09/04/17 TIME: 18:18 Identification/Chief Complaint Chief Complaint dyspnea, edema Problems: Source Source: Chart review, Patient History of Present Illness History of Present Illness Mr. Heaton, is a 67 year old male, sent from primary care to ER, admit from ER for new hypoxia and worsening pleural effusion on x-ray. Hx of prior effusion, prior chest tube last month, family reports that no source was found for effusion, but that he has new LE edema, swelling was new when leaving the hospital last time and seems to have worsened. has been taking lasix, not on his med list He has been feeling worse over the past few days, weak, fatigue, tired He says that he gets very short of breath with exertion but at rest he is not too short of breath. His oxygen saturation was 84% on room air and tachycardic at 111. Past Medical History Cardiovascular: No pertinent hx Pulmonary: COPD GI: No pertinent hx Heme/Onc: Cancer Hepatobiliary: No pertinent hx Psych: No pertinent hx Musculoskeletal: Osteoarthritis Rheumatologic: No pertinent hx Infectious disease: No pertinent hx Renal/: No pertinent hx Endocrine: No pertinent hx Past Surgical History Past Surgical History: Other Family History Family History: Diabetes Social History Smoke: No ALCOHOL: heavy (6 per night, beer) Drugs: None Current Problem List Problem List Problems Medical Problems: (1) Leukocytosis Status: Acute (2) Parapneumonic effusion Status: Acute Problems: Current Medications Current Medications Current Medications Levofloxacin/ Dextrose 100 ml @ 100 mls/hr 1X ONCE IV Last administered on 14:23; Start 09/04/17 at 14:15; Stop 09/04/17 at 15:14; Status DC Ondansetron HCl (Zofran) 4 mg PRN Q8HRS PRN IV NAUSEA/VOMITING; Start 09/04/17 at 14:15; Stop 09/05/17 at 14:14 Fentanyl Citrate (Fentanyl 2ml Vial) 50 mcg PRN Q2HR PRN IV PAIN; Start at 14:15; Stop 09/05/17 at 14:14 Furosemide (Lasix) 40 mg 1X ONCE IVP Last administered on 09/04/17 14:23; Start 09/04/17 at 14:15; Stop 09/04/17 at 14:16; Status DC Acetaminophen (Tylenol) 500 mg PRN BID PRN PO PAIN; Start 09/04/17 at 18:00 Non-Formulary Medication 1 tab QHS PO ; Start 09/04/17 at 21:00; Status UNV Active Scripts Active Reported Extra Strength Non-Aspirin (Acetaminophen) 500 Mg Tablet 500 Mg PO BID PRN Multivitamins (Multivitamin) 1 Each Tablet 1 Tab PO DAILY Melatonin 3 Mg Tablet 1 Tab PO QHS Allergies Allergies: Coded Allergies: No Known Allergies (Verified Allergy, Unknown, 08/07/17) ROS General: YES: Fatigue, Malaise, No: Chills, Night Sweats, Appetite, Other PSYCHOLOGICAL ROS: No: Anxiety, Behavioral Disorder, Concentration difficultie , Decreased libido, Depression, Disorientation, Hallucinations, Hostility, Irritablity, Memory difficulties, Mood Swings, Obsessive thoughts, Other Eyes: No Blurry vision, No Decreased vision, No Double vision, No Dry eyes, No Excessive tearing, No Eye Pain, No Itchy Eyes, No Loss of vision, No Photophobia , No Scotomata, No Uses contacts, No Uses glasses, No Other HEENT: No: Heacaches, Visual Changes, Hearing change, Nasal congestion, Nasal discharge, Oral lesions, Sinus pain, Sore Throat, Epistaxis, Sneezing, Snoring, Tinnitus, Vertigo, Vocal changes, Other Respiratory: YES: SOB with excertion, No: Cough, Hemoptysis, Orthopnea, Pleuritic Pain, Shortness of breath, Sputum Changes, Stridor, Tachypnea, Wheezing, Other Cardiovascular: yes Edema, No Chest Pain, No Palpitations, No Orthopnea, No Paroxysmal Noc. Dyspnea, No Lt Headedness, No Other Gastrointestinal: No Vomiting, No Abdominal Pain, No Diarrhea, No Constipation , No Melena, No Hematochezia, No Other Genitourinary: No Dysuria, No Frequency, No Incontinence, No Hematuria, No Retention, No Discharge, No Urgency, No Pain, No Flank Pain, No Other, No , No , No , No , No , No , No Musculoskeletal: No Gait Disturbance, No Joint Pain, No Joint Stiffness, No Joint Swelling, No Muscle Pain, No Muscular Weakness, No Pain In:, No Swelling In:, No Other Neurological: No Behavorial Changes, No Bowel/Bladder ControlChng, No Confusion , No Dizziness, No Gait Disturbance, No Headaches, No Impaired Coord/balance, No Memory Loss, No Numbness/Tingling, No Seizures, No Speech Problems, No Tremors, No Visual Changes, No Weakness, No Other Skin: No Dry Skin, No Eczema, No Hair Changes, No Lumps, No Mole Changes, No Mottling, No Nail Changes, No Pruritus, No Rash, No Skin Lesion Changes, No Other, No Acne Physical Exam General: Alert, Oriented X3, Cooperative, No acute distress HEENT: Atraumatic, PERRLA, EOMI Lungs: Clear to auscultation, Other (limited vol breaths, dull left, ) Heart: S1S2 Male Genitals Exam: erythema Extremities: No clubbing, Other (3+ edema bilat LE and pedal) Neuro: Normal speech, Cranial nerves 3-12 NL Psych/Mental Status: Mental status NL, Mood NL Vitals Vitals Vital Signs Date Time Temp Pulse Resp B/P (MAP) Pulse Ox O2 Delivery O2 Flow Rate FiO2 09/04/17 16:51 Room Air 09/04/17 15:57 98.0 116 18 141/96 (111) 97 98.0 Labs Labs Laboratory Tests Test 09/04/17 13:13 09/04/17 17:15 White Blood Count 14.5 x10^3/uL (4.0-11.0) Red Blood Count 4.68 x10^6/uL (4.30-5.70) Hemoglobin 16.6 g/dL (13.0-17.5) Hematocrit 49.0 % (39.0-53.0) Mean Corpuscular Volume 105 fL (79-100) Mean Corpuscular Hemoglobin 35 pg (25-35) Mean Corpuscular Hemoglobin Concent 34 g/dL (31-37) Red Cell Distribution Width 15.5 % (11.5-14.5) Platelet Count 493 x10^3/uL (140-400) Neutrophils (%) (Auto) 80 % (31-73) Lymphocytes (%) (Auto) 6 % (24-48) Monocytes (%) (Auto) 14 % (0-9) Eosinophils (%) (Auto) 0 % (0-3) Basophils (%) (Auto) 0 % (0-3) Neutrophils # (Auto) 11.6 x10^3uL (1.8-7.7) Lymphocytes # (Auto) 0.9 x10^3/uL (1.0-4.8) Monocytes # (Auto) 2.0 x10^3/uL (0.0-1.1) Eosinophils # (Auto) 0.0 x10^3/uL (0.0-0.7) Basophils # (Auto) 0.0 x10^3/uL (0.0-0.2) Segmented Neutrophils % 85 % (35-66) Band Neutrophils % 1 % (0-9) Lymphocytes % 3 % (24-48) Monocytes % 11 % (0-10) Toxic Granulation Slight Toxic Vacuolation Slight Platelet Estimate Increased (ADEQUATE) Macrocytosis Slight Prothrombin Time 13.5 SEC (11.7-14.0) Prothromb Time International Ratio 1.1 (0.8-1.1) Activated Partial Thromboplast Time 25 SEC (24-38) Sodium Level 133 mmol/L (136-145) Potassium Level 4.6 mmol/L (3.5-5.1) Chloride Level 94 mmol/L (98-107) Carbon Dioxide Level 31 mmol/L (21-32) Anion Gap 8 (6-14) Blood Urea Nitrogen 6 mg/dL (8-26) Creatinine 0.5 mg/dL (0.7-1.3) Estimated GFR (Cockcroft-Gault) 165.4 BUN/Creatinine Ratio 12 (6-20) Glucose Level 95 mg/dL (70-99) Lactic Acid Level 2.2 mmol/L (0.4-2.0) 1.6 mmol/L (0.4-2.0) Calcium Level 9.3 mg/dL (8.5-10.1) Magnesium Level 2.0 mg/dL (1.8-2.4) Total Bilirubin 1.1 mg/dL (0.2-1.0) Aspartate Amino Transf (AST/SGOT) 35 U/L (15-37) Alanine Aminotransferase (ALT/SGPT) 18 U/L (16-63) Alkaline Phosphatase 91 U/L (46-116) Troponin I Quantitative < 0.017 ng/mL (0.000-0.055) SD-Snd-P-Type Natriuretic Peptide 1179 pg/mL (0-124) Total Protein 6.6 g/dL (6.4-8.2) Albumin 2.2 g/dL (3.4-5.0) Albumin/Globulin Ratio 0.5 (1.0-1.7) Laboratory Tests Test 09/04/17 13:13 09/04/17 17:15 White Blood Count 14.5 x10^3/uL (4.0-11.0) Red Blood Count 4.68 x10^6/uL (4.30-5.70) Hemoglobin 16.6 g/dL (13.0-17.5) Hematocrit 49.0 % (39.0-53.0) Mean Corpuscular Volume 105 fL (79-100) Mean Corpuscular Hemoglobin 35 pg (25-35) Mean Corpuscular Hemoglobin Concent 34 g/dL (31-37) Red Cell Distribution Width 15.5 % (11.5-14.5) Platelet Count 493 x10^3/uL (140-400) Neutrophils (%) (Auto) 80 % (31-73) Lymphocytes (%) (Auto) 6 % (24-48) Monocytes (%) (Auto) 14 % (0-9) Eosinophils (%) (Auto) 0 % (0-3) Basophils (%) (Auto) 0 % (0-3) Neutrophils # (Auto) 11.6 x10^3uL (1.8-7.7) Lymphocytes # (Auto) 0.9 x10^3/uL (1.0-4.8) Monocytes # (Auto) 2.0 x10^3/uL (0.0-1.1) Eosinophils # (Auto) 0.0 x10^3/uL (0.0-0.7) Basophils # (Auto) 0.0 x10^3/uL (0.0-0.2) Segmented Neutrophils % 85 % (35-66) Band Neutrophils % 1 % (0-9) Lymphocytes % 3 % (24-48) Monocytes % 11 % (0-10) Toxic Granulation Slight Toxic Vacuolation Slight Platelet Estimate Increased (ADEQUATE) Macrocytosis Slight Prothrombin Time 13.5 SEC (11.7-14.0) Prothromb Time International Ratio 1.1 (0.8-1.1) Activated Partial Thromboplast Time 25 SEC (24-38) Sodium Level 133 mmol/L (136-145) Potassium Level 4.6 mmol/L (3.5-5.1) Chloride Level 94 mmol/L (98-107) Carbon Dioxide Level 31 mmol/L (21-32) Anion Gap 8 (6-14) Blood Urea Nitrogen 6 mg/dL (8-26) Creatinine 0.5 mg/dL (0.7-1.3) Estimated GFR (Cockcroft-Gault) 165.4 BUN/Creatinine Ratio 12 (6-20) Glucose Level 95 mg/dL (70-99) Lactic Acid Level 2.2 mmol/L (0.4-2.0) 1.6 mmol/L (0.4-2.0) Calcium Level 9.3 mg/dL (8.5-10.1) Magnesium Level 2.0 mg/dL (1.8-2.4) Total Bilirubin 1.1 mg/dL (0.2-1.0) Aspartate Amino Transf (AST/SGOT) 35 U/L (15-37) Alanine Aminotransferase (ALT/SGPT) 18 U/L (16-63) Alkaline Phosphatase 91 U/L (46-116) Troponin I Quantitative < 0.017 ng/mL (0.000-0.055) NW-Qrt-V-Type Natriuretic Peptide 1179 pg/mL (0-124) Total Protein 6.6 g/dL (6.4-8.2) Albumin 2.2 g/dL (3.4-5.0) Albumin/Globulin Ratio 0.5 (1.0-1.7) VTE Prophylaxis Ordered VTE Prophylaxis Devices: Yes VTE Pharmacological Prophylaxi: No Assessment/Plan Assessment/Plan Hypoxia, return of hypoxic respiratory failure return of left pleural effusion, consult Pulm and CV acute on chronic diastolic CHF, BNP up, check echo, consult CV EtOH heavy use, 6 per day, PO thiamins and MVI, CIWS protocol, I ordered 1 beer po HS here tonight, but I think EtOH abstinence should be a large goal for him, , severe malnutrition, check urine for protein, pre-albumin, consult nutrition leukocytosis, neutrophil predominant, all cell lines up, thrombocytosis and RBC up, consider Heme consult if not improved, w/ macrocytosis check b12, give fluids, may be EtOH use, hyponatremia, maybe vascular dry, ROBERTO CARLOS CHEW MD Sep 04, 2017 18:18
[2017-09-04] MEDS ORDERED: THIAMINE 100 MG in IV NORMAL SALINE 50ML 50 ML IV ONE (18:30)
--- NOTE | 2017-09-04 18:35 | CONS ---
DATE OF CONSULTATION: 09/04/2017 ATTENDING PHYSICIAN: Bertha Moffett MD DICTATING PHYSICIAN: Hernan Peacock MD REASON FOR CONSULTATION: The patient seen in pulmonary consultation at the request of Dr. Moffett for abnormal x-ray revealing increasing effusion, increasing shortness of breath. HISTORY OF PRESENT ILLNESS: The patient is a 67-year-old male that went to his primary care doctor's office for worsening shortness of breath and had a chest x-ray, which revealed increasing pleural effusion. As a consequence, he was admitted. The patient was last here back in early part of July, underwent a chest tube for pleural effusion at that time. The thinking was that this was related to trauma. He apparently had fallen. He did undergo evaluation of the pleural fluid. There was no evidence of malignant cells. There were some atypical cells. The cultures were negative. The patient was due to follow up in the office with a repeat CT. He does have a history of lung cancer diagnosed 4 years ago, status post wedge resection with no subsequent chemo or radiation. PAST MEDICAL HISTORY: 1. Lung cancer as described above, status post wedge resection 4 years ago with no subsequent chemoradiation. 2. No history of coronary artery disease, CHF, DVT or pulmonary embolism. 3. History of tobacco dependence in remission. ALLERGIES: No known drug allergies. FAMILY HISTORY: Remarkable for diabetes. SOCIAL HISTORY: He is currently retired at home. He has been less active. HOME MEDICATION: List included acetaminophen, melatonin and multivitamin. REVIEW OF SYSTEMS: As indicated above, otherwise, a 10-point system was reviewed and negative. PHYSICAL EXAMINATION: GENERAL: The patient was on room air in no respiratory distress. VITAL SIGNS: Stable. O2 saturation was greater than 92%. HEENT: Eyes, the sclerae were nonicteric. NECK: Jugular venous distention was not elevated. No lymphadenopathy. CHEST: Full expansion. LUNGS: Diminished breath sounds in the right base. No wheezes. CARDIOVASCULAR: Regular rate and rhythm with S1, S2, no S3. ABDOMEN: Soft, nontender, nondistended. EXTREMITIES: No clubbing, cyanosis or pitting edema. NEUROLOGIC: The patient was awake, alert, following commands. A detailed neuro exam was not performed. LABORATORY DATA: Reviewed. Chest x-ray was reviewed. White count was elevated. Hemoglobin and hematocrit were noted. INR was 1.1. BUN and creatinine were noted. Albumin was low at 2.2. Lactic acid level was slightly elevated. IMPRESSION: 1. Progressive dyspnea secondary to increasing right-sided pleural effusion. 2. Right-sided pleural effusion, status post previous thoracentesis. Cytology was negative at that time, cultures were negative. 3. History of lung cancer diagnosed 4 years ago, status post wedge resection on the right with no subsequent chemoradiation. 4. No history of congestive heart failure. 5. Severe protein malnutrition, present upon admission. 6. Tobacco dependence in remission. 7. Systemic inflammatory response syndrome. PLAN: 1. We will proceed with a diagnostic thoracentesis. 2. Suspect pleural fluid may be related to low oncotic pressure pulmonary edema. 3. Consult dietitian for severe protein malnutrition. 4. Empiric antibiotics. The patient with the white count that is elevated. 5. We will make further recommendations depending on the patient's pleural fluid analysis. HERNAN GARZA MD DR: RITA/nini JOB#: [id number] / [id number]
[2017-09-04 19:30] VITALS: BP 142/92
[2017-09-04] MEDS ORDERED: NON FORMULARY ITEM (Melatonin 1 TAB) PO SCH (21:00)
[2017-09-04] MEDS: MULTIVITAMIN with MINERAL TABLET. PO SCH (22:37)
[2017-09-04] MEDS: FOLIC ACID 1 MG TABLET. PO SCH (22:37)
[2017-09-04] MEDS ORDERED: ZOLPIDEM 5 MG TABLET. PO PRN (23:15)
[2017-09-04 23:35] VITALS: BP 142/83
--- NOTE | 2017-09-05 00:20 | RAD ---
Ultrasound of the right upper quadrant of the abdomen 09/04/2017 CLINICAL HISTORY: Lung cancer. Cirrhosis. TECHNIQUE: A real-time ultrasound examination right upper quadrant abdomen was performed. Multiple images were obtained. FINDINGS: The gallbladder is well-distended. No gallstones are visualized. The gallbladder wall thickness is within normal limits. No pericholecystic fluid is seen. The liver is normal in size measuring 12 cm in length. The common bile duct is not visualized. No intra or extrahepatic biliary ductal dilatation is definitely seen. No focal abnormality of the liver is seen. The visualized portions of the right kidney are within normal limits. The pancreas is not well-visualized due to overlying bowel gas. The inferior vena cava is difficult to evaluate due to patient and respiratory motion. No free fluid is seen. IMPRESSION: No acute abnormality is seen Electronically signed by: David High MD (09/05/2017 12:17 AM) [facility]
[2017-09-05 03:40] VITALS: BP 141/97
[2017-09-05 04:36] LABS: BASO # 0.1 x10^3/uL (0.0-0.2); BASO % 1 % (0-3); EOS % 0 % (0-3); HEMOGLOBIN 14.7 g/dL (13.0-17.5); LYMPH # 1.6 x10^3/uL (1.0-4.8); LYMPH % 15 % (24-48); MEAN CORPUSCULAR HEMOGLOBIN 36 pg (25-35); MEAN CORPUSCULAR HGB CONC 35 g/dL (31-37); MEAN CORPUSCULAR VOLUME 102 fL (79-100); MONO % 17 % (0-9); NEUT % 67 % (31-73); PLATELET COUNT 434 x10^3/uL (140-400); RED CELL DISTRIBUTION WIDTH 15.9 % (11.5-14.5); WHITE BLOOD COUNT 10.5 x10^3/uL (4.0-11.0)
[2017-09-05 05:17] LABS: CALCIUM 8.1 mg/dL (8.5-10.1); CREATININE 0.4 mg/dL (0.7-1.3); GFR 213.9
[2017-09-05 06:01] LABS: BILIRUBIN,URINE MODERATE (NEG); GLUCOSE,URINE NEGATIVE (NEG); NITRITE,URINE NEGATIVE (NEG); PH,URINE 6.5; PROTEIN,URINE NEGATIVE (NEG-TRACE)
[2017-09-05 06:09] LABS: BACTERIA,URINE FEW /HPF (0-FEW); SQUAMOUS EPITHELIAL CELL,UR FEW /LPF
[2017-09-05 06:10] LABS: RBC,URINE 0 /HPF (0-2)
[2017-09-05 06:37] LABS: FREE T4 1.78 ng/dL (0.76-1.46)
[2017-09-05 07:17] VITALS: BP 140/95
[2017-09-05] MEDS: FOLIC ACID 1 MG TABLET. PO SCH (08:49)
[2017-09-05] MEDS: MULTIVITAMIN with MINERAL TABLET. PO SCH (08:49)
[2017-09-05] MEDS ORDERED: LIDOCAINE 1% / SOD BICARB 8.4% 20 ML VIAL. IJ ONE ×2 (09:03→09:30)
--- NOTE | 2017-09-05 09:07 | EKG ---
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
--- NOTE | 2017-09-05 10:36 | PDOC ---
PROGRESS NOTES Chief Complaint Chief Complaint Acute on chronic hypoxic respir failure ASSESSMENT AND PLAN: 1. Pleural effusion: recurrent. attempted pleurocentesis with little fluid extraction due to viscous consistency (? -vs loculations). planned VATS in AM 2. CHF: by echo last month, has mild DD. 3. Hx lung CA: treated with wedge resection only. bty records, recent PET w/ o signs of recurrence 4. Cachexia: moderate protein malnutrition. TSH nl. nutrition consult 5. Hypokalemia: replete PO 6. Anemia: macrocytic. nl B12/folate at previous admit. Dr Goncalves following on O/P basis 7. Thrombocytosis: reactive, hx thrombocytopenia in Jul. monitor 8. Prophylaxis: hold off on lovenox for now til procedure(s) completed History of Present Illness History of Present Illness breathing unchanged. denies pain. Vitals Vitals Vital Signs Date Time Temp Pulse Resp B/P (MAP) Pulse Ox O2 Delivery O2 Flow Rate FiO2 09/05/17 09:34 125 16 94 Nasal Cannula 2.0 09/05/17 07:17 97.9 97.9 Physical Exam General: Alert, Oriented X3, Cooperative, No acute distress Heart: Regular rate Lungs: Clear (no breath sounds in lower 2/3 left), Wheezing, Other Extremities: No clubbing, Other (3+ edema bilat LE and pedal) Labs LABS Laboratory Tests Test 09/04/17 13:13 09/04/17 17:15 09/05/17 03:50 09/05/17 04:15 White Blood Count 14.5 x10^3/uL (4.0-11.0) 10.5 x10^3/uL (4.0-11.0) Red Blood Count 4.68 x10^6/uL (4.30-5.70) 4.10 x10^6/uL (4.30-5.70) Hemoglobin 16.6 g/dL (13.0-17.5) 14.7 g/dL (13.0-17.5) Hematocrit 49.0 % (39.0-53.0) 42.0 % (39.0-53.0) Mean Corpuscular Volume 105 fL (79-100) 102 fL (79-100) Mean Corpuscular Hemoglobin 35 pg (25-35) 36 pg (25-35) Mean Corpuscular Hemoglobin Concent 34 g/dL (31-37) 35 g/dL (31-37) Red Cell Distribution Width 15.5 % (11.5-14.5) 15.9 % (11.5-14.5) Platelet Count 493 x10^3/uL (140-400) 434 x10^3/uL (140-400) Neutrophils (%) (Auto) 80 % (31-73) 67 % (31-73) Lymphocytes (%) (Auto) 6 % (24-48) 15 % (24-48) Monocytes (%) (Auto) 14 % (0-9) 17 % (0-9) Eosinophils (%) (Auto) 0 % (0-3) 0 % (0-3) Basophils (%) (Auto) 0 % (0-3) 1 % (0-3) Neutrophils # (Auto) 11.6 x10^3uL (1.8-7.7) 7.0 x10^3uL (1.8-7.7) Lymphocytes # (Auto) 0.9 x10^3/uL (1.0-4.8) 1.6 x10^3/uL (1.0-4.8) Monocytes # (Auto) 2.0 x10^3/uL (0.0-1.1) 1.8 x10^3/uL (0.0-1.1) Eosinophils # (Auto) 0.0 x10^3/uL (0.0-0.7) 0.0 x10^3/uL (0.0-0.7) Basophils # (Auto) 0.0 x10^3/uL (0.0-0.2) 0.1 x10^3/uL (0.0-0.2) Segmented Neutrophils % 85 % (35-66) Band Neutrophils % 1 % (0-9) Lymphocytes % 3 % (24-48) Monocytes % 11 % (0-10) Toxic Granulation Slight Toxic Vacuolation Slight Platelet Estimate Increased (ADEQUATE) Macrocytosis Slight Prothrombin Time 13.5 SEC (11.7-14.0) Prothromb Time International Ratio 1.1 (0.8-1.1) Activated Partial Thromboplast Time 25 SEC (24-38) Sodium Level 133 mmol/L (136-145) 134 mmol/L (136-145) Potassium Level 4.6 mmol/L (3.5-5.1) 3.0 mmol/L (3.5-5.1) Chloride Level 94 mmol/L (98-107) 96 mmol/L (98-107) Carbon Dioxide Level 31 mmol/L (21-32) 29 mmol/L (21-32) Anion Gap 8 (6-14) 9 (6-14) Blood Urea Nitrogen 6 mg/dL (8-26) 4 mg/dL (8-26) Creatinine 0.5 mg/dL (0.7-1.3) 0.4 mg/dL (0.7-1.3) Estimated GFR (Cockcroft-Gault) 165.4 213.9 BUN/Creatinine Ratio 12 (6-20) Glucose Level 95 mg/dL (70-99) 86 mg/dL (70-99) Lactic Acid Level 2.2 mmol/L (0.4-2.0) 1.6 mmol/L (0.4-2.0) Calcium Level 9.3 mg/dL (8.5-10.1) 8.1 mg/dL (8.5-10.1) Magnesium Level 2.0 mg/dL (1.8-2.4) Total Bilirubin 1.1 mg/dL (0.2-1.0) Aspartate Amino Transf (AST/SGOT) 35 U/L (15-37) Alanine Aminotransferase (ALT/SGPT) 18 U/L (16-63) Alkaline Phosphatase 91 U/L (46-116) Troponin I Quantitative < 0.017 ng/mL (0.000-0.055) FG-Pem-T-Type Natriuretic Peptide 1179 pg/mL (0-124) Total Protein 6.6 g/dL (6.4-8.2) Albumin 2.2 g/dL (3.4-5.0) Albumin/Globulin Ratio 0.5 (1.0-1.7) Urine Collection Type Unknown Urine Color Yellow Urine Clarity Clear Urine pH 6.5 Urine Specific [place] 1.015 Urine Protein Negative mg/dL (NEG-TRACE) Urine Glucose (UA) Negative mg/dL (NEG) Urine Ketones (Stick) 15 mg/dL (NEG) Urine Blood Negative (NEG) Urine Nitrite Negative (NEG) Urine Bilirubin Moderate (NEG) Urine Urobilinogen Dipstick 1.0 mg/dL (0.2 mg/dL) Urine Leukocyte Esterase Negative (NEG) Urine RBC 0 /HPF (0-2) Urine WBC 1-4 /HPF (0-4) Urine Squamous Epithelial Cells Few /LPF Urine Bacteria Few /HPF (0-FEW) Urine Hyaline Casts Few /HPF Urine Mucus Marked /LPF Thyroid Stimulating Hormone (TSH) 1.284 uIU/mL (0.358-3.74) Free Thyroxine 1.78 ng/dL (0.76-1.46) Test 09/05/17 09:30 Body Fluid pH 7.0 SARAH CHAU MD Sep 05, 2017 10:36
[2017-09-05 10:46] VITALS: BP 117/77
--- NOTE | 2017-09-05 12:44 | PDOC ---
PULMONARY PROGRESS NOTES Subjective PT NOT MORE SOA Vitals Vital Signs Date Time Temp Pulse Resp B/P (MAP) Pulse Ox O2 Delivery O2 Flow Rate FiO2 09/05/17 10:46 97.7 125 20 117/77 (90) 97 Nasal Cannula 2.0 97.7 ROS: No Nausea, No Chest Pain, No Abdominal Pain, No Increase Cough General: Alert, No acute distress Lungs: Clear, Other (DECREASE BS ON LEFT) Cardiovascular: S1, S2 Abdomen: Soft, Non-tender Neuro Exam: Alert, Oriented Extremities: No Edema Skin: Warm Labs Laboratory Tests Test 09/04/17 13:13 09/04/17 17:15 09/05/17 03:50 09/05/17 04:15 White Blood Count 14.5 x10^3/uL (4.0-11.0) 10.5 x10^3/uL (4.0-11.0) Red Blood Count 4.68 x10^6/uL (4.30-5.70) 4.10 x10^6/uL (4.30-5.70) Hemoglobin 16.6 g/dL (13.0-17.5) 14.7 g/dL (13.0-17.5) Hematocrit 49.0 % (39.0-53.0) 42.0 % (39.0-53.0) Mean Corpuscular Volume 105 fL (79-100) 102 fL (79-100) Mean Corpuscular Hemoglobin 35 pg (25-35) 36 pg (25-35) Mean Corpuscular Hemoglobin Concent 34 g/dL (31-37) 35 g/dL (31-37) Red Cell Distribution Width 15.5 % (11.5-14.5) 15.9 % (11.5-14.5) Platelet Count 493 x10^3/uL (140-400) 434 x10^3/uL (140-400) Neutrophils (%) (Auto) 80 % (31-73) 67 % (31-73) Lymphocytes (%) (Auto) 6 % (24-48) 15 % (24-48) Monocytes (%) (Auto) 14 % (0-9) 17 % (0-9) Eosinophils (%) (Auto) 0 % (0-3) 0 % (0-3) Basophils (%) (Auto) 0 % (0-3) 1 % (0-3) Neutrophils # (Auto) 11.6 x10^3uL (1.8-7.7) 7.0 x10^3uL (1.8-7.7) Lymphocytes # (Auto) 0.9 x10^3/uL (1.0-4.8) 1.6 x10^3/uL (1.0-4.8) Monocytes # (Auto) 2.0 x10^3/uL (0.0-1.1) 1.8 x10^3/uL (0.0-1.1) Eosinophils # (Auto) 0.0 x10^3/uL (0.0-0.7) 0.0 x10^3/uL (0.0-0.7) Basophils # (Auto) 0.0 x10^3/uL (0.0-0.2) 0.1 x10^3/uL (0.0-0.2) Segmented Neutrophils % 85 % (35-66) Band Neutrophils % 1 % (0-9) Lymphocytes % 3 % (24-48) Monocytes % 11 % (0-10) Toxic Granulation Slight Toxic Vacuolation Slight Platelet Estimate Increased (ADEQUATE) Macrocytosis Slight Prothrombin Time 13.5 SEC (11.7-14.0) Prothromb Time International Ratio 1.1 (0.8-1.1) Activated Partial Thromboplast Time 25 SEC (24-38) Sodium Level 133 mmol/L (136-145) 134 mmol/L (136-145) Potassium Level 4.6 mmol/L (3.5-5.1) 3.0 mmol/L (3.5-5.1) Chloride Level 94 mmol/L (98-107) 96 mmol/L (98-107) Carbon Dioxide Level 31 mmol/L (21-32) 29 mmol/L (21-32) Anion Gap 8 (6-14) 9 (6-14) Blood Urea Nitrogen 6 mg/dL (8-26) 4 mg/dL (8-26) Creatinine 0.5 mg/dL (0.7-1.3) 0.4 mg/dL (0.7-1.3) Estimated GFR (Cockcroft-Gault) 165.4 213.9 BUN/Creatinine Ratio 12 (6-20) Glucose Level 95 mg/dL (70-99) 86 mg/dL (70-99) Lactic Acid Level 2.2 mmol/L (0.4-2.0) 1.6 mmol/L (0.4-2.0) Calcium Level 9.3 mg/dL (8.5-10.1) 8.1 mg/dL (8.5-10.1) Magnesium Level 2.0 mg/dL (1.8-2.4) Total Bilirubin 1.1 mg/dL (0.2-1.0) Aspartate Amino Transf (AST/SGOT) 35 U/L (15-37) Alanine Aminotransferase (ALT/SGPT) 18 U/L (16-63) Alkaline Phosphatase 91 U/L (46-116) Troponin I Quantitative < 0.017 ng/mL (0.000-0.055) YG-Phy-Q-Type Natriuretic Peptide 1179 pg/mL (0-124) Total Protein 6.6 g/dL (6.4-8.2) Albumin 2.2 g/dL (3.4-5.0) Albumin/Globulin Ratio 0.5 (1.0-1.7) Urine Collection Type Unknown Urine Color Yellow Urine Clarity Clear Urine pH 6.5 Urine Specific [place] 1.015 Urine Protein Negative mg/dL (NEG-TRACE) Urine Glucose (UA) Negative mg/dL (NEG) Urine Ketones (Stick) 15 mg/dL (NEG) Urine Blood Negative (NEG) Urine Nitrite Negative (NEG) Urine Bilirubin Moderate (NEG) Urine Urobilinogen Dipstick 1.0 mg/dL (0.2 mg/dL) Urine Leukocyte Esterase Negative (NEG) Urine RBC 0 /HPF (0-2) Urine WBC 1-4 /HPF (0-4) Urine Squamous Epithelial Cells Few /LPF Urine Bacteria Few /HPF (0-FEW) Urine Hyaline Casts Few /HPF Urine Mucus Marked /LPF Thyroid Stimulating Hormone (TSH) 1.284 uIU/mL (0.358-3.74) Free Thyroxine 1.78 ng/dL (0.76-1.46) Test 09/05/17 09:30 Body Fluid pH 7.0 Laboratory Tests Test 09/04/17 13:13 09/04/17 17:15 09/05/17 03:50 09/05/17 04:15 White Blood Count 14.5 x10^3/uL (4.0-11.0) 10.5 x10^3/uL (4.0-11.0) Red Blood Count 4.68 x10^6/uL (4.30-5.70) 4.10 x10^6/uL (4.30-5.70) Hemoglobin 16.6 g/dL (13.0-17.5) 14.7 g/dL (13.0-17.5) Hematocrit 49.0 % (39.0-53.0) 42.0 % (39.0-53.0) Mean Corpuscular Volume 105 fL (79-100) 102 fL (79-100) Mean Corpuscular Hemoglobin 35 pg (25-35) 36 pg (25-35) Mean Corpuscular Hemoglobin Concent 34 g/dL (31-37) 35 g/dL (31-37) Red Cell Distribution Width 15.5 % (11.5-14.5) 15.9 % (11.5-14.5) Platelet Count 493 x10^3/uL (140-400) 434 x10^3/uL (140-400) Neutrophils (%) (Auto) 80 % (31-73) 67 % (31-73) Lymphocytes (%) (Auto) 6 % (24-48) 15 % (24-48) Monocytes (%) (Auto) 14 % (0-9) 17 % (0-9) Eosinophils (%) (Auto) 0 % (0-3) 0 % (0-3) Basophils (%) (Auto) 0 % (0-3) 1 % (0-3) Neutrophils # (Auto) 11.6 x10^3uL (1.8-7.7) 7.0 x10^3uL (1.8-7.7) Lymphocytes # (Auto) 0.9 x10^3/uL (1.0-4.8) 1.6 x10^3/uL (1.0-4.8) Monocytes # (Auto) 2.0 x10^3/uL (0.0-1.1) 1.8 x10^3/uL (0.0-1.1) Eosinophils # (Auto) 0.0 x10^3/uL (0.0-0.7) 0.0 x10^3/uL (0.0-0.7) Basophils # (Auto) 0.0 x10^3/uL (0.0-0.2) 0.1 x10^3/uL (0.0-0.2) Segmented Neutrophils % 85 % (35-66) Band Neutrophils % 1 % (0-9) Lymphocytes % 3 % (24-48) Monocytes % 11 % (0-10) Toxic Granulation Slight Toxic Vacuolation Slight Platelet Estimate Increased (ADEQUATE) Macrocytosis Slight Prothrombin Time 13.5 SEC (11.7-14.0) Prothromb Time International Ratio 1.1 (0.8-1.1) Activated Partial Thromboplast Time 25 SEC (24-38) Sodium Level 133 mmol/L (136-145) 134 mmol/L (136-145) Potassium Level 4.6 mmol/L (3.5-5.1) 3.0 mmol/L (3.5-5.1) Chloride Level 94 mmol/L (98-107) 96 mmol/L (98-107) Carbon Dioxide Level 31 mmol/L (21-32) 29 mmol/L (21-32) Anion Gap 8 (6-14) 9 (6-14) Blood Urea Nitrogen 6 mg/dL (8-26) 4 mg/dL (8-26) Creatinine 0.5 mg/dL (0.7-1.3) 0.4 mg/dL (0.7-1.3) Estimated GFR (Cockcroft-Gault) 165.4 213.9 BUN/Creatinine Ratio 12 (6-20) Glucose Level 95 mg/dL (70-99) 86 mg/dL (70-99) Lactic Acid Level 2.2 mmol/L (0.4-2.0) 1.6 mmol/L (0.4-2.0) Calcium Level 9.3 mg/dL (8.5-10.1) 8.1 mg/dL (8.5-10.1) Magnesium Level 2.0 mg/dL (1.8-2.4) Total Bilirubin 1.1 mg/dL (0.2-1.0) Aspartate Amino Transf (AST/SGOT) 35 U/L (15-37) Alanine Aminotransferase (ALT/SGPT) 18 U/L (16-63) Alkaline Phosphatase 91 U/L (46-116) Troponin I Quantitative < 0.017 ng/mL (0.000-0.055) SO-Uts-J-Type Natriuretic Peptide 1179 pg/mL (0-124) Total Protein 6.6 g/dL (6.4-8.2) Albumin 2.2 g/dL (3.4-5.0) Albumin/Globulin Ratio 0.5 (1.0-1.7) Urine Collection Type Unknown Urine Color Yellow Urine Clarity Clear Urine pH 6.5 Urine Specific [place] 1.015 Urine Protein Negative mg/dL (NEG-TRACE) Urine Glucose (UA) Negative mg/dL (NEG) Urine Ketones (Stick) 15 mg/dL (NEG) Urine Blood Negative (NEG) Urine Nitrite Negative (NEG) Urine Bilirubin Moderate (NEG) Urine Urobilinogen Dipstick 1.0 mg/dL (0.2 mg/dL) Urine Leukocyte Esterase Negative (NEG) Urine RBC 0 /HPF (0-2) Urine WBC 1-4 /HPF (0-4) Urine Squamous Epithelial Cells Few /LPF Urine Bacteria Few /HPF (0-FEW) Urine Hyaline Casts Few /HPF Urine Mucus Marked /LPF Thyroid Stimulating Hormone (TSH) 1.284 uIU/mL (0.358-3.74) Free Thyroxine 1.78 ng/dL (0.76-1.46) Test 09/05/17 09:30 Body Fluid pH 7.0 Medications Active Scripts Medications Dose Route/Sig Max Daily Dose Days Date Category Extra Strength Non-Aspirin (Acetaminophen) 500 Mg Tablet 500 Mg PO BID PRN 09/04/17 Reported Multivitamins (Multivitamin) 1 Each Tablet 1 Tab PO DAILY 09/04/17 Reported Melatonin 3 Mg Tablet 1 Tab PO QHS 08/07/17 Reported Impression . 1. Progressive dyspnea secondary to increasing right-sided pleural effusion. 2. Right-sided pleural effusion, status post previous thoracentesis. Cytology was negative at that time, cultures were negative. 3. History of lung cancer diagnosed 4 years ago, status post wedge resection on the right with no subsequent chemoradiation. 4. No history of congestive heart failure. 5. Severe protein malnutrition, present upon admission. 6. Tobacco dependence in remission. 7. Systemic inflammatory response syndrome. Plan . SPOKE WITH IR, NOT MUCH TO DRAIN WITH CHEST TUBE PT MAY REQUIRE SURGICAL INTERVENTION WILL CONSULT DR Cochran SPOKE WITH AND PT OR IN AM HERNAN GARZA MD Sep 05, 2017 12:44
--- NOTE | 2017-09-05 12:58 | RAD ---
Diagnostic thoracentesis 09/05/2017 Indication: Recurrent left pleural effusion Discussion: The risks and benefits of the procedure were discussed the patient. Informed consent was obtained. The patient was placed in the seated position. A timeout procedure was performed. Ultrasound evaluation of left chest demonstrates a multiloculated pleural collection, with areas of thick septation and areas of echogenic fluid. Once an appropriate site for skin entry been selected 1% lidocaine without epinephrine was administered for local anesthesia. A 5 Arabic sheath needle was advanced into the pleural space followed by aspiration of approximately 15 cc of serosanguineous fluid. Reference ultrasound images were saved to the medical record. Samples were sent for further evaluation per ordering physician request. No further aspiration could be performed from this position. No significantly larger pocket was identifiable by ultrasound for percutaneous access. The sheath was removed and manual pressure held. Sterile dressing was applied. Impression: Diagnostic thoracentesis yielded only 15 cc of serosanguineous fluid
--- NOTE | 2017-09-05 13:53 | PDOC2 ---
[employer] 09/05/17 1353: CARDIAC CONSULT DATE OF CONSULT Date of Consult DATE: 09/05/17 TIME: 13:44 REASON FOR CONSULT Reason for Consult: LE edema REFERRING PHYSICIAN Referring Physician: Rosalind SOURCE Source: Chart review, Patient HISTORY OF PRESENT ILLNESS HISTORY OF PRESENT ILLNESS This is a 67 yo male admitted for complains of SOA. Upon admission he has been noted with worsening right pleural effusion. He does have hx of lung CA with wedge resection int he past. Denies any CP, palpitations or dizziness. Upon admission he was noted with bilateral LE pitting edema mainly byt the ankle region. This is patchy areas and has gotten better. Denies any claudications symptoms but mainly feels tired to his legs in the afternoon. Denies any leg pain or tenderness. Denies any VTE. PAST MEDICAL HISTORY Past Medical History Cardiovascular: No pertinent hx Pulmonary: COPD GI: No pertinent hx Heme/Onc: Cancer (lung ) Hepatobiliary: No pertinent hx Psych: No pertinent hx Musculoskeletal: Osteoarthritis Rheumatologic: No pertinent hx Infectious disease: No pertinent hx ENT: No pertinent hx Renal/: No pertinent hx Endocrine: No pertinent hx Dermatology: Basal cell PAST SURGICAL HISTORY Past Surgical History Other (right lung resection ) FAMILY HISTORY Family History: Diabetes SOCIAL HISTORY Social History Smoke: No ALCOHOL: other (daily (6-7 beers per day)) Lives: with Family CURRENT MEDICATIONS CURRENT MEDICATIONS Current Medications Medications (Trade) Dose Ordered Sig/[place] Route PRN Reason Start Time Stop Time Status Last Admin Dose Admin Levofloxacin/ Dextrose 100 ml @ 100 mls/hr 1X ONCE IV 09/04/17 14:15 09/04/17 15:14 DC 09/04/17 14:23 Furosemide (Lasix) 40 mg 1X ONCE IVP 09/04/17 14:15 09/04/17 14:16 DC 09/04/17 14:23 Multivitamins (Thera M Plus) 1 tab DAILY PO 09/04/17 18:30 09/05/17 08:49 Folic Acid (Folic Acid) 1 mg DAILY PO 09/04/17 18:30 09/05/17 08:49 Thiamine HCl 100 mg/Sodium Chloride 51 ml @ 100 mls/hr 1X ONCE IV 09/04/17 18:30 09/04/17 19:00 DC 09/04/17 22:37 Zolpidem Tartrate (Ambien) 5 mg PRN QHS PRN PO INSOMNIA 09/04/17 23:15 09/04/17 23:15 Lidocaine/Sodium Bicarbonate (Buffered Lidocaine 1%) 20 ml 1X ONCE IJ 09/05/17 09:30 09/05/17 09:31 DC 09/05/17 09:34 ALLERGIES ALLERGIES: Coded Allergies: No Known Allergies (Verified Allergy, Unknown, 08/07/17) ROS Review of System 14 point ROS evaluated with pertinent positives noted per HPI PHYSICAL EXAM General: Alert, Oriented X3, Cooperative, No acute distress HEENT: Atraumatic, Mucous membr. moist/pink Lungs: Other (basilar crackles worse to right side) Heart: Regular rate (SR/ST), Normal S1, Normal S2 Abdomen: Soft, No tenderness Extremities: No cyanosis, Other (1-2+ bilateral patchy LE pitting edema) Skin: No breakdown, No significant lesion Neuro: Normal speech, Sensation intact Psych/Mental Status: Mental status NL, Mood NL MUSCULOSKELETAL: Osteoarthritic changes both hands VITALS VITALS Vital Signs Date Time Temp Pulse Resp B/P (MAP) Pulse Ox O2 Delivery O2 Flow Rate FiO2 09/05/17 10:46 97.7 125 20 117/77 (90) 97 Nasal Cannula 2.0 97.7 LABS Lab: Laboratory Tests Test 09/04/17 17:15 09/05/17 03:50 09/05/17 04:15 09/05/17 09:30 Lactic Acid Level 1.6 mmol/L (0.4-2.0) Urine Collection Type Unknown Urine Color Yellow Urine Clarity Clear Urine pH 6.5 Urine Specific [place] 1.015 Urine Protein Negative mg/dL (NEG-TRACE) Urine Glucose (UA) Negative mg/dL (NEG) Urine Ketones (Stick) 15 mg/dL (NEG) Urine Blood Negative (NEG) Urine Nitrite Negative (NEG) Urine Bilirubin Moderate (NEG) Urine Urobilinogen Dipstick 1.0 mg/dL (0.2 mg/dL) Urine Leukocyte Esterase Negative (NEG) Urine RBC 0 /HPF (0-2) Urine WBC 1-4 /HPF (0-4) Urine Squamous Epithelial Cells Few /LPF Urine Bacteria Few /HPF (0-FEW) Urine Hyaline Casts Few /HPF Urine Mucus Marked /LPF White Blood Count 10.5 x10^3/uL (4.0-11.0) Red Blood Count 4.10 x10^6/uL (4.30-5.70) Hemoglobin 14.7 g/dL (13.0-17.5) Hematocrit 42.0 % (39.0-53.0) Mean Corpuscular Volume 102 fL (79-100) Mean Corpuscular Hemoglobin 36 pg (25-35) Mean Corpuscular Hemoglobin Concent 35 g/dL (31-37) Red Cell Distribution Width 15.9 % (11.5-14.5) Platelet Count 434 x10^3/uL (140-400) Neutrophils (%) (Auto) 67 % (31-73) Lymphocytes (%) (Auto) 15 % (24-48) Monocytes (%) (Auto) 17 % (0-9) Eosinophils (%) (Auto) 0 % (0-3) Basophils (%) (Auto) 1 % (0-3) Neutrophils # (Auto) 7.0 x10^3uL (1.8-7.7) Lymphocytes # (Auto) 1.6 x10^3/uL (1.0-4.8) Monocytes # (Auto) 1.8 x10^3/uL (0.0-1.1) Eosinophils # (Auto) 0.0 x10^3/uL (0.0-0.7) Basophils # (Auto) 0.1 x10^3/uL (0.0-0.2) Sodium Level 134 mmol/L (136-145) Potassium Level 3.0 mmol/L (3.5-5.1) Chloride Level 96 mmol/L (98-107) Carbon Dioxide Level 29 mmol/L (21-32) Anion Gap 9 (6-14) Blood Urea Nitrogen 4 mg/dL (8-26) Creatinine 0.4 mg/dL (0.7-1.3) Estimated GFR (Cockcroft-Gault) 213.9 Glucose Level 86 mg/dL (70-99) Calcium Level 8.1 mg/dL (8.5-10.1) Thyroid Stimulating Hormone (TSH) 1.284 uIU/mL (0.358-3.74) Free Thyroxine 1.78 ng/dL (0.76-1.46) Body Fluid pH 7.0 ECHOCARDIOGRAM ECHOCARDIOGRAM <Conclusion> Left ventricle systolic function is normal. The Ejection Fraction is 60-65%. There is normal LV segmental wall motion. Wall motion difficult to characterize due to suboptimal images. Grossly normal. Doppler and Color Flow revealed mild tricuspid regurgitation. The PA pressure was estimated at 19 mmHg. DATE: 08/10/17 1623 ASSESSMENT/PLAN ASSESSMENT/PLAN 1. Dyspnea: Related to unilateral progressing right pleural effusion. Pulmonary following 2. Leg edema: possible PVD. Protein malnutrition contributing. No claudications. 3. Hx of lung CA 4. Protein malnutrition 5. Alcoholism remains to drink 4-5 beers daily. 6. Reactive sinus tachycardia: no significant ectopies Recommendations 1. S/P thoracentesis, limited fluid extraction. CTS consulted for empyema. 2. Venous reflux study to LE. Compression stockings. 3. Replace K. 4. Alcohol abstinence Problems: DAMON HEAD MD 09/05/17 1652: CARDIAC CONSULT ALLERGIES ALLERGIES: Coded Allergies: No Known Allergies (Verified Allergy, Unknown, 08/07/17) ASSESSMENT/PLAN ASSESSMENT/PLAN Patient seen and examined. Agree with above nurse practitioner note. Dyspnea mostly related to pleural effusion. Venous reflux study is unremarkable. Supportive care from a cardiac standpoint. Problems: [employer] [place] APRN Sep 05, 2017 13:53 DAMON HEAD MD Sep 05, 2017 16:52
[2017-09-05] MEDS ORDERED: CONTRAST GIVEN MC PRN (14:15)
[2017-09-05] MEDS ORDERED: IOHEXOL 300 MG/ML 75 ML VIAL IV ONE (14:15)
[2017-09-05] MEDS ORDERED: POTASSIUM CHLORIDE 20 MEQ TABLET.ER. PO ONE (14:15)
[2017-09-05 14:33] VITALS: BP 135/93
--- NOTE | 2017-09-05 15:15 | RAD ---
Indication empyema. Axial contrast images through the chest were obtained. The history of right lung malignancy is noted. 300 cc of Omnipaque 300 was administered intravenously. No prior dedicated CT of the chest is available. Note is made of a PET/CT examination 06/15/2017. The patient had a left-sided thoracentesis approximately 5 hours before this exam. Imaging through the upper abdomen is unremarkable. The thoracic aorta is unremarkable. There is no significant hilar or mediastinal adenopathy. There is a large loculated left pleural effusion. There is associated compressive atelectasis of the left lung. A dominant soft tissue mass in aerated left lung is not seen. There are several healed or healing left rib fractures. There is a nonsolid parenchymal opacity in the right upper lobe similar to minimally larger than on the previous exam. Low-grade malignancy accounting for the finding is not excluded. There is a minute right pleural effusion. There is compression of L1 and L2. The L1 compression deformity appears new relative to the referenced PET/CT IMPRESSION: Large loculated left pleural fluid collection with associated passive atelectasis in the left lung. Nonsolid parenchymal opacity in the right upper lobe similar to slightly larger than on the study 06/15/2017. Low-grade malignancy accounting for the finding is not excluded. Minute right pleural effusion New compression deformity L1 relative to an examination 06/15/2017 PQRS Compliance Statement: One or more of the following individualized dose reduction techniques were utilized for this examination: 1. Automated exposure control 2. Adjustment of the mA and/or kV according to patient size 3. Use of iterative reconstruction technique
--- NOTE | 2017-09-05 16:16 | RAD ---
APPROVED REPORT Patient Location : IN-PATIENT Indications Lower Extremity Edema : Bilateral Findings Raymond scale images of the bilateral greater and lesser saphenous veins do not demonstrate any evidence of thrombosis on limited imaging. Spectral and color Doppler evaluation does not reveal any evidence of reflux. The right great saphenous vein measures 4.7 mm and the left great saphenous vein measures 5.3 mm. The bilateral lesser saphenous veins do not show any evidence of reflux Critical Notification Critical Value: No <Conclusion> Negative for reflux in the bilateral greater and lesser saphenous veins.
--- NOTE | 2017-09-05 17:09 | PDOC2 ---
CONSULT Date of Consult Date of Consult DATE: 09/05/17 TIME: 17:02 Reason for Consult Reason for Consult: Recurrent left pleural effusion Referring Physician Referring Physician: Dr. Crane Identification/Chief Complaint Chief Complaint SOB Problems: Source Source: Chart review, Patient History of Present Illness Reason for Visit: The patient is a 67-year-old male, with a history of wedge resection x2 in the right lung for cancer, 4 years ago at [facility]. He presented a month ago with shortness of breath and was found to have a left-sided pleural effusion. A pigtail catheter was placed in the fluid was successfully drained with excellent results. Fluid analysis demonstrated an exudative effusion, PRBC predominant. Cytology was negative for malignancy. Cultures were all negative. The patient recovered well and was discharged home. He also had an echo then which showed normal LV function. He had a PET scan 3 months ago which did not show any evidence of recurrence. He presents again with gradual increasing shortness of breath. During this admission he was found to have a recurrence of his left-sided pleural effusion. Ultrasound-guided attempt at thoracentesis was unsuccessful owing to the complexity of the fluid collection. He had a CT scan today which showed a large complex left-sided pleural effusion. Because of his left pleural effusion is currently unknown, although he did have a left-sided chest trauma prior to his last pleural effusion, which according to notes was bloody. In addition, he has several healed left-sided rib fractures. He is short of breath, on 2 L nasal cannula. I was consulted for further management for his recurrent left-sided pleural effusion. Past Medical History Cardiovascular: No pertinent hx Pulmonary: COPD GI: No pertinent hx Heme/Onc: Cancer Hepatobiliary: No pertinent hx Psych: No pertinent hx Musculoskeletal: Osteoarthritis Rheumatologic: No pertinent hx Infectious disease: No pertinent hx Renal/: No pertinent hx Endocrine: No pertinent hx Past Surgical History Past Surgical History: Other Family History Family History: Diabetes Social History No ALCOHOL: heavy (6 per night, beer) Drugs: None Lives: with Family Current Problem List Problem List Problems Medical Problems: (1) Leukocytosis Status: Acute (2) Parapneumonic effusion Status: Acute Current Medications Current Medications Current Medications Levofloxacin/ Dextrose 100 ml @ 100 mls/hr 1X ONCE IV Last administered on t 14:23; Start 09/04/17 at 14:15; Stop 09/04/17 at 15:14; Status DC Ondansetron HCl (Zofran) 4 mg PRN Q8HRS PRN IV NAUSEA/VOMITING; Start 09/04/17 at 14:15; Stop 09/05/17 at 14:14; Status DC Fentanyl Citrate (Fentanyl 2ml Vial) 50 mcg PRN Q2HR PRN IV PAIN; Start at 14:15; Stop 09/05/17 at 14:14; Status DC Furosemide (Lasix) 40 mg 1X ONCE IVP Last administered on 09/04/17 14:23; Start 09/04/17 at 14:15; Stop 09/04/17 at 14:16; Status DC Acetaminophen (Tylenol) 500 mg PRN BID PRN PO PAIN; Start 09/04/17 at 18:00 Non-Formulary Medication 1 tab QHS PO ; Start 09/04/17 at 21:00; Status UNV Multivitamins (Thera M Plus) 1 tab DAILY PO Last administered on 09/05/17 08: 49; Start 09/04/17 at 18:30 Folic Acid (Folic Acid) 1 mg DAILY PO Last administered on 09/05/17 08:49; Start 09/04/17 at 18:30 Thiamine HCl 100 mg/Sodium Chloride 51 ml @ 100 mls/hr 1X ONCE IV Last administered on 09/04/17 22:37; Start 09/04/17 at 18:30; Stop 09/04/17 at 19:00 ; Status DC Lorazepam (Ativan) 2 mg PRN Q1HR PRN IV For CIWA 8-14; Start 09/04/17 at 18:30 Lorazepam (Ativan) 4 mg PRN Q1HR PRN IV For CIWA 15 or greater; Start 09/04/17 at 18:30 Zolpidem Tartrate (Ambien) 5 mg PRN QHS PRN PO INSOMNIA Last administered on 23:15; Start 09/04/17 at 23:15 Lidocaine/Sodium Bicarbonate (Buffered Lidocaine 1%) 20 ml STK-MED ONCE IJ ; Start 09/05/17 at 09:03; Stop 09/05/17 at 09:04; Status DC Lidocaine/Sodium Bicarbonate (Buffered Lidocaine 1%) 20 ml 1X ONCE IJ Last administered on 10/10/17at 09:34; Start 09/05/17 at 09:30; Stop 09/05/17 at 09 :31; Status DC Iohexol (Omnipaque 300 Mg/ml) 75 ml 1X ONCE IV Last administered on t 14:15; Start 09/05/17 at 14:15; Stop 09/05/17 at 14:16; Status DC Potassium Chloride (Klor-Con) 40 meq 1X ONCE PO ; Start 09/05/17 at 14:15; Stop 09/05/17 at 14:16; Status DC Info (Do NOT chart on this entry -- for MONITORING) 1 each PRN DAILY PRN MC SEE COMMENTS; Start 09/05/17 at 14:15; Stop 09/07/17 at 14:14 Cefazolin Sodium 1 gm/Sodium Chloride 50 ml @ 100 mls/hr 1X ONCE IV ; Start 09/06/17 at 10:00; Stop 09/06/17 at 10:29; Status UNV Cefazolin Sodium 50 ml @ 100 mls/hr 1X ONCE IV ; Start 09/06/17 at 11:00; Stop 09/06/17 at 11:29 Active Scripts Active Reported Extra Strength Non-Aspirin (Acetaminophen) 500 Mg Tablet 500 Mg PO BID PRN Multivitamins (Multivitamin) 1 Each Tablet 1 Tab PO DAILY Melatonin 3 Mg Tablet 1 Tab PO QHS Allergies Allergies: Coded Allergies: No Known Allergies (Verified Allergy, Unknown, 08/07/17) ROS General: No: Chills, Night Sweats, Fatigue, Malaise, Appetite PSYCHOLOGICAL ROS: No: Anxiety, Behavioral Disorder, Concentration difficultie , Decreased libido, Depression, Disorientation, Hallucinations, Hostility, Irritablity, Memory difficulties, Mood Swings, Obsessive thoughts, Physical abuse, Sexual abuse, Sleep disturbances, Suicidal ideation Eyes: No Blurry vision, No Decreased vision, No Double vision, No Dry eyes, No Excessive tearing, No Eye Pain, No Itchy Eyes, No Loss of vision, No Photophobia , No Scotomata, No Uses contacts, No Uses glasses HEENT: No: Heacaches, Visual Changes, Hearing change, Nasal congestion, Nasal discharge, Oral lesions, Sinus pain, Sore Throat, Epistaxis, Sneezing, Snoring, Tinnitus, Vertigo, Vocal changes ALLERGY AND IMMUNOLOGY: No: Hives, Insect Bite Sensitivity, Itchy/Watery Eyes, Nasal Congestion, Post Nasal Drip, Seasonal Allergies Hematological and Lymphatic: No: Bleeding Problems, Blood Clots, Blood Transfusions, Brusing, Night Sweats, Pallor, Swollen Lymph Nodes ENDOCRINE: No: Breast Changes, Galactorrhea, Hair Pattern Changes, Hot Flashes , Malaise/lethargy, Mood Swings, Palpitations, Polydipsia/polyuria, Skin Changes , Temperature Intolerance, Unexpected Weight Changes Respiratory: YES: Shortness of breath, No: Cough, Hemoptysis, Orthopnea, Pleuritic Pain, SOB with excertion, Sputum Changes, Stridor, Tachypnea, Wheezing Cardiovascular: No Chest Pain, No Palpitations, No Orthopnea, No Paroxysmal Noc. Dyspnea, No Edema, No Lt Headedness Gastrointestinal: No Nausea, No Vomiting, No Abdominal Pain, No Diarrhea, No Constipation, No Melena, No Hematochezia Genitourinary: No Dysuria, No Frequency, No Incontinence, No Hematuria, No Retention, No Discharge, No Urgency, No Pain, No Flank Pain Musculoskeletal: No Gait Disturbance, No Joint Pain, No Joint Stiffness, No Joint Swelling, No Muscle Pain, No Muscular Weakness, No Pain In:, No Swelling In: Neurological: No Behavorial Changes, No Bowel/Bladder ControlChng, No Confusion , No Dizziness, No Gait Disturbance, No Headaches, No Impaired Coord/balance, No Memory Loss, No Numbness/Tingling, No Seizures, No Speech Problems, No Tremors, No Visual Changes, No Weakness Skin: No Dry Skin, No Eczema, No Hair Changes, No Lumps, No Mole Changes, No Mottling, No Nail Changes, No Pruritus, No Rash, No Skin Lesion Changes, No Acne Physical Exam General: Alert, Oriented X3, Cooperative, No acute distress HEENT: Atraumatic, PERRLA Lungs: Other (reduced air entry on the left) Heart: Regular rate, Normal S1, Normal S2, No murmurs Abdomen: Soft, No tenderness, No hepatosplenomegaly Extremities: No cyanosis Skin: No significant lesion Neuro: Normal gait, Normal speech, Strength at 5/5 X4 ext, Normal tone, Sensation intact, Cranial nerves 3-12 NL Psych/Mental Status: Mental status NL MUSCULOSKELETAL: No deformity Vitals VITALS Vital Signs Date Time Temp Pulse Resp B/P (MAP) Pulse Ox O2 Delivery O2 Flow Rate FiO2 09/05/17 14:33 97.7 112 20 135/93 (107) 96 Nasal Cannula 2.0 97.7 Labs Labs Laboratory Tests Test 09/04/17 13:13 09/04/17 17:15 09/05/17 03:50 09/05/17 04:15 White Blood Count 14.5 x10^3/uL (4.0-11.0) 10.5 x10^3/uL (4.0-11.0) Red Blood Count 4.68 x10^6/uL (4.30-5.70) 4.10 x10^6/uL (4.30-5.70) Hemoglobin 16.6 g/dL (13.0-17.5) 14.7 g/dL (13.0-17.5) Hematocrit 49.0 % (39.0-53.0) 42.0 % (39.0-53.0) Mean Corpuscular Volume 105 fL (79-100) 102 fL (79-100) Mean Corpuscular Hemoglobin 35 pg (25-35) 36 pg (25-35) Mean Corpuscular Hemoglobin Concent 34 g/dL (31-37) 35 g/dL (31-37) Red Cell Distribution Width 15.5 % (11.5-14.5) 15.9 % (11.5-14.5) Platelet Count 493 x10^3/uL (140-400) 434 x10^3/uL (140-400) Neutrophils (%) (Auto) 80 % (31-73) 67 % (31-73) Lymphocytes (%) (Auto) 6 % (24-48) 15 % (24-48) Monocytes (%) (Auto) 14 % (0-9) 17 % (0-9) Eosinophils (%) (Auto) 0 % (0-3) 0 % (0-3) Basophils (%) (Auto) 0 % (0-3) 1 % (0-3) Neutrophils # (Auto) 11.6 x10^3uL (1.8-7.7) 7.0 x10^3uL (1.8-7.7) Lymphocytes # (Auto) 0.9 x10^3/uL (1.0-4.8) 1.6 x10^3/uL (1.0-4.8) Monocytes # (Auto) 2.0 x10^3/uL (0.0-1.1) 1.8 x10^3/uL (0.0-1.1) Eosinophils # (Auto) 0.0 x10^3/uL (0.0-0.7) 0.0 x10^3/uL (0.0-0.7) Basophils # (Auto) 0.0 x10^3/uL (0.0-0.2) 0.1 x10^3/uL (0.0-0.2) Segmented Neutrophils % 85 % (35-66) Band Neutrophils % 1 % (0-9) Lymphocytes % 3 % (24-48) Monocytes % 11 % (0-10) Toxic Granulation Slight Toxic Vacuolation Slight Platelet Estimate Increased (ADEQUATE) Macrocytosis Slight Prothrombin Time 13.5 SEC (11.7-14.0) Prothromb Time International Ratio 1.1 (0.8-1.1) Activated Partial Thromboplast Time 25 SEC (24-38) Sodium Level 133 mmol/L (136-145) 134 mmol/L (136-145) Potassium Level 4.6 mmol/L (3.5-5.1) 3.0 mmol/L (3.5-5.1) Chloride Level 94 mmol/L (98-107) 96 mmol/L (98-107) Carbon Dioxide Level 31 mmol/L (21-32) 29 mmol/L (21-32) Anion Gap 8 (6-14) 9 (6-14) Blood Urea Nitrogen 6 mg/dL (8-26) 4 mg/dL (8-26) Creatinine 0.5 mg/dL (0.7-1.3) 0.4 mg/dL (0.7-1.3) Estimated GFR (Cockcroft-Gault) 165.4 213.9 BUN/Creatinine Ratio 12 (6-20) Glucose Level 95 mg/dL (70-99) 86 mg/dL (70-99) Lactic Acid Level 2.2 mmol/L (0.4-2.0) 1.6 mmol/L (0.4-2.0) Calcium Level 9.3 mg/dL (8.5-10.1) 8.1 mg/dL (8.5-10.1) Magnesium Level 2.0 mg/dL (1.8-2.4) Total Bilirubin 1.1 mg/dL (0.2-1.0) Aspartate Amino Transf (AST/SGOT) 35 U/L (15-37) Alanine Aminotransferase (ALT/SGPT) 18 U/L (16-63) Alkaline Phosphatase 91 U/L (46-116) Troponin I Quantitative < 0.017 ng/mL (0.000-0.055) KL-Jzu-[id number]-Type Natriuretic Peptide 1179 pg/mL (0-124) Total Protein 6.6 g/dL (6.4-8.2) Albumin 2.2 g/dL (3.4-5.0) Albumin/Globulin Ratio 0.5 (1.0-1.7) Urine Collection Type Unknown Urine Color Yellow Urine Clarity Clear Urine pH 6.5 Urine Specific Burnett 1.015 Urine Protein Negative mg/dL (NEG-TRACE) Urine Glucose (UA) Negative mg/dL (NEG) Urine Ketones (Stick) 15 mg/dL (NEG) Urine Blood Negative (NEG) Urine Nitrite Negative (NEG) Urine Bilirubin Moderate (NEG) Urine Urobilinogen Dipstick 1.0 mg/dL (0.2 mg/dL) Urine Leukocyte Esterase Negative (NEG) Urine RBC 0 /HPF (0-2) Urine WBC 1-4 /HPF (0-4) Urine Squamous Epithelial Cells Few /LPF Urine Bacteria Few /HPF (0-FEW) Urine Hyaline Casts Few /HPF Urine Mucus Marked /LPF Thyroid Stimulating Hormone (TSH) 1.284 uIU/mL (0.358-3.74) Free Thyroxine 1.78 ng/dL (0.76-1.46) Test 09/05/17 09:30 Body Fluid pH 7.0 Laboratory Tests Test 09/04/17 17:15 09/05/17 03:50 09/05/17 04:15 09/05/17 09:30 Lactic Acid Level 1.6 mmol/L (0.4-2.0) Urine Collection Type Unknown Urine Color Yellow Urine Clarity Clear Urine pH 6.5 Urine Specific Burnett 1.015 Urine Protein Negative mg/dL (NEG-TRACE) Urine Glucose (UA) Negative mg/dL (NEG) Urine Ketones (Stick) 15 mg/dL (NEG) Urine Blood Negative (NEG) Urine Nitrite Negative (NEG) Urine Bilirubin Moderate (NEG) Urine Urobilinogen Dipstick 1.0 mg/dL (0.2 mg/dL) Urine Leukocyte Esterase Negative (NEG) Urine RBC 0 /HPF (0-2) Urine WBC 1-4 /HPF (0-4) Urine Squamous Epithelial Cells Few /LPF Urine Bacteria Few /HPF (0-FEW) Urine Hyaline Casts Few /HPF Urine Mucus Marked /LPF White Blood Count 10.5 x10^3/uL (4.0-11.0) Red Blood Count 4.10 x10^6/uL (4.30-5.70) Hemoglobin 14.7 g/dL (13.0-17.5) Hematocrit 42.0 % (39.0-53.0) Mean Corpuscular Volume 102 fL (79-100) Mean Corpuscular Hemoglobin 36 pg (25-35) Mean Corpuscular Hemoglobin Concent 35 g/dL (31-37) Red Cell Distribution Width 15.9 % (11.5-14.5) Platelet Count 434 x10^3/uL (140-400) Neutrophils (%) (Auto) 67 % (31-73) Lymphocytes (%) (Auto) 15 % (24-48) Monocytes (%) (Auto) 17 % (0-9) Eosinophils (%) (Auto) 0 % (0-3) Basophils (%) (Auto) 1 % (0-3) Neutrophils # (Auto) 7.0 x10^3uL (1.8-7.7) Lymphocytes # (Auto) 1.6 x10^3/uL (1.0-4.8) Monocytes # (Auto) 1.8 x10^3/uL (0.0-1.1) Eosinophils # (Auto) 0.0 x10^3/uL (0.0-0.7) Basophils # (Auto) 0.1 x10^3/uL (0.0-0.2) Sodium Level 134 mmol/L (136-145) Potassium Level 3.0 mmol/L (3.5-5.1) Chloride Level 96 mmol/L (98-107) Carbon Dioxide Level 29 mmol/L (21-32) Anion Gap 9 (6-14) Blood Urea Nitrogen 4 mg/dL (8-26) Creatinine 0.4 mg/dL (0.7-1.3) Estimated GFR (Cockcroft-Gault) 213.9 Glucose Level 86 mg/dL (70-99) Calcium Level 8.1 mg/dL (8.5-10.1) Thyroid Stimulating Hormone (TSH) 1.284 uIU/mL (0.358-3.74) Free Thyroxine 1.78 ng/dL (0.76-1.46) Body Fluid pH 7.0 Images Images ndication empyema. Axial contrast images through the chest were obtained. The history of right lung malignancy is noted. 300 cc of Omnipaque 300 was administered intravenously. No prior dedicated CT of the chest is available. Note is made of a PET/CT examination 06/15/2017. The patient had a left-sided thoracentesis approximately 5 hours before this exam. Imaging through the upper abdomen is unremarkable. The thoracic aorta is unremarkable. There is no significant hilar or mediastinal adenopathy. There is a large loculated left pleural effusion. There is associated compressive atelectasis of the left lung. A dominant soft tissue mass in aerated left lung is not seen. There are several healed or healing left rib fractures. There is a nonsolid parenchymal opacity in the right upper lobe similar to minimally larger than on the previous exam. Low-grade malignancy accounting for the finding is not excluded. There is a minute right pleural effusion. There is compression of L1 and L2. The L1 compression deformity appears new relative to the referenced PET/CT IMPRESSION: Large loculated left pleural fluid collection with associated passive atelectasis in the left lung. Nonsolid parenchymal opacity in the right upper lobe similar to slightly larger than on the study 06/15/2017. Low-grade malignancy accounting for the finding is not excluded. Minute right pleural effusion New compression deformity L1 relative to an examination 06/15/2017 Assessment/Plan Assessment/Plan 67-year-old male, with a history of wedge resection x2 in the right lung for cancer, 4 years ago at [facility]. He presented a month ago with shortness of breath and was found to have a left-sided pleural effusion. A pigtail catheter was placed in the fluid was successfully drained with excellent results. Fluid analysis demonstrated an exudative effusion, PRBC predominant. Cytology was negative for malignancy. Cultures were all negative. The patient recovered well and was discharged home. He also had an echo then which showed normal LV function. He had a PET scan 3 months ago which did not show any evidence of recurrence. He presents again with gradual increasing shortness of breath. During this admission he was found to have a recurrence of his left-sided pleural effusion. Ultrasound-guided attempt at thoracentesis was unsuccessful owing to the complexity of the fluid collection. He had a CT scan today which showed a large complex left-sided pleural effusion. Because of his left pleural effusion is currently unknown, although he did have a left-sided chest trauma prior to his last pleural effusion, which according to notes was bloody. In addition, he has several healed left-sided rib fractures. He is short of breath , on 2 L nasal cannula. I was consulted for further management for his recurrent left-sided pleural effusion. Possible traumatic recurrent left-sided pleural effusion. Plan for left thoracotomy, pulmonary decortication, drainage of complex effusion , possible Pleurx catheter placement, tomorrow September 06, 2017. Nothing by mouth after midnight CBC, BMP, INR and PTT Crossmatch 2 units PRBCs Consent LELIA SMART MD Sep 05, 2017 17:08
[2017-09-05 19:25] VITALS: BP 141/95
[2017-09-05 23:30] VITALS: BP 141/94
[2017-09-06] VITALS (17 sets, daily range): BP systolic 73–166; BP diastolic 50–100
[2017-09-06 04:24] LABS: BASO # 0.1 x10^3/uL (0.0-0.2); BASO % 1 % (0-3); EOS % 0 % (0-3); HEMATOCRIT 40.4 % (39.0-53.0); HEMOGLOBIN 13.8 g/dL (13.0-17.5); LYMPH # 1.1 x10^3/uL (1.0-4.8); LYMPH % 13 % (24-48); MEAN CORPUSCULAR HEMOGLOBIN 36 pg (25-35); MEAN CORPUSCULAR HGB CONC 34 g/dL (31-37); MEAN CORPUSCULAR VOLUME 104 fL (79-100); MONO % 18 % (0-9); NEUT % 68 % (31-73); PLATELET COUNT 407 x10^3/uL (140-400); RED CELL DISTRIBUTION WIDTH 15.3 % (11.5-14.5); WHITE BLOOD COUNT 8.1 x10^3/uL (4.0-11.0)
[2017-09-06 04:49] LABS: ALBUMIN 1.7 g/dL (3.4-5.0); ALBUMIN/GLOBULIN RATIO 0.5 (1.0-1.7); CALCIUM 8.3 mg/dL (8.5-10.1); CREATININE 0.4 mg/dL (0.7-1.3); GFR 213.9; POTASSIUM 3.1 mmol/L (3.5-5.1); TOTAL BILIRUBIN 0.6 mg/dL (0.2-1.0); TOTAL PROTEIN 4.9 g/dL (6.4-8.2)
[2017-09-06 05:05] LABS: INR 1.2 (0.8-1.1); PROTHROMBIN TIME PATIENT 14.7 SEC (11.7-14.0)
[2017-09-06] MEDS ORDERED: ONDANSETRON PF 4 MG/2 ML VIAL. IV PRN ×2 (07:00→15:30)
[2017-09-06] MEDS ORDERED: LIDOCAINE 1% PF 2 ML VIAL. ID PRN (07:00)
[2017-09-06] MEDS ORDERED: PROCHLORPERAZINE 10 MG/2 ML VIAL. IV PRN (07:00)
[2017-09-06] MEDS ORDERED: MORPHINE SULFATE 2 MG/ML DISP.SYRIN. IV PRN (07:00)
[2017-09-06] MEDS ORDERED: fentaNYL PF VIAL 100 MCG/2 ML VIAL IV PRN ×2 (07:00)
[2017-09-06] MEDS ORDERED: HYDROmorphone 2 MG/ML VIAL IV PRN (07:00)
[2017-09-06] MEDS ORDERED: IV RINGERS,LACTATED 1000ML 1,000 ML IV SCH (07:00)
[2017-09-06] MEDS ORDERED: SURGICEL HEMOSTAT 4X8 EACH. ONE (08:46)
[2017-09-06] MEDS: MULTIVITAMIN with MINERAL TABLET. PO SCH (09:00)
[2017-09-06] MEDS: FOLIC ACID 1 MG TABLET. PO SCH (09:00)
[2017-09-06] MEDS ORDERED: TALC 4GM AERO.POWD CANISTER. IPL ONE (09:46)
[2017-09-06] MEDS ORDERED: LIDOCAINE 2% PF Vial for OR 5 ML VIAL. ONE ×3 (10:45→14:44)
[2017-09-06] MEDS ORDERED: ONDANSETRON PF 4 MG/2 ML VIAL. ONE (10:45)
[2017-09-06] MEDS ORDERED: DEXAMETHASONE SOD PHOS 20 MG/5 ML VIAL. ONE (10:45)
[2017-09-06] MEDS ORDERED: ETOMIDATE 20 MG/10 ML VIAL. IV ONE (10:45)
[2017-09-06] MEDS ORDERED: LIDOCAINE 1% PF 5 ML VIAL. ONE ×3 (10:45→12:36)
[2017-09-06] MEDS ORDERED: ROCURONIUM 100 MG/10 ML VIAL. ONE (10:46)
[2017-09-06] MEDS ORDERED: fentaNYL PF VIAL 100 MCG/2 ML VIAL ONE ×2 (10:46→10:57)
[2017-09-06] MEDS ORDERED: PHENYLEPHRINE 10 MG/ML VIAL. ONE ×2 (10:47→12:20)
[2017-09-06] MEDS ORDERED: MIDAZOLAM HCL/PF 2 MG/2 ML VIAL. ONE (10:57)
--- NOTE | 2017-09-06 13:38 | PATHOLOGY ---
CYTOPATHOLOGY REPORT CLINICAL HISTORY: Left pleural effusion SPECIMEN(S) RECEIVED: A.Pleural fluid, Left FINAL DIAGNOSIS: A. Left pleural fluid, ThinPrep and cell block: - No malignant cells identified. - Acute inflammatory cells identified. (JPM:mml; 09/06/2017) PATHOLOGIST: Elijah Phillips M.D. REPORT ELECTRONICALLY SIGNED BY: Elijah Phillips M.D. DATE/TIME: 09/06/2017 13:38 GROSS PATHOLOGY: A. Pleural fluid, Left : The specimen is submitted unfixed, labeled "Ravinder Heaton". Received by the Cytology Department is four mL of reddish brown fluid. One ThinPrep slide and a formalin fixed cell block were prepared. (mm 09.05.2017) CLASSIFYING MACHINE OPERATOR(S): COOKIE Guy(ASCP) INITIAL CPT CODE(S): A; 60416, 46787 Professional services performed by [email or web address] [address] Technical services performed by [email or web address] at [address] [place] [address], [address], [place] [address]. PATIENT: RAVINDER HEATON /AGE: 8 1950 (Age: 67) SEX: M PATIENT #: [id number] ALT CASE #: SPECIMEN COLLECTION DATE: 09/04/2017 SPECIMEN RECEIVED DATE: 09/05/[address] [facility] [address] [place] [address], [address] [place] [address] PHONE: [phone] DIRECTOR: Bartolome Baker M.D. * * * END OF REPORT * * *
[2017-09-06] MEDS ORDERED: NEOSTIGMINE METHYLSULFATE 5 MG/5 ML SYRINGE. ONE (13:52)
[2017-09-06] MEDS ORDERED: GLYCOPYRROLATE 1 MG/5 ML VIAL. ONE (13:52)
[2017-09-06] MEDS: IV NORMAL SALINE 1000ML BAG 1,000 ML IV SCH (15:19)
[2017-09-06 15:26] LABS: HEMATOCRIT 38.7 % (39.0-53.0); HEMOGLOBIN 13.3 g/dL (13.0-17.5); WHITE BLOOD COUNT 12.8 x10^3/uL (4.0-11.0)
[2017-09-06] MEDS ORDERED: PROPOFOL 20 ML IV ONE ×2 (15:29→15:30)
[2017-09-06] MEDS ORDERED: 0.9 % SODIUM CHLORIDE 10 ML DISP.SYRIN. IV PRN (15:30)
[2017-09-06] MEDS ORDERED: diphenhydrAMINE HCL 25 MG CAPSULE PO PRN (15:30)
[2017-09-06] MEDS ORDERED: METOCLOPRAMIDE HCL 10 MG/2 ML VIAL. IV PRN (15:30)
[2017-09-06] MEDS ORDERED: KETOROLAC 15 MG/ML VIAL. IV PRN (15:30)
[2017-09-06] MEDS ORDERED: BISACODYL 10 MG SUPP.RECT. PR PRN (15:30)
[2017-09-06] MEDS ORDERED: oxyCODONE/APAP 5/325 1 TAB TABLET PO PRN ×2 (15:30)
[2017-09-06] MEDS ORDERED: NALOXONE 0.4 MG/ML VIAL. IV PRN (15:30)
[2017-09-06] MEDS ORDERED: PHENYLEPHRINE INJ 20 MG in IV NORMAL SALINE 250ML 250 ML IV ONE (16:00)
[2017-09-06] MEDS ORDERED: IV NORMAL SALINE 50ML 36.7 ML, fentaNYL PF VIAL 250 MCG, BUPIVACAINE MPF 0.75% 8.34 ML ... EP PRN ×4 (16:00)
[2017-09-06] MEDS: MORPHINE SULFATE 2 MG/ML DISP.SYRIN. IV PRN (16:11)
--- NOTE | 2017-09-06 16:21 | PDOC ---
BRIEF OPERATIVE NOTE Pre-Op Diagnosis Recurrent left pleural effusion Post-Op Diagnosis Recurrent left pleural effusion Left fibrothorax with trapped lung Procedure Performed Left VATS converted to thoracotomy and pulmonary decortication Surgeon Lelia Smart MD Pack Master MIGUEL Hopkins Anesthesiologist Dr Hilliard Anesthesia Type: General Blood Loss 300 mls IV Fluid 1800 mls Urine Output 200 mls Specimens Obtained Left pleural fluid for cytology, Gram stain, aerobic and anaerobic cultures, AFB , fungal cultures, pH, LDH and protein Pleural rind Findings Obliterated left fibrothorax, with thickened rind overlying the lingula and the left lower lobe. 1500 mls of loculated pleural effusion Complications None LELIA SMART MD Sep 06, 2017 16:21
--- NOTE | 2017-09-06 16:23 | PDOC4 ---
Operative Note Operative Note Preoperative diagnosis Recurrent left pleural effusion Postperative diagnosis Recurrent left pleural effusion Left fibrothorax with trapped lung Procedure Left VATS converted to thoracotomy and complete pulmonary decortication with drainage of complex pleural effusion Surgeon Lelia Smart MD Slag Expander MIGUEL Hopkins Anesthesiologist Dr Hilliard Anesthesia Type General Blood loss 300 mls IV fluids 1800 mls Urine output 200 mls Specimens obtained Left pleural fluid for cytology, Gram stain, aerobic and anaerobic cultures, AFB , fungal cultures, pH, LDH and protein Pleural rind Findings Obliterated left fibrothorax, with thickened rind overlying the lingula and the left lower lobe. 1500 mls of loculated pleural effusion Complications None Indication The patient is a 67-year-old male, with a history of wedge resection x2 in the right lung for cancer, 4 years ago at [facility]. He presented a month ago with shortness of breath and was found to have a left-sided pleural effusion. A pigtail catheter was placed and the fluid was successfully drained. Fluid analysis demonstrated an exudative effusion, PRBC predominant. Cytology was negative for malignancy. Cultures were all negative. The patient recovered well and was discharged home. He also had an echo then which showed normal LV function. He had a PET scan 3 months ago which did not show any evidence of recurrence. He presented again with gradual increasing shortness of breath. During this admission he was found to have a recurrence of his left-sided pleural effusion. Ultrasound-guided attempt at thoracentesis was unsuccessful owing to the complexity of the fluid collection. He had a CT scan today which showed a large complex left-sided pleural effusion. H reports left-sided chest trauma prior to his last pleural effusion, which according to notes was bloody. CT also showed healing rib fractures. A left pulmonary decortication and drainage of complex pleural effusion was indicated. The risks, benefits and limitations of the procedure were explained to the patient will agree to proceed. Informed consent was obtained. Operation The patient was seen in the preoperative area where his ID was confirmed using 2 unique identifiers. The left chest was marked. He was then transferred to the operating room. An epidural catheter and arterial line were placed. A Berumen catheter was also inserted. Anesthesia was induced and the airway was secured with a double lumen ET tube. Preoperative antibiotic prophylaxis was given. The patient was then placed in the right lateral decubitus position with the left side up. A timeout was then performed. The left chest was prepped and draped in the usual sterile surgical fashion. A 1 cm incision was made in the sixth intercostal space in the mid axillary line through which a 30 scope was inserted. I was able to drain a basal loculated effusion which was approximately 1 L of serous fluid. The left pleural space was otherwise obliterated with fibrotic tissue and most of the lung was tightly adhered to the chest wall. At that point I decided to convert to a left thoracotomy. The serratus anterior was preserved and the fifth intercostal space was very carefully entered. I started off by carefully mobilizing the lateral lung from its adhesions which gave me some space to work in. I managed to enter another loculation posteriorly to the right upper lobe which was for another 500 MLS. The adhesions were very dense and it took me approximately an hour to fully mobilize the left lung. Small parenchymal tears were cause as a result of this very challenging mobilization. Once the lung was fully mobilized I proceeded with a full pulmonary decortication. A thick rind was removed from the entire surface of the lung. The left pleural space was then irrigated and suctioned. Hemostasis was confirmed. I then asked anesthesia to ventilate the lung which fully inflated. There was one area where I identified significant air leak and this was repaired with 3-0 Prolene stitch. Tisseel was also applied to minimize postoperative air leaks. Two 32 Fr chest tubes were then inserted, one through the previously made thoracoscopic port, in the apical anterior and apical posterior positions. The chest tubes were secured with #2 silk stitches. The ribs were reapproximated with #1 Ethibond stitches. The latissimus dorsi was reapproximated with 0 Vicryl. The subcutaneous tissue was closed with 2-0 Vicryl and the epidermis with 4-0 Monocryl. A sterile dressing was applied. At the end of procedure the instrument, needle and sponge counts were correct. An attempt to extubate the patient in the operating room was made, but the patient was not awake enough with low tidal volumes, so he was transferred intubated to the ICU in stable condition having tolerated the procedure well. LELIA SMART MD Sep 06, 2017 16:23
[2017-09-06 18:02] LABS: HCO3 ABG 21 mmol/L (21-28); PCO2 ABG 36 mmHg (35-46); PH ABG 7.38 (7.35-7.45); PO2 ABG 94 mmHg (65-108); SAT O2 ABG 97 % (92-99)
[2017-09-06 18:31] LABS: HEMATOCRIT 42.8 % (39.0-53.0); HEMOGLOBIN 14.7 g/dL (13.0-17.5); RED BLOOD COUNT 4.12 x10^6/uL (4.30-5.70); RED CELL DISTRIBUTION WIDTH 15.4 % (11.5-14.5); WHITE BLOOD COUNT 19.3 x10^3/uL (4.0-11.0)
[2017-09-06 18:55] LABS: CALCIUM 7.7 mg/dL (8.5-10.1); CREATININE 0.3 mg/dL (0.7-1.3); GFR 298.2; MAGNESIUM 1.6 mg/dL (1.8-2.4); POTASSIUM 3.2 mmol/L (3.5-5.1)
[2017-09-06] MEDS ORDERED: MAGNESIUM SULFATE 2GM 50 ML IV ONE (19:15)
[2017-09-06] MEDS: POTASSIUM CHLORIDE 10MEQ 100 ML IV SCH ×4 (19:42→22:50)
[2017-09-06 20:56] LABS: FIO2 ABG 40
[2017-09-06] MEDS: FAMOTIDINE 20 MG TABLET. PO SCH (21:11)
[2017-09-06] MEDS: SENNOSIDES/DOCUSATE 8.6/50MG TABLET. PO SCH (21:12)
[2017-09-06] MEDS: IV NORMAL SALINE 50ML 36.7 ML, fentaNYL PF VIAL 250 MCG, BUPIVACAINE MPF 0.75% 8.34 ML ... EP PRN ×4 (22:27)
[2017-09-06] MEDS: PHENYLEPHRINE INJ 20 MG in IV NORMAL SALINE 250ML 250 ML IV PRN (23:48)
[2017-09-07] VITALS (24 sets, daily range): BP systolic 90–139; BP diastolic 50–89
[2017-09-07 01:16] LABS: MAGNESIUM 2.4 mg/dL (1.8-2.4); POTASSIUM 4.6 mmol/L (3.5-5.1)
[2017-09-07] MEDS: IV NORMAL SALINE 1000ML BAG 1,000 ML IV SCH ×3 (04:01→20:42)
[2017-09-07] MEDS: PHENYLEPHRINE INJ 20 MG in IV NORMAL SALINE 250ML 250 ML IV PRN ×2 (04:12→09:10)
[2017-09-07 05:35] LABS: HEMATOCRIT 42.8 % (39.0-53.0); HEMOGLOBIN 14.4 g/dL (13.0-17.5); RED BLOOD COUNT 4.15 x10^6/uL (4.30-5.70); RED CELL DISTRIBUTION WIDTH 15.7 % (11.5-14.5); WHITE BLOOD COUNT 21.8 x10^3/uL (4.0-11.0)
[2017-09-07 05:53] LABS: CALCIUM 7.8 mg/dL (8.5-10.1); CREATININE 0.5 mg/dL (0.7-1.3); GFR 165.4; POTASSIUM 4.4 mmol/L (3.5-5.1)
[2017-09-07] MEDS: IV NORMAL SALINE 50ML 36.7 ML, fentaNYL PF VIAL 250 MCG, BUPIVACAINE MPF 0.75% 8.34 ML ... EP PRN ×4 (07:28)
--- NOTE | 2017-09-07 07:28 | RAD ---
Portable chest, 09/07/2017: History: Shortness of breath, postop evaluation Comparison is made yesterday study. The ET tube has been removed. 2 left chest tubes are unchanged in positions. The heart size is normal. There is residual pleural thickening on the left with mild to moderate unchanged atelectasis/infiltrate in the left lower chest. No definite pneumothorax is seen. Chest wall emphysema on the left has partially resolved. Mildly prominent right pulmonary markings are unchanged and are probably largely due to scarring. Surgical sutures are present in the right upper and lower chest. No new abnormality is detected. IMPRESSION: Stable postoperative findings with moderate ongoing atelectasis/infiltrate in the left lower chest.
[2017-09-07] MEDS: MULTIVITAMIN with MINERAL TABLET. PO SCH (08:25)
[2017-09-07] MEDS: SENNOSIDES/DOCUSATE 8.6/50MG TABLET. PO SCH ×2 (08:25→20:38)
[2017-09-07] MEDS: FAMOTIDINE 20 MG TABLET. PO SCH ×2 (08:25→20:38)
[2017-09-07] MEDS: FOLIC ACID 1 MG TABLET. PO SCH (08:25)
--- NOTE | 2017-09-07 08:30 | RAD ---
Portable chest, 09/06/2017: History: Postop chest tube insertion Comparison is made to a study from 09/04/2017. An ET tube has been placed with its tip located well above the prasanth. There are 2 left chest tubes in place extending into the apical region. Previously seen left-sided pleural fluid has been largely drained. There is mild residual pleural thickening on the left. There is mild postoperative chest wall emphysema on the left. There is a suggestion of a small amount of residual air in the pleural space laterally. There is moderate residual patchy atelectasis/infiltrate in the left lower chest. The heart size is normal. Old surgical sutures are present in the right upper chest. Mildly prominent right pulmonary markings are unchanged and are probably largely due to scarring. There is slight blunting of the right lateral costophrenic angle compatible scarring versus a small amount pleural fluid. IMPRESSION: 1. The ET tube is in satisfactory position. 2. Postsurgical changes on the left with mild residual pleural thickening, moderate underlying atelectasis/infiltrate and possible minimal pneumothorax laterally.
[2017-09-07] MEDS: ELECTROLYTE (ICU) PROTOCOL. MC SCH (09:00)
[2017-09-07] MEDS: ELECTROLYTE (NON-ICU) PROTOCOL MC SCH (09:00)
--- NOTE | 2017-09-07 11:46 | PDOC ---
PROGRESS NOTES Chief Complaint Chief Complaint Acute on chronic hypoxic respir failure dyspnea pleural effusions edema PMH: COPD Lung CA Alcoholism DM History of Present Illness History of Present Illness Pt was laying in bed in the ICU. was in the room as well. 2 left chest tubes were noted as well as a guan in place. Pt was talkative and so was the . She was very involved with the care of her . Discussed plan of care including waiting in the ICU and hoping to wean off of pressures. Pt has an art line in place. MCV - 103 WBC - 21.8 Albumin - 1.7 Vitals Vitals Vital Signs Date Time Temp Pulse Resp B/P (MAP) Pulse Ox O2 Delivery O2 Flow Rate FiO2 09/07/17 11:00 112 13 100/51 (67) 100 Nasal Cannula 3.0 09/07/17 08:00 98.5 98.5 Physical Exam General: Alert, Oriented X3, Cooperative, No acute distress Heart: Regular rate, Normal S1, Normal S2 Lungs: Clear (no breath sounds in lower 2/3 left), Wheezing, Other ([address] in left lung) Abdomen: Soft, No tenderness, No hepatosplenomegaly Extremities: No clubbing, No cyanosis Skin: No rashes, No breakdown, No significant lesion Labs LABS Laboratory Tests Test 09/06/17 12:04 09/06/17 12:27 09/06/17 15:15 09/06/17 17:54 Body Fluid pH 7.9 7.6 White Blood Count 12.8 x10^3/uL (4.0-11.0) Hemoglobin 13.3 g/dL (13.0-17.5) Hematocrit 38.7 % (39.0-53.0) Platelet Count 440 x10^3/uL (140-400) O2 Saturation 97 % (92-99) Arterial Blood pH 7.38 (7.35-7.45) Arterial Blood pCO2 at Patient Temp 36 mmHg (35-46) Arterial Blood pO2 at Patient Temp 94 mmHg (65-108) Arterial Blood HCO3 21 mmol/L (21-28) Arterial Blood Base Excess -4 mmol/L (-3-3) FiO2 40 Test 09/06/17 18:15 09/07/17 01:00 09/07/17 05:25 09/07/17 08:37 White Blood Count 19.3 x10^3/uL (4.0-11.0) 21.8 x10^3/uL (4.0-11.0) Red Blood Count 4.12 x10^6/uL (4.30-5.70) 4.15 x10^6/uL (4.30-5.70) Hemoglobin 14.7 g/dL (13.0-17.5) 14.4 g/dL (13.0-17.5) Hematocrit 42.8 % (39.0-53.0) 42.8 % (39.0-53.0) Mean Corpuscular Volume 104 fL (79-100) 103 fL (79-100) Mean Corpuscular Hemoglobin 36 pg (25-35) 35 pg (25-35) Mean Corpuscular Hemoglobin Concent 34 g/dL (31-37) 34 g/dL (31-37) Red Cell Distribution Width 15.4 % (11.5-14.5) 15.7 % (11.5-14.5) Platelet Count 464 x10^3/uL (140-400) 541 x10^3/uL (140-400) Sodium Level 137 mmol/L (136-145) 136 mmol/L (136-145) Potassium Level 3.2 mmol/L (3.5-5.1) 4.6 mmol/L (3.5-5.1) 4.4 mmol/L (3.5-5.1) Chloride Level 104 mmol/L (98-107) 104 mmol/L (98-107) Carbon Dioxide Level 26 mmol/L (21-32) 24 mmol/L (21-32) Anion Gap 7 (6-14) 8 (6-14) Blood Urea Nitrogen 5 mg/dL (8-26) 7 mg/dL (8-26) Creatinine 0.3 mg/dL (0.7-1.3) 0.5 mg/dL (0.7-1.3) Estimated GFR (Cockcroft-Gault) 298.2 165.4 Glucose Level 168 mg/dL (70-99) 139 mg/dL (70-99) Calcium Level 7.7 mg/dL (8.5-10.1) 7.8 mg/dL (8.5-10.1) Magnesium Level 1.6 mg/dL (1.8-2.4) 2.4 mg/dL (1.8-2.4) Glucose (Fingerstick) 110 mg/dL (70-99) Review of Systems Review of Systems Pt complains of chest wall pain Pt complains of SOB PT complains of fatigue PT complains of hunger Assessment and Plan Assessmemt and Plan Problems Medical Problems: (1) Leukocytosis Status: Acute (2) Parapneumonic effusion Status: Acute Acute on chronic hypoxic respir failure dyspnea pleural effusions edema PMH: COPD Lung CA Alcoholism DM Plan: cont. ICU monitoring cont. IVF cont. abx recheck labs cont. pressers hope to wean off pressers wound care discussed plan with RN Problems: Comment Review of Relevant I have reviewed the following items tita (where applicable) has been applied. Labs Laboratory Tests Test 09/06/17 03:45 09/06/17 12:04 09/06/17 12:27 09/06/17 15:15 White Blood Count 8.1 x10^3/uL (4.0-11.0) 12.8 x10^3/uL (4.0-11.0) Red Blood Count 3.90 x10^6/uL (4.30-5.70) Hemoglobin 13.8 g/dL (13.0-17.5) 13.3 g/dL (13.0-17.5) Hematocrit 40.4 % (39.0-53.0) 38.7 % (39.0-53.0) Mean Corpuscular Volume 104 fL (79-100) Mean Corpuscular Hemoglobin 36 pg (25-35) Mean Corpuscular Hemoglobin Concent 34 g/dL (31-37) Red Cell Distribution Width 15.3 % (11.5-14.5) Platelet Count 407 x10^3/uL (140-400) 440 x10^3/uL (140-400) Neutrophils (%) (Auto) 68 % (31-73) Lymphocytes (%) (Auto) 13 % (24-48) Monocytes (%) (Auto) 18 % (0-9) Eosinophils (%) (Auto) 0 % (0-3) Basophils (%) (Auto) 1 % (0-3) Neutrophils # (Auto) 5.5 x10^3uL (1.8-7.7) Lymphocytes # (Auto) 1.1 x10^3/uL (1.0-4.8) Monocytes # (Auto) 1.4 x10^3/uL (0.0-1.1) Eosinophils # (Auto) 0.0 x10^3/uL (0.0-0.7) Basophils # (Auto) 0.1 x10^3/uL (0.0-0.2) Prothrombin Time 14.7 SEC (11.7-14.0) Prothromb Time International Ratio 1.2 (0.8-1.1) Activated Partial Thromboplast Time 36 SEC (24-38) Sodium Level 136 mmol/L (136-145) Potassium Level 3.1 mmol/L (3.5-5.1) Chloride Level 99 mmol/L (98-107) Carbon Dioxide Level 35 mmol/L (21-32) Anion Gap 2 (6-14) Blood Urea Nitrogen 5 mg/dL (8-26) Creatinine 0.4 mg/dL (0.7-1.3) Estimated GFR (Cockcroft-Gault) 213.9 BUN/Creatinine Ratio 13 (6-20) Glucose Level 104 mg/dL (70-99) Calcium Level 8.3 mg/dL (8.5-10.1) Total Bilirubin 0.6 mg/dL (0.2-1.0) Aspartate Amino Transf (AST/SGOT) 21 U/L (15-37) Alanine Aminotransferase (ALT/SGPT) 14 U/L (16-63) Alkaline Phosphatase 63 U/L (46-116) Total Protein 4.9 g/dL (6.4-8.2) Albumin 1.7 g/dL (3.4-5.0) Albumin/Globulin Ratio 0.5 (1.0-1.7) Body Fluid pH 7.9 7.6 Test 09/06/17 17:54 09/06/17 18:15 09/07/17 01:00 09/07/17 05:25 O2 Saturation 97 % (92-99) Arterial Blood pH 7.38 (7.35-7.45) Arterial Blood pCO2 at Patient Temp 36 mmHg (35-46) Arterial Blood pO2 at Patient Temp 94 mmHg (65-108) Arterial Blood HCO3 21 mmol/L (21-28) Arterial Blood Base Excess -4 mmol/L (-3-3) FiO2 40 White Blood Count 19.3 x10^3/uL (4.0-11.0) 21.8 x10^3/uL (4.0-11.0) Red Blood Count 4.12 x10^6/uL (4.30-5.70) 4.15 x10^6/uL (4.30-5.70) Hemoglobin 14.7 g/dL (13.0-17.5) 14.4 g/dL (13.0-17.5) Hematocrit 42.8 % (39.0-53.0) 42.8 % (39.0-53.0) Mean Corpuscular Volume 104 fL (79-100) 103 fL (79-100) Mean Corpuscular Hemoglobin 36 pg (25-35) 35 pg (25-35) Mean Corpuscular Hemoglobin Concent 34 g/dL (31-37) 34 g/dL (31-37) Red Cell Distribution Width 15.4 % (11.5-14.5) 15.7 % (11.5-14.5) Platelet Count 464 x10^3/uL (140-400) 541 x10^3/uL (140-400) Sodium Level 137 mmol/L (136-145) 136 mmol/L (136-145) Potassium Level 3.2 mmol/L (3.5-5.1) 4.6 mmol/L (3.5-5.1) 4.4 mmol/L (3.5-5.1) Chloride Level 104 mmol/L (98-107) 104 mmol/L (98-107) Carbon Dioxide Level 26 mmol/L (21-32) 24 mmol/L (21-32) Anion Gap 7 (6-14) 8 (6-14) Blood Urea Nitrogen 5 mg/dL (8-26) 7 mg/dL (8-26) Creatinine 0.3 mg/dL (0.7-1.3) 0.5 mg/dL (0.7-1.3) Estimated GFR (Cockcroft-Gault) 298.2 165.4 Glucose Level 168 mg/dL (70-99) 139 mg/dL (70-99) Calcium Level 7.7 mg/dL (8.5-10.1) 7.8 mg/dL (8.5-10.1) Magnesium Level 1.6 mg/dL (1.8-2.4) 2.4 mg/dL (1.8-2.4) Test 09/07/17 08:37 Glucose (Fingerstick) 110 mg/dL (70-99) Laboratory Tests Test 09/06/17 12:04 09/06/17 12:27 09/06/17 15:15 09/06/17 17:54 Body Fluid pH 7.9 7.6 White Blood Count 12.8 x10^3/uL (4.0-11.0) Hemoglobin 13.3 g/dL (13.0-17.5) Hematocrit 38.7 % (39.0-53.0) Platelet Count 440 x10^3/uL (140-400) O2 Saturation 97 % (92-99) Arterial Blood pH 7.38 (7.35-7.45) Arterial Blood pCO2 at Patient Temp 36 mmHg (35-46) Arterial Blood pO2 at Patient Temp 94 mmHg (65-108) Arterial Blood HCO3 21 mmol/L (21-28) Arterial Blood Base Excess -4 mmol/L (-3-3) FiO2 40 Test 09/06/17 18:15 09/07/17 01:00 09/07/17 05:25 09/07/17 08:37 White Blood Count 19.3 x10^3/uL (4.0-11.0) 21.8 x10^3/uL (4.0-11.0) Red Blood Count 4.12 x10^6/uL (4.30-5.70) 4.15 x10^6/uL (4.30-5.70) Hemoglobin 14.7 g/dL (13.0-17.5) 14.4 g/dL (13.0-17.5) Hematocrit 42.8 % (39.0-53.0) 42.8 % (39.0-53.0) Mean Corpuscular Volume 104 fL (79-100) 103 fL (79-100) Mean Corpuscular Hemoglobin 36 pg (25-35) 35 pg (25-35) Mean Corpuscular Hemoglobin Concent 34 g/dL (31-37) 34 g/dL (31-37) Red Cell Distribution Width 15.4 % (11.5-14.5) 15.7 % (11.5-14.5) Platelet Count 464 x10^3/uL (140-400) 541 x10^3/uL (140-400) Sodium Level 137 mmol/L (136-145) 136 mmol/L (136-145) Potassium Level 3.2 mmol/L (3.5-5.1) 4.6 mmol/L (3.5-5.1) 4.4 mmol/L (3.5-5.1) Chloride Level 104 mmol/L (98-107) 104 mmol/L (98-107) Carbon Dioxide Level 26 mmol/L (21-32) 24 mmol/L (21-32) Anion Gap 7 (6-14) 8 (6-14) Blood Urea Nitrogen 5 mg/dL (8-26) 7 mg/dL (8-26) Creatinine 0.3 mg/dL (0.7-1.3) 0.5 mg/dL (0.7-1.3) Estimated GFR (Cockcroft-Gault) 298.2 165.4 Glucose Level 168 mg/dL (70-99) 139 mg/dL (70-99) Calcium Level 7.7 mg/dL (8.5-10.1) 7.8 mg/dL (8.5-10.1) Magnesium Level 1.6 mg/dL (1.8-2.4) 2.4 mg/dL (1.8-2.4) Glucose (Fingerstick) 110 mg/dL (70-99) Microbiology 09/04/17 Blood Culture - Preliminary, Resulted NO GROWTH AFTER 2 DAYS 09/06/17 Gram Stain - Final, Complete 09/06/17 Gram Stain - Final, Complete Medications Current Medications Levofloxacin/ Dextrose 100 ml @ 100 mls/hr 1X ONCE IV Last administered on t 14:23; Start 09/04/17 at 14:15; Stop 09/04/17 at 15:14; Status DC Ondansetron HCl (Zofran) 4 mg PRN Q8HRS PRN IV NAUSEA/VOMITING; Start 09/04/17 at 14:15; Stop 09/05/17 at 14:14; Status DC Fentanyl Citrate (Fentanyl 2ml Vial) 50 mcg PRN Q2HR PRN IV PAIN; Start at 14:15; Stop 09/05/17 at 14:14; Status DC Furosemide (Lasix) 40 mg 1X ONCE IVP Last administered on 09/04/17 14:23; Start 09/04/17 at 14:15; Stop 09/04/17 at 14:16; Status DC Acetaminophen (Tylenol) 500 mg PRN BID PRN PO PAIN; Start 09/04/17 at 18:00 Non-Formulary Medication 1 tab QHS PO ; Start 09/04/17 at 21:00; Status UNV Multivitamins (Thera M Plus) 1 tab DAILY PO Last administered on 09/07/17 08: 25; Start 09/04/17 at 18:30 Folic Acid (Folic Acid) 1 mg DAILY PO Last administered on 09/07/17 08:25; Start 09/04/17 at 18:30 Thiamine HCl 100 mg/Sodium Chloride 51 ml @ 100 mls/hr 1X ONCE IV Last administered on 09/04/17 22:37; Start 09/04/17 at 18:30; Stop 09/04/17 at 19:00 ; Status DC Lorazepam (Ativan) 2 mg PRN Q1HR PRN IV For CIWA 8-14 Last administered on 10:48; Start 09/04/17 at 18:30 Lorazepam (Ativan) 4 mg PRN Q1HR PRN IV For CIWA 15 or greater; Start 09/04/17 at 18:30 Zolpidem Tartrate (Ambien) 5 mg PRN QHS PRN PO INSOMNIA Last administered on 23:15; Start 09/04/17 at 23:15 Lidocaine/Sodium Bicarbonate (Buffered Lidocaine 1%) 20 ml STK-MED ONCE IJ ; Start 09/05/17 at 09:03; Stop 09/05/17 at 09:04; Status DC Lidocaine/Sodium Bicarbonate (Buffered Lidocaine 1%) 20 ml 1X ONCE IJ Last administered on 09/05/17 09:34; Start 09/05/17 at 09:30; Stop 09/05/17 at 09 :31; Status DC Iohexol (Omnipaque 300 Mg/ml) 75 ml 1X ONCE IV Last administered on 10/10/ 17at 14:15; Start 09/05/17 at 14:15; Stop 09/05/17 at 14:16; Status DC Potassium Chloride (Klor-Con) 40 meq 1X ONCE PO Last administered on 18:19; Start 09/05/17 at 14:15; Stop 09/05/17 at 14:16; Status DC Info (Do NOT chart on this entry -- for MONITORING) 1 each PRN DAILY PRN MC SEE COMMENTS; Start 09/05/17 at 14:15; Stop 09/07/17 at 14:14 Cefazolin Sodium 1 gm/Sodium Chloride 50 ml @ 100 mls/hr 1X ONCE IV ; Start 09/06/17 at 10:00; Stop 09/06/17 at 10:29; Status UNV Cefazolin Sodium 50 ml @ 100 mls/hr 1X ONCE IV ; Start 09/06/17 at 11:00; Stop 09/06/17 at 11:29; Status DC Ondansetron HCl (Zofran) 4 mg PRN Q6HRS PRN IV NAUSEA/VOMITING; Start at 07:00; Stop 09/07/17 at 06:59; Status DC Fentanyl Citrate (Fentanyl 2ml Vial) 25 mcg PRN Q5MIN PRN IV MILD PAIN; Start 09/06/17 at 07:00; Stop 09/07/17 at 06:59; Status DC Fentanyl Citrate (Fentanyl 2ml Vial) 50 mcg PRN Q5MIN PRN IV MODERATE PAIN; Start 09/06/17 at 07:00; Stop 09/07/17 at 06:59; Status DC Morphine Sulfate 1 mg PRN Q10MIN PRN IV SEVERE PAIN; Start 09/06/17 at 07:00; Stop 09/07/17 at 06:59; Status DC Ringer's Solution 1,000 ml @ 30 mls/hr Q24H IV Last administered on 16:14; Start 09/06/17 at 07:00; Stop 09/06/17 at 18:59; Status DC Lidocaine HCl (Xylocaine-Mpf 1% Vial) 2 ml PRN 1X PRN ID IV START; Start 09/06 at 07:00; Stop 09/07/17 at 06:59; Status DC Hydromorphone HCl (Dilaudid) 0.5 mg PRN Q10MIN PRN IV SEV PAIN, Second choice; Start 09/06/17 at 07:00; Stop 09/07/17 at 06:59; Status DC Prochlorperazine Edisylate (Compazine) 5 mg PACU PRN PRN IV NAUSEA, MRX1; Start 09/06/17 at 07:00; Stop 09/07/17 at 06:59; Status DC Cefazolin Sodium 1 gm/Sodium Chloride 500 ml @ 500 mls/hr 1X PERIOP ONCE IRR Last administered on 09/06/17t 12:04; Start 09/06/17 at 10:00; Stop 09/06/17 at 10:59; Status DC Cellulose 1 each STK-MED ONCE .ROUTE ; Start 09/06/17 at 08:46; Stop 09/06/17 at 09:47; Status DC Dexamethasone Sodium Phosphate (Decadron) 20 mg STK-MED ONCE .ROUTE ; Start 10/13 at 10:45; Stop 09/06/17 at 10:46; Status DC Ondansetron HCl (Zofran) 4 mg STK-MED ONCE .ROUTE ; Start 09/06/17 at 10:45; Stop 09/06/17 at 10:46; Status DC Lidocaine HCl (Lidocaine Pf 2% Vial) 5 ml STK-MED ONCE .ROUTE ; Start 09/06/17 at 10:45; Stop 09/06/17 at 10:46; Status DC Etomidate (Amidate) 20 mg STK-MED ONCE IV ; Start 09/06/17 at 10:45; Stop 10/13 at 10:46; Status DC Lidocaine HCl (Xylocaine-Mpf 1% Vial) 5 ml STK-MED ONCE .ROUTE ; Start at 10:45; Stop 09/06/17 at 10:46; Status DC Fentanyl Citrate (Fentanyl 2ml Vial) 100 mcg STK-MED ONCE .ROUTE ; Start at 10:46; Stop 09/06/17 at 10:47; Status DC Rocuronium Millis (Zemuron) 100 mg STK-MED ONCE .ROUTE ; Start 09/06/17 at 10: 46; Stop 09/06/17 at 10:47; Status DC Talc (Sclerosol) 4 gm STK-MED ONCE IPL ; Start 09/06/17 at 09:46; Stop at 10:46; Status DC Phenylephrine HCl (Karri-Synephrine Inj) 10 mg STK-MED ONCE .ROUTE ; Start at 10:47; Stop 09/06/17 at 10:48; Status DC Ephedrine Sulfate (Akovaz) 50 mg STK-MED ONCE .ROUTE ; Start 09/06/17 at 10:48 ; Stop 09/06/17 at 10:49; Status DC Fentanyl Citrate (Fentanyl 2ml Vial) 100 mcg STK-MED ONCE .ROUTE ; Start at 10:57; Stop 09/06/17 at 10:58; Status DC Midazolam HCl (Versed) 2 mg STK-MED ONCE .ROUTE ; Start 09/06/17 at 10:57; Stop 09/06/17 at 10:58; Status DC Phenylephrine HCl (Karri-Synephrine Inj) 10 mg STK-MED ONCE .ROUTE ; Start at 12:20; Stop 09/06/17 at 12:21; Status DC Lidocaine HCl (Xylocaine-Mpf 1% Vial) 5 ml STK-MED ONCE .ROUTE ; Start at 12:35; Stop 09/06/17 at 12:36; Status DC Lidocaine HCl (Xylocaine-Mpf 1% Vial) 5 ml STK-MED ONCE .ROUTE ; Start at 12:36; Stop 09/06/17 at 12:37; Status DC Glycopyrrolate (Robinul) 1 mg STK-MED ONCE .ROUTE ; Start 09/06/17 at 13:52; Stop 09/06/17 at 13:53; Status DC Neostigmine Methylsulfate 5 mg STK-MED ONCE .ROUTE ; Start 09/06/17 at 13:52; Stop 09/06/17 at 13:53; Status DC Lidocaine HCl (Lidocaine Pf 2% Vial) 5 ml STK-MED ONCE .ROUTE ; Start 09/06/17 at 14:44; Stop 09/06/17 at 14:45; Status DC Lidocaine HCl (Lidocaine Pf 2% Vial) 5 ml STK-MED ONCE .ROUTE ; Start 09/06/17 at 14:44; Stop 09/06/17 at 14:45; Status DC Sodium Chloride 36.7 ml/Fentanyl Citrate 250 mcg/ Bupivacaine HCl 8.34 ml/ Epidural Dosage Infused (Pha) 50.04 ml @ 0 mls/hr CONT PRN EP SEE PROTOCOL TABLE Last administered on 09/06/17 18:00; Start 09/06/17 at 16:00; Stop 10/13 at 17:51; Status DC Diphenhydramine HCl (Benadryl) 25 mg PRN Q6HRS PRN PO ITCHING; Start 09/06/17 at 15:30 Famotidine (Pepcid) 20 mg BID PO Last administered on 09/07/17 08:25; Start 09/06/17 at 21:00 Naloxone HCl (Narcan) 0.1 mg PRN Q2MIN PRN IV ADMIN; Start 09/06/17 at 15:30 Info 1 ea DAILY MC ; Start 09/07/17 at 09:00 Info 1 ea DAILY MC ; Start 09/07/17 at 09:00 Sodium Chloride (Normal Saline Flush) 3 ml QSHIFT PRN IV AFTER MEDS AND BLOOD DRAWS; Start 09/06/17 at 15:30 Sodium Chloride 1,000 ml @ 75 mls/hr [id number] IV Last administered on 11:26; Start 09/06/17 at 15:19 Oxycodone/ Acetaminophen (Percocet 5/325) 1 tab PRN Q4HRS PRN PO MILD PAIN, 1ST CHOICE; Start 09/06/17 at 15:30 Oxycodone/ Acetaminophen (Percocet 5/325) 2 tab PRN Q4HRS PRN PO MODERATE PAIN , SEVERE PAIN; Start 09/06/17 at 15:30 Ketorolac Tromethamine (Toradol) 15 mg PRN Q6HRS PRN IV PAIN; Start 09/06/17 at 15:30; Stop 09/11/17 at 15:29 Morphine Sulfate 2 mg PRN Q1HR PRN IV PAIN Last administered on 09/06/17 16: 11; Start 09/06/17 at 15:30 Ondansetron HCl (Zofran) 4 mg PRN Q6HRS PRN IV NAUESA, 1ST CHOICE; Start 09/06 at 15:30 Metoclopramide HCl (Reglan) 5 mg PRN Q6HRS PRN IV Nausea/Vomiting, 2nd Choice; Start 09/06/17 at 15:30 Senna/Docusate Sodium (Senna Plus) 1 tab BID PO Last administered on 08:25; Start 09/06/17 at 21:00 Bisacodyl (Dulcolax Supp) 10 mg PRN DAILY PRN [place] CONSTIPATION; Start 09/06/17 at 15:30 Cefazolin Sodium 1 gm/Sodium Chloride 50 ml @ 100 mls/hr Q6H IV Last administered on 09/07/17 06:13; Start 09/06/17 at 18:00; Stop 09/07/17 at 06 :29; Status DC Propofol 20 ml @ As Directed STK-MED ONCE IV ; Start 09/06/17 at 15:29; Stop 09/06/17 at 15:30; Status DC Propofol 20 ml @ As Directed STK-MED ONCE IV ; Start 09/06/17 at 15:30; Stop 09/06/17 at 15:31; Status DC Phenylephrine HCl 20 mg/Sodium Chloride 252 ml @ 37.8 mls/hr 1X ONCE IV Last administered on 09/06/17 17:59; Start 09/06/17 at 16:00; Stop 09/06/17 at 22 :39; Status DC Sodium Chloride 36.7 ml/Fentanyl Citrate 250 mcg/ Bupivacaine HCl 8.34 ml/ Epidural Dosage Infused (Pha) 50.04 ml @ 0 mls/hr CONT PRN EP SEE PROTOCOL TABLE Last administered on 09/07/17 07:28; Start 09/06/17 at 18:00 Potassium Chloride 100 ml @ 100 mls/hr Q1H IV Last administered on 09/06/17 22:50; Start 09/06/17 at 19:15; Stop 09/06/17 at 23:14; Status DC Magnesium Sulfate/ Dextrose 50 ml @ 25 mls/hr 1X ONCE IV Last administered on 09/06/17 20:12; Start 09/06/17 at 19:15; Stop 09/06/17 at 21:14; Status DC Phenylephrine HCl 20 mg/Sodium Chloride 252 ml @ 0 mls/hr CONT PRN IV HYPOTENSION Last administered on 09/07/17 09:10; Start 09/06/17 at 23:30 Thiamine Mononitrate (Vitamin B-1) 100 mg DAILY PO ; Start 09/07/17 at 11:30 Active Scripts Active Reported Extra Strength Non-Aspirin (Acetaminophen) 500 Mg Tablet 500 Mg PO BID PRN Multivitamins (Multivitamin) 1 Each Tablet 1 Tab PO DAILY Melatonin 3 Mg Tablet 1 Tab PO QHS Vitals/I & O Vital Sign - Last 24 Hours 09/06/17 09/06/17 09/06/17 09/06/17 15:40 15:45 15:55 16:00 Pulse 95 94 97 Resp 16 15 16 B/P (MAP) 80/54 80/50 (60) 100/50 Pulse Ox 100 100 100 O2 Delivery Ventilator Ventilator Ventilator Mechanical Ventilator 09/06/17 09/06/17 09/06/17 09/06/17 16:00 16:00 16:10 16:11 Temp 96.8 95.3 96.8 95.3 Pulse 98 96 Resp 12 16 16 B/P (MAP) 80/54 (63) 133/75 73/60 (64) Pulse Ox 98 100 100 100 O2 Delivery Ventilator Ventilator Ventilator Ventilator 09/06/17 09/06/17 09/06/17 09/06/17 16:15 16:25 16:30 16:41 Temp 97.0 97.0 Pulse 78 83 78 Resp 11 16 15 16 B/P (MAP) 166/96 (119) 138/83 154/90 (111) Pulse Ox 100 90 100 40 O2 Delivery Ventilator Ventilator Ventilator Ventilator 09/06/17 09/06/17 09/06/17 09/06/17 16:45 17:00 17:15 17:22 Pulse 78 82 79 Resp 14 16 18 B/P (MAP) 146/86 (106) 136/84 (101) 128/80 (96) Pulse Ox 100 99 100 100 O2 Delivery Ventilator Ventilator Ventilator Ventilator 09/06/17 09/06/17 09/06/17 09/06/17 17:30 17:45 18:00 18:00 Pulse 98 94 82 Resp 12 16 15 18 B/P (MAP) 156/100 (118) 144/94 (111) 111/75 (87) Pulse Ox 100 100 100 100 O2 Delivery Ventilator Ventilator Ventilator Nasal Cannula O2 Flow Rate 3.0 09/06/17 09/06/17 09/06/17 09/06/17 19:00 20:00 20:00 21:00 Temp 96.9 97.3 96.9 97.3 Pulse 78 99 103 Resp 14 14 14 B/P (MAP) 138/77 (97) 107/68 (81) 104/67 (79) Pulse Ox 100 100 100 O2 Delivery Nasal Cannula Nasal Cannula Mechanical Ventilator Nasal Cannula O2 Flow Rate 3.0 3.0 3.0 3.0 09/06/17 09/06/17 09/06/17 09/06/17 22:00 22:27 23:00 23:59 Temp 97.6 97.6 Pulse 113 111 Resp 12 15 12 B/P (MAP) 96/62 (73) 106/68 (81) Pulse Ox 100 100 100 O2 Delivery Nasal Cannula Nasal Cannula Nasal Cannula Nasal Cannula O2 Flow Rate 3.0 3.0 3.0 3.0 09/07/17 09/07/17 09/07/17 09/07/17 00:00 01:00 02:00 03:00 Pulse 118 118 114 110 Resp 16 14 18 10 B/P (MAP) 98/72 (81) 109/67 (81) 118/70 (86) 114/68 (83) 114/80 (91) Pulse Ox 100 100 100 100 O2 Delivery Nasal Cannula Nasal Cannula Nasal Cannula Nasal Cannula O2 Flow Rate 3.0 3.0 3.0 3.0 09/07/17 09/07/17 09/07/17 09/07/17 04:00 04:00 05:00 06:00 Temp 97.9 97.9 Pulse 116 109 106 Resp 10 11 10 B/P (MAP) 111/67 (82) 107/66 (80) 113/64 (80) Pulse Ox 100 100 100 O2 Delivery Nasal Cannula Nasal Cannula Nasal Cannula Nasal Cannula O2 Flow Rate 3.0 3.0 3.0 3.0 09/07/17 09/07/17 09/07/17 09/07/17 07:00 07:28 07:56 08:00 Pulse 118 Resp 11 16 16 B/P (MAP) 90/56 (67) Pulse Ox 99 100 100 O2 Delivery Nasal Cannula Nasal Cannula Nasal Cannula Nasal Cannula O2 Flow Rate 3.0 3.0 3.0 3.0 09/07/17 09/07/17 09/07/17 09/07/17 08:00 09:00 10:00 11:00 Temp 98.5 98.5 Pulse 112 110 113 112 Resp 12 16 14 13 B/P (MAP) 94/56 (69) 112/64 (80) 104/60 (75) 100/51 (67) Pulse Ox 98 99 100 100 O2 Delivery Nasal Cannula Nasal Cannula Nasal Cannula Nasal Cannula O2 Flow Rate 3.0 3.0 3.0 3.0 Intake and Output 09/07/17 09/07/17 09/08/17 15:00 23:00 07:00 Intake Total 400 ml Output Total 145 ml Balance 255 ml Nutrition Consultation Dietary Evaluation: Recommendations by RD: Increase Calorie Intake, Protein supplementation Comments: encourage protein supplementation between meals Expected Outcomes/Goals: to meet > 75% est nutr needs Malnutrition Findings: Body Fat Depletion (Non Severe: Mod to Severe Weight Status: Underweight Fluid Accumulation (Non-Severe: Mild depletion JENNIFER PAGAN III DO Sep 07, 2017 11:46
[2017-09-07] MEDS ORDERED: ALBUMIN HUMAN 5% 500 ML IV ONE (12:00)
[2017-09-07] MEDS: THIAMINE 100 MG TABLET. PO SCH (12:03)
--- NOTE | 2017-09-07 12:29 | PATHOLOGY ---
CYTOPATHOLOGY REPORT CLINICAL HISTORY: Left lung pleural effusion recurrent. See also [id number]. SPECIMEN(S) RECEIVED: A.Pleural fluid, Left FINAL DIAGNOSIS: A. Left pleural fluid, ThinPrep and pati block: - No malignant cells identified. - Few reactive mesothelial cells and inflammatory cells identified. (JPM:mml; 09/07/2017) PATHOLOGIST: Elijah Phillips M.D. REPORT ELECTRONICALLY SIGNED BY: Elijah Phillips M.D. DATE/TIME: 09/07/2017 12:29 GROSS PATHOLOGY: A. Pleural fluid, Left: The specimen is submitted unfixed, labeled "Ravinder Heaton". Received by the Cytology Department is 15 mL of reddish orange fluid. One ThinPrep slide and a formalin fixed cell block were prepared. (clt 09.06.2017) SURGICAL SERVICES MANAGER(S): COOKIE Cagle(ASCP) INITIAL CPT CODE(S): A; 11513, 59887 Professional services performed by [facility] [place] [address] Technical services performed by [facility] at [address] [place] [address], [address] [address]. PATIENT: RAVINDER HEATON /AGE: 8 1950 (Age: 67) SEX: M PATIENT #: [id number] ALT CASE #: SPECIMEN COLLECTION DATE: 09/06/2017 SPECIMEN RECEIVED DATE: 09/06/[address] [facility] [address] [place] [address], [address] [place] [address] PHONE: [phone] DIRECTOR: Bartolome Baker M.D. * * * END OF REPORT * * *
--- NOTE | 2017-09-07 14:56 | PDOC ---
Progress Note Subjective Subjective ETOH withdrawal symptoms this morning, received 2mg iv Ativan, has been sedated ever since. Epidural off. Tachycardic 110s-120s with low UO-both have improved with albumin. Chest tubes: no air leak, drainage as expected. Chest x-ray shows excellent result with fully expanded left lung. ROS ROS No nausea No vomiting No pain No SOB No rash Vital Sign Vital Signs Vital Signs Date Time Temp Pulse Resp B/P (MAP) Pulse Ox O2 Delivery O2 Flow Rate FiO2 09/07/17 14:00 111 12 126/58 (80) 100 Nasal Cannula 3.0 09/07/17 12:00 98.2 98.2 Physical Exam PHYSICAL EXAM GENERAL: NAD, Alert HEENT: PERRL, OC/OP NECK: Supple, no JVD, no LN LUNGS: Clear HEART: S1S2, no gallop, no murmur ABD: Soft, NT, no organomegaly, no rebound EXT: No edema, no cyanosis BUFFER CHROME: Alert, oriented x 3, no focal neurologic deficit SKIN: No rash IV: ok Labs Lab Laboratory Tests Test 09/06/17 15:15 09/06/17 17:54 09/06/17 18:15 09/07/17 01:00 White Blood Count 12.8 x10^3/uL (4.0-11.0) 19.3 x10^3/uL (4.0-11.0) Hemoglobin 13.3 g/dL (13.0-17.5) 14.7 g/dL (13.0-17.5) Hematocrit 38.7 % (39.0-53.0) 42.8 % (39.0-53.0) Platelet Count 440 x10^3/uL (140-400) 464 x10^3/uL (140-400) O2 Saturation 97 % (92-99) Arterial Blood pH 7.38 (7.35-7.45) Arterial Blood pCO2 at Patient Temp 36 mmHg (35-46) Arterial Blood pO2 at Patient Temp 94 mmHg (65-108) Arterial Blood HCO3 21 mmol/L (21-28) Arterial Blood Base Excess -4 mmol/L (-3-3) FiO2 40 Red Blood Count 4.12 x10^6/uL (4.30-5.70) Mean Corpuscular Volume 104 fL (79-100) Mean Corpuscular Hemoglobin 36 pg (25-35) Mean Corpuscular Hemoglobin Concent 34 g/dL (31-37) Red Cell Distribution Width 15.4 % (11.5-14.5) Sodium Level 137 mmol/L (136-145) Potassium Level 3.2 mmol/L (3.5-5.1) 4.6 mmol/L (3.5-5.1) Chloride Level 104 mmol/L (98-107) Carbon Dioxide Level 26 mmol/L (21-32) Anion Gap 7 (6-14) Blood Urea Nitrogen 5 mg/dL (8-26) Creatinine 0.3 mg/dL (0.7-1.3) Estimated GFR (Cockcroft-Gault) 298.2 Glucose Level 168 mg/dL (70-99) Calcium Level 7.7 mg/dL (8.5-10.1) Magnesium Level 1.6 mg/dL (1.8-2.4) 2.4 mg/dL (1.8-2.4) Test 09/07/17 05:25 09/07/17 08:37 White Blood Count 21.8 x10^3/uL (4.0-11.0) Red Blood Count 4.15 x10^6/uL (4.30-5.70) Hemoglobin 14.4 g/dL (13.0-17.5) Hematocrit 42.8 % (39.0-53.0) Mean Corpuscular Volume 103 fL (79-100) Mean Corpuscular Hemoglobin 35 pg (25-35) Mean Corpuscular Hemoglobin Concent 34 g/dL (31-37) Red Cell Distribution Width 15.7 % (11.5-14.5) Platelet Count 541 x10^3/uL (140-400) Sodium Level 136 mmol/L (136-145) Potassium Level 4.4 mmol/L (3.5-5.1) Chloride Level 104 mmol/L (98-107) Carbon Dioxide Level 24 mmol/L (21-32) Anion Gap 8 (6-14) Blood Urea Nitrogen 7 mg/dL (8-26) Creatinine 0.5 mg/dL (0.7-1.3) Estimated GFR (Cockcroft-Gault) 165.4 Glucose Level 139 mg/dL (70-99) Calcium Level 7.8 mg/dL (8.5-10.1) Glucose (Fingerstick) 110 mg/dL (70-99) Objective Assessment POD#1, s/p left thoracotomy and pulmonary decortication with drainage of complex recurrent pleural effusion for trapped lung and significant fibrothorax. ETOH withdrawal symptoms this morning, received 2mg iv Ativan, has been sedated ever since. Epidural off. Tachycardic 110s-120s with low UO-both have improved with albumin. Chest tubes: no air leak, drainage as expected. Chest x-ray shows excellent result with fully expanded left lung. Plan Plan of Care Keep chest tubes to suction today. Will place to water seal tomorrow and likely remove on Monday No more Ativan! Okay to have 1-2 beers with every meal for EtOH withdrawal instead of benzodiazepines Will start small dose beta dhara for tachycardia Will remove epidural and Berumen tomorrow Heparin sub/q for DVT prophylaxis Needs to ambulate Judicious iv fluids for UO/tachycardia. Encourage po intake LELIA SMART MD Sep 07, 2017 14:56
[2017-09-07] MEDS: METOPROLOL TART IMMED RELEASE 25 MG TABLET. PO SCH (15:00)
--- NOTE | 2017-09-07 16:10 | PDOC ---
PULMONARY PROGRESS NOTES Subjective PT NOT MORE SOA Vitals Vital Signs Date Time Temp Pulse Resp B/P (MAP) Pulse Ox O2 Delivery O2 Flow Rate FiO2 09/07/17 15:00 100 13 139/60 (86) 100 Nasal Cannula 3.0 09/07/17 12:00 98.2 98.2 ROS: No Nausea, No Chest Pain, No Abdominal Pain, No Increase Cough General: Alert, No acute distress Lungs: Clear (no breath sounds in lower 2/3 left), Wheezing, Other ([address] in left lung) Cardiovascular: S1, S2 Abdomen: Soft, Non-tender Neuro Exam: Alert, Oriented Extremities: No Edema Skin: Warm Labs Laboratory Tests Test 09/06/17 03:45 09/06/17 12:04 09/06/17 12:27 09/06/17 15:15 White Blood Count 8.1 x10^3/uL (4.0-11.0) 12.8 x10^3/uL (4.0-11.0) Red Blood Count 3.90 x10^6/uL (4.30-5.70) Hemoglobin 13.8 g/dL (13.0-17.5) 13.3 g/dL (13.0-17.5) Hematocrit 40.4 % (39.0-53.0) 38.7 % (39.0-53.0) Mean Corpuscular Volume 104 fL (79-100) Mean Corpuscular Hemoglobin 36 pg (25-35) Mean Corpuscular Hemoglobin Concent 34 g/dL (31-37) Red Cell Distribution Width 15.3 % (11.5-14.5) Platelet Count 407 x10^3/uL (140-400) 440 x10^3/uL (140-400) Neutrophils (%) (Auto) 68 % (31-73) Lymphocytes (%) (Auto) 13 % (24-48) Monocytes (%) (Auto) 18 % (0-9) Eosinophils (%) (Auto) 0 % (0-3) Basophils (%) (Auto) 1 % (0-3) Neutrophils # (Auto) 5.5 x10^3uL (1.8-7.7) Lymphocytes # (Auto) 1.1 x10^3/uL (1.0-4.8) Monocytes # (Auto) 1.4 x10^3/uL (0.0-1.1) Eosinophils # (Auto) 0.0 x10^3/uL (0.0-0.7) Basophils # (Auto) 0.1 x10^3/uL (0.0-0.2) Prothrombin Time 14.7 SEC (11.7-14.0) Prothromb Time International Ratio 1.2 (0.8-1.1) Activated Partial Thromboplast Time 36 SEC (24-38) Sodium Level 136 mmol/L (136-145) Potassium Level 3.1 mmol/L (3.5-5.1) Chloride Level 99 mmol/L (98-107) Carbon Dioxide Level 35 mmol/L (21-32) Anion Gap 2 (6-14) Blood Urea Nitrogen 5 mg/dL (8-26) Creatinine 0.4 mg/dL (0.7-1.3) Estimated GFR (Cockcroft-Gault) 213.9 BUN/Creatinine Ratio 13 (6-20) Glucose Level 104 mg/dL (70-99) Calcium Level 8.3 mg/dL (8.5-10.1) Total Bilirubin 0.6 mg/dL (0.2-1.0) Aspartate Amino Transf (AST/SGOT) 21 U/L (15-37) Alanine Aminotransferase (ALT/SGPT) 14 U/L (16-63) Alkaline Phosphatase 63 U/L (46-116) Total Protein 4.9 g/dL (6.4-8.2) Albumin 1.7 g/dL (3.4-5.0) Albumin/Globulin Ratio 0.5 (1.0-1.7) Body Fluid pH 7.9 7.6 Body Fluid Total Protein 3.1 g/dL (.) Body Fluid Lactate Dehydrogenase 182 IU/L (.) Test 09/06/17 17:54 09/06/17 18:15 09/07/17 01:00 09/07/17 05:25 O2 Saturation 97 % (92-99) Arterial Blood pH 7.38 (7.35-7.45) Arterial Blood pCO2 at Patient Temp 36 mmHg (35-46) Arterial Blood pO2 at Patient Temp 94 mmHg (65-108) Arterial Blood HCO3 21 mmol/L (21-28) Arterial Blood Base Excess -4 mmol/L (-3-3) FiO2 40 White Blood Count 19.3 x10^3/uL (4.0-11.0) 21.8 x10^3/uL (4.0-11.0) Red Blood Count 4.12 x10^6/uL (4.30-5.70) 4.15 x10^6/uL (4.30-5.70) Hemoglobin 14.7 g/dL (13.0-17.5) 14.4 g/dL (13.0-17.5) Hematocrit 42.8 % (39.0-53.0) 42.8 % (39.0-53.0) Mean Corpuscular Volume 104 fL (79-100) 103 fL (79-100) Mean Corpuscular Hemoglobin 36 pg (25-35) 35 pg (25-35) Mean Corpuscular Hemoglobin Concent 34 g/dL (31-37) 34 g/dL (31-37) Red Cell Distribution Width 15.4 % (11.5-14.5) 15.7 % (11.5-14.5) Platelet Count 464 x10^3/uL (140-400) 541 x10^3/uL (140-400) Sodium Level 137 mmol/L (136-145) 136 mmol/L (136-145) Potassium Level 3.2 mmol/L (3.5-5.1) 4.6 mmol/L (3.5-5.1) 4.4 mmol/L (3.5-5.1) Chloride Level 104 mmol/L (98-107) 104 mmol/L (98-107) Carbon Dioxide Level 26 mmol/L (21-32) 24 mmol/L (21-32) Anion Gap 7 (6-14) 8 (6-14) Blood Urea Nitrogen 5 mg/dL (8-26) 7 mg/dL (8-26) Creatinine 0.3 mg/dL (0.7-1.3) 0.5 mg/dL (0.7-1.3) Estimated GFR (Cockcroft-Gault) 298.2 165.4 Glucose Level 168 mg/dL (70-99) 139 mg/dL (70-99) Calcium Level 7.7 mg/dL (8.5-10.1) 7.8 mg/dL (8.5-10.1) Magnesium Level 1.6 mg/dL (1.8-2.4) 2.4 mg/dL (1.8-2.4) Test 09/07/17 08:37 Glucose (Fingerstick) 110 mg/dL (70-99) Laboratory Tests Test 09/06/17 17:54 09/06/17 18:15 09/07/17 01:00 09/07/17 05:25 O2 Saturation 97 % (92-99) Arterial Blood pH 7.38 (7.35-7.45) Arterial Blood pCO2 at Patient Temp 36 mmHg (35-46) Arterial Blood pO2 at Patient Temp 94 mmHg (65-108) Arterial Blood HCO3 21 mmol/L (21-28) Arterial Blood Base Excess -4 mmol/L (-3-3) FiO2 40 White Blood Count 19.3 x10^3/uL (4.0-11.0) 21.8 x10^3/uL (4.0-11.0) Red Blood Count 4.12 x10^6/uL (4.30-5.70) 4.15 x10^6/uL (4.30-5.70) Hemoglobin 14.7 g/dL (13.0-17.5) 14.4 g/dL (13.0-17.5) Hematocrit 42.8 % (39.0-53.0) 42.8 % (39.0-53.0) Mean Corpuscular Volume 104 fL (79-100) 103 fL (79-100) Mean Corpuscular Hemoglobin 36 pg (25-35) 35 pg (25-35) Mean Corpuscular Hemoglobin Concent 34 g/dL (31-37) 34 g/dL (31-37) Red Cell Distribution Width 15.4 % (11.5-14.5) 15.7 % (11.5-14.5) Platelet Count 464 x10^3/uL (140-400) 541 x10^3/uL (140-400) Sodium Level 137 mmol/L (136-145) 136 mmol/L (136-145) Potassium Level 3.2 mmol/L (3.5-5.1) 4.6 mmol/L (3.5-5.1) 4.4 mmol/L (3.5-5.1) Chloride Level 104 mmol/L (98-107) 104 mmol/L (98-107) Carbon Dioxide Level 26 mmol/L (21-32) 24 mmol/L (21-32) Anion Gap 7 (6-14) 8 (6-14) Blood Urea Nitrogen 5 mg/dL (8-26) 7 mg/dL (8-26) Creatinine 0.3 mg/dL (0.7-1.3) 0.5 mg/dL (0.7-1.3) Estimated GFR (Cockcroft-Gault) 298.2 165.4 Glucose Level 168 mg/dL (70-99) 139 mg/dL (70-99) Calcium Level 7.7 mg/dL (8.5-10.1) 7.8 mg/dL (8.5-10.1) Magnesium Level 1.6 mg/dL (1.8-2.4) 2.4 mg/dL (1.8-2.4) Test 09/07/17 08:37 Glucose (Fingerstick) 110 mg/dL (70-99) Medications Active Scripts Medications Dose Route/Sig Max Daily Dose Days Date Category Extra Strength Non-Aspirin (Acetaminophen) 500 Mg Tablet 500 Mg PO BID PRN 09/04/17 Reported Multivitamins (Multivitamin) 1 Each Tablet 1 Tab PO DAILY 09/04/17 Reported Melatonin 3 Mg Tablet 1 Tab PO QHS 08/07/17 Reported Impression . 1. Progressive dyspnea secondary to increasing right-sided pleural effusion. S/ P DECORTICATION 2. Right-sided pleural effusion, status post previous thoracentesis. Cytology was negative at that time, cultures were negative. 3. History of lung cancer diagnosed 4 years ago, status post wedge resection on the right with no subsequent chemoradiation. 4. No history of congestive heart failure. 5. Severe protein malnutrition, present upon admission. 6. Tobacco dependence in remission. 7. Systemic inflammatory response syndrome. Plan . S/P SURGICAL INTERVENTION D/W DR Putnam ALCOHOL WITHDRAWAL PROTOCOL PULM POST OP CARE SPOKE WITH CXR REVIEWED HERNAN GARZA MD Sep 07, 2017 16:10
[2017-09-07] MEDS: HEPARIN PF for SUB-Q USE 5,000 UNIT/0.5 ML VIAL. SQ SCH (18:11)
[2017-09-08] VITALS (24 sets, daily range): BP systolic 115–169; BP diastolic 65–104
[2017-09-08] MEDS: HEPARIN PF for SUB-Q USE 5,000 UNIT/0.5 ML VIAL. SQ SCH ×4 (03:01→21:43)
[2017-09-08 06:06] LABS: BASO % 0 % (0-3); EOS % 0 % (0-3); HEMATOCRIT 34.5 % (39.0-53.0); HEMOGLOBIN 11.6 g/dL (13.0-17.5); LYMPH % 6 % (24-48); MEAN CORPUSCULAR HEMOGLOBIN 35 pg (25-35); MEAN CORPUSCULAR HGB CONC 34 g/dL (31-37); MEAN CORPUSCULAR VOLUME 104 fL (79-100); MONO % 13 % (0-9); NEUT % 81 % (31-73); PLATELET COUNT 325 x10^3/uL (140-400); RED BLOOD COUNT 3.32 x10^6/uL (4.30-5.70); RED CELL DISTRIBUTION WIDTH 15.6 % (11.5-14.5); WHITE BLOOD COUNT 16.8 x10^3/uL (4.0-11.0)
[2017-09-08 06:32] LABS: CALCIUM 7.7 mg/dL (8.5-10.1); CREATININE 0.5 mg/dL (0.7-1.3); GFR 165.4; POTASSIUM 3.9 mmol/L (3.5-5.1)
[2017-09-08] MEDS: METOPROLOL TART IMMED RELEASE 25 MG TABLET. PO SCH ×3 (09:00→21:37)
[2017-09-08] MEDS: ELECTROLYTE (NON-ICU) PROTOCOL MC SCH (09:00)
[2017-09-08] MEDS: ELECTROLYTE (ICU) PROTOCOL. MC SCH (09:00)
[2017-09-08] MEDS: FOLIC ACID 1 MG TABLET. PO SCH (09:15)
[2017-09-08] MEDS: IV NORMAL SALINE 1000ML BAG 1,000 ML IV SCH (09:15)
[2017-09-08] MEDS: THIAMINE 100 MG TABLET. PO SCH (09:16)
[2017-09-08] MEDS: MULTIVITAMIN with MINERAL TABLET. PO SCH (09:16)
[2017-09-08] MEDS: SENNOSIDES/DOCUSATE 8.6/50MG TABLET. PO SCH ×2 (09:16→21:36)
[2017-09-08] MEDS: FAMOTIDINE 20 MG TABLET. PO SCH ×2 (09:16→21:37)
--- NOTE | 2017-09-08 11:32 | PDOC ---
PROGRESS NOTES Chief Complaint Chief Complaint Acute on chronic hypoxic respir failure dyspnea pleural effusions edema S/P thoracentesis converted to thoracotomy Fibrothorax Chest tube placement PMH: COPD Lung CA Alcoholism DM History of Present Illness History of Present Illness Pt was in the ICU and laying in bed. He was awake but not conversant at the time. He appeared tired. His and RN were in the room and his plan of care was relayed to them. He had an episode of confusion and agitation yesterday and his Ativan dose was decreased and he was offered beer in order to prevent alcohol withdraw - per Cardio/Thoracic Surgery. He does not appear agitated now but looks fatigued. Cardio/Thoracic surgery will keep his chest tubes to suction today and switch them to water seal tomorrow. WBCs are trending down. Vitals Vitals Vital Signs Date Time Temp Pulse Resp B/P (MAP) Pulse Ox O2 Delivery O2 Flow Rate FiO2 09/08/17 10:00 97.6 112 17 146/99 (115) 100 Nasal Cannula 3.0 97.6 Physical Exam Physical Exam GENERAL: NAD, Alert HEENT: PERRL, OC/OP NECK: Supple, no JVD, no LN LUNGS: Clear HEART: S1S2, no gallop, no murmur ABD: Soft, NT, no organomegaly, no rebound EXT: No edema, no cyanosis [employer] MACHINE: Alert, oriented x 3, no focal neurologic deficit SKIN: No rash IV: ok General: Alert, Oriented X3, No acute distress Heart: Normal S1, Normal S2, Other (tachy) Lungs: Clear (no breath sounds in lower 2/3 left), Wheezing, Other ([address] in left lung) Abdomen: Soft, No tenderness, No hepatosplenomegaly Extremities: No clubbing, No cyanosis Skin: No rashes, No breakdown, No significant lesion Labs LABS Laboratory Tests Test 09/08/17 04:00 White Blood Count 16.8 x10^3/uL (4.0-11.0) Red Blood Count 3.32 x10^6/uL (4.30-5.70) Hemoglobin 11.6 g/dL (13.0-17.5) Hematocrit 34.5 % (39.0-53.0) Mean Corpuscular Volume 104 fL (79-100) Mean Corpuscular Hemoglobin 35 pg (25-35) Mean Corpuscular Hemoglobin Concent 34 g/dL (31-37) Red Cell Distribution Width 15.6 % (11.5-14.5) Platelet Count 325 x10^3/uL (140-400) Neutrophils (%) (Auto) 81 % (31-73) Lymphocytes (%) (Auto) 6 % (24-48) Monocytes (%) (Auto) 13 % (0-9) Eosinophils (%) (Auto) 0 % (0-3) Basophils (%) (Auto) 0 % (0-3) Neutrophils # (Auto) 13.5 x10^3uL (1.8-7.7) Lymphocytes # (Auto) 1.0 x10^3/uL (1.0-4.8) Monocytes # (Auto) 2.2 x10^3/uL (0.0-1.1) Eosinophils # (Auto) 0.0 x10^3/uL (0.0-0.7) Basophils # (Auto) 0.0 x10^3/uL (0.0-0.2) Sodium Level 138 mmol/L (136-145) Potassium Level 3.9 mmol/L (3.5-5.1) Chloride Level 106 mmol/L (98-107) Carbon Dioxide Level 25 mmol/L (21-32) Anion Gap 7 (6-14) Blood Urea Nitrogen 7 mg/dL (8-26) Creatinine 0.5 mg/dL (0.7-1.3) Estimated GFR (Cockcroft-Gault) 165.4 Glucose Level 98 mg/dL (70-99) Calcium Level 7.7 mg/dL (8.5-10.1) Review of Systems Review of Systems Pt appears fatigued Pt is tired and non-conversant Assessment and Plan Assessmemt and Plan Problems Medical Problems: (1) Leukocytosis Status: Acute (2) Parapneumonic effusion Status: Acute Acute on chronic hypoxic respir failure dyspnea pleural effusions edema S/P thoracentesis converted to thoracotomy Fibrothorax Chest tube placement PMH: COPD Lung CA Alcoholism DM Plan: Reviewed labs Reviewed Notes Will cont careful ICU monitoring Recheck labs PT/OT ETOH withdraw protocol Hope to dc chest tubes soon Discussed plan with nurse and Appreciate subspecialty input Prog guarded Total time 31 minutes Problems: Comment Review of Relevant I have reviewed the following items tita (where applicable) has been applied. Labs Laboratory Tests Test 09/06/17 12:04 09/06/17 12:27 09/06/17 15:15 09/06/17 16:00 Body Fluid pH 7.9 7.6 Body Fluid Total Protein 3.1 g/dL (.) Body Fluid Lactate Dehydrogenase 182 IU/L (.) White Blood Count 12.8 x10^3/uL (4.0-11.0) Hemoglobin 13.3 g/dL (13.0-17.5) Hematocrit 38.7 % (39.0-53.0) Platelet Count 440 x10^3/uL (140-400) Nasal Screen MRSA (PCR) Negative (Negative) Test 09/06/17 17:54 09/06/17 18:15 09/07/17 01:00 09/07/17 05:25 O2 Saturation 97 % (92-99) Arterial Blood pH 7.38 (7.35-7.45) Arterial Blood pCO2 at Patient Temp 36 mmHg (35-46) Arterial Blood pO2 at Patient Temp 94 mmHg (65-108) Arterial Blood HCO3 21 mmol/L (21-28) Arterial Blood Base Excess -4 mmol/L (-3-3) FiO2 40 White Blood Count 19.3 x10^3/uL (4.0-11.0) 21.8 x10^3/uL (4.0-11.0) Red Blood Count 4.12 x10^6/uL (4.30-5.70) 4.15 x10^6/uL (4.30-5.70) Hemoglobin 14.7 g/dL (13.0-17.5) 14.4 g/dL (13.0-17.5) Hematocrit 42.8 % (39.0-53.0) 42.8 % (39.0-53.0) Mean Corpuscular Volume 104 fL (79-100) 103 fL (79-100) Mean Corpuscular Hemoglobin 36 pg (25-35) 35 pg (25-35) Mean Corpuscular Hemoglobin Concent 34 g/dL (31-37) 34 g/dL (31-37) Red Cell Distribution Width 15.4 % (11.5-14.5) 15.7 % (11.5-14.5) Platelet Count 464 x10^3/uL (140-400) 541 x10^3/uL (140-400) Sodium Level 137 mmol/L (136-145) 136 mmol/L (136-145) Potassium Level 3.2 mmol/L (3.5-5.1) 4.6 mmol/L (3.5-5.1) 4.4 mmol/L (3.5-5.1) Chloride Level 104 mmol/L (98-107) 104 mmol/L (98-107) Carbon Dioxide Level 26 mmol/L (21-32) 24 mmol/L (21-32) Anion Gap 7 (6-14) 8 (6-14) Blood Urea Nitrogen 5 mg/dL (8-26) 7 mg/dL (8-26) Creatinine 0.3 mg/dL (0.7-1.3) 0.5 mg/dL (0.7-1.3) Estimated GFR (Cockcroft-Gault) 298.2 165.4 Glucose Level 168 mg/dL (70-99) 139 mg/dL (70-99) Calcium Level 7.7 mg/dL (8.5-10.1) 7.8 mg/dL (8.5-10.1) Magnesium Level 1.6 mg/dL (1.8-2.4) 2.4 mg/dL (1.8-2.4) Test 09/07/17 08:37 09/08/17 04:00 Glucose (Fingerstick) 110 mg/dL (70-99) White Blood Count 16.8 x10^3/uL (4.0-11.0) Red Blood Count 3.32 x10^6/uL (4.30-5.70) Hemoglobin 11.6 g/dL (13.0-17.5) Hematocrit 34.5 % (39.0-53.0) Mean Corpuscular Volume 104 fL (79-100) Mean Corpuscular Hemoglobin 35 pg (25-35) Mean Corpuscular Hemoglobin Concent 34 g/dL (31-37) Red Cell Distribution Width 15.6 % (11.5-14.5) Platelet Count 325 x10^3/uL (140-400) Neutrophils (%) (Auto) 81 % (31-73) Lymphocytes (%) (Auto) 6 % (24-48) Monocytes (%) (Auto) 13 % (0-9) Eosinophils (%) (Auto) 0 % (0-3) Basophils (%) (Auto) 0 % (0-3) Neutrophils # (Auto) 13.5 x10^3uL (1.8-7.7) Lymphocytes # (Auto) 1.0 x10^3/uL (1.0-4.8) Monocytes # (Auto) 2.2 x10^3/uL (0.0-1.1) Eosinophils # (Auto) 0.0 x10^3/uL (0.0-0.7) Basophils # (Auto) 0.0 x10^3/uL (0.0-0.2) Sodium Level 138 mmol/L (136-145) Potassium Level 3.9 mmol/L (3.5-5.1) Chloride Level 106 mmol/L (98-107) Carbon Dioxide Level 25 mmol/L (21-32) Anion Gap 7 (6-14) Blood Urea Nitrogen 7 mg/dL (8-26) Creatinine 0.5 mg/dL (0.7-1.3) Estimated GFR (Cockcroft-Gault) 165.4 Glucose Level 98 mg/dL (70-99) Calcium Level 7.7 mg/dL (8.5-10.1) Laboratory Tests Test 09/08/17 04:00 White Blood Count 16.8 x10^3/uL (4.0-11.0) Red Blood Count 3.32 x10^6/uL (4.30-5.70) Hemoglobin 11.6 g/dL (13.0-17.5) Hematocrit 34.5 % (39.0-53.0) Mean Corpuscular Volume 104 fL (79-100) Mean Corpuscular Hemoglobin 35 pg (25-35) Mean Corpuscular Hemoglobin Concent 34 g/dL (31-37) Red Cell Distribution Width 15.6 % (11.5-14.5) Platelet Count 325 x10^3/uL (140-400) Neutrophils (%) (Auto) 81 % (31-73) Lymphocytes (%) (Auto) 6 % (24-48) Monocytes (%) (Auto) 13 % (0-9) Eosinophils (%) (Auto) 0 % (0-3) Basophils (%) (Auto) 0 % (0-3) Neutrophils # (Auto) 13.5 x10^3uL (1.8-7.7) Lymphocytes # (Auto) 1.0 x10^3/uL (1.0-4.8) Monocytes # (Auto) 2.2 x10^3/uL (0.0-1.1) Eosinophils # (Auto) 0.0 x10^3/uL (0.0-0.7) Basophils # (Auto) 0.0 x10^3/uL (0.0-0.2) Sodium Level 138 mmol/L (136-145) Potassium Level 3.9 mmol/L (3.5-5.1) Chloride Level 106 mmol/L (98-107) Carbon Dioxide Level 25 mmol/L (21-32) Anion Gap 7 (6-14) Blood Urea Nitrogen 7 mg/dL (8-26) Creatinine 0.5 mg/dL (0.7-1.3) Estimated GFR (Cockcroft-Gault) 165.4 Glucose Level 98 mg/dL (70-99) Calcium Level 7.7 mg/dL (8.5-10.1) Microbiology 09/04/17 Blood Culture - Preliminary, Resulted NO GROWTH AFTER 3 DAYS 09/06/17 AFB Specimen Processing Tissue - Final, Resulted 09/06/17 Acid Fast Bacilli Culture, Resulted Pending 09/06/17 Gram Stain - Final, Resulted 09/06/17 Fungal Culture, Resulted Pending 09/06/17 Fungal Culture Result 1, Resulted Pending 09/06/17 AFB Specimen Processing Tissue - Final, Resulted 09/06/17 Acid Fast Bacilli Culture, Resulted Pending 09/06/17 Gram Stain - Final, Resulted 09/06/17 Fungal Culture, Resulted Pending 09/06/17 Fungal Culture Result 1, Resulted Pending Medications Current Medications Levofloxacin/ Dextrose 100 ml @ 100 mls/hr 1X ONCE IV Last administered on t 14:23; Start 09/04/17 at 14:15; Stop 09/04/17 at 15:14; Status DC Ondansetron HCl (Zofran) 4 mg PRN Q8HRS PRN IV NAUSEA/VOMITING; Start 09/04/17 at 14:15; Stop 09/05/17 at 14:14; Status DC Fentanyl Citrate (Fentanyl 2ml Vial) 50 mcg PRN Q2HR PRN IV PAIN; Start at 14:15; Stop 09/05/17 at 14:14; Status DC Furosemide (Lasix) 40 mg 1X ONCE IVP Last administered on 09/04/17 14:23; Start 09/04/17 at 14:15; Stop 09/04/17 at 14:16; Status DC Acetaminophen (Tylenol) 500 mg PRN BID PRN PO PAIN Last administered on 13:30; Start 09/04/17 at 18:00 Non-Formulary Medication 1 tab QHS PO ; Start 09/04/17 at 21:00; Status UNV Multivitamins (Thera M Plus) 1 tab DAILY PO Last administered on 09/08/17 09: 16; Start 09/04/17 at 18:30 Folic Acid (Folic Acid) 1 mg DAILY PO Last administered on 09/08/17 09:15; Start 09/04/17 at 18:30 Thiamine HCl 100 mg/Sodium Chloride 51 ml @ 100 mls/hr 1X ONCE IV Last administered on 09/04/17 22:37; Start 09/04/17 at 18:30; Stop 09/04/17 at 19:00 ; Status DC Lorazepam (Ativan) 2 mg PRN Q1HR PRN IV For CIWA 8-14 Last administered on 10:48; Start 09/04/17 at 18:30 Lorazepam (Ativan) 4 mg PRN Q1HR PRN IV For CIWA 15 or greater; Start 09/04/17 at 18:30 Zolpidem Tartrate (Ambien) 5 mg PRN QHS PRN PO INSOMNIA Last administered on 23:15; Start 09/04/17 at 23:15 Lidocaine/Sodium Bicarbonate (Buffered Lidocaine 1%) 20 ml STK-MED ONCE IJ ; Start 09/05/17 at 09:03; Stop 09/05/17 at 09:04; Status DC Lidocaine/Sodium Bicarbonate (Buffered Lidocaine 1%) 20 ml 1X ONCE IJ Last administered on 09/05/17 09:34; Start 09/05/17 at 09:30; Stop 09/05/17 at 09 :31; Status DC Iohexol (Omnipaque 300 Mg/ml) 75 ml 1X ONCE IV Last administered on 14:15; Start 09/05/17 at 14:15; Stop 09/05/17 at 14:16; Status DC Potassium Chloride (Klor-Con) 40 meq 1X ONCE PO Last administered on 18:19; Start 09/05/17 at 14:15; Stop 09/05/17 at 14:16; Status DC Info (Do NOT chart on this entry -- for MONITORING) 1 each PRN DAILY PRN MC SEE COMMENTS; Start 09/05/17 at 14:15; Stop 09/07/17 at 14:14; Status DC Cefazolin Sodium 1 gm/Sodium Chloride 50 ml @ 100 mls/hr 1X ONCE IV ; Start 09/06/17 at 10:00; Stop 09/06/17 at 10:29; Status UNV Cefazolin Sodium 50 ml @ 100 mls/hr 1X ONCE IV ; Start 09/06/17 at 11:00; Stop 09/06/17 at 11:29; Status DC Ondansetron HCl (Zofran) 4 mg PRN Q6HRS PRN IV NAUSEA/VOMITING; Start at 07:00; Stop 09/07/17 at 06:59; Status DC Fentanyl Citrate (Fentanyl 2ml Vial) 25 mcg PRN Q5MIN PRN IV MILD PAIN; Start 09/06/17 at 07:00; Stop 09/07/17 at 06:59; Status DC Fentanyl Citrate (Fentanyl 2ml Vial) 50 mcg PRN Q5MIN PRN IV MODERATE PAIN; Start 09/06/17 at 07:00; Stop 09/07/17 at 06:59; Status DC Morphine Sulfate 1 mg PRN Q10MIN PRN IV SEVERE PAIN; Start 09/06/17 at 07:00; Stop 09/07/17 at 06:59; Status DC Ringer's Solution 1,000 ml @ 30 mls/hr Q24H IV Last administered on t 16:14; Start 09/06/17 at 07:00; Stop 09/06/17 at 18:59; Status DC Lidocaine HCl (Xylocaine-Mpf 1% Vial) 2 ml PRN 1X PRN ID IV START; Start 09/06 at 07:00; Stop 09/07/17 at 06:59; Status DC Hydromorphone HCl (Dilaudid) 0.5 mg PRN Q10MIN PRN IV SEV PAIN, Second choice; Start 09/06/17 at 07:00; Stop 09/07/17 at 06:59; Status DC Prochlorperazine Edisylate (Compazine) 5 mg PACU PRN PRN IV NAUSEA, MRX1; Start 09/06/17 at 07:00; Stop 09/07/17 at 06:59; Status DC Cefazolin Sodium 1 gm/Sodium Chloride 500 ml @ 500 mls/hr 1X PERIOP ONCE IRR Last administered on 09/06/17t 12:04; Start 09/06/17 at 10:00; Stop 09/06/17 at 10:59; Status DC Cellulose 1 each STK-MED ONCE .ROUTE ; Start 09/06/17 at 08:46; Stop 09/06/17 at 09:47; Status DC Dexamethasone Sodium Phosphate (Decadron) 20 mg STK-MED ONCE .ROUTE ; Start 10/13 at 10:45; Stop 09/06/17 at 10:46; Status DC Ondansetron HCl (Zofran) 4 mg STK-MED ONCE .ROUTE ; Start 09/06/17 at 10:45; Stop 09/06/17 at 10:46; Status DC Lidocaine HCl (Lidocaine Pf 2% Vial) 5 ml STK-MED ONCE .ROUTE ; Start 09/06/17 at 10:45; Stop 09/06/17 at 10:46; Status DC Etomidate (Amidate) 20 mg STK-MED ONCE IV ; Start 09/06/17 at 10:45; Stop 10/13 at 10:46; Status DC Lidocaine HCl (Xylocaine-Mpf 1% Vial) 5 ml STK-MED ONCE .ROUTE ; Start at 10:45; Stop 09/06/17 at 10:46; Status DC Fentanyl Citrate (Fentanyl 2ml Vial) 100 mcg STK-MED ONCE .ROUTE ; Start at 10:46; Stop 09/06/17 at 10:47; Status DC Rocuronium [place] (Zemuron) 100 mg STK-MED ONCE .ROUTE ; Start 09/06/17 at 10: 46; Stop 09/06/17 at 10:47; Status DC Talc (Sclerosol) 4 gm STK-MED ONCE IPL ; Start 09/06/17 at 09:46; Stop at 10:46; Status DC Phenylephrine HCl (Karri-Synephrine Inj) 10 mg STK-MED ONCE .ROUTE ; Start at 10:47; Stop 09/06/17 at 10:48; Status DC Ephedrine Sulfate (Akovaz) 50 mg STK-MED ONCE .ROUTE ; Start 09/06/17 at 10:48 ; Stop 09/06/17 at 10:49; Status DC Fentanyl Citrate (Fentanyl 2ml Vial) 100 mcg STK-MED ONCE .ROUTE ; Start at 10:57; Stop 09/06/17 at 10:58; Status DC Midazolam HCl (Versed) 2 mg STK-MED ONCE .ROUTE ; Start 09/06/17 at 10:57; Stop 09/06/17 at 10:58; Status DC Phenylephrine HCl (Karri-Synephrine Inj) 10 mg STK-MED ONCE .ROUTE ; Start at 12:20; Stop 09/06/17 at 12:21; Status DC Lidocaine HCl (Xylocaine-Mpf 1% Vial) 5 ml STK-MED ONCE .ROUTE ; Start at 12:35; Stop 09/06/17 at 12:36; Status DC Lidocaine HCl (Xylocaine-Mpf 1% Vial) 5 ml STK-MED ONCE .ROUTE ; Start at 12:36; Stop 09/06/17 at 12:37; Status DC Glycopyrrolate (Robinul) 1 mg STK-MED ONCE .ROUTE ; Start 09/06/17 at 13:52; Stop 09/06/17 at 13:53; Status DC Neostigmine Methylsulfate 5 mg STK-MED ONCE .ROUTE ; Start 09/06/17 at 13:52; Stop 09/06/17 at 13:53; Status DC Lidocaine HCl (Lidocaine Pf 2% Vial) 5 ml STK-MED ONCE .ROUTE ; Start 09/06/17 at 14:44; Stop 09/06/17 at 14:45; Status DC Lidocaine HCl (Lidocaine Pf 2% Vial) 5 ml STK-MED ONCE .ROUTE ; Start 09/06/17 at 14:44; Stop 09/06/17 at 14:45; Status DC Sodium Chloride 36.7 ml/Fentanyl Citrate 250 mcg/ Bupivacaine HCl 8.34 ml/ Epidural Dosage Infused (Pha) 50.04 ml @ 0 mls/hr CONT PRN EP SEE PROTOCOL TABLE Last administered on 09/06/17 18:00; Start 09/06/17 at 16:00; Stop 10/13 at 17:51; Status DC Diphenhydramine HCl (Benadryl) 25 mg PRN Q6HRS PRN PO ITCHING; Start 09/06/17 at 15:30 Famotidine (Pepcid) 20 mg BID PO Last administered on 09/08/17 09:16; Start 09/06/17 at 21:00 Naloxone HCl (Narcan) 0.1 mg PRN Q2MIN PRN IV ADMIN; Start 09/06/17 at 15:30 Info 1 ea DAILY MC ; Start 09/07/17 at 09:00 Info 1 ea DAILY MC ; Start 09/07/17 at 09:00 Sodium Chloride (Normal Saline Flush) 3 ml QSHIFT PRN IV AFTER MEDS AND BLOOD DRAWS; Start 09/06/17 at 15:30 Sodium Chloride 1,000 ml @ 75 mls/hr [id number] IV Last administered on 09:15; Start 09/06/17 at 15:19 Oxycodone/ Acetaminophen (Percocet 5/325) 1 tab PRN Q4HRS PRN PO MILD PAIN, 1ST CHOICE; Start 09/06/17 at 15:30 Oxycodone/ Acetaminophen (Percocet 5/325) 2 tab PRN Q4HRS PRN PO MODERATE PAIN , SEVERE PAIN; Start 09/06/17 at 15:30 Ketorolac Tromethamine (Toradol) 15 mg PRN Q6HRS PRN IV PAIN; Start 09/06/17 at 15:30; Stop 09/11/17 at 15:29 Morphine Sulfate 2 mg PRN Q1HR PRN IV PAIN Last administered on 09/06/17 16: 11; Start 09/06/17 at 15:30 Ondansetron HCl (Zofran) 4 mg PRN Q6HRS PRN IV NAUESA, 1ST CHOICE; Start 09/06 at 15:30 Metoclopramide HCl (Reglan) 5 mg PRN Q6HRS PRN IV Nausea/Vomiting, 2nd Choice; Start 09/06/17 at 15:30 Senna/Docusate Sodium (Senna Plus) 1 tab BID PO Last administered on 09:16; Start 09/06/17 at 21:00 Bisacodyl (Dulcolax Supp) 10 mg PRN DAILY PRN WI CONSTIPATION; Start 09/06/17 at 15:30 Cefazolin Sodium 1 gm/Sodium Chloride 50 ml @ 100 mls/hr Q6H IV Last administered on 09/07/17 06:13; Start 09/06/17 at 18:00; Stop 09/07/17 at 06 :29; Status DC Propofol 20 ml @ As Directed STK-MED ONCE IV ; Start 09/06/17 at 15:29; Stop 09/06/17 at 15:30; Status DC Propofol 20 ml @ As Directed STK-MED ONCE IV ; Start 09/06/17 at 15:30; Stop 09/06/17 at 15:31; Status DC Phenylephrine HCl 20 mg/Sodium Chloride 252 ml @ 37.8 mls/hr 1X ONCE IV Last administered on 09/06/17 17:59; Start 09/06/17 at 16:00; Stop 09/06/17 at 22 :39; Status DC Sodium Chloride 36.7 ml/Fentanyl Citrate 250 mcg/ Bupivacaine HCl 8.34 ml/ Epidural Dosage Infused (Pha) 50.04 ml @ 0 mls/hr CONT PRN EP SEE PROTOCOL TABLE Last administered on 09/07/17 07:28; Start 09/06/17 at 18:00 Potassium Chloride 100 ml @ 100 mls/hr Q1H IV Last administered on 09/06/17 22:50; Start 09/06/17 at 19:15; Stop 09/06/17 at 23:14; Status DC Magnesium Sulfate/ Dextrose 50 ml @ 25 mls/hr 1X ONCE IV Last administered on 09/06/17 20:12; Start 09/06/17 at 19:15; Stop 09/06/17 at 21:14; Status DC Phenylephrine HCl 20 mg/Sodium Chloride 252 ml @ 0 mls/hr CONT PRN IV HYPOTENSION Last administered on 09/07/17 09:10; Start 09/06/17 at 23:30 Thiamine Mononitrate (Vitamin B-1) 100 mg DAILY PO Last administered on 09:16; Start 09/07/17 at 11:30 Albumin Human 500 ml @ 125 mls/hr 1X ONCE IV Last administered on 09/07/17 12:04; Start 09/07/17 at 12:00; Stop 09/07/17 at 15:59; Status DC Heparin Sodium (Porcine) (Heparin Sq) 5,000 unit Q8HRS SQ Last administered on 09/08/17 03:01; Start 09/07/17 at 16:30 Metoprolol Tartrate (Lopressor) 25 mg BID PO Last administered on 09/08/17 09 :16; Start 09/07/17 at 15:00 Lorazepam (Ativan) 0.5 mg 1X ONCE IV ; Start 09/08/17 at 02:30; Stop at 02:31; Status Cancel Lorazepam (Ativan) 1 mg 1X ONCE IV Last administered on 09/08/17 02:16; Start 09/08/17 at 02:15; Stop 09/08/17 at 02:21; Status DC Lorazepam (Ativan) 1 mg PRN Q2HR PRN IV ANXIETY / AGITATION Last administered on 09/08/17 05:39; Start 09/08/17 at 04:30 Active Scripts Active Reported Extra Strength Non-Aspirin (Acetaminophen) 500 Mg Tablet 500 Mg PO BID PRN Multivitamins (Multivitamin) 1 Each Tablet 1 Tab PO DAILY Melatonin 3 Mg Tablet 1 Tab PO QHS Vitals/I & O Vital Sign - Last 24 Hours 09/07/17 09/07/17 09/07/17 09/07/17 12:00 12:00 13:00 14:00 Temp 98.2 98.2 Pulse 128 130 111 Resp 13 15 12 B/P (MAP) 102/56 (71) 105/50 (68) 126/58 (80) Pulse Ox 99 96 100 O2 Delivery Nasal Cannula Nasal Cannula Nasal Cannula Nasal Cannula O2 Flow Rate 3.0 3.0 3.0 3.0 09/07/17 09/07/17 09/07/17 09/07/17 15:00 16:00 16:00 17:00 Temp 97.9 97.9 Pulse 100 104 108 Resp 13 16 12 B/P (MAP) 139/60 (86) 122/77 (92) 124/80 (95) Pulse Ox 100 100 99 O2 Delivery Nasal Cannula Nasal Cannula Nasal Cannula Nasal Cannula O2 Flow Rate 3.0 3.0 3.0 3.0 09/07/17 09/07/17 09/07/17 09/07/17 18:00 19:00 20:00 20:00 Temp 97.9 97.9 Pulse 102 102 102 Resp 10 12 11 B/P (MAP) 116/79 (91) 116/76 (89) 110/72 (85) Pulse Ox 100 100 100 O2 Delivery Nasal Cannula Nasal Cannula Nasal Cannula Nasal Cannula O2 Flow Rate 3.0 3.0 3.0 3.0 09/07/17 09/07/17 09/07/17 09/08/17 21:00 22:00 23:00 00:00 Pulse 102 96 118 Resp 14 11 20 B/P (MAP) 126/89 (101) 108/74 (85) 138/84 (102) Pulse Ox 100 100 100 O2 Delivery Nasal Cannula Nasal Cannula Nasal Cannula Nasal Cannula O2 Flow Rate 3.0 3.0 3.0 3.0 09/08/17 09/08/17 09/08/17 09/08/17 00:01 01:00 02:00 03:00 Temp 98.2 98.2 Pulse 118 120 124 116 Resp 17 19 25 18 B/P (MAP) 137/80 (99) 144/89 (107) 143/83 (103) 133/84 (100) Pulse Ox 100 100 100 100 O2 Delivery Nasal Cannula Nasal Cannula Nasal Cannula Nasal Cannula O2 Flow Rate 3.0 3.0 3.0 3.0 09/08/17 09/08/17 09/08/17 09/08/17 04:00 04:00 05:00 06:00 Temp 97.9 97.9 Pulse 111 115 112 Resp 20 20 20 B/P (MAP) 139/93 (108) 147/92 (110) 141/88 (105) Pulse Ox 100 100 100 O2 Delivery Nasal Cannula Nasal Cannula Nasal Cannula Nasal Cannula O2 Flow Rate 3.0 3.0 3.0 3.0 09/08/17 09/08/17 09/08/17 09/08/17 07:00 08:00 08:00 09:00 Pulse 116 114 98 Resp 16 16 18 B/P (MAP) 148/85 (106) 146/102 (117) 150/93 (112) Pulse Ox 100 99 100 O2 Delivery Nasal Cannula Nasal Cannula Nasal Cannula Nasal Cannula O2 Flow Rate 3.0 3.0 3.0 3.0 09/08/17 09/08/17 09:16 10:00 Temp 97.6 97.6 Pulse 114 112 Resp 17 B/P (MAP) 150/93 146/99 (115) Pulse Ox 100 O2 Delivery Nasal Cannula O2 Flow Rate 3.0 Intake and Output 09/08/17 09/08/17 09/09/17 15:00 23:00 07:00 Intake Total 300 ml Output Total 200 ml Balance 100 ml Nutrition Consultation Dietary Evaluation: Recommendations by RD: Increase Calorie Intake, Protein supplementation Comments: encourage protein supplementation between meals Expected Outcomes/Goals: to meet > 75% est nutr needs Malnutrition Findings: Body Fat Depletion (Non Severe: Mod to Severe Weight Status: Underweight Fluid Accumulation (Non-Severe: Mild depletion JENNIFER PAGAN III DO Sep 08, 2017 11:32
--- NOTE | 2017-09-08 14:26 | PDOC ---
PULMONARY PROGRESS NOTES Subjective is tired, has sob, pain in ct site, has occ cough Vitals Vital Signs Date Time Temp Pulse Resp B/P (MAP) Pulse Ox O2 Delivery O2 Flow Rate FiO2 09/08/17 13:00 94 19 143/95 (111) 99 Nasal Cannula 3.0 09/08/17 12:00 97.4 97.4 Comments ros as mentioned as above other sys otherwise neg ROS: No Nausea, No Chest Pain, No Abdominal Pain, No Increase Cough General: Alert, No acute distress HEENT: Other Lungs: Clear (no breath sounds in lower 2/3 left), Wheezing, Other ([address] in left lung) Cardiovascular: S1, S2 Abdomen: Soft, Non-tender, Other (no mass) Neuro Exam: Alert, Oriented Extremities: No Edema Skin: Warm Labs Laboratory Tests Test 09/06/17 15:15 09/06/17 16:00 09/06/17 17:54 09/06/17 18:15 White Blood Count 12.8 x10^3/uL (4.0-11.0) 19.3 x10^3/uL (4.0-11.0) Hemoglobin 13.3 g/dL (13.0-17.5) 14.7 g/dL (13.0-17.5) Hematocrit 38.7 % (39.0-53.0) 42.8 % (39.0-53.0) Platelet Count 440 x10^3/uL (140-400) 464 x10^3/uL (140-400) Nasal Screen MRSA (PCR) Negative (Negative) O2 Saturation 97 % (92-99) Arterial Blood pH 7.38 (7.35-7.45) Arterial Blood pCO2 at Patient Temp 36 mmHg (35-46) Arterial Blood pO2 at Patient Temp 94 mmHg (65-108) Arterial Blood HCO3 21 mmol/L (21-28) Arterial Blood Base Excess -4 mmol/L (-3-3) FiO2 40 Red Blood Count 4.12 x10^6/uL (4.30-5.70) Mean Corpuscular Volume 104 fL (79-100) Mean Corpuscular Hemoglobin 36 pg (25-35) Mean Corpuscular Hemoglobin Concent 34 g/dL (31-37) Red Cell Distribution Width 15.4 % (11.5-14.5) Sodium Level 137 mmol/L (136-145) Potassium Level 3.2 mmol/L (3.5-5.1) Chloride Level 104 mmol/L (98-107) Carbon Dioxide Level 26 mmol/L (21-32) Anion Gap 7 (6-14) Blood Urea Nitrogen 5 mg/dL (8-26) Creatinine 0.3 mg/dL (0.7-1.3) Estimated GFR (Cockcroft-Gault) 298.2 Glucose Level 168 mg/dL (70-99) Calcium Level 7.7 mg/dL (8.5-10.1) Magnesium Level 1.6 mg/dL (1.8-2.4) Test 09/07/17 01:00 09/07/17 05:25 09/07/17 08:37 09/08/17 04:00 Potassium Level 4.6 mmol/L (3.5-5.1) 4.4 mmol/L (3.5-5.1) 3.9 mmol/L (3.5-5.1) Magnesium Level 2.4 mg/dL (1.8-2.4) White Blood Count 21.8 x10^3/uL (4.0-11.0) 16.8 x10^3/uL (4.0-11.0) Red Blood Count 4.15 x10^6/uL (4.30-5.70) 3.32 x10^6/uL (4.30-5.70) Hemoglobin 14.4 g/dL (13.0-17.5) 11.6 g/dL (13.0-17.5) Hematocrit 42.8 % (39.0-53.0) 34.5 % (39.0-53.0) Mean Corpuscular Volume 103 fL (79-100) 104 fL (79-100) Mean Corpuscular Hemoglobin 35 pg (25-35) 35 pg (25-35) Mean Corpuscular Hemoglobin Concent 34 g/dL (31-37) 34 g/dL (31-37) Red Cell Distribution Width 15.7 % (11.5-14.5) 15.6 % (11.5-14.5) Platelet Count 541 x10^3/uL (140-400) 325 x10^3/uL (140-400) Sodium Level 136 mmol/L (136-145) 138 mmol/L (136-145) Chloride Level 104 mmol/L (98-107) 106 mmol/L (98-107) Carbon Dioxide Level 24 mmol/L (21-32) 25 mmol/L (21-32) Anion Gap 8 (6-14) 7 (6-14) Blood Urea Nitrogen 7 mg/dL (8-26) 7 mg/dL (8-26) Creatinine 0.5 mg/dL (0.7-1.3) 0.5 mg/dL (0.7-1.3) Estimated GFR (Cockcroft-Gault) 165.4 165.4 Glucose Level 139 mg/dL (70-99) 98 mg/dL (70-99) Calcium Level 7.8 mg/dL (8.5-10.1) 7.7 mg/dL (8.5-10.1) Glucose (Fingerstick) 110 mg/dL (70-99) Neutrophils (%) (Auto) 81 % (31-73) Lymphocytes (%) (Auto) 6 % (24-48) Monocytes (%) (Auto) 13 % (0-9) Eosinophils (%) (Auto) 0 % (0-3) Basophils (%) (Auto) 0 % (0-3) Neutrophils # (Auto) 13.5 x10^3uL (1.8-7.7) Lymphocytes # (Auto) 1.0 x10^3/uL (1.0-4.8) Monocytes # (Auto) 2.2 x10^3/uL (0.0-1.1) Eosinophils # (Auto) 0.0 x10^3/uL (0.0-0.7) Basophils # (Auto) 0.0 x10^3/uL (0.0-0.2) Laboratory Tests Test 09/08/17 04:00 White Blood Count 16.8 x10^3/uL (4.0-11.0) Red Blood Count 3.32 x10^6/uL (4.30-5.70) Hemoglobin 11.6 g/dL (13.0-17.5) Hematocrit 34.5 % (39.0-53.0) Mean Corpuscular Volume 104 fL (79-100) Mean Corpuscular Hemoglobin 35 pg (25-35) Mean Corpuscular Hemoglobin Concent 34 g/dL (31-37) Red Cell Distribution Width 15.6 % (11.5-14.5) Platelet Count 325 x10^3/uL (140-400) Neutrophils (%) (Auto) 81 % (31-73) Lymphocytes (%) (Auto) 6 % (24-48) Monocytes (%) (Auto) 13 % (0-9) Eosinophils (%) (Auto) 0 % (0-3) Basophils (%) (Auto) 0 % (0-3) Neutrophils # (Auto) 13.5 x10^3uL (1.8-7.7) Lymphocytes # (Auto) 1.0 x10^3/uL (1.0-4.8) Monocytes # (Auto) 2.2 x10^3/uL (0.0-1.1) Eosinophils # (Auto) 0.0 x10^3/uL (0.0-0.7) Basophils # (Auto) 0.0 x10^3/uL (0.0-0.2) Sodium Level 138 mmol/L (136-145) Potassium Level 3.9 mmol/L (3.5-5.1) Chloride Level 106 mmol/L (98-107) Carbon Dioxide Level 25 mmol/L (21-32) Anion Gap 7 (6-14) Blood Urea Nitrogen 7 mg/dL (8-26) Creatinine 0.5 mg/dL (0.7-1.3) Estimated GFR (Cockcroft-Gault) 165.4 Glucose Level 98 mg/dL (70-99) Calcium Level 7.7 mg/dL (8.5-10.1) Medications Active Scripts Medications Dose Route/Sig Max Daily Dose Days Date Category Extra Strength Non-Aspirin (Acetaminophen) 500 Mg Tablet 500 Mg PO BID PRN 09/04/17 Reported Multivitamins (Multivitamin) 1 Each Tablet 1 Tab PO DAILY 09/04/17 Reported Melatonin 3 Mg Tablet 1 Tab PO QHS 08/07/17 Reported Comments cxr reviewed, interval removal of one of the left chest tubes. Persistent volume loss in the left lung probably slightly worse than on the previous exam. Findings likely reflect atelectasis. Pneumonia is not entirely excluded. No appreciable pneumothorax seen Impression . 1. Progressive dyspnea secondary to increasing right-sided pleural effusion. S/ P DECORTICATION 2. Right-sided pleural effusion, status post previous thoracentesis. Cytology was negative at that time, cultures were negative. 3. History of lung cancer diagnosed 4 years ago, status post wedge resection on the right with no subsequent chemoradiation. 4. No history of congestive heart failure. 5. Severe protein malnutrition, present upon admission. 6. Tobacco dependence in remission. 7. Systemic inflammatory response syndrome. Plan . S/P SURGICAL INTERVENTION, one of ct removed, dc epidural, avoid oversedation ALCOHOL WITHDRAWAL PROTOCOL PULM POST OP CARE SPOKE WITH CXR REVIEWED discussed w rn, rt JOÃO GONZALEZ MD Sep 08, 2017 14:26
--- NOTE | 2017-09-08 14:34 | PATHOLOGY ---
PATHOLOGY REPORT * * * * * * * * FINAL DIAGNOSIS: Pleural, "pleural rind left lung": - Acute inflammation forming abscess admixed with hemorrhage and proteinaceous exudate. See comment. (SHA:woody; 09/08/2017) COMMENT: The findings are consistent with empyema. REPORT ELECTRONICALLY SIGNED BY: Rashi Baker M.D. DATE/TIME: 09/08/2017 13:01 * * * * * * * * GROSS PATHOLOGY: The specimen is received in formalin, labeled "Ravinder Heaton and pleural rind left lung and consists of soft morris pink and red-brown tissue admixed with pasty red brown material aggregating to 4.2 x 3.1 x 1.2 cm. Candy Catcher sections are submitted as A1. (CARLOS A; 09/07/2017) INITIAL CPT CODE(S): A; 27862 Professional services [place] [address] Technical services performed by [facility] at [address] [place] [address], [facility] [address], [place] [address]. SPECIMEN(S) RECEIVED: A.Pleural rind, left lung CLINICAL HISTORY: Left pleural effusion PATIENT: RAVINDER HEATON /AGE: 8 1950 (Age: 67) PATIENT #: [id number] ALT CASE #: SPECIMEN COLLECTION DATE: 09/06/2017 SPECIMEN RECEIVED DATE: 09/06/2017 [facility] - [address] [place] [address] - PHONE: [phone] * * * END OF REPORT * * *
--- NOTE | 2017-09-08 14:47 | PDOC ---
Progress Note Subjective Subjective Intermittent ETOH withdrawal symptoms. Chest tubes with no air leak, and minimal drainage. Chest x-ray shows excellent result with fully expanded left lung. ROS ROS No nausea No vomiting No SOB No pain No rash Vital Sign Vital Signs Vital Signs Date Time Temp Pulse Resp B/P (MAP) Pulse Ox O2 Delivery O2 Flow Rate FiO2 09/08/17 13:00 94 19 143/95 (111) 99 Nasal Cannula 3.0 09/08/17 12:00 97.4 97.4 Physical Exam PHYSICAL EXAM GENERAL: NAD, Alert HEENT: PERRL, OC/OP NECK: Supple, no JVD, no LN LUNGS: Clear HEART: S1S2, no gallop, no murmur ABD: Soft, NT, no organomegaly, no rebound EXT: No edema, no cyanosis CYTOGENETIC TECHNOLOGIST: Alert, oriented x 3, no focal neurologic deficit SKIN: No rash IV: ok Labs Lab Laboratory Tests Test 09/08/17 04:00 White Blood Count 16.8 x10^3/uL (4.0-11.0) Red Blood Count 3.32 x10^6/uL (4.30-5.70) Hemoglobin 11.6 g/dL (13.0-17.5) Hematocrit 34.5 % (39.0-53.0) Mean Corpuscular Volume 104 fL (79-100) Mean Corpuscular Hemoglobin 35 pg (25-35) Mean Corpuscular Hemoglobin Concent 34 g/dL (31-37) Red Cell Distribution Width 15.6 % (11.5-14.5) Platelet Count 325 x10^3/uL (140-400) Neutrophils (%) (Auto) 81 % (31-73) Lymphocytes (%) (Auto) 6 % (24-48) Monocytes (%) (Auto) 13 % (0-9) Eosinophils (%) (Auto) 0 % (0-3) Basophils (%) (Auto) 0 % (0-3) Neutrophils # (Auto) 13.5 x10^3uL (1.8-7.7) Lymphocytes # (Auto) 1.0 x10^3/uL (1.0-4.8) Monocytes # (Auto) 2.2 x10^3/uL (0.0-1.1) Eosinophils # (Auto) 0.0 x10^3/uL (0.0-0.7) Basophils # (Auto) 0.0 x10^3/uL (0.0-0.2) Sodium Level 138 mmol/L (136-145) Potassium Level 3.9 mmol/L (3.5-5.1) Chloride Level 106 mmol/L (98-107) Carbon Dioxide Level 25 mmol/L (21-32) Anion Gap 7 (6-14) Blood Urea Nitrogen 7 mg/dL (8-26) Creatinine 0.5 mg/dL (0.7-1.3) Estimated GFR (Cockcroft-Gault) 165.4 Glucose Level 98 mg/dL (70-99) Calcium Level 7.7 mg/dL (8.5-10.1) Objective Assessment POD#2, s/p left thoracotomy and pulmonary decortication with drainage of complex recurrent pleural effusion for trapped lung and significant fibrothorax. Intermittent ETOH withdrawal symptoms. Chest tubes with no air leak, and minimal drainage. Chest x-ray shows excellent result with fully expanded left lung. Plan Plan of Care D/c one of two chest tube today, keep other chest tube to water seal D/c epidural D/c roge Ferguson to have 1-2 beers with every meal for EtOH withdrawal instead of benzodiazepines Heparin sub/q for DVT prophylaxis Needs to ambulate Incentive spirometry LELIA SMART MD Sep 08, 2017 14:47
--- NOTE | 2017-09-08 15:26 | RAD ---
Indication removal of chest tube. A single view chest was obtained and is compared to an examination one day earlier. One chest tube has been removed, one remains. There is no appreciable pneumothorax. Volume loss in the left mid and lower lung appears to have worsened slightly. Findings probably reflect atelectasis. Heart and pulmonary vessels are similar. The right lung is unchanged. IMPRESSION: Interval removal of one of the left chest tubes. Persistent volume loss in the left lung probably slightly worse than on the previous exam. Findings likely reflect atelectasis. Pneumonia is not entirely excluded. No appreciable pneumothorax seen
[2017-09-09] VITALS (24 sets, daily range): BP systolic 84–142; BP diastolic 55–97
[2017-09-09] MEDS: MORPHINE SULFATE 2 MG/ML DISP.SYRIN. IV PRN (01:38)
[2017-09-09] MEDS: IV NORMAL SALINE 1000ML BAG 1,000 ML IV SCH (01:38)
[2017-09-09] MEDS: HEPARIN PF for SUB-Q USE 5,000 UNIT/0.5 ML VIAL. SQ SCH ×3 (05:50→21:51)
[2017-09-09 07:00] LABS: BASO # 0.1 x10^3/uL (0.0-0.2); BASO % 1 % (0-3); EOS % 0 % (0-3); HEMATOCRIT 37.9 % (39.0-53.0); HEMOGLOBIN 12.7 g/dL (13.0-17.5); LYMPH # 1.3 x10^3/uL (1.0-4.8); LYMPH % 9 % (24-48); MEAN CORPUSCULAR HEMOGLOBIN 35 pg (25-35); MEAN CORPUSCULAR HGB CONC 33 g/dL (31-37); MEAN CORPUSCULAR VOLUME 104 fL (79-100); MONO % 15 % (0-9); NEUT % 75 % (31-73); PLATELET COUNT 334 x10^3/uL (140-400); RED BLOOD COUNT 3.65 x10^6/uL (4.30-5.70); RED CELL DISTRIBUTION WIDTH 15.2 % (11.5-14.5); WHITE BLOOD COUNT 14.8 x10^3/uL (4.0-11.0)
[2017-09-09 07:14] LABS: CALCIUM 7.8 mg/dL (8.5-10.1); CREATININE 0.3 mg/dL (0.7-1.3); GFR 298.2; POTASSIUM 3.3 mmol/L (3.5-5.1)
[2017-09-09] MEDS ORDERED: POTASSIUM CHLORIDE 20 MEQ TABLET.ER. PO ONE ×2 (08:00→08:30)
[2017-09-09] MEDS: ELECTROLYTE (ICU) PROTOCOL. MC SCH (09:00)
[2017-09-09] MEDS: ELECTROLYTE (NON-ICU) PROTOCOL MC SCH (09:00)
--- NOTE | 2017-09-09 10:50 | PDOC ---
PULMONARY PROGRESS NOTES Subjective too sleepy, ?too much ativan, has pain in ct site, has weak cough Vitals Vital Signs Date Time Temp Pulse Resp B/P (MAP) Pulse Ox O2 Delivery O2 Flow Rate FiO2 09/09/17 08:00 Room Air 3.0 09/09/17 06:00 87 12 91/61 (71) 09/09/17 04:00 97.5 93 97.5 Comments ros as mentioned as above other sys otherwise neg ROS: No Nausea, No Chest Pain, No Abdominal Pain, No Increase Cough General: Alert, No acute distress HEENT: Other Lungs: Clear (no breath sounds in lower 2/3 left), Wheezing, Other ([address] in left lung) Cardiovascular: S1, S2 Abdomen: Soft, Non-tender, Other (no mass) Neuro Exam: Alert, Oriented Extremities: No Edema Skin: Warm Labs Laboratory Tests Test 09/08/17 04:00 09/09/17 06:50 White Blood Count 16.8 x10^3/uL (4.0-11.0) 14.8 x10^3/uL (4.0-11.0) Red Blood Count 3.32 x10^6/uL (4.30-5.70) 3.65 x10^6/uL (4.30-5.70) Hemoglobin 11.6 g/dL (13.0-17.5) 12.7 g/dL (13.0-17.5) Hematocrit 34.5 % (39.0-53.0) 37.9 % (39.0-53.0) Mean Corpuscular Volume 104 fL (79-100) 104 fL (79-100) Mean Corpuscular Hemoglobin 35 pg (25-35) 35 pg (25-35) Mean Corpuscular Hemoglobin Concent 34 g/dL (31-37) 33 g/dL (31-37) Red Cell Distribution Width 15.6 % (11.5-14.5) 15.2 % (11.5-14.5) Platelet Count 325 x10^3/uL (140-400) 334 x10^3/uL (140-400) Neutrophils (%) (Auto) 81 % (31-73) 75 % (31-73) Lymphocytes (%) (Auto) 6 % (24-48) 9 % (24-48) Monocytes (%) (Auto) 13 % (0-9) 15 % (0-9) Eosinophils (%) (Auto) 0 % (0-3) 0 % (0-3) Basophils (%) (Auto) 0 % (0-3) 1 % (0-3) Neutrophils # (Auto) 13.5 x10^3uL (1.8-7.7) 11.1 x10^3uL (1.8-7.7) Lymphocytes # (Auto) 1.0 x10^3/uL (1.0-4.8) 1.3 x10^3/uL (1.0-4.8) Monocytes # (Auto) 2.2 x10^3/uL (0.0-1.1) 2.3 x10^3/uL (0.0-1.1) Eosinophils # (Auto) 0.0 x10^3/uL (0.0-0.7) 0.1 x10^3/uL (0.0-0.7) Basophils # (Auto) 0.0 x10^3/uL (0.0-0.2) 0.1 x10^3/uL (0.0-0.2) Sodium Level 138 mmol/L (136-145) 136 mmol/L (136-145) Potassium Level 3.9 mmol/L (3.5-5.1) 3.3 mmol/L (3.5-5.1) Chloride Level 106 mmol/L (98-107) 103 mmol/L (98-107) Carbon Dioxide Level 25 mmol/L (21-32) 27 mmol/L (21-32) Anion Gap 7 (6-14) 6 (6-14) Blood Urea Nitrogen 7 mg/dL (8-26) 5 mg/dL (8-26) Creatinine 0.5 mg/dL (0.7-1.3) 0.3 mg/dL (0.7-1.3) Estimated GFR (Cockcroft-Gault) 165.4 298.2 Glucose Level 98 mg/dL (70-99) 60 mg/dL (70-99) Calcium Level 7.7 mg/dL (8.5-10.1) 7.8 mg/dL (8.5-10.1) Laboratory Tests Test 09/09/17 06:50 White Blood Count 14.8 x10^3/uL (4.0-11.0) Red Blood Count 3.65 x10^6/uL (4.30-5.70) Hemoglobin 12.7 g/dL (13.0-17.5) Hematocrit 37.9 % (39.0-53.0) Mean Corpuscular Volume 104 fL (79-100) Mean Corpuscular Hemoglobin 35 pg (25-35) Mean Corpuscular Hemoglobin Concent 33 g/dL (31-37) Red Cell Distribution Width 15.2 % (11.5-14.5) Platelet Count 334 x10^3/uL (140-400) Neutrophils (%) (Auto) 75 % (31-73) Lymphocytes (%) (Auto) 9 % (24-48) Monocytes (%) (Auto) 15 % (0-9) Eosinophils (%) (Auto) 0 % (0-3) Basophils (%) (Auto) 1 % (0-3) Neutrophils # (Auto) 11.1 x10^3uL (1.8-7.7) Lymphocytes # (Auto) 1.3 x10^3/uL (1.0-4.8) Monocytes # (Auto) 2.3 x10^3/uL (0.0-1.1) Eosinophils # (Auto) 0.1 x10^3/uL (0.0-0.7) Basophils # (Auto) 0.1 x10^3/uL (0.0-0.2) Sodium Level 136 mmol/L (136-145) Potassium Level 3.3 mmol/L (3.5-5.1) Chloride Level 103 mmol/L (98-107) Carbon Dioxide Level 27 mmol/L (21-32) Anion Gap 6 (6-14) Blood Urea Nitrogen 5 mg/dL (8-26) Creatinine 0.3 mg/dL (0.7-1.3) Estimated GFR (Cockcroft-Gault) 298.2 Glucose Level 60 mg/dL (70-99) Calcium Level 7.8 mg/dL (8.5-10.1) Medications Active Scripts Medications Dose Route/Sig Max Daily Dose Days Date Category Extra Strength Non-Aspirin (Acetaminophen) 500 Mg Tablet 500 Mg PO BID PRN 09/04/17 Reported Multivitamins (Multivitamin) 1 Each Tablet 1 Tab PO DAILY 09/04/17 Reported Melatonin 3 Mg Tablet 1 Tab PO QHS 08/07/17 Reported Comments cxr reviewed, interval removal of one of the left chest tubes. Persistent volume loss in the left lung probably slightly worse than on the previous exam. Findings likely reflect atelectasis. Pneumonia is not entirely excluded. No appreciable pneumothorax seen Impression . 1. Progressive dyspnea secondary to increasing right-sided pleural effusion. S/ P DECORTICATION 2. Right-sided pleural effusion, status post previous thoracentesis. Cytology was negative at that time, cultures were negative. 3. History of lung cancer diagnosed 4 years ago, status post wedge resection on the right with no subsequent chemoradiation. 4. No history of congestive heart failure. 5. Severe protein malnutrition, present upon admission. 6. Tobacco dependence in remission. 7. Systemic inflammatory response syndrome. Plan . start bipap until more awake, avoid over sedation S/P SURGICAL INTERVENTION, one of ct removed, dc epidural, avoid oversedation ALCOHOL WITHDRAWAL PROTOCOL CXR REVIEWED monitor closely in icu discussed w rn, rt, his JOÃO GONZALEZ MD Sep 09, 2017 10:50
--- NOTE | 2017-09-09 11:33 | PDOC ---
PROGRESS NOTES Chief Complaint Chief Complaint Acute on chronic hypoxic respir failure dyspnea pleural effusions edema S/P thoracentesis converted to thoracotomy Fibrothorax Chest tube placement PMH: COPD Lung CA Alcoholism DM History of Present Illness History of Present Illness Pt is in the ICU. He was sleeping when we first came in but woke up soon after. and RN were also in the room. Pt was given 2mg ativan last night which made his easily agitated and extremely lethargic. RN will now only give 1mg as that has worked in the past. Pt was agitated when chest was touched and became slightly grumpy. He was conversant at this point. Plan of care was discussed with pt, , and RN including removing the last chest tube and improving respiratory status. Pt has i chest tube removed, guan removed, and epidural D/C. CXR showed mild worsening of L lung volume. Path from the pleural sample was consistent with empyema. Potassium was replaced in the pt. Vitals Vitals Vital Signs Date Time Temp Pulse Resp B/P (MAP) Pulse Ox O2 Delivery O2 Flow Rate FiO2 09/09/17 10:00 101 18 140/90 (107) 99 Nasal Cannula 2.0 09/09/17 07:00 97.1 97.1 Physical Exam Physical Exam GENERAL: NAD, Alert HEENT: PERRL, OC/OP NECK: Supple, no JVD, no LN LUNGS: Clear HEART: S1S2, no gallop, no murmur ABD: Soft, NT, no organomegaly, no rebound EXT: No edema, no cyanosis [employer]: Alert, oriented x 3, no focal neurologic deficit SKIN: No rash IV: ok General: Alert, Oriented X3, No acute distress Heart: Regular rate, Normal S1, Normal S2 Lungs: Clear (breath sounds improving), Wheezing, Other ([address] left lung) Abdomen: Soft, No tenderness, No hepatosplenomegaly Extremities: No clubbing, No cyanosis Skin: No rashes, No breakdown, No significant lesion Labs LABS Laboratory Tests Test 09/09/17 06:50 White Blood Count 14.8 x10^3/uL (4.0-11.0) Red Blood Count 3.65 x10^6/uL (4.30-5.70) Hemoglobin 12.7 g/dL (13.0-17.5) Hematocrit 37.9 % (39.0-53.0) Mean Corpuscular Volume 104 fL (79-100) Mean Corpuscular Hemoglobin 35 pg (25-35) Mean Corpuscular Hemoglobin Concent 33 g/dL (31-37) Red Cell Distribution Width 15.2 % (11.5-14.5) Platelet Count 334 x10^3/uL (140-400) Neutrophils (%) (Auto) 75 % (31-73) Lymphocytes (%) (Auto) 9 % (24-48) Monocytes (%) (Auto) 15 % (0-9) Eosinophils (%) (Auto) 0 % (0-3) Basophils (%) (Auto) 1 % (0-3) Neutrophils # (Auto) 11.1 x10^3uL (1.8-7.7) Lymphocytes # (Auto) 1.3 x10^3/uL (1.0-4.8) Monocytes # (Auto) 2.3 x10^3/uL (0.0-1.1) Eosinophils # (Auto) 0.1 x10^3/uL (0.0-0.7) Basophils # (Auto) 0.1 x10^3/uL (0.0-0.2) Sodium Level 136 mmol/L (136-145) Potassium Level 3.3 mmol/L (3.5-5.1) Chloride Level 103 mmol/L (98-107) Carbon Dioxide Level 27 mmol/L (21-32) Anion Gap 6 (6-14) Blood Urea Nitrogen 5 mg/dL (8-26) Creatinine 0.3 mg/dL (0.7-1.3) Estimated GFR (Cockcroft-Gault) 298.2 Glucose Level 60 mg/dL (70-99) Calcium Level 7.8 mg/dL (8.5-10.1) Review of Systems Review of Systems Pt complains of mild SOB Pt complains of fatigue Pt complains of hunger Assessment and Plan Assessmemt and Plan Problems Medical Problems: (1) Leukocytosis Status: Acute (2) Parapneumonic effusion Status: Acute Acute on chronic hypoxic respir failure dyspnea pleural effusions edema S/P thoracentesis converted to thoracotomy Fibrothorax Chest tube placement PMH: COPD Lung CA Alcoholism DM Plan: ordered potassium decreased Ativan to 1mg ICU monitoring recheck labs discussed plan with RN hope to remove chest tube incentive spirometry PT/OT possible rehab when D/C appreciate subspecialist input Problems: Comment Review of Relevant I have reviewed the following items tita (where applicable) has been applied. Labs Laboratory Tests Test 09/08/17 04:00 09/09/17 06:50 White Blood Count 16.8 x10^3/uL (4.0-11.0) 14.8 x10^3/uL (4.0-11.0) Red Blood Count 3.32 x10^6/uL (4.30-5.70) 3.65 x10^6/uL (4.30-5.70) Hemoglobin 11.6 g/dL (13.0-17.5) 12.7 g/dL (13.0-17.5) Hematocrit 34.5 % (39.0-53.0) 37.9 % (39.0-53.0) Mean Corpuscular Volume 104 fL (79-100) 104 fL (79-100) Mean Corpuscular Hemoglobin 35 pg (25-35) 35 pg (25-35) Mean Corpuscular Hemoglobin Concent 34 g/dL (31-37) 33 g/dL (31-37) Red Cell Distribution Width 15.6 % (11.5-14.5) 15.2 % (11.5-14.5) Platelet Count 325 x10^3/uL (140-400) 334 x10^3/uL (140-400) Neutrophils (%) (Auto) 81 % (31-73) 75 % (31-73) Lymphocytes (%) (Auto) 6 % (24-48) 9 % (24-48) Monocytes (%) (Auto) 13 % (0-9) 15 % (0-9) Eosinophils (%) (Auto) 0 % (0-3) 0 % (0-3) Basophils (%) (Auto) 0 % (0-3) 1 % (0-3) Neutrophils # (Auto) 13.5 x10^3uL (1.8-7.7) 11.1 x10^3uL (1.8-7.7) Lymphocytes # (Auto) 1.0 x10^3/uL (1.0-4.8) 1.3 x10^3/uL (1.0-4.8) Monocytes # (Auto) 2.2 x10^3/uL (0.0-1.1) 2.3 x10^3/uL (0.0-1.1) Eosinophils # (Auto) 0.0 x10^3/uL (0.0-0.7) 0.1 x10^3/uL (0.0-0.7) Basophils # (Auto) 0.0 x10^3/uL (0.0-0.2) 0.1 x10^3/uL (0.0-0.2) Sodium Level 138 mmol/L (136-145) 136 mmol/L (136-145) Potassium Level 3.9 mmol/L (3.5-5.1) 3.3 mmol/L (3.5-5.1) Chloride Level 106 mmol/L (98-107) 103 mmol/L (98-107) Carbon Dioxide Level 25 mmol/L (21-32) 27 mmol/L (21-32) Anion Gap 7 (6-14) 6 (6-14) Blood Urea Nitrogen 7 mg/dL (8-26) 5 mg/dL (8-26) Creatinine 0.5 mg/dL (0.7-1.3) 0.3 mg/dL (0.7-1.3) Estimated GFR (Cockcroft-Gault) 165.4 298.2 Glucose Level 98 mg/dL (70-99) 60 mg/dL (70-99) Calcium Level 7.7 mg/dL (8.5-10.1) 7.8 mg/dL (8.5-10.1) Laboratory Tests Test 09/09/17 06:50 White Blood Count 14.8 x10^3/uL (4.0-11.0) Red Blood Count 3.65 x10^6/uL (4.30-5.70) Hemoglobin 12.7 g/dL (13.0-17.5) Hematocrit 37.9 % (39.0-53.0) Mean Corpuscular Volume 104 fL (79-100) Mean Corpuscular Hemoglobin 35 pg (25-35) Mean Corpuscular Hemoglobin Concent 33 g/dL (31-37) Red Cell Distribution Width 15.2 % (11.5-14.5) Platelet Count 334 x10^3/uL (140-400) Neutrophils (%) (Auto) 75 % (31-73) Lymphocytes (%) (Auto) 9 % (24-48) Monocytes (%) (Auto) 15 % (0-9) Eosinophils (%) (Auto) 0 % (0-3) Basophils (%) (Auto) 1 % (0-3) Neutrophils # (Auto) 11.1 x10^3uL (1.8-7.7) Lymphocytes # (Auto) 1.3 x10^3/uL (1.0-4.8) Monocytes # (Auto) 2.3 x10^3/uL (0.0-1.1) Eosinophils # (Auto) 0.1 x10^3/uL (0.0-0.7) Basophils # (Auto) 0.1 x10^3/uL (0.0-0.2) Sodium Level 136 mmol/L (136-145) Potassium Level 3.3 mmol/L (3.5-5.1) Chloride Level 103 mmol/L (98-107) Carbon Dioxide Level 27 mmol/L (21-32) Anion Gap 6 (6-14) Blood Urea Nitrogen 5 mg/dL (8-26) Creatinine 0.3 mg/dL (0.7-1.3) Estimated GFR (Cockcroft-Gault) 298.2 Glucose Level 60 mg/dL (70-99) Calcium Level 7.8 mg/dL (8.5-10.1) Microbiology 09/04/17 Blood Culture - Preliminary, Resulted NO GROWTH AFTER 4 DAYS 09/06/17 AFB Specimen Processing Tissue - Final, Resulted 09/06/17 Acid Fast Bacilli Culture, Resulted Pending 09/06/17 Gram Stain - Final, Resulted 09/06/17 Fungal Culture, Resulted Pending 09/06/17 Fungal Culture Result 1, Resulted Pending 09/06/17 AFB Specimen Processing Tissue - Final, Resulted 09/06/17 Acid Fast Bacilli Culture, Resulted Pending 09/06/17 Gram Stain - Final, Resulted 09/06/17 Fungal Culture, Resulted Pending 09/06/17 Fungal Culture Result 1, Resulted Pending Medications Current Medications Levofloxacin/ Dextrose 100 ml @ 100 mls/hr 1X ONCE IV Last administered on t 14:23; Start 09/04/17 at 14:15; Stop 09/04/17 at 15:14; Status DC Ondansetron HCl (Zofran) 4 mg PRN Q8HRS PRN IV NAUSEA/VOMITING; Start 09/04/17 at 14:15; Stop 09/05/17 at 14:14; Status DC Fentanyl Citrate (Fentanyl 2ml Vial) 50 mcg PRN Q2HR PRN IV PAIN; Start at 14:15; Stop 09/05/17 at 14:14; Status DC Furosemide (Lasix) 40 mg 1X ONCE IVP Last administered on 09/04/17 14:23; Start 09/04/17 at 14:15; Stop 09/04/17 at 14:16; Status DC Acetaminophen (Tylenol) 500 mg PRN BID PRN PO PAIN Last administered on 13:30; Start 09/04/17 at 18:00 Non-Formulary Medication 1 tab QHS PO ; Start 09/04/17 at 21:00; Status UNV Multivitamins (Thera M Plus) 1 tab DAILY PO Last administered on 09/08/17 09: 16; Start 09/04/17 at 18:30 Folic Acid (Folic Acid) 1 mg DAILY PO Last administered on 09/08/17 09:15; Start 09/04/17 at 18:30 Thiamine HCl 100 mg/Sodium Chloride 51 ml @ 100 mls/hr 1X ONCE IV Last administered on 09/04/17 22:37; Start 09/04/17 at 18:30; Stop 09/04/17 at 19:00 ; Status DC Lorazepam (Ativan) 2 mg PRN Q1HR PRN IV For CIWA 8-14 Last administered on 23:25; Start 09/04/17 at 18:30; Stop 09/09/17 at 10:42; Status DC Lorazepam (Ativan) 4 mg PRN Q1HR PRN IV For CIWA 15 or greater; Start 09/04/17 at 18:30; Stop 09/09/17 at 10:42; Status DC Zolpidem Tartrate (Ambien) 5 mg PRN QHS PRN PO INSOMNIA Last administered on 23:15; Start 09/04/17 at 23:15 Lidocaine/Sodium Bicarbonate (Buffered Lidocaine 1%) 20 ml STK-MED ONCE IJ ; Start 09/05/17 at 09:03; Stop 09/05/17 at 09:04; Status DC Lidocaine/Sodium Bicarbonate (Buffered Lidocaine 1%) 20 ml 1X ONCE IJ Last administered on 09/05/17 09:34; Start 09/05/17 at 09:30; Stop 09/05/17 at 09 :31; Status DC Iohexol (Omnipaque 300 Mg/ml) 75 ml 1X ONCE IV Last administered on 14:15; Start 09/05/17 at 14:15; Stop 09/05/17 at 14:16; Status DC Potassium Chloride (Klor-Con) 40 meq 1X ONCE PO Last administered on 18:19; Start 09/05/17 at 14:15; Stop 09/05/17 at 14:16; Status DC Info (Do NOT chart on this entry -- for MONITORING) 1 each PRN DAILY PRN MC SEE COMMENTS; Start 09/05/17 at 14:15; Stop 09/07/17 at 14:14; Status DC Cefazolin Sodium 1 gm/Sodium Chloride 50 ml @ 100 mls/hr 1X ONCE IV ; Start 09/06/17 at 10:00; Stop 09/06/17 at 10:29; Status UNV Cefazolin Sodium 50 ml @ 100 mls/hr 1X ONCE IV ; Start 09/06/17 at 11:00; Stop 09/06/17 at 11:29; Status DC Ondansetron HCl (Zofran) 4 mg PRN Q6HRS PRN IV NAUSEA/VOMITING; Start at 07:00; Stop 09/07/17 at 06:59; Status DC Fentanyl Citrate (Fentanyl 2ml Vial) 25 mcg PRN Q5MIN PRN IV MILD PAIN; Start 09/06/17 at 07:00; Stop 09/07/17 at 06:59; Status DC Fentanyl Citrate (Fentanyl 2ml Vial) 50 mcg PRN Q5MIN PRN IV MODERATE PAIN; Start 09/06/17 at 07:00; Stop 09/07/17 at 06:59; Status DC Morphine Sulfate 1 mg PRN Q10MIN PRN IV SEVERE PAIN; Start 09/06/17 at 07:00; Stop 09/07/17 at 06:59; Status DC Ringer's Solution 1,000 ml @ 30 mls/hr Q24H IV Last administered on t 16:14; Start 09/06/17 at 07:00; Stop 09/06/17 at 18:59; Status DC Lidocaine HCl (Xylocaine-Mpf 1% Vial) 2 ml PRN 1X PRN ID IV START; Start 09/06 at 07:00; Stop 09/07/17 at 06:59; Status DC Hydromorphone HCl (Dilaudid) 0.5 mg PRN Q10MIN PRN IV SEV PAIN, Second choice; Start 09/06/17 at 07:00; Stop 09/07/17 at 06:59; Status DC Prochlorperazine Edisylate (Compazine) 5 mg PACU PRN PRN IV NAUSEA, MRX1; Start 09/06/17 at 07:00; Stop 09/07/17 at 06:59; Status DC Cefazolin Sodium 1 gm/Sodium Chloride 500 ml @ 500 mls/hr 1X PERIOP ONCE IRR Last administered on 09/06/17t 12:04; Start 09/06/17 at 10:00; Stop 09/06/17 at 10:59; Status DC Cellulose 1 each STK-MED ONCE .ROUTE ; Start 09/06/17 at 08:46; Stop 09/06/17 at 09:47; Status DC Dexamethasone Sodium Phosphate (Decadron) 20 mg STK-MED ONCE .ROUTE ; Start 10/13 at 10:45; Stop 09/06/17 at 10:46; Status DC Ondansetron HCl (Zofran) 4 mg STK-MED ONCE .ROUTE ; Start 09/06/17 at 10:45; Stop 09/06/17 at 10:46; Status DC Lidocaine HCl (Lidocaine Pf 2% Vial) 5 ml STK-MED ONCE .ROUTE ; Start 09/06/17 at 10:45; Stop 09/06/17 at 10:46; Status DC Etomidate (Amidate) 20 mg STK-MED ONCE IV ; Start 09/06/17 at 10:45; Stop 10/13 at 10:46; Status DC Lidocaine HCl (Xylocaine-Mpf 1% Vial) 5 ml STK-MED ONCE .ROUTE ; Start at 10:45; Stop 09/06/17 at 10:46; Status DC Fentanyl Citrate (Fentanyl 2ml Vial) 100 mcg STK-MED ONCE .ROUTE ; Start at 10:46; Stop 09/06/17 at 10:47; Status DC Rocuronium [place] (Zemuron) 100 mg STK-MED ONCE .ROUTE ; Start 09/06/17 at 10: 46; Stop 09/06/17 at 10:47; Status DC Talc (Sclerosol) 4 gm STK-MED ONCE IPL ; Start 09/06/17 at 09:46; Stop at 10:46; Status DC Phenylephrine HCl (Karri-Synephrine Inj) 10 mg STK-MED ONCE .ROUTE ; Start at 10:47; Stop 09/06/17 at 10:48; Status DC Ephedrine Sulfate (Akovaz) 50 mg STK-MED ONCE .ROUTE ; Start 09/06/17 at 10:48 ; Stop 09/06/17 at 10:49; Status DC Fentanyl Citrate (Fentanyl 2ml Vial) 100 mcg STK-MED ONCE .ROUTE ; Start at 10:57; Stop 09/06/17 at 10:58; Status DC Midazolam HCl (Versed) 2 mg STK-MED ONCE .ROUTE ; Start 09/06/17 at 10:57; Stop 09/06/17 at 10:58; Status DC Phenylephrine HCl (Karri-Synephrine Inj) 10 mg STK-MED ONCE .ROUTE ; Start at 12:20; Stop 09/06/17 at 12:21; Status DC Lidocaine HCl (Xylocaine-Mpf 1% Vial) 5 ml STK-MED ONCE .ROUTE ; Start at 12:35; Stop 09/06/17 at 12:36; Status DC Lidocaine HCl (Xylocaine-Mpf 1% Vial) 5 ml STK-MED ONCE .ROUTE ; Start at 12:36; Stop 09/06/17 at 12:37; Status DC Glycopyrrolate (Robinul) 1 mg STK-MED ONCE .ROUTE ; Start 09/06/17 at 13:52; Stop 09/06/17 at 13:53; Status DC Neostigmine Methylsulfate 5 mg STK-MED ONCE .ROUTE ; Start 09/06/17 at 13:52; Stop 09/06/17 at 13:53; Status DC Lidocaine HCl (Lidocaine Pf 2% Vial) 5 ml STK-MED ONCE .ROUTE ; Start 09/06/17 at 14:44; Stop 09/06/17 at 14:45; Status DC Lidocaine HCl (Lidocaine Pf 2% Vial) 5 ml STK-MED ONCE .ROUTE ; Start 09/06/17 at 14:44; Stop 09/06/17 at 14:45; Status DC Sodium Chloride 36.7 ml/Fentanyl Citrate 250 mcg/ Bupivacaine HCl 8.34 ml/ Epidural Dosage Infused (Pha) 50.04 ml @ 0 mls/hr CONT PRN EP SEE PROTOCOL TABLE Last administered on 09/06/17 18:00; Start 09/06/17 at 16:00; Stop 10/13 at 17:51; Status DC Diphenhydramine HCl (Benadryl) 25 mg PRN Q6HRS PRN PO ITCHING; Start 09/06/17 at 15:30 Famotidine (Pepcid) 20 mg BID PO Last administered on 09/08/17 21:37; Start 09/06/17 at 21:00 Naloxone HCl (Narcan) 0.1 mg PRN Q2MIN PRN IV ADMIN; Start 09/06/17 at 15:30 Info 1 ea DAILY MC ; Start 09/07/17 at 09:00 Info 1 ea DAILY MC ; Start 09/07/17 at 09:00 Sodium Chloride (Normal Saline Flush) 3 ml QSHIFT PRN IV AFTER MEDS AND BLOOD DRAWS; Start 09/06/17 at 15:30 Sodium Chloride 1,000 ml @ 75 mls/hr [id number] IV Last administered on 01:38; Start 09/06/17 at 15:19 Oxycodone/ Acetaminophen (Percocet 5/325) 1 tab PRN Q4HRS PRN PO MILD PAIN, 1ST CHOICE; Start 09/06/17 at 15:30 Oxycodone/ Acetaminophen (Percocet 5/325) 2 tab PRN Q4HRS PRN PO MODERATE PAIN , SEVERE PAIN; Start 09/06/17 at 15:30 Ketorolac Tromethamine (Toradol) 15 mg PRN Q6HRS PRN IV PAIN; Start 09/06/17 at 15:30; Stop 09/11/17 at 15:29 Morphine Sulfate 2 mg PRN Q1HR PRN IV PAIN Last administered on 09/09/17 01: 38; Start 09/06/17 at 15:30 Ondansetron HCl (Zofran) 4 mg PRN Q6HRS PRN IV NAUESA, 1ST CHOICE; Start 09/06 at 15:30 Metoclopramide HCl (Reglan) 5 mg PRN Q6HRS PRN IV Nausea/Vomiting, 2nd Choice; Start 09/06/17 at 15:30 Senna/Docusate Sodium (Senna Plus) 1 tab BID PO Last administered on 21:36; Start 09/06/17 at 21:00 Bisacodyl (Dulcolax Supp) 10 mg PRN DAILY PRN [place] CONSTIPATION; Start 09/06/17 at 15:30 Cefazolin Sodium 1 gm/Sodium Chloride 50 ml @ 100 mls/hr Q6H IV Last administered on 09/07/17 06:13; Start 09/06/17 at 18:00; Stop 09/07/17 at 06 :29; Status DC Propofol 20 ml @ As Directed STK-MED ONCE IV ; Start 09/06/17 at 15:29; Stop 09/06/17 at 15:30; Status DC Propofol 20 ml @ As Directed STK-MED ONCE IV ; Start 09/06/17 at 15:30; Stop 09/06/17 at 15:31; Status DC Phenylephrine HCl 20 mg/Sodium Chloride 252 ml @ 37.8 mls/hr 1X ONCE IV Last administered on 09/06/17 17:59; Start 09/06/17 at 16:00; Stop 09/06/17 at 22 :39; Status DC Sodium Chloride 36.7 ml/Fentanyl Citrate 250 mcg/ Bupivacaine HCl 8.34 ml/ Epidural Dosage Infused (Pha) 50.04 ml @ 0 mls/hr CONT PRN EP SEE PROTOCOL TABLE Last administered on 09/07/17 07:28; Start 09/06/17 at 18:00 Potassium Chloride 100 ml @ 100 mls/hr Q1H IV Last administered on 09/06/17 22:50; Start 09/06/17 at 19:15; Stop 09/06/17 at 23:14; Status DC Magnesium Sulfate/ Dextrose 50 ml @ 25 mls/hr 1X ONCE IV Last administered on 09/06/17 20:12; Start 09/06/17 at 19:15; Stop 09/06/17 at 21:14; Status DC Phenylephrine HCl 20 mg/Sodium Chloride 252 ml @ 0 mls/hr CONT PRN IV HYPOTENSION Last administered on 09/07/17 09:10; Start 09/06/17 at 23:30 Thiamine Mononitrate (Vitamin B-1) 100 mg DAILY PO Last administered on 09:16; Start 09/07/17 at 11:30 Albumin Human 500 ml @ 125 mls/hr 1X ONCE IV Last administered on 09/07/17 12:04; Start 09/07/17 at 12:00; Stop 09/07/17 at 15:59; Status DC Heparin Sodium (Porcine) (Heparin Sq) 5,000 unit Q8HRS SQ Last administered on 09/09/17 05:50; Start 09/07/17 at 16:30 Metoprolol Tartrate (Lopressor) 25 mg BID PO Last administered on 09/08/17 21 :37; Start 09/07/17 at 15:00 Lorazepam (Ativan) 0.5 mg 1X ONCE IV ; Start 09/08/17 at 02:30; Stop at 02:31; Status Cancel Lorazepam (Ativan) 1 mg 1X ONCE IV Last administered on 09/08/17 02:16; Start 09/08/17 at 02:15; Stop 09/08/17 at 02:21; Status DC Lorazepam (Ativan) 1 mg PRN Q2HR PRN IV ANXIETY / AGITATION Last administered on 09/08/17 05:39; Start 09/08/17 at 04:30 Potassium Chloride (Klor-Con) 40 meq 1X ONCE PO ; Start 09/09/17 at 08:00; Stop 09/09/17 at 08:01; Status DC Potassium Chloride (Klor-Con) 40 meq 1X ONCE PO ; Start 09/09/17 at 08:30; Stop 09/09/17 at 08:31; Status DC Active Scripts Active Reported Extra Strength Non-Aspirin (Acetaminophen) 500 Mg Tablet 500 Mg PO BID PRN Multivitamins (Multivitamin) 1 Each Tablet 1 Tab PO DAILY Melatonin 3 Mg Tablet 1 Tab PO QHS Vitals/I & O Vital Sign - Last 24 Hours 09/08/17 09/08/17 09/08/17 09/08/17 12:00 12:00 13:00 14:00 Temp 97.4 97.4 Pulse 102 94 86 Resp 16 19 14 B/P (MAP) 129/93 (105) 143/95 (111) 151/96 (114) Pulse Ox 100 99 100 O2 Delivery Nasal Cannula Nasal Cannula Nasal Cannula Nasal Cannula O2 Flow Rate 3.0 3.0 3.0 3.0 09/08/17 09/08/17 09/08/17 09/08/17 15:00 16:00 16:00 17:00 Temp 98.4 98.4 Pulse 93 94 100 Resp 16 21 19 B/P (MAP) 166/104 (124) 169/102 (124) 147/76 (99) Pulse Ox 100 88 100 O2 Delivery Nasal Cannula Nasal Cannula Nasal Cannula Nasal Cannula O2 Flow Rate 3.0 3.0 3.0 3.0 09/08/17 09/08/17 09/08/17 09/08/17 18:00 19:00 20:00 20:00 Temp 97.1 97.1 Pulse 94 91 101 Resp 18 14 21 B/P (MAP) 148/82 (104) 119/65 (83) 144/79 (100) Pulse Ox 96 98 93 O2 Delivery Nasal Cannula Nasal Cannula Room Air Nasal Cannula O2 Flow Rate 3.0 3.0 3.0 09/08/17 09/08/17 09/08/17 09/08/17 21:00 21:37 22:00 23:00 Pulse 115 112 104 99 Resp 21 18 26 B/P (MAP) 115/82 (93) 115/82 144/90 (108) 140/89 (106) Pulse Ox 100 93 92 O2 Delivery Nasal Cannula Room Air Room Air O2 Flow Rate 3.0 09/09/17 09/09/17 09/09/17 09/09/17 00:00 00:00 01:00 01:38 Temp 97.9 97.9 Pulse 83 79 Resp 12 15 B/P (MAP) 132/68 (89) 100/62 (75) Pulse Ox 91 O2 Delivery Room Air Room Air Room Air Room Air 09/09/17 09/09/17 09/09/17 09/09/17 02:00 02:54 03:00 04:00 Temp 97.5 97.5 Pulse 84 81 89 Resp 16 11 10 15 B/P (MAP) 142/79 (100) 116/66 (83) 100/65 (77) Pulse Ox 93 O2 Delivery Room Air Room Air Room Air Room Air 09/09/17 09/09/17 09/09/17 09/09/17 04:00 05:00 06:00 07:00 Temp 97.1 97.1 Pulse 86 87 88 Resp 10 12 16 B/P (MAP) 112/55 (74) 91/61 (71) 135/74 (94) Pulse Ox 100 O2 Delivery Room Air Room Air Room Air Nasal Cannula O2 Flow Rate 2.0 09/09/17 09/09/17 09/09/17 09/09/17 08:00 08:00 09:00 10:00 Pulse 16 101 101 Resp 16 16 18 B/P (MAP) 99/61 (74) 126/89 (101) 140/90 (107) Pulse Ox 92 99 99 O2 Delivery Nasal Cannula Room Air Nasal Cannula Nasal Cannula O2 Flow Rate 2.0 3.0 2.0 2.0 Intake and Output 09/09/17 09/09/17 09/10/17 15:00 23:00 07:00 Intake Total 0 ml Output Total 150 ml Balance -150 ml Nutrition Consultation Dietary Evaluation: Recommendations by RD: Increase Calorie Intake, Protein supplementation Comments: encourage protein supplementation between meals Expected Outcomes/Goals: to meet > 75% est nutr needs Malnutrition Findings: Body Fat Depletion (Non Severe: Mod to Severe Weight Status: Underweight Fluid Accumulation (Non-Severe: Mild depletion JENNIFER PAGAN III DO Sep 09, 2017 11:33
--- NOTE | 2017-09-09 11:57 | PDOC ---
Progress Note Subjective Subjective Got 2mg IV ativan early this morning for ETOH withdrawal symptoms. Chest tubes with no air leak, and minimal drainage. Chest x-ray shows fully expanded left lung. Hasn't ambulated since surgery. Not very co-operative ROS ROS No nausea No vomiting No SOB No pain No rash Vital Sign Vital Signs Vital Signs Date Time Temp Pulse Resp B/P (MAP) Pulse Ox O2 Delivery O2 Flow Rate FiO2 09/09/17 10:00 101 18 140/90 (107) 99 Nasal Cannula 2.0 09/09/17 07:00 97.1 97.1 Physical Exam PHYSICAL EXAM GENERAL: NAD, Alert HEENT: PERRL, OC/OP NECK: Supple, no JVD, no LN LUNGS: Clear HEART: S1S2, no gallop, no murmur ABD: Soft, NT, no organomegaly, no rebound EXT: No edema, no cyanosis [employer]: Alert, oriented x 3, no focal neurologic deficit SKIN: No rash IV: ok Labs Lab Laboratory Tests Test 09/09/17 06:50 White Blood Count 14.8 x10^3/uL (4.0-11.0) Red Blood Count 3.65 x10^6/uL (4.30-5.70) Hemoglobin 12.7 g/dL (13.0-17.5) Hematocrit 37.9 % (39.0-53.0) Mean Corpuscular Volume 104 fL (79-100) Mean Corpuscular Hemoglobin 35 pg (25-35) Mean Corpuscular Hemoglobin Concent 33 g/dL (31-37) Red Cell Distribution Width 15.2 % (11.5-14.5) Platelet Count 334 x10^3/uL (140-400) Neutrophils (%) (Auto) 75 % (31-73) Lymphocytes (%) (Auto) 9 % (24-48) Monocytes (%) (Auto) 15 % (0-9) Eosinophils (%) (Auto) 0 % (0-3) Basophils (%) (Auto) 1 % (0-3) Neutrophils # (Auto) 11.1 x10^3uL (1.8-7.7) Lymphocytes # (Auto) 1.3 x10^3/uL (1.0-4.8) Monocytes # (Auto) 2.3 x10^3/uL (0.0-1.1) Eosinophils # (Auto) 0.1 x10^3/uL (0.0-0.7) Basophils # (Auto) 0.1 x10^3/uL (0.0-0.2) Sodium Level 136 mmol/L (136-145) Potassium Level 3.3 mmol/L (3.5-5.1) Chloride Level 103 mmol/L (98-107) Carbon Dioxide Level 27 mmol/L (21-32) Anion Gap 6 (6-14) Blood Urea Nitrogen 5 mg/dL (8-26) Creatinine 0.3 mg/dL (0.7-1.3) Estimated GFR (Cockcroft-Gault) 298.2 Glucose Level 60 mg/dL (70-99) Calcium Level 7.8 mg/dL (8.5-10.1) Objective Assessment POD#3, s/p left thoracotomy and pulmonary decortication with drainage of complex recurrent pleural effusion for trapped lung and significant fibrothorax. Got 2mg IV ativan early this morning for ETOH withdrawal symptoms. Chest tubes with no air leak, and minimal drainage. Chest x-ray shows fully expanded left lung. Hasn't ambulated since surgery Plan Plan of Care D/c chest tube NO MORE 2MG OF IV ATIVAN. AVOID GIVING ATIVAN UNLESS EXTREMELY COMBATIVE AND IN THAT CASE ONLY GIVE 1MG NEEDS TO AMBULATE. HASN'T AMBULATED SINCE SURGERY PT/OT consult 1-2 beers with every meal for EtOH withdrawal instead of benzodiazepines Heparin sub/q for DVT prophylaxis LELIA SMART MD Sep 09, 2017 11:57
--- NOTE | 2017-09-09 12:47 | RAD ---
Portable AP upright chest x-ray performed at 1225 History: Status post decortication. Chest tube removal. Comparison: September 08, 2017. Findings: Previously seen left-sided chest tube has been removed. No pneumothorax is seen. Pleural thickening and/or effusion is unchanged from the previous study. Left midlung zone and left lung base infiltrate/atelectasis are unchanged. No new finding is seen on the right side. The heart size and mediastinum are stable. IMPRESSION: Removal of left-sided chest tube without pneumothorax.
[2017-09-09] MEDS: METOPROLOL TART IMMED RELEASE 25 MG TABLET. PO SCH ×3 (12:57→21:47)
[2017-09-09] MEDS: MULTIVITAMIN with MINERAL TABLET. PO SCH (12:57)
[2017-09-09] MEDS: FOLIC ACID 1 MG TABLET. PO SCH (12:57)
[2017-09-09] MEDS: THIAMINE 100 MG TABLET. PO SCH (12:57)
[2017-09-09] MEDS: SENNOSIDES/DOCUSATE 8.6/50MG TABLET. PO SCH ×3 (12:58→21:47)
[2017-09-09] MEDS: FAMOTIDINE 20 MG TABLET. PO SCH ×3 (12:58→21:47)
[2017-09-10] VITALS (15 sets, daily range): BP systolic 95–167; BP diastolic 67–108
[2017-09-10] MEDS: IV NORMAL SALINE 1000ML BAG 1,000 ML IV SCH ×2 (05:17→12:39)
[2017-09-10] MEDS: HEPARIN PF for SUB-Q USE 5,000 UNIT/0.5 ML VIAL. SQ SCH ×3 (05:18→23:46)
[2017-09-10 06:44] LABS: BASO # 0.2 x10^3/uL (0.0-0.2); BASO % 1 % (0-3); EOS % 0 % (0-3); HEMATOCRIT 39.6 % (39.0-53.0); HEMOGLOBIN 12.8 g/dL (13.0-17.5); LYMPH % 7 % (24-48); MEAN CORPUSCULAR HEMOGLOBIN 34 pg (25-35); MEAN CORPUSCULAR HGB CONC 32 g/dL (31-37); MEAN CORPUSCULAR VOLUME 106 fL (79-100); MONO % 12 % (0-9); NEUT % 80 % (31-73); PLATELET COUNT 367 x10^3/uL (140-400); RED BLOOD COUNT 3.73 x10^6/uL (4.30-5.70); RED CELL DISTRIBUTION WIDTH 15.6 % (11.5-14.5); WHITE BLOOD COUNT 15.2 x10^3/uL (4.0-11.0)
[2017-09-10 06:59] LABS: CALCIUM 7.7 mg/dL (8.5-10.1); CREATININE 0.4 mg/dL (0.7-1.3); GFR 213.9; POTASSIUM 3.4 mmol/L (3.5-5.1)
[2017-09-10] MEDS: ELECTROLYTE (ICU) PROTOCOL. MC SCH (09:00)
[2017-09-10] MEDS: ELECTROLYTE (NON-ICU) PROTOCOL MC SCH (09:00)
[2017-09-10] MEDS: THIAMINE 100 MG TABLET. PO SCH (09:30)
[2017-09-10] MEDS: METOPROLOL TART IMMED RELEASE 25 MG TABLET. PO SCH ×2 (09:31→20:58)
[2017-09-10] MEDS: MULTIVITAMIN with MINERAL TABLET. PO SCH (09:31)
[2017-09-10] MEDS: FAMOTIDINE 20 MG TABLET. PO SCH ×2 (09:31→20:58)
[2017-09-10] MEDS: FOLIC ACID 1 MG TABLET. PO SCH (09:32)
[2017-09-10] MEDS: SENNOSIDES/DOCUSATE 8.6/50MG TABLET. PO SCH ×2 (09:32→20:58)
[2017-09-10] MEDS ORDERED: POTASSIUM CHLORIDE 20 MEQ TABLET.ER. PO ONE (09:45)
--- NOTE | 2017-09-10 12:59 | PDOC ---
Progress Note Subjective Subjective Doing much better today. On room air. More alert and co-operative. All chest tubes are out. ROS ROS No nausea No vomiting No pain No SOB No rash Vital Sign Vital Signs Vital Signs Date Time Temp Pulse Resp B/P (MAP) Pulse Ox O2 Delivery O2 Flow Rate FiO2 09/10/17 11:00 83 16 95/67 (76) 100 Room Air 09/10/17 08:00 98.0 98.0 09/10/17 06:00 2.0 Physical Exam PHYSICAL EXAM GENERAL: NAD, Alert HEENT: PERRL, OC/OP NECK: Supple, no JVD, no LN LUNGS: Clear HEART: S1S2, no gallop, no murmur ABD: Soft, NT, no organomegaly, no rebound EXT: No edema, no cyanosis [employer]: Alert, oriented x 3, no focal neurologic deficit SKIN: No rash IV: ok Labs Lab Laboratory Tests Test 09/10/17 06:30 White Blood Count 15.2 x10^3/uL (4.0-11.0) Red Blood Count 3.73 x10^6/uL (4.30-5.70) Hemoglobin 12.8 g/dL (13.0-17.5) Hematocrit 39.6 % (39.0-53.0) Mean Corpuscular Volume 106 fL (79-100) Mean Corpuscular Hemoglobin 34 pg (25-35) Mean Corpuscular Hemoglobin Concent 32 g/dL (31-37) Red Cell Distribution Width 15.6 % (11.5-14.5) Platelet Count 367 x10^3/uL (140-400) Neutrophils (%) (Auto) 80 % (31-73) Lymphocytes (%) (Auto) 7 % (24-48) Monocytes (%) (Auto) 12 % (0-9) Eosinophils (%) (Auto) 0 % (0-3) Basophils (%) (Auto) 1 % (0-3) Neutrophils # (Auto) 12.2 x10^3uL (1.8-7.7) Lymphocytes # (Auto) 1.0 x10^3/uL (1.0-4.8) Monocytes # (Auto) 1.8 x10^3/uL (0.0-1.1) Eosinophils # (Auto) 0.0 x10^3/uL (0.0-0.7) Basophils # (Auto) 0.2 x10^3/uL (0.0-0.2) Sodium Level 138 mmol/L (136-145) Potassium Level 3.4 mmol/L (3.5-5.1) Chloride Level 105 mmol/L (98-107) Carbon Dioxide Level 26 mmol/L (21-32) Anion Gap 7 (6-14) Blood Urea Nitrogen 6 mg/dL (8-26) Creatinine 0.4 mg/dL (0.7-1.3) Estimated GFR (Cockcroft-Gault) 213.9 Glucose Level 77 mg/dL (70-99) Calcium Level 7.7 mg/dL (8.5-10.1) Magnesium Level 1.8 mg/dL (1.8-2.4) Objective Assessment POD#4, s/p left thoracotomy and pulmonary decortication with drainage of complex recurrent pleural effusion for trapped lung and significant fibrothorax. Doing much better today. On room air. More alert and co-operative. All chest tubes are out. Plan Plan of Care Continue with ambulation Transfer out of ICU Heparin sub/q for DVT prophylaxis Dispo planning: home vs rehab LELIA SMART MD Sep 10, 2017 12:59
--- NOTE | 2017-09-10 13:22 | PDOC ---
PROGRESS NOTES Chief Complaint Chief Complaint Acute on chronic hypoxic respir failure dyspnea pleural effusions edema S/P thoracentesis converted to thoracotomy Fibrothorax Chest tube placement PMH: COPD Lung CA Alcoholism DM History of Present Illness History of Present Illness Pt is in the ICU He was on his feet with the RN in the room. He was just about to go for a walk. He appears to be in NAD and has no new complaints at this time. He denies chest pain, N/V, or diarrhea. CXR showed no changes from previous day. Chest tube was removed. Pulm believes R pleaural effusion is getting worse and is causing his SOB and hypoxia. Discussed plan of care with RN and pt. Pt will only be given 1 mg of Ativan if necessary. Vitals Vitals Vital Signs Date Time Temp Pulse Resp B/P (MAP) Pulse Ox O2 Delivery O2 Flow Rate FiO2 09/10/17 11:00 83 16 95/67 (76) 100 Room Air 09/10/17 08:00 98.0 98.0 09/10/17 06:00 2.0 Physical Exam General: Alert, Oriented X3, Cooperative, No acute distress Heart: Regular rate, Normal S1, Normal S2 Lungs: Clear (breath sounds improving), Wheezing Abdomen: Soft, No tenderness, No hepatosplenomegaly Extremities: No clubbing, No cyanosis Skin: No rashes, No breakdown, No significant lesion Labs LABS Laboratory Tests Test 09/10/17 06:30 White Blood Count 15.2 x10^3/uL (4.0-11.0) Red Blood Count 3.73 x10^6/uL (4.30-5.70) Hemoglobin 12.8 g/dL (13.0-17.5) Hematocrit 39.6 % (39.0-53.0) Mean Corpuscular Volume 106 fL (79-100) Mean Corpuscular Hemoglobin 34 pg (25-35) Mean Corpuscular Hemoglobin Concent 32 g/dL (31-37) Red Cell Distribution Width 15.6 % (11.5-14.5) Platelet Count 367 x10^3/uL (140-400) Neutrophils (%) (Auto) 80 % (31-73) Lymphocytes (%) (Auto) 7 % (24-48) Monocytes (%) (Auto) 12 % (0-9) Eosinophils (%) (Auto) 0 % (0-3) Basophils (%) (Auto) 1 % (0-3) Neutrophils # (Auto) 12.2 x10^3uL (1.8-7.7) Lymphocytes # (Auto) 1.0 x10^3/uL (1.0-4.8) Monocytes # (Auto) 1.8 x10^3/uL (0.0-1.1) Eosinophils # (Auto) 0.0 x10^3/uL (0.0-0.7) Basophils # (Auto) 0.2 x10^3/uL (0.0-0.2) Sodium Level 138 mmol/L (136-145) Potassium Level 3.4 mmol/L (3.5-5.1) Chloride Level 105 mmol/L (98-107) Carbon Dioxide Level 26 mmol/L (21-32) Anion Gap 7 (6-14) Blood Urea Nitrogen 6 mg/dL (8-26) Creatinine 0.4 mg/dL (0.7-1.3) Estimated GFR (Cockcroft-Gault) 213.9 Glucose Level 77 mg/dL (70-99) Calcium Level 7.7 mg/dL (8.5-10.1) Magnesium Level 1.8 mg/dL (1.8-2.4) Review of Systems Review of Systems Pt complains of SOB Pt complains of joint stiffness Pt complains of fatigue Assessment and Plan Assessmemt and Plan Problems Medical Problems: (1) Leukocytosis Status: Acute (2) Parapneumonic effusion Status: Acute Acute on chronic hypoxic respir failure dyspnea pleural effusions edema S/P thoracentesis converted to thoracotomy Fibrothorax Chest tube placement PMH: COPD Lung CA Alcoholism DM Plan: cont. ICU monitoring recheck labs ordered K will check Magnesium levels PT/OT BiPAP prn appreciate subspecialist input Problems: Comment Review of Relevant I have reviewed the following items tita (where applicable) has been applied. Labs Laboratory Tests Test 09/09/17 06:50 09/10/17 06:30 White Blood Count 14.8 x10^3/uL (4.0-11.0) 15.2 x10^3/uL (4.0-11.0) Red Blood Count 3.65 x10^6/uL (4.30-5.70) 3.73 x10^6/uL (4.30-5.70) Hemoglobin 12.7 g/dL (13.0-17.5) 12.8 g/dL (13.0-17.5) Hematocrit 37.9 % (39.0-53.0) 39.6 % (39.0-53.0) Mean Corpuscular Volume 104 fL (79-100) 106 fL (79-100) Mean Corpuscular Hemoglobin 35 pg (25-35) 34 pg (25-35) Mean Corpuscular Hemoglobin Concent 33 g/dL (31-37) 32 g/dL (31-37) Red Cell Distribution Width 15.2 % (11.5-14.5) 15.6 % (11.5-14.5) Platelet Count 334 x10^3/uL (140-400) 367 x10^3/uL (140-400) Neutrophils (%) (Auto) 75 % (31-73) 80 % (31-73) Lymphocytes (%) (Auto) 9 % (24-48) 7 % (24-48) Monocytes (%) (Auto) 15 % (0-9) 12 % (0-9) Eosinophils (%) (Auto) 0 % (0-3) 0 % (0-3) Basophils (%) (Auto) 1 % (0-3) 1 % (0-3) Neutrophils # (Auto) 11.1 x10^3uL (1.8-7.7) 12.2 x10^3uL (1.8-7.7) Lymphocytes # (Auto) 1.3 x10^3/uL (1.0-4.8) 1.0 x10^3/uL (1.0-4.8) Monocytes # (Auto) 2.3 x10^3/uL (0.0-1.1) 1.8 x10^3/uL (0.0-1.1) Eosinophils # (Auto) 0.1 x10^3/uL (0.0-0.7) 0.0 x10^3/uL (0.0-0.7) Basophils # (Auto) 0.1 x10^3/uL (0.0-0.2) 0.2 x10^3/uL (0.0-0.2) Sodium Level 136 mmol/L (136-145) 138 mmol/L (136-145) Potassium Level 3.3 mmol/L (3.5-5.1) 3.4 mmol/L (3.5-5.1) Chloride Level 103 mmol/L (98-107) 105 mmol/L (98-107) Carbon Dioxide Level 27 mmol/L (21-32) 26 mmol/L (21-32) Anion Gap 6 (6-14) 7 (6-14) Blood Urea Nitrogen 5 mg/dL (8-26) 6 mg/dL (8-26) Creatinine 0.3 mg/dL (0.7-1.3) 0.4 mg/dL (0.7-1.3) Estimated GFR (Cockcroft-Gault) 298.2 213.9 Glucose Level 60 mg/dL (70-99) 77 mg/dL (70-99) Calcium Level 7.8 mg/dL (8.5-10.1) 7.7 mg/dL (8.5-10.1) Magnesium Level 1.8 mg/dL (1.8-2.4) Laboratory Tests Test 09/10/17 06:30 White Blood Count 15.2 x10^3/uL (4.0-11.0) Red Blood Count 3.73 x10^6/uL (4.30-5.70) Hemoglobin 12.8 g/dL (13.0-17.5) Hematocrit 39.6 % (39.0-53.0) Mean Corpuscular Volume 106 fL (79-100) Mean Corpuscular Hemoglobin 34 pg (25-35) Mean Corpuscular Hemoglobin Concent 32 g/dL (31-37) Red Cell Distribution Width 15.6 % (11.5-14.5) Platelet Count 367 x10^3/uL (140-400) Neutrophils (%) (Auto) 80 % (31-73) Lymphocytes (%) (Auto) 7 % (24-48) Monocytes (%) (Auto) 12 % (0-9) Eosinophils (%) (Auto) 0 % (0-3) Basophils (%) (Auto) 1 % (0-3) Neutrophils # (Auto) 12.2 x10^3uL (1.8-7.7) Lymphocytes # (Auto) 1.0 x10^3/uL (1.0-4.8) Monocytes # (Auto) 1.8 x10^3/uL (0.0-1.1) Eosinophils # (Auto) 0.0 x10^3/uL (0.0-0.7) Basophils # (Auto) 0.2 x10^3/uL (0.0-0.2) Sodium Level 138 mmol/L (136-145) Potassium Level 3.4 mmol/L (3.5-5.1) Chloride Level 105 mmol/L (98-107) Carbon Dioxide Level 26 mmol/L (21-32) Anion Gap 7 (6-14) Blood Urea Nitrogen 6 mg/dL (8-26) Creatinine 0.4 mg/dL (0.7-1.3) Estimated GFR (Cockcroft-Gault) 213.9 Glucose Level 77 mg/dL (70-99) Calcium Level 7.7 mg/dL (8.5-10.1) Magnesium Level 1.8 mg/dL (1.8-2.4) Microbiology 09/04/17 Blood Culture - Final, Complete NO GROWTH AFTER 5 DAYS 09/06/17 AFB Specimen Processing Tissue - Final, Resulted 09/06/17 Acid Fast Bacilli Culture, Resulted Pending 09/06/17 Gram Stain - Final, Resulted 09/06/17 Fungal Culture, Resulted Pending 09/06/17 Fungal Culture Result 1, Resulted Pending 09/06/17 AFB Specimen Processing Tissue - Final, Resulted 09/06/17 Acid Fast Bacilli Culture, Resulted Pending 09/06/17 Gram Stain - Final, Resulted 09/06/17 Fungal Culture, Resulted Pending 09/06/17 Fungal Culture Result 1, Resulted Pending Medications Current Medications Levofloxacin/ Dextrose 100 ml @ 100 mls/hr 1X ONCE IV Last administered on t 14:23; Start 09/04/17 at 14:15; Stop 09/04/17 at 15:14; Status DC Ondansetron HCl (Zofran) 4 mg PRN Q8HRS PRN IV NAUSEA/VOMITING; Start 09/04/17 at 14:15; Stop 09/05/17 at 14:14; Status DC Fentanyl Citrate (Fentanyl 2ml Vial) 50 mcg PRN Q2HR PRN IV PAIN; Start at 14:15; Stop 09/05/17 at 14:14; Status DC Furosemide (Lasix) 40 mg 1X ONCE IVP Last administered on 09/04/17 14:23; Start 09/04/17 at 14:15; Stop 09/04/17 at 14:16; Status DC Acetaminophen (Tylenol) 500 mg PRN BID PRN PO PAIN Last administered on 13:30; Start 09/04/17 at 18:00 Non-Formulary Medication 1 tab QHS PO ; Start 09/04/17 at 21:00; Status UNV Multivitamins (Thera M Plus) 1 tab DAILY PO Last administered on 09/10/17 09: 31; Start 09/04/17 at 18:30 Folic Acid (Folic Acid) 1 mg DAILY PO Last administered on 09/10/17 09:32; Start 09/04/17 at 18:30 Thiamine HCl 100 mg/Sodium Chloride 51 ml @ 100 mls/hr 1X ONCE IV Last administered on 09/04/17 22:37; Start 09/04/17 at 18:30; Stop 09/04/17 at 19:00 ; Status DC Lorazepam (Ativan) 2 mg PRN Q1HR PRN IV For CIWA 8-14 Last administered on 23:25; Start 09/04/17 at 18:30; Stop 09/09/17 at 10:42; Status DC Lorazepam (Ativan) 4 mg PRN Q1HR PRN IV For CIWA 15 or greater; Start 09/04/17 at 18:30; Stop 09/09/17 at 10:42; Status DC Zolpidem Tartrate (Ambien) 5 mg PRN QHS PRN PO INSOMNIA Last administered on 23:15; Start 09/04/17 at 23:15 Lidocaine/Sodium Bicarbonate (Buffered Lidocaine 1%) 20 ml STK-MED ONCE IJ ; Start 09/05/17 at 09:03; Stop 09/05/17 at 09:04; Status DC Lidocaine/Sodium Bicarbonate (Buffered Lidocaine 1%) 20 ml 1X ONCE IJ Last administered on 09/05/17 09:34; Start 09/05/17 at 09:30; Stop 09/05/17 at 09 :31; Status DC Iohexol (Omnipaque 300 Mg/ml) 75 ml 1X ONCE IV Last administered on t 14:15; Start 09/05/17 at 14:15; Stop 09/05/17 at 14:16; Status DC Potassium Chloride (Klor-Con) 40 meq 1X ONCE PO Last administered on 18:19; Start 09/05/17 at 14:15; Stop 09/05/17 at 14:16; Status DC Info (Do NOT chart on this entry -- for MONITORING) 1 each PRN DAILY PRN MC SEE COMMENTS; Start 09/05/17 at 14:15; Stop 09/07/17 at 14:14; Status DC Cefazolin Sodium 1 gm/Sodium Chloride 50 ml @ 100 mls/hr 1X ONCE IV ; Start 09/06/17 at 10:00; Stop 09/06/17 at 10:29; Status UNV Cefazolin Sodium 50 ml @ 100 mls/hr 1X ONCE IV ; Start 09/06/17 at 11:00; Stop 09/06/17 at 11:29; Status DC Ondansetron HCl (Zofran) 4 mg PRN Q6HRS PRN IV NAUSEA/VOMITING; Start at 07:00; Stop 09/07/17 at 06:59; Status DC Fentanyl Citrate (Fentanyl 2ml Vial) 25 mcg PRN Q5MIN PRN IV MILD PAIN; Start 09/06/17 at 07:00; Stop 09/07/17 at 06:59; Status DC Fentanyl Citrate (Fentanyl 2ml Vial) 50 mcg PRN Q5MIN PRN IV MODERATE PAIN; Start 09/06/17 at 07:00; Stop 09/07/17 at 06:59; Status DC Morphine Sulfate 1 mg PRN Q10MIN PRN IV SEVERE PAIN; Start 09/06/17 at 07:00; Stop 09/07/17 at 06:59; Status DC Ringer's Solution 1,000 ml @ 30 mls/hr Q24H IV Last administered on t 16:14; Start 09/06/17 at 07:00; Stop 09/06/17 at 18:59; Status DC Lidocaine HCl (Xylocaine-Mpf 1% Vial) 2 ml PRN 1X PRN ID IV START; Start 09/06 at 07:00; Stop 09/07/17 at 06:59; Status DC Hydromorphone HCl (Dilaudid) 0.5 mg PRN Q10MIN PRN IV SEV PAIN, Second choice; Start 09/06/17 at 07:00; Stop 09/07/17 at 06:59; Status DC Prochlorperazine Edisylate (Compazine) 5 mg PACU PRN PRN IV NAUSEA, MRX1; Start 09/06/17 at 07:00; Stop 09/07/17 at 06:59; Status DC Cefazolin Sodium 1 gm/Sodium Chloride 500 ml @ 500 mls/hr 1X PERIOP ONCE IRR Last administered on 09/06/17t 12:04; Start 09/06/17 at 10:00; Stop 09/06/17 at 10:59; Status DC Cellulose 1 each STK-MED ONCE .ROUTE ; Start 09/06/17 at 08:46; Stop 09/06/17 at 09:47; Status DC Dexamethasone Sodium Phosphate (Decadron) 20 mg STK-MED ONCE .ROUTE ; Start 10/13 at 10:45; Stop 09/06/17 at 10:46; Status DC Ondansetron HCl (Zofran) 4 mg STK-MED ONCE .ROUTE ; Start 09/06/17 at 10:45; Stop 09/06/17 at 10:46; Status DC Lidocaine HCl (Lidocaine Pf 2% Vial) 5 ml STK-MED ONCE .ROUTE ; Start 09/06/17 at 10:45; Stop 09/06/17 at 10:46; Status DC Etomidate (Amidate) 20 mg STK-MED ONCE IV ; Start 09/06/17 at 10:45; Stop 10/13 at 10:46; Status DC Lidocaine HCl (Xylocaine-Mpf 1% Vial) 5 ml STK-MED ONCE .ROUTE ; Start at 10:45; Stop 09/06/17 at 10:46; Status DC Fentanyl Citrate (Fentanyl 2ml Vial) 100 mcg STK-MED ONCE .ROUTE ; Start at 10:46; Stop 09/06/17 at 10:47; Status DC Rocuronium [place] (Zemuron) 100 mg STK-MED ONCE .ROUTE ; Start 10/11/17 at 10: 46; Stop 09/06/17 at 10:47; Status DC Talc (Sclerosol) 4 gm STK-MED ONCE IPL ; Start 09/06/17 at 09:46; Stop at 10:46; Status DC Phenylephrine HCl (Karri-Synephrine Inj) 10 mg STK-MED ONCE .ROUTE ; Start at 10:47; Stop 09/06/17 at 10:48; Status DC Ephedrine Sulfate (Akovaz) 50 mg STK-MED ONCE .ROUTE ; Start 09/06/17 at 10:48 ; Stop 09/06/17 at 10:49; Status DC Fentanyl Citrate (Fentanyl 2ml Vial) 100 mcg STK-MED ONCE .ROUTE ; Start at 10:57; Stop 09/06/17 at 10:58; Status DC Midazolam HCl (Versed) 2 mg STK-MED ONCE .ROUTE ; Start 09/06/17 at 10:57; Stop 09/06/17 at 10:58; Status DC Phenylephrine HCl (Karri-Synephrine Inj) 10 mg STK-MED ONCE .ROUTE ; Start at 12:20; Stop 09/06/17 at 12:21; Status DC Lidocaine HCl (Xylocaine-Mpf 1% Vial) 5 ml STK-MED ONCE .ROUTE ; Start at 12:35; Stop 09/06/17 at 12:36; Status DC Lidocaine HCl (Xylocaine-Mpf 1% Vial) 5 ml STK-MED ONCE .ROUTE ; Start at 12:36; Stop 09/06/17 at 12:37; Status DC Glycopyrrolate (Robinul) 1 mg STK-MED ONCE .ROUTE ; Start 09/06/17 at 13:52; Stop 09/06/17 at 13:53; Status DC Neostigmine Methylsulfate 5 mg STK-MED ONCE .ROUTE ; Start 09/06/17 at 13:52; Stop 09/06/17 at 13:53; Status DC Lidocaine HCl (Lidocaine Pf 2% Vial) 5 ml STK-MED ONCE .ROUTE ; Start 09/06/17 at 14:44; Stop 09/06/17 at 14:45; Status DC Lidocaine HCl (Lidocaine Pf 2% Vial) 5 ml STK-MED ONCE .ROUTE ; Start 09/06/17 at 14:44; Stop 09/06/17 at 14:45; Status DC Sodium Chloride 36.7 ml/Fentanyl Citrate 250 mcg/ Bupivacaine HCl 8.34 ml/ Epidural Dosage Infused (Pha) 50.04 ml @ 0 mls/hr CONT PRN EP SEE PROTOCOL TABLE Last administered on 09/06/17 18:00; Start 09/06/17 at 16:00; Stop 10/13 at 17:51; Status DC Diphenhydramine HCl (Benadryl) 25 mg PRN Q6HRS PRN PO ITCHING; Start 09/06/17 at 15:30 Famotidine (Pepcid) 20 mg BID PO Last administered on 09/10/17 09:31; Start 09/06/17 at 21:00 Naloxone HCl (Narcan) 0.1 mg PRN Q2MIN PRN IV ADMIN; Start 09/06/17 at 15:30 Info 1 ea DAILY MC Last administered on 09/10/17 09:00; Start 09/07/17 at 09 :00 Info 1 ea DAILY MC ; Start 09/07/17 at 09:00 Sodium Chloride (Normal Saline Flush) 3 ml QSHIFT PRN IV AFTER MEDS AND BLOOD DRAWS; Start 09/06/17 at 15:30 Sodium Chloride 1,000 ml @ 75 mls/hr [id number] IV Last administered on 05:17; Start 09/06/17 at 15:19 Oxycodone/ Acetaminophen (Percocet 5/325) 1 tab PRN Q4HRS PRN PO MILD PAIN, 1ST CHOICE; Start 09/06/17 at 15:30 Oxycodone/ Acetaminophen (Percocet 5/325) 2 tab PRN Q4HRS PRN PO MODERATE PAIN , SEVERE PAIN; Start 09/06/17 at 15:30 Ketorolac Tromethamine (Toradol) 15 mg PRN Q6HRS PRN IV PAIN; Start 09/06/17 at 15:30; Stop 09/11/17 at 15:29 Morphine Sulfate 2 mg PRN Q1HR PRN IV PAIN Last administered on 09/09/17 01: 38; Start 09/06/17 at 15:30 Ondansetron HCl (Zofran) 4 mg PRN Q6HRS PRN IV NAUESA, 1ST CHOICE; Start 09/06 at 15:30 Metoclopramide HCl (Reglan) 5 mg PRN Q6HRS PRN IV Nausea/Vomiting, 2nd Choice; Start 09/06/17 at 15:30 Senna/Docusate Sodium (Senna Plus) 1 tab BID PO Last administered on 09:32; Start 09/06/17 at 21:00 Bisacodyl (Dulcolax Supp) 10 mg PRN DAILY PRN IN CONSTIPATION; Start 09/06/17 at 15:30 Cefazolin Sodium 1 gm/Sodium Chloride 50 ml @ 100 mls/hr Q6H IV Last administered on 09/07/17 06:13; Start 09/06/17 at 18:00; Stop 09/07/17 at 06 :29; Status DC Propofol 20 ml @ As Directed STK-MED ONCE IV ; Start 09/06/17 at 15:29; Stop 09/06/17 at 15:30; Status DC Propofol 20 ml @ As Directed STK-MED ONCE IV ; Start 09/06/17 at 15:30; Stop 09/06/17 at 15:31; Status DC Phenylephrine HCl 20 mg/Sodium Chloride 252 ml @ 37.8 mls/hr 1X ONCE IV Last administered on 09/06/17 17:59; Start 09/06/17 at 16:00; Stop 09/06/17 at 22 :39; Status DC Sodium Chloride 36.7 ml/Fentanyl Citrate 250 mcg/ Bupivacaine HCl 8.34 ml/ Epidural Dosage Infused (Pha) 50.04 ml @ 0 mls/hr CONT PRN EP SEE PROTOCOL TABLE Last administered on 09/07/17 07:28; Start 09/06/17 at 18:00; Stop at 10:17; Status DC Potassium Chloride 100 ml @ 100 mls/hr Q1H IV Last administered on 09/06/17 22:50; Start 09/06/17 at 19:15; Stop 09/06/17 at 23:14; Status DC Magnesium Sulfate/ Dextrose 50 ml @ 25 mls/hr 1X ONCE IV Last administered on 09/06/17 20:12; Start 09/06/17 at 19:15; Stop 09/06/17 at 21:14; Status DC Phenylephrine HCl 20 mg/Sodium Chloride 252 ml @ 0 mls/hr CONT PRN IV HYPOTENSION Last administered on 09/07/17 09:10; Start 09/06/17 at 23:30 Thiamine Mononitrate (Vitamin B-1) 100 mg DAILY PO Last administered on 09:30; Start 09/07/17 at 11:30 Albumin Human 500 ml @ 125 mls/hr 1X ONCE IV Last administered on 09/07/17 12:04; Start 09/07/17 at 12:00; Stop 09/07/17 at 15:59; Status DC Heparin Sodium (Porcine) (Heparin Sq) 5,000 unit Q8HRS SQ Last administered on 09/10/17 05:18; Start 09/07/17 at 16:30 Metoprolol Tartrate (Lopressor) 25 mg BID PO Last administered on 09/10/17 09 :31; Start 09/07/17 at 15:00 Lorazepam (Ativan) 0.5 mg 1X ONCE IV ; Start 09/08/17 at 02:30; Stop at 02:31; Status Cancel Lorazepam (Ativan) 1 mg 1X ONCE IV Last administered on 09/08/17 02:16; Start 09/08/17 at 02:15; Stop 09/08/17 at 02:21; Status DC Lorazepam (Ativan) 1 mg PRN Q2HR PRN IV ANXIETY / AGITATION Last administered on 09/08/17 05:39; Start 09/08/17 at 04:30 Potassium Chloride (Klor-Con) 40 meq 1X ONCE PO Last administered on 12:58; Start 09/09/17 at 08:00; Stop 09/09/17 at 08:01; Status DC Potassium Chloride (Klor-Con) 40 meq 1X ONCE PO ; Start 09/09/17 at 08:30; Stop 09/09/17 at 08:31; Status DC Potassium Chloride (Klor-Con) 40 meq 1X ONCE PO Last administered on 09:34; Start 09/10/17 at 09:45; Stop 09/10/17 at 09:46; Status DC Active Scripts Active Reported Extra Strength Non-Aspirin (Acetaminophen) 500 Mg Tablet 500 Mg PO BID PRN Multivitamins (Multivitamin) 1 Each Tablet 1 Tab PO DAILY Melatonin 3 Mg Tablet 1 Tab PO QHS Vitals/I & O Vital Sign - Last 24 Hours 09/09/17 09/09/17 09/09/17 09/09/17 14:00 15:00 16:00 16:00 Temp 98.5 98.5 Pulse 106 106 116 Resp 14 16 20 B/P (MAP) 98/73 (81) 98/73 (81) 84/58 (67) Pulse Ox 98 94 92 O2 Delivery Nasal Cannula Nasal Cannula Nasal Cannula Nasal Cannula O2 Flow Rate 2.0 2.0 2.0 2.0 09/09/17 09/09/17 09/09/17 09/09/17 17:00 18:00 19:00 20:00 Temp 98.3 97.8 98.3 97.8 Pulse 88 87 86 85 Resp 16 20 20 20 B/P (MAP) 109/80 (90) 103/74 (84) 108/78 (88) 116/74 (88) Pulse Ox 98 99 99 94 O2 Delivery Nasal Cannula Nasal Cannula Nasal Cannula Nasal Cannula O2 Flow Rate 2.0 2.0 2.0 2.0 09/09/17 09/09/17 09/09/17 09/09/17 20:00 21:00 21:00 22:00 Pulse 86 86 Resp 18 18 B/P (MAP) 114/73 (87) 129/90 (103) Pulse Ox 99 99 O2 Delivery Nasal Cannula Nasal Cannula Nasal Cannula Nasal Cannula O2 Flow Rate 2.0 2.0 2.0 09/09/17 09/10/17 09/10/17 09/10/17 23:00 00:00 00:00 01:00 Temp 97.4 97.4 Pulse 89 85 89 Resp 18 20 18 B/P (MAP) 113/78 (90) 123/74 (90) 140/95 (110) Pulse Ox 99 94 96 O2 Delivery Nasal Cannula Nasal Cannula Nasal Cannula Nasal Cannula O2 Flow Rate 2.0 2.0 2.0 2.0 09/10/17 09/10/17 09/10/17 09/10/17 02:00 03:00 04:00 04:00 Temp 97.9 97.9 Pulse 100 95 85 Resp 18 18 19 B/P (MAP) 155/108 (124) 117/72 (87) Pulse Ox 100 97 94 O2 Delivery Nasal Cannula Nasal Cannula Nasal Cannula Nasal Cannula O2 Flow Rate 2.0 2.0 2.0 2.0 09/10/17 09/10/17 09/10/17 09/10/17 05:00 06:00 07:00 08:00 Pulse 101 99 112 Resp 18 18 26 B/P (MAP) 148/86 (106) 135/82 (99) 141/85 (103) Pulse Ox 98 98 97 O2 Delivery Nasal Cannula Nasal Cannula Room Air Room Air O2 Flow Rate 2.0 2.0 09/10/17 09/10/17 09/10/17 09/10/17 08:00 09:00 09:31 10:00 Temp 98.0 98.0 Pulse 96 110 116 100 Resp 11 18 16 B/P (MAP) 137/90 (106) 155/100 (118) 155/100 111/79 (90) Pulse Ox 99 99 100 O2 Delivery Room Air Room Air Room Air 09/10/17 11:00 Pulse 83 Resp 16 B/P (MAP) 95/67 (76) Pulse Ox 100 O2 Delivery Room Air Nutrition Consultation Dietary Evaluation: Recommendations by RD: Increase Calorie Intake, Protein supplementation Comments: encourage protein supplementation between meals Expected Outcomes/Goals: to meet > 75% est nutr needs Malnutrition Findings: Body Fat Depletion (Non Severe: Mod to Severe Weight Status: Underweight Fluid Accumulation (Non-Severe: Mild depletion JENNIFER PAGAN III DO Sep 10, 2017 13:21
--- NOTE | 2017-09-10 16:18 | PDOC ---
PULMONARY PROGRESS NOTES Subjective PT NO RESP DISTRESS Vitals Vital Signs Date Time Temp Pulse Resp B/P (MAP) Pulse Ox O2 Delivery O2 Flow Rate FiO2 09/10/17 11:00 83 16 95/67 (76) 100 Room Air 09/10/17 08:00 98.0 98.0 09/10/17 06:00 2.0 ROS: No Nausea, No Chest Pain, No Abdominal Pain, No Increase Cough General: Alert, No acute distress HEENT: Other Lungs: Clear (breath sounds improving), Wheezing Cardiovascular: S1, S2 Abdomen: Soft, Non-tender, Other (no mass) Neuro Exam: Alert, Oriented Extremities: No Edema Skin: Warm Labs Laboratory Tests Test 09/09/17 06:50 09/10/17 06:30 White Blood Count 14.8 x10^3/uL (4.0-11.0) 15.2 x10^3/uL (4.0-11.0) Red Blood Count 3.65 x10^6/uL (4.30-5.70) 3.73 x10^6/uL (4.30-5.70) Hemoglobin 12.7 g/dL (13.0-17.5) 12.8 g/dL (13.0-17.5) Hematocrit 37.9 % (39.0-53.0) 39.6 % (39.0-53.0) Mean Corpuscular Volume 104 fL (79-100) 106 fL (79-100) Mean Corpuscular Hemoglobin 35 pg (25-35) 34 pg (25-35) Mean Corpuscular Hemoglobin Concent 33 g/dL (31-37) 32 g/dL (31-37) Red Cell Distribution Width 15.2 % (11.5-14.5) 15.6 % (11.5-14.5) Platelet Count 334 x10^3/uL (140-400) 367 x10^3/uL (140-400) Neutrophils (%) (Auto) 75 % (31-73) 80 % (31-73) Lymphocytes (%) (Auto) 9 % (24-48) 7 % (24-48) Monocytes (%) (Auto) 15 % (0-9) 12 % (0-9) Eosinophils (%) (Auto) 0 % (0-3) 0 % (0-3) Basophils (%) (Auto) 1 % (0-3) 1 % (0-3) Neutrophils # (Auto) 11.1 x10^3uL (1.8-7.7) 12.2 x10^3uL (1.8-7.7) Lymphocytes # (Auto) 1.3 x10^3/uL (1.0-4.8) 1.0 x10^3/uL (1.0-4.8) Monocytes # (Auto) 2.3 x10^3/uL (0.0-1.1) 1.8 x10^3/uL (0.0-1.1) Eosinophils # (Auto) 0.1 x10^3/uL (0.0-0.7) 0.0 x10^3/uL (0.0-0.7) Basophils # (Auto) 0.1 x10^3/uL (0.0-0.2) 0.2 x10^3/uL (0.0-0.2) Sodium Level 136 mmol/L (136-145) 138 mmol/L (136-145) Potassium Level 3.3 mmol/L (3.5-5.1) 3.4 mmol/L (3.5-5.1) Chloride Level 103 mmol/L (98-107) 105 mmol/L (98-107) Carbon Dioxide Level 27 mmol/L (21-32) 26 mmol/L (21-32) Anion Gap 6 (6-14) 7 (6-14) Blood Urea Nitrogen 5 mg/dL (8-26) 6 mg/dL (8-26) Creatinine 0.3 mg/dL (0.7-1.3) 0.4 mg/dL (0.7-1.3) Estimated GFR (Cockcroft-Gault) 298.2 213.9 Glucose Level 60 mg/dL (70-99) 77 mg/dL (70-99) Calcium Level 7.8 mg/dL (8.5-10.1) 7.7 mg/dL (8.5-10.1) Magnesium Level 1.8 mg/dL (1.8-2.4) Laboratory Tests Test 09/10/17 06:30 White Blood Count 15.2 x10^3/uL (4.0-11.0) Red Blood Count 3.73 x10^6/uL (4.30-5.70) Hemoglobin 12.8 g/dL (13.0-17.5) Hematocrit 39.6 % (39.0-53.0) Mean Corpuscular Volume 106 fL (79-100) Mean Corpuscular Hemoglobin 34 pg (25-35) Mean Corpuscular Hemoglobin Concent 32 g/dL (31-37) Red Cell Distribution Width 15.6 % (11.5-14.5) Platelet Count 367 x10^3/uL (140-400) Neutrophils (%) (Auto) 80 % (31-73) Lymphocytes (%) (Auto) 7 % (24-48) Monocytes (%) (Auto) 12 % (0-9) Eosinophils (%) (Auto) 0 % (0-3) Basophils (%) (Auto) 1 % (0-3) Neutrophils # (Auto) 12.2 x10^3uL (1.8-7.7) Lymphocytes # (Auto) 1.0 x10^3/uL (1.0-4.8) Monocytes # (Auto) 1.8 x10^3/uL (0.0-1.1) Eosinophils # (Auto) 0.0 x10^3/uL (0.0-0.7) Basophils # (Auto) 0.2 x10^3/uL (0.0-0.2) Sodium Level 138 mmol/L (136-145) Potassium Level 3.4 mmol/L (3.5-5.1) Chloride Level 105 mmol/L (98-107) Carbon Dioxide Level 26 mmol/L (21-32) Anion Gap 7 (6-14) Blood Urea Nitrogen 6 mg/dL (8-26) Creatinine 0.4 mg/dL (0.7-1.3) Estimated GFR (Cockcroft-Gault) 213.9 Glucose Level 77 mg/dL (70-99) Calcium Level 7.7 mg/dL (8.5-10.1) Magnesium Level 1.8 mg/dL (1.8-2.4) Medications Active Scripts Medications Dose Route/Sig Max Daily Dose Days Date Category Extra Strength Non-Aspirin (Acetaminophen) 500 Mg Tablet 500 Mg PO BID PRN 09/04/17 Reported Multivitamins (Multivitamin) 1 Each Tablet 1 Tab PO DAILY 09/04/17 Reported Melatonin 3 Mg Tablet 1 Tab PO QHS 08/07/17 Reported Comments cxr reviewed, interval removal of one of the left chest tubes. Persistent volume loss in the left lung probably slightly worse than on the previous exam. Findings likely reflect atelectasis. Pneumonia is not entirely excluded. No appreciable pneumothorax seen Impression . 1. Progressive dyspnea secondary to increasing right-sided pleural effusion. S/ P DECORTICATION 2. Right-sided pleural effusion, status post previous thoracentesis. Cytology was negative at that time, cultures were negative. 3. History of lung cancer diagnosed 4 years ago, status post wedge resection on the right with no subsequent chemoradiation. 4. No history of congestive heart failure. 5. Severe protein malnutrition, present upon admission. 6. Tobacco dependence in remission. 7. Systemic inflammatory response syndrome. Plan . OFF O2, TRANSFER S/P SURGICAL INTERVENTION,TUBES REMOVED ALCOHOL WITHDRAWAL PROTOCOL CXR REVIEWED D/W HERNAN GARZA MD Sep 10, 2017 16:18
[2017-09-11] VITALS (8 sets, daily range): BP systolic 110–141; BP diastolic 76–89
[2017-09-11] MEDS: IV NORMAL SALINE 1000ML BAG 1,000 ML IV SCH ×2 (01:59→15:19)
[2017-09-11] MEDS: HEPARIN PF for SUB-Q USE 5,000 UNIT/0.5 ML VIAL. SQ SCH ×3 (05:39→22:00)
[2017-09-11 06:17] LABS: BASO # 0.1 x10^3/uL (0.0-0.2); BASO % 1 % (0-3); EOS % 0 % (0-3); HEMATOCRIT 34.2 % (39.0-53.0); HEMOGLOBIN 11.7 g/dL (13.0-17.5); LYMPH % 11 % (24-48); MEAN CORPUSCULAR HEMOGLOBIN 35 pg (25-35); MEAN CORPUSCULAR HGB CONC 34 g/dL (31-37); MEAN CORPUSCULAR VOLUME 102 fL (79-100); MONO % 16 % (0-9); NEUT % 73 % (31-73); PLATELET COUNT 407 x10^3/uL (140-400); RED BLOOD COUNT 3.37 x10^6/uL (4.30-5.70); RED CELL DISTRIBUTION WIDTH 15.3 % (11.5-14.5); WHITE BLOOD COUNT 9.4 x10^3/uL (4.0-11.0)
[2017-09-11 06:49] LABS: CALCIUM 7.6 mg/dL (8.5-10.1); CREATININE 0.4 mg/dL (0.7-1.3); GFR 213.9; POTASSIUM 3.5 mmol/L (3.5-5.1)
[2017-09-11] MEDS: FAMOTIDINE 20 MG TABLET. PO SCH ×2 (08:05→21:17)
[2017-09-11] MEDS: THIAMINE 100 MG TABLET. PO SCH (08:05)
[2017-09-11] MEDS: MULTIVITAMIN with MINERAL TABLET. PO SCH (08:05)
[2017-09-11] MEDS: SENNOSIDES/DOCUSATE 8.6/50MG TABLET. PO SCH ×2 (08:05→21:00)
[2017-09-11] MEDS: FOLIC ACID 1 MG TABLET. PO SCH (08:05)
[2017-09-11] MEDS: METOPROLOL TART IMMED RELEASE 25 MG TABLET. PO SCH ×2 (08:06→21:17)
[2017-09-11] MEDS: ELECTROLYTE (ICU) PROTOCOL. MC SCH (08:09)
[2017-09-11] MEDS: ELECTROLYTE (NON-ICU) PROTOCOL MC SCH (08:09)
--- NOTE | 2017-09-11 11:51 | PDOC ---
PROGRESS NOTES Chief Complaint Chief Complaint Acute on chronic hypoxic respir failure dyspnea pleural effusions edema S/P thoracentesis converted to thoracotomy Fibrothorax Chest tube placement PMH: COPD Lung CA Alcoholism DM History of Present Illness History of Present Illness Pt was seen in cardiovascular care unit; lying in bed comfortably. He appears to be in NAD and has no new complaints at this time. He denies chest pain, N/V, or diarrhea. Discussed plan of care with RN and pt. Vitals Vitals Vital Signs Date Time Temp Pulse Resp B/P (MAP) Pulse Ox O2 Delivery O2 Flow Rate FiO2 09/11/17 09:37 Nasal Cannula 1.5 09/11/17 08:12 97.5 107 20 133/87 (102) 97.5 09/11/17 07:30 96 Physical Exam General: Alert, Oriented X3, Cooperative, No acute distress Heart: Regular rate, Normal S1, Normal S2 Lungs: Clear (breath sounds improving), Wheezing Abdomen: Soft, No tenderness, No hepatosplenomegaly Extremities: No clubbing, No cyanosis, No edema, Normal pulses Skin: No rashes, No breakdown, No significant lesion Labs LABS Laboratory Tests Test 09/11/17 06:00 White Blood Count 9.4 x10^3/uL (4.0-11.0) Red Blood Count 3.37 x10^6/uL (4.30-5.70) Hemoglobin 11.7 g/dL (13.0-17.5) Hematocrit 34.2 % (39.0-53.0) Mean Corpuscular Volume 102 fL (79-100) Mean Corpuscular Hemoglobin 35 pg (25-35) Mean Corpuscular Hemoglobin Concent 34 g/dL (31-37) Red Cell Distribution Width 15.3 % (11.5-14.5) Platelet Count 407 x10^3/uL (140-400) Neutrophils (%) (Auto) 73 % (31-73) Lymphocytes (%) (Auto) 11 % (24-48) Monocytes (%) (Auto) 16 % (0-9) Eosinophils (%) (Auto) 0 % (0-3) Basophils (%) (Auto) 1 % (0-3) Neutrophils # (Auto) 6.8 x10^3uL (1.8-7.7) Lymphocytes # (Auto) 1.0 x10^3/uL (1.0-4.8) Monocytes # (Auto) 1.5 x10^3/uL (0.0-1.1) Eosinophils # (Auto) 0.0 x10^3/uL (0.0-0.7) Basophils # (Auto) 0.1 x10^3/uL (0.0-0.2) Sodium Level 137 mmol/L (136-145) Potassium Level 3.5 mmol/L (3.5-5.1) Chloride Level 104 mmol/L (98-107) Carbon Dioxide Level 28 mmol/L (21-32) Anion Gap 5 (6-14) Blood Urea Nitrogen 4 mg/dL (8-26) Creatinine 0.4 mg/dL (0.7-1.3) Estimated GFR (Cockcroft-Gault) 213.9 Glucose Level 81 mg/dL (70-99) Calcium Level 7.6 mg/dL (8.5-10.1) Review of Systems Review of Systems Pt is resting comfortably and looking forward to discharge; chest pain and SOB have improved significantly since admission Assessment and Plan Assessmemt and Plan Problems Medical Problems: (1) Leukocytosis Status: Acute (2) Parapneumonic effusion Status: Acute Acute on chronic hypoxic respiratory failure dyspnea pleural effusions edema S/P thoracentesis converted to thoracotomy Fibrothorax Chest tube placement Plan: Wound care Cardiac Monitoring PT/OT Recheck labs Discharge to SNU soon Problems: Comment Review of Relevant I have reviewed the following items tita (where applicable) has been applied. Labs Laboratory Tests Test 09/10/17 06:30 09/11/17 06:00 White Blood Count 15.2 x10^3/uL (4.0-11.0) 9.4 x10^3/uL (4.0-11.0) Red Blood Count 3.73 x10^6/uL (4.30-5.70) 3.37 x10^6/uL (4.30-5.70) Hemoglobin 12.8 g/dL (13.0-17.5) 11.7 g/dL (13.0-17.5) Hematocrit 39.6 % (39.0-53.0) 34.2 % (39.0-53.0) Mean Corpuscular Volume 106 fL (79-100) 102 fL (79-100) Mean Corpuscular Hemoglobin 34 pg (25-35) 35 pg (25-35) Mean Corpuscular Hemoglobin Concent 32 g/dL (31-37) 34 g/dL (31-37) Red Cell Distribution Width 15.6 % (11.5-14.5) 15.3 % (11.5-14.5) Platelet Count 367 x10^3/uL (140-400) 407 x10^3/uL (140-400) Neutrophils (%) (Auto) 80 % (31-73) 73 % (31-73) Lymphocytes (%) (Auto) 7 % (24-48) 11 % (24-48) Monocytes (%) (Auto) 12 % (0-9) 16 % (0-9) Eosinophils (%) (Auto) 0 % (0-3) 0 % (0-3) Basophils (%) (Auto) 1 % (0-3) 1 % (0-3) Neutrophils # (Auto) 12.2 x10^3uL (1.8-7.7) 6.8 x10^3uL (1.8-7.7) Lymphocytes # (Auto) 1.0 x10^3/uL (1.0-4.8) 1.0 x10^3/uL (1.0-4.8) Monocytes # (Auto) 1.8 x10^3/uL (0.0-1.1) 1.5 x10^3/uL (0.0-1.1) Eosinophils # (Auto) 0.0 x10^3/uL (0.0-0.7) 0.0 x10^3/uL (0.0-0.7) Basophils # (Auto) 0.2 x10^3/uL (0.0-0.2) 0.1 x10^3/uL (0.0-0.2) Sodium Level 138 mmol/L (136-145) 137 mmol/L (136-145) Potassium Level 3.4 mmol/L (3.5-5.1) 3.5 mmol/L (3.5-5.1) Chloride Level 105 mmol/L (98-107) 104 mmol/L (98-107) Carbon Dioxide Level 26 mmol/L (21-32) 28 mmol/L (21-32) Anion Gap 7 (6-14) 5 (6-14) Blood Urea Nitrogen 6 mg/dL (8-26) 4 mg/dL (8-26) Creatinine 0.4 mg/dL (0.7-1.3) 0.4 mg/dL (0.7-1.3) Estimated GFR (Cockcroft-Gault) 213.9 213.9 Glucose Level 77 mg/dL (70-99) 81 mg/dL (70-99) Calcium Level 7.7 mg/dL (8.5-10.1) 7.6 mg/dL (8.5-10.1) Magnesium Level 1.8 mg/dL (1.8-2.4) Laboratory Tests Test 09/11/17 06:00 White Blood Count 9.4 x10^3/uL (4.0-11.0) Red Blood Count 3.37 x10^6/uL (4.30-5.70) Hemoglobin 11.7 g/dL (13.0-17.5) Hematocrit 34.2 % (39.0-53.0) Mean Corpuscular Volume 102 fL (79-100) Mean Corpuscular Hemoglobin 35 pg (25-35) Mean Corpuscular Hemoglobin Concent 34 g/dL (31-37) Red Cell Distribution Width 15.3 % (11.5-14.5) Platelet Count 407 x10^3/uL (140-400) Neutrophils (%) (Auto) 73 % (31-73) Lymphocytes (%) (Auto) 11 % (24-48) Monocytes (%) (Auto) 16 % (0-9) Eosinophils (%) (Auto) 0 % (0-3) Basophils (%) (Auto) 1 % (0-3) Neutrophils # (Auto) 6.8 x10^3uL (1.8-7.7) Lymphocytes # (Auto) 1.0 x10^3/uL (1.0-4.8) Monocytes # (Auto) 1.5 x10^3/uL (0.0-1.1) Eosinophils # (Auto) 0.0 x10^3/uL (0.0-0.7) Basophils # (Auto) 0.1 x10^3/uL (0.0-0.2) Sodium Level 137 mmol/L (136-145) Potassium Level 3.5 mmol/L (3.5-5.1) Chloride Level 104 mmol/L (98-107) Carbon Dioxide Level 28 mmol/L (21-32) Anion Gap 5 (6-14) Blood Urea Nitrogen 4 mg/dL (8-26) Creatinine 0.4 mg/dL (0.7-1.3) Estimated GFR (Cockcroft-Gault) 213.9 Glucose Level 81 mg/dL (70-99) Calcium Level 7.6 mg/dL (8.5-10.1) Microbiology 09/04/17 Blood Culture - Final, Complete NO GROWTH AFTER 5 DAYS 09/06/17 AFB Specimen Processing Tissue - Final, Resulted 09/06/17 Acid Fast Bacilli Culture, Resulted Pending 09/06/17 Gram Stain - Final, Resulted 09/06/17 Fungal Culture, Resulted Pending 09/06/17 Fungal Culture Result 1, Resulted Pending 09/06/17 AFB Specimen Processing Tissue - Final, Resulted 09/06/17 Acid Fast Bacilli Culture, Resulted Pending 09/06/17 Gram Stain - Final, Resulted 09/06/17 Fungal Culture, Resulted Pending 09/06/17 Fungal Culture Result 1, Resulted Pending Medications Current Medications Levofloxacin/ Dextrose 100 ml @ 100 mls/hr 1X ONCE IV Last administered on 14:23; Start 09/04/17 at 14:15; Stop 09/04/17 at 15:14; Status DC Ondansetron HCl (Zofran) 4 mg PRN Q8HRS PRN IV NAUSEA/VOMITING; Start 09/04/17 at 14:15; Stop 09/05/17 at 14:14; Status DC Fentanyl Citrate (Fentanyl 2ml Vial) 50 mcg PRN Q2HR PRN IV PAIN; Start at 14:15; Stop 09/05/17 at 14:14; Status DC Furosemide (Lasix) 40 mg 1X ONCE IVP Last administered on 09/04/17 14:23; Start 09/04/17 at 14:15; Stop 09/04/17 at 14:16; Status DC Acetaminophen (Tylenol) 500 mg PRN BID PRN PO PAIN Last administered on 13:30; Start 09/04/17 at 18:00 Non-Formulary Medication 1 tab QHS PO ; Start 09/04/17 at 21:00; Status UNV Multivitamins (Thera M Plus) 1 tab DAILY PO Last administered on 09/11/17 08: 05; Start 09/04/17 at 18:30 Folic Acid (Folic Acid) 1 mg DAILY PO Last administered on 09/11/17 08:05; Start 09/04/17 at 18:30 Thiamine HCl 100 mg/Sodium Chloride 51 ml @ 100 mls/hr 1X ONCE IV Last administered on 09/04/17 22:37; Start 09/04/17 at 18:30; Stop 09/04/17 at 19:00 ; Status DC Lorazepam (Ativan) 2 mg PRN Q1HR PRN IV For CIWA 8-14 Last administered on 23:25; Start 09/04/17 at 18:30; Stop 09/09/17 at 10:42; Status DC Lorazepam (Ativan) 4 mg PRN Q1HR PRN IV For CIWA 15 or greater; Start 09/04/17 at 18:30; Stop 09/09/17 at 10:42; Status DC Zolpidem Tartrate (Ambien) 5 mg PRN QHS PRN PO INSOMNIA Last administered on 23:15; Start 09/04/17 at 23:15 Lidocaine/Sodium Bicarbonate (Buffered Lidocaine 1%) 20 ml STK-MED ONCE IJ ; Start 09/05/17 at 09:03; Stop 09/05/17 at 09:04; Status DC Lidocaine/Sodium Bicarbonate (Buffered Lidocaine 1%) 20 ml 1X ONCE IJ Last administered on 09/05/17 09:34; Start 09/05/17 at 09:30; Stop 09/05/17 at 09 :31; Status DC Iohexol (Omnipaque 300 Mg/ml) 75 ml 1X ONCE IV Last administered on 14:15; Start 09/05/17 at 14:15; Stop 09/05/17 at 14:16; Status DC Potassium Chloride (Klor-Con) 40 meq 1X ONCE PO Last administered on 18:19; Start 09/05/17 at 14:15; Stop 09/05/17 at 14:16; Status DC Info (Do NOT chart on this entry -- for MONITORING) 1 each PRN DAILY PRN MC SEE COMMENTS; Start 09/05/17 at 14:15; Stop 09/07/17 at 14:14; Status DC Cefazolin Sodium 1 gm/Sodium Chloride 50 ml @ 100 mls/hr 1X ONCE IV ; Start 09/06/17 at 10:00; Stop 09/06/17 at 10:29; Status UNV Cefazolin Sodium 50 ml @ 100 mls/hr 1X ONCE IV ; Start 09/06/17 at 11:00; Stop 09/06/17 at 11:29; Status DC Ondansetron HCl (Zofran) 4 mg PRN Q6HRS PRN IV NAUSEA/VOMITING; Start at 07:00; Stop 09/07/17 at 06:59; Status DC Fentanyl Citrate (Fentanyl 2ml Vial) 25 mcg PRN Q5MIN PRN IV MILD PAIN; Start 09/06/17 at 07:00; Stop 09/07/17 at 06:59; Status DC Fentanyl Citrate (Fentanyl 2ml Vial) 50 mcg PRN Q5MIN PRN IV MODERATE PAIN; Start 09/06/17 at 07:00; Stop 09/07/17 at 06:59; Status DC Morphine Sulfate 1 mg PRN Q10MIN PRN IV SEVERE PAIN; Start 09/06/17 at 07:00; Stop 09/07/17 at 06:59; Status DC Ringer's Solution 1,000 ml @ 30 mls/hr Q24H IV Last administered on t 16:14; Start 09/06/17 at 07:00; Stop 09/06/17 at 18:59; Status DC Lidocaine HCl (Xylocaine-Mpf 1% Vial) 2 ml PRN 1X PRN ID IV START; Start 09/06 at 07:00; Stop 09/07/17 at 06:59; Status DC Hydromorphone HCl (Dilaudid) 0.5 mg PRN Q10MIN PRN IV SEV PAIN, Second choice; Start 09/06/17 at 07:00; Stop 09/07/17 at 06:59; Status DC Prochlorperazine Edisylate (Compazine) 5 mg PACU PRN PRN IV NAUSEA, MRX1; Start 09/06/17 at 07:00; Stop 09/07/17 at 06:59; Status DC Cefazolin Sodium 1 gm/Sodium Chloride 500 ml @ 500 mls/hr 1X PERIOP ONCE IRR Last administered on 09/06/17t 12:04; Start 09/06/17 at 10:00; Stop 09/06/17 at 10:59; Status DC Cellulose 1 each STK-MED ONCE .ROUTE ; Start 09/06/17 at 08:46; Stop 09/06/17 at 09:47; Status DC Dexamethasone Sodium Phosphate (Decadron) 20 mg STK-MED ONCE .ROUTE ; Start 10/13 at 10:45; Stop 09/06/17 at 10:46; Status DC Ondansetron HCl (Zofran) 4 mg STK-MED ONCE .ROUTE ; Start 09/06/17 at 10:45; Stop 09/06/17 at 10:46; Status DC Lidocaine HCl (Lidocaine Pf 2% Vial) 5 ml STK-MED ONCE .ROUTE ; Start 09/06/17 at 10:45; Stop 09/06/17 at 10:46; Status DC Etomidate (Amidate) 20 mg STK-MED ONCE IV ; Start 09/06/17 at 10:45; Stop 10/13 at 10:46; Status DC Lidocaine HCl (Xylocaine-Mpf 1% Vial) 5 ml STK-MED ONCE .ROUTE ; Start at 10:45; Stop 09/06/17 at 10:46; Status DC Fentanyl Citrate (Fentanyl 2ml Vial) 100 mcg STK-MED ONCE .ROUTE ; Start at 10:46; Stop 09/06/17 at 10:47; Status DC Rocuronium Levasy (Zemuron) 100 mg STK-MED ONCE .ROUTE ; Start 09/06/17 at 10: 46; Stop 09/06/17 at 10:47; Status DC Talc (Sclerosol) 4 gm STK-MED ONCE IPL ; Start 09/06/17 at 09:46; Stop at 10:46; Status DC Phenylephrine HCl (Karri-Synephrine Inj) 10 mg STK-MED ONCE .ROUTE ; Start at 10:47; Stop 09/06/17 at 10:48; Status DC Ephedrine Sulfate (Akovaz) 50 mg STK-MED ONCE .ROUTE ; Start 09/06/17 at 10:48 ; Stop 09/06/17 at 10:49; Status DC Fentanyl Citrate (Fentanyl 2ml Vial) 100 mcg STK-MED ONCE .ROUTE ; Start at 10:57; Stop 09/06/17 at 10:58; Status DC Midazolam HCl (Versed) 2 mg STK-MED ONCE .ROUTE ; Start 09/06/17 at 10:57; Stop 09/06/17 at 10:58; Status DC Phenylephrine HCl (Karri-Synephrine Inj) 10 mg STK-MED ONCE .ROUTE ; Start at 12:20; Stop 09/06/17 at 12:21; Status DC Lidocaine HCl (Xylocaine-Mpf 1% Vial) 5 ml STK-MED ONCE .ROUTE ; Start at 12:35; Stop 09/06/17 at 12:36; Status DC Lidocaine HCl (Xylocaine-Mpf 1% Vial) 5 ml STK-MED ONCE .ROUTE ; Start at 12:36; Stop 09/06/17 at 12:37; Status DC Glycopyrrolate (Robinul) 1 mg STK-MED ONCE .ROUTE ; Start 09/06/17 at 13:52; Stop 09/06/17 at 13:53; Status DC Neostigmine Methylsulfate 5 mg STK-MED ONCE .ROUTE ; Start 09/06/17 at 13:52; Stop 09/06/17 at 13:53; Status DC Lidocaine HCl (Lidocaine Pf 2% Vial) 5 ml STK-MED ONCE .ROUTE ; Start 09/06/17 at 14:44; Stop 09/06/17 at 14:45; Status DC Lidocaine HCl (Lidocaine Pf 2% Vial) 5 ml STK-MED ONCE .ROUTE ; Start 09/06/17 at 14:44; Stop 09/06/17 at 14:45; Status DC Sodium Chloride 36.7 ml/Fentanyl Citrate 250 mcg/ Bupivacaine HCl 8.34 ml/ Epidural Dosage Infused (Pha) 50.04 ml @ 0 mls/hr CONT PRN EP SEE PROTOCOL TABLE Last administered on 09/06/17t 18:00; Start 09/06/17 at 16:00; Stop 10/13 at 17:51; Status DC Diphenhydramine HCl (Benadryl) 25 mg PRN Q6HRS PRN PO ITCHING; Start 09/06/17 at 15:30 Famotidine (Pepcid) 20 mg BID PO Last administered on 09/11/17 08:05; Start 09/06/17 at 21:00 Naloxone HCl (Narcan) 0.1 mg PRN Q2MIN PRN IV ADMIN; Start 09/06/17 at 15:30 Info 1 ea DAILY MC Last administered on 09/10/17 09:00; Start 09/07/17 at 09 :00 Info 1 ea DAILY MC ; Start 09/07/17 at 09:00 Sodium Chloride (Normal Saline Flush) 3 ml QSHIFT PRN IV AFTER MEDS AND BLOOD DRAWS; Start 09/06/17 at 15:30 Sodium Chloride 1,000 ml @ 75 mls/hr [id number] IV Last administered on 05:17; Start 09/06/17 at 15:19 Oxycodone/ Acetaminophen (Percocet 5/325) 1 tab PRN Q4HRS PRN PO MILD PAIN, 1ST CHOICE; Start 09/06/17 at 15:30 Oxycodone/ Acetaminophen (Percocet 5/325) 2 tab PRN Q4HRS PRN PO MODERATE PAIN , SEVERE PAIN; Start 09/06/17 at 15:30 Ketorolac Tromethamine (Toradol) 15 mg PRN Q6HRS PRN IV PAIN; Start 09/06/17 at 15:30; Stop 09/11/17 at 15:29 Morphine Sulfate 2 mg PRN Q1HR PRN IV PAIN Last administered on 09/09/17 01: 38; Start 09/06/17 at 15:30 Ondansetron HCl (Zofran) 4 mg PRN Q6HRS PRN IV NAUESA, 1ST CHOICE; Start 09/06 at 15:30 Metoclopramide HCl (Reglan) 5 mg PRN Q6HRS PRN IV Nausea/Vomiting, 2nd Choice; Start 09/06/17 at 15:30 Senna/Docusate Sodium (Senna Plus) 1 tab BID PO Last administered on 08:05; Start 09/06/17 at 21:00 Bisacodyl (Dulcolax Supp) 10 mg PRN DAILY PRN IA CONSTIPATION; Start 09/06/17 at 15:30 Cefazolin Sodium 1 gm/Sodium Chloride 50 ml @ 100 mls/hr Q6H IV Last administered on 09/07/17 06:13; Start 09/06/17 at 18:00; Stop 09/07/17 at 06 :29; Status DC Propofol 20 ml @ As Directed STK-MED ONCE IV ; Start 09/06/17 at 15:29; Stop 09/06/17 at 15:30; Status DC Propofol 20 ml @ As Directed STK-MED ONCE IV ; Start 09/06/17 at 15:30; Stop 09/06/17 at 15:31; Status DC Phenylephrine HCl 20 mg/Sodium Chloride 252 ml @ 37.8 mls/hr 1X ONCE IV Last administered on 09/06/17 17:59; Start 09/06/17 at 16:00; Stop 09/06/17 at 22 :39; Status DC Sodium Chloride 36.7 ml/Fentanyl Citrate 250 mcg/ Bupivacaine HCl 8.34 ml/ Epidural Dosage Infused (Pha) 50.04 ml @ 0 mls/hr CONT PRN EP SEE PROTOCOL TABLE Last administered on 09/07/17 07:28; Start 09/06/17 at 18:00; Stop at 10:17; Status DC Potassium Chloride 100 ml @ 100 mls/hr Q1H IV Last administered on 09/06/17 22:50; Start 09/06/17 at 19:15; Stop 09/06/17 at 23:14; Status DC Magnesium Sulfate/ Dextrose 50 ml @ 25 mls/hr 1X ONCE IV Last administered on 09/06/17 20:12; Start 09/06/17 at 19:15; Stop 09/06/17 at 21:14; Status DC Phenylephrine HCl 20 mg/Sodium Chloride 252 ml @ 0 mls/hr CONT PRN IV HYPOTENSION Last administered on 09/07/17 09:10; Start 09/06/17 at 23:30 Thiamine Mononitrate (Vitamin B-1) 100 mg DAILY PO Last administered on 08:05; Start 09/07/17 at 11:30 Albumin Human 500 ml @ 125 mls/hr 1X ONCE IV Last administered on 09/07/17 12:04; Start 09/07/17 at 12:00; Stop 09/07/17 at 15:59; Status DC Heparin Sodium (Porcine) (Heparin Sq) 5,000 unit Q8HRS SQ Last administered on 09/11/17 05:39; Start 09/07/17 at 16:30 Metoprolol Tartrate (Lopressor) 25 mg BID PO Last administered on 09/11/17 08 :06; Start 09/07/17 at 15:00 Lorazepam (Ativan) 0.5 mg 1X ONCE IV ; Start 09/08/17 at 02:30; Stop at 02:31; Status Cancel Lorazepam (Ativan) 1 mg 1X ONCE IV Last administered on 09/08/17 02:16; Start 09/08/17 at 02:15; Stop 09/08/17 at 02:21; Status DC Lorazepam (Ativan) 1 mg PRN Q2HR PRN IV ANXIETY / AGITATION Last administered on 09/08/17 05:39; Start 09/08/17 at 04:30 Potassium Chloride (Klor-Con) 40 meq 1X ONCE PO Last administered on 12:58; Start 09/09/17 at 08:00; Stop 09/09/17 at 08:01; Status DC Potassium Chloride (Klor-Con) 40 meq 1X ONCE PO ; Start 09/09/17 at 08:30; Stop 09/09/17 at 08:31; Status DC Potassium Chloride (Klor-Con) 40 meq 1X ONCE PO Last administered on 09:34; Start 09/10/17 at 09:45; Stop 09/10/17 at 09:46; Status DC Active Scripts Active Reported Extra Strength Non-Aspirin (Acetaminophen) 500 Mg Tablet 500 Mg PO BID PRN Multivitamins (Multivitamin) 1 Each Tablet 1 Tab PO DAILY Melatonin 3 Mg Tablet 1 Tab PO QHS Vitals/I & O Vital Sign - Last 24 Hours 09/10/17 09/10/17 09/10/17 09/10/17 16:00 19:45 20:00 20:58 Temp 98.3 97.9 98.3 97.9 Pulse 99 106 108 Resp 24 24 B/P (MAP) 144/92 (109) 138/96 (110) 143/93 Pulse Ox 98 98 O2 Delivery Room Air Room Air Room Air 09/10/17 09/10/17 09/11/17 09/11/17 21:58 23:33 03:16 07:30 Temp 98.1 97.6 97.5 98.1 97.6 97.5 Pulse 90 93 95 103 Resp 18 20 20 20 B/P (MAP) 162/104 (123) 167/99 (121) 141/89 (106) 133/87 (102) Pulse Ox 95 95 96 O2 Delivery Room Air Nasal Cannula Nasal Cannula Nasal Cannula O2 Flow Rate 4.0 2.0 1.5 09/11/17 09/11/17 09/11/17 09/11/17 08:06 08:12 08:25 09:37 Temp 97.5 97.5 Pulse 105 107 Resp 20 B/P (MAP) 133/87 133/87 (102) O2 Delivery Nasal Cannula Nasal Cannula Nasal Cannula O2 Flow Rate 1.5 1.5 1.5 Nutrition Consultation Dietary Evaluation: Recommendations by RD: Increase Calorie Intake, Protein supplementation Comments: encourage protein supplementation between meals Expected Outcomes/Goals: to meet > 75% est nutr needs Malnutrition Findings: Body Fat Depletion (Non Severe: Mod to Severe Weight Status: Underweight Fluid Accumulation (Non-Severe: Mild depletion JENNIFER PAGAN III DO Sep 11, 2017 11:51
--- NOTE | 2017-09-11 14:57 | PDOC ---
PULMONARY PROGRESS NOTES Subjective PT NO RESP DISTRESS Vitals Vital Signs Date Time Temp Pulse Resp B/P (MAP) Pulse Ox O2 Delivery O2 Flow Rate FiO2 09/11/17 13:11 98.2 102 16 110/85 (93) 96 Nasal Cannula 2.0 98.2 ROS: No Nausea, No Chest Pain, No Abdominal Pain, No Increase Cough General: Alert, No acute distress HEENT: Other Lungs: Clear (breath sounds improving), Wheezing Cardiovascular: S1, S2 Abdomen: Soft, Non-tender, Other (no mass) Neuro Exam: Alert, Oriented Extremities: No Edema Skin: Warm Labs Laboratory Tests Test 09/10/17 06:30 09/11/17 06:00 White Blood Count 15.2 x10^3/uL (4.0-11.0) 9.4 x10^3/uL (4.0-11.0) Red Blood Count 3.73 x10^6/uL (4.30-5.70) 3.37 x10^6/uL (4.30-5.70) Hemoglobin 12.8 g/dL (13.0-17.5) 11.7 g/dL (13.0-17.5) Hematocrit 39.6 % (39.0-53.0) 34.2 % (39.0-53.0) Mean Corpuscular Volume 106 fL (79-100) 102 fL (79-100) Mean Corpuscular Hemoglobin 34 pg (25-35) 35 pg (25-35) Mean Corpuscular Hemoglobin Concent 32 g/dL (31-37) 34 g/dL (31-37) Red Cell Distribution Width 15.6 % (11.5-14.5) 15.3 % (11.5-14.5) Platelet Count 367 x10^3/uL (140-400) 407 x10^3/uL (140-400) Neutrophils (%) (Auto) 80 % (31-73) 73 % (31-73) Lymphocytes (%) (Auto) 7 % (24-48) 11 % (24-48) Monocytes (%) (Auto) 12 % (0-9) 16 % (0-9) Eosinophils (%) (Auto) 0 % (0-3) 0 % (0-3) Basophils (%) (Auto) 1 % (0-3) 1 % (0-3) Neutrophils # (Auto) 12.2 x10^3uL (1.8-7.7) 6.8 x10^3uL (1.8-7.7) Lymphocytes # (Auto) 1.0 x10^3/uL (1.0-4.8) 1.0 x10^3/uL (1.0-4.8) Monocytes # (Auto) 1.8 x10^3/uL (0.0-1.1) 1.5 x10^3/uL (0.0-1.1) Eosinophils # (Auto) 0.0 x10^3/uL (0.0-0.7) 0.0 x10^3/uL (0.0-0.7) Basophils # (Auto) 0.2 x10^3/uL (0.0-0.2) 0.1 x10^3/uL (0.0-0.2) Sodium Level 138 mmol/L (136-145) 137 mmol/L (136-145) Potassium Level 3.4 mmol/L (3.5-5.1) 3.5 mmol/L (3.5-5.1) Chloride Level 105 mmol/L (98-107) 104 mmol/L (98-107) Carbon Dioxide Level 26 mmol/L (21-32) 28 mmol/L (21-32) Anion Gap 7 (6-14) 5 (6-14) Blood Urea Nitrogen 6 mg/dL (8-26) 4 mg/dL (8-26) Creatinine 0.4 mg/dL (0.7-1.3) 0.4 mg/dL (0.7-1.3) Estimated GFR (Cockcroft-Gault) 213.9 213.9 Glucose Level 77 mg/dL (70-99) 81 mg/dL (70-99) Calcium Level 7.7 mg/dL (8.5-10.1) 7.6 mg/dL (8.5-10.1) Magnesium Level 1.8 mg/dL (1.8-2.4) Laboratory Tests Test 09/11/17 06:00 White Blood Count 9.4 x10^3/uL (4.0-11.0) Red Blood Count 3.37 x10^6/uL (4.30-5.70) Hemoglobin 11.7 g/dL (13.0-17.5) Hematocrit 34.2 % (39.0-53.0) Mean Corpuscular Volume 102 fL (79-100) Mean Corpuscular Hemoglobin 35 pg (25-35) Mean Corpuscular Hemoglobin Concent 34 g/dL (31-37) Red Cell Distribution Width 15.3 % (11.5-14.5) Platelet Count 407 x10^3/uL (140-400) Neutrophils (%) (Auto) 73 % (31-73) Lymphocytes (%) (Auto) 11 % (24-48) Monocytes (%) (Auto) 16 % (0-9) Eosinophils (%) (Auto) 0 % (0-3) Basophils (%) (Auto) 1 % (0-3) Neutrophils # (Auto) 6.8 x10^3uL (1.8-7.7) Lymphocytes # (Auto) 1.0 x10^3/uL (1.0-4.8) Monocytes # (Auto) 1.5 x10^3/uL (0.0-1.1) Eosinophils # (Auto) 0.0 x10^3/uL (0.0-0.7) Basophils # (Auto) 0.1 x10^3/uL (0.0-0.2) Sodium Level 137 mmol/L (136-145) Potassium Level 3.5 mmol/L (3.5-5.1) Chloride Level 104 mmol/L (98-107) Carbon Dioxide Level 28 mmol/L (21-32) Anion Gap 5 (6-14) Blood Urea Nitrogen 4 mg/dL (8-26) Creatinine 0.4 mg/dL (0.7-1.3) Estimated GFR (Cockcroft-Gault) 213.9 Glucose Level 81 mg/dL (70-99) Calcium Level 7.6 mg/dL (8.5-10.1) Medications Active Scripts Medications Dose Route/Sig Max Daily Dose Days Date Category Extra Strength Non-Aspirin (Acetaminophen) 500 Mg Tablet 500 Mg PO BID PRN 09/04/17 Reported Multivitamins (Multivitamin) 1 Each Tablet 1 Tab PO DAILY 09/04/17 Reported Melatonin 3 Mg Tablet 1 Tab PO QHS 08/07/17 Reported Comments cxr reviewed, interval removal of one of the left chest tubes. Persistent volume loss in the left lung probably slightly worse than on the previous exam. Findings likely reflect atelectasis. Pneumonia is not entirely excluded. No appreciable pneumothorax seen Impression . 1. Progressive dyspnea secondary to increasing right-sided pleural effusion. S/ P DECORTICATION 2. Right-sided pleural effusion, status post previous thoracentesis. Cytology was negative at that time, cultures were negative. 3. History of lung cancer diagnosed 4 years ago, status post wedge resection on the right with no subsequent chemoradiation. 4. No history of congestive heart failure. 5. Severe protein malnutrition, present upon admission. 6. Tobacco dependence in remission. 7. Systemic inflammatory response syndrome. Plan . PT EVALUATION HOME WHEN OK WITH [facility] OFF O2, TRANSFER S/P SURGICAL INTERVENTION,TUBES REMOVED ALCOHOL WITHDRAWAL PROTOCOL CXR REVIEWED D/W HERNAN CARMONA MD Sep 11, 2017 14:57
--- NOTE | 2017-09-11 15:34 | PDOC ---
Progress Note Subjective Subjective Doing well. On and off O2. More alert and co-operative. Out of the bed for most of the day. Ambulated once. Incision: C/D/I ROS ROS No nausea No vomiting No SOB No pain No rash Vital Sign Vital Signs Vital Signs Date Time Temp Pulse Resp B/P (MAP) Pulse Ox O2 Delivery O2 Flow Rate FiO2 09/11/17 15:00 98.5 93 20 118/76 (90) 97 Nasal Cannula 2.0 98.5 Physical Exam PHYSICAL EXAM Chest: reduced air entry left chest Thoracotomy: C/D/I Heart: S1 S2 Abdo: soft/non tender Labs Lab Laboratory Tests Test 09/11/17 06:00 White Blood Count 9.4 x10^3/uL (4.0-11.0) Red Blood Count 3.37 x10^6/uL (4.30-5.70) Hemoglobin 11.7 g/dL (13.0-17.5) Hematocrit 34.2 % (39.0-53.0) Mean Corpuscular Volume 102 fL (79-100) Mean Corpuscular Hemoglobin 35 pg (25-35) Mean Corpuscular Hemoglobin Concent 34 g/dL (31-37) Red Cell Distribution Width 15.3 % (11.5-14.5) Platelet Count 407 x10^3/uL (140-400) Neutrophils (%) (Auto) 73 % (31-73) Lymphocytes (%) (Auto) 11 % (24-48) Monocytes (%) (Auto) 16 % (0-9) Eosinophils (%) (Auto) 0 % (0-3) Basophils (%) (Auto) 1 % (0-3) Neutrophils # (Auto) 6.8 x10^3uL (1.8-7.7) Lymphocytes # (Auto) 1.0 x10^3/uL (1.0-4.8) Monocytes # (Auto) 1.5 x10^3/uL (0.0-1.1) Eosinophils # (Auto) 0.0 x10^3/uL (0.0-0.7) Basophils # (Auto) 0.1 x10^3/uL (0.0-0.2) Sodium Level 137 mmol/L (136-145) Potassium Level 3.5 mmol/L (3.5-5.1) Chloride Level 104 mmol/L (98-107) Carbon Dioxide Level 28 mmol/L (21-32) Anion Gap 5 (6-14) Blood Urea Nitrogen 4 mg/dL (8-26) Creatinine 0.4 mg/dL (0.7-1.3) Estimated GFR (Cockcroft-Gault) 213.9 Glucose Level 81 mg/dL (70-99) Calcium Level 7.6 mg/dL (8.5-10.1) Objective Assessment POD#5, s/p left thoracotomy and pulmonary decortication with drainage of complex recurrent pleural effusion for trapped lung and significant fibrothorax. Doing well. On and off O2. More alert and co-operative. Out of the bed for most of the day. Ambulated once. Incision: C/D/I Plan Plan of Care OK to d/c to rehab when bed becomes available Needs to continue to ambulate in the hallway Heparin sub/q for DVT prophylaxis No more labs draws LELIA SMART MD Sep 11, 2017 15:34
[2017-09-12 03:55] VITALS: BP 124/79
[2017-09-12] MEDS: IV NORMAL SALINE 1000ML BAG 1,000 ML IV SCH (04:39)
[2017-09-12] MEDS: HEPARIN PF for SUB-Q USE 5,000 UNIT/0.5 ML VIAL. SQ SCH (06:00)
[2017-09-12 07:00] VITALS: BP 132/76
[2017-09-12] MEDS: ELECTROLYTE (ICU) PROTOCOL. MC SCH (09:00)
[2017-09-12] MEDS: ELECTROLYTE (NON-ICU) PROTOCOL MC SCH (09:00)
[2017-09-12] MEDS: SENNOSIDES/DOCUSATE 8.6/50MG TABLET. PO SCH (09:16)
[2017-09-12] MEDS: FAMOTIDINE 20 MG TABLET. PO SCH (09:16)
[2017-09-12] MEDS: MULTIVITAMIN with MINERAL TABLET. PO SCH (09:17)
[2017-09-12] MEDS: METOPROLOL TART IMMED RELEASE 25 MG TABLET. PO SCH (09:17)
[2017-09-12] MEDS: THIAMINE 100 MG TABLET. PO SCH (09:17)
[2017-09-12] MEDS: FOLIC ACID 1 MG TABLET. PO SCH (09:17)
[2017-09-12 11:00] VITALS: BP 106/69
--- NOTE | 2017-09-12 12:17 | PDOC ---
PROGRESS NOTES Chief Complaint Chief Complaint Acute on chronic hypoxic respir failure dyspnea pleural effusions edema S/P thoracentesis converted to thoracotomy Fibrothorax Chest tube placement PMH: COPD Lung CA Alcoholism DM History of Present Illness History of Present Illness Pt was seen with his in cardiovascular care unit; lying in bed comfortably. He appears to be in NAD and has no new complaints at this time. He denies chest pain, SOB N/V, or diarrhea. Discussed plan of care with RN, pt, and pt's Vitals Vitals Vital Signs Date Time Temp Pulse Resp B/P (MAP) Pulse Ox O2 Delivery O2 Flow Rate FiO2 09/12/17 09:43 Nasal Cannula 2.0 09/12/17 09:17 90 132/76 09/12/17 07:00 98.4 19 97 98.4 Physical Exam Physical Exam Chest: reduced air entry left chest Thoracotomy: C/D/I Heart: S1 S2 Abdo: soft/non tender General: Alert, Oriented X3, Cooperative, No acute distress Heart: Regular rate, Normal S1, Normal S2 Lungs: Clear (breath sounds improving), Wheezing Abdomen: Soft, No tenderness, No hepatosplenomegaly Extremities: No clubbing, No cyanosis, No edema, Normal pulses Skin: No rashes, No breakdown, No significant lesion Review of Systems Review of Systems Denies any new constitutional symptoms. AOCx3 and NAD. Denies CP, denies SOB, denies abd. pain or discomfort. Patient has mildly elevated Hb with macrocytic features. Assessment and Plan Assessmemt and Plan Problems Medical Problems: (1) Leukocytosis Status: Acute (2) Parapneumonic effusion Status: Acute Acute on chronic hypoxic respir failure dyspnea pleural effusions edema S/P thoracentesis converted to thoracotomy S/p thoracotomy tube removal Macrocytic anemia Plan: DVT prophylaxis OT/PT Probable discharge to SNU later today Problems: Comment Review of Relevant I have reviewed the following items tita (where applicable) has been applied. Labs Laboratory Tests Test 09/11/17 06:00 White Blood Count 9.4 x10^3/uL (4.0-11.0) Red Blood Count 3.37 x10^6/uL (4.30-5.70) Hemoglobin 11.7 g/dL (13.0-17.5) Hematocrit 34.2 % (39.0-53.0) Mean Corpuscular Volume 102 fL (79-100) Mean Corpuscular Hemoglobin 35 pg (25-35) Mean Corpuscular Hemoglobin Concent 34 g/dL (31-37) Red Cell Distribution Width 15.3 % (11.5-14.5) Platelet Count 407 x10^3/uL (140-400) Neutrophils (%) (Auto) 73 % (31-73) Lymphocytes (%) (Auto) 11 % (24-48) Monocytes (%) (Auto) 16 % (0-9) Eosinophils (%) (Auto) 0 % (0-3) Basophils (%) (Auto) 1 % (0-3) Neutrophils # (Auto) 6.8 x10^3uL (1.8-7.7) Lymphocytes # (Auto) 1.0 x10^3/uL (1.0-4.8) Monocytes # (Auto) 1.5 x10^3/uL (0.0-1.1) Eosinophils # (Auto) 0.0 x10^3/uL (0.0-0.7) Basophils # (Auto) 0.1 x10^3/uL (0.0-0.2) Sodium Level 137 mmol/L (136-145) Potassium Level 3.5 mmol/L (3.5-5.1) Chloride Level 104 mmol/L (98-107) Carbon Dioxide Level 28 mmol/L (21-32) Anion Gap 5 (6-14) Blood Urea Nitrogen 4 mg/dL (8-26) Creatinine 0.4 mg/dL (0.7-1.3) Estimated GFR (Cockcroft-Gault) 213.9 Glucose Level 81 mg/dL (70-99) Calcium Level 7.6 mg/dL (8.5-10.1) Microbiology 09/04/17 Blood Culture - Final, Complete NO GROWTH AFTER 5 DAYS 09/06/17 AFB Specimen Processing Tissue - Final, Resulted 09/06/17 Acid Fast Bacilli Culture, Resulted Pending 09/06/17 Gram Stain - Final, Resulted 09/06/17 Fungal Culture, Resulted Pending 09/06/17 Fungal Culture Result 1, Resulted Pending 09/06/17 AFB Specimen Processing Tissue - Final, Resulted 09/06/17 Acid Fast Bacilli Culture, Resulted Pending 09/06/17 Gram Stain - Final, Resulted 09/06/17 Fungal Culture, Resulted Pending 09/06/17 Fungal Culture Result 1, Resulted Pending Medications Current Medications Levofloxacin/ Dextrose 100 ml @ 100 mls/hr 1X ONCE IV Last administered on 14:23; Start 09/04/17 at 14:15; Stop 09/04/17 at 15:14; Status DC Ondansetron HCl (Zofran) 4 mg PRN Q8HRS PRN IV NAUSEA/VOMITING; Start 09/04/17 at 14:15; Stop 09/05/17 at 14:14; Status DC Fentanyl Citrate (Fentanyl 2ml Vial) 50 mcg PRN Q2HR PRN IV PAIN; Start at 14:15; Stop 09/05/17 at 14:14; Status DC Furosemide (Lasix) 40 mg 1X ONCE IVP Last administered on 09/04/17 14:23; Start 09/04/17 at 14:15; Stop 09/04/17 at 14:16; Status DC Acetaminophen (Tylenol) 500 mg PRN BID PRN PO PAIN Last administered on 13:30; Start 09/04/17 at 18:00 Non-Formulary Medication 1 tab QHS PO ; Start 09/04/17 at 21:00; Status UNV Multivitamins (Thera M Plus) 1 tab DAILY PO Last administered on 09/12/17 09: 17; Start 09/04/17 at 18:30 Folic Acid (Folic Acid) 1 mg DAILY PO Last administered on 09/12/17 09:17; Start 09/04/17 at 18:30 Thiamine HCl 100 mg/Sodium Chloride 51 ml @ 100 mls/hr 1X ONCE IV Last administered on 09/04/17 22:37; Start 09/04/17 at 18:30; Stop 09/04/17 at 19:00 ; Status DC Lorazepam (Ativan) 2 mg PRN Q1HR PRN IV For CIWA 8-14 Last administered on 23:25; Start 09/04/17 at 18:30; Stop 09/09/17 at 10:42; Status DC Lorazepam (Ativan) 4 mg PRN Q1HR PRN IV For CIWA 15 or greater; Start 09/04/17 at 18:30; Stop 09/09/17 at 10:42; Status DC Zolpidem Tartrate (Ambien) 5 mg PRN QHS PRN PO INSOMNIA Last administered on 23:15; Start 09/04/17 at 23:15 Lidocaine/Sodium Bicarbonate (Buffered Lidocaine 1%) 20 ml STK-MED ONCE IJ ; Start 09/05/17 at 09:03; Stop 09/05/17 at 09:04; Status DC Lidocaine/Sodium Bicarbonate (Buffered Lidocaine 1%) 20 ml 1X ONCE IJ Last administered on 09/05/17 09:34; Start 09/05/17 at 09:30; Stop 09/05/17 at 09 :31; Status DC Iohexol (Omnipaque 300 Mg/ml) 75 ml 1X ONCE IV Last administered on 14:15; Start 09/05/17 at 14:15; Stop 09/05/17 at 14:16; Status DC Potassium Chloride (Klor-Con) 40 meq 1X ONCE PO Last administered on 18:19; Start 09/05/17 at 14:15; Stop 09/05/17 at 14:16; Status DC Info (Do NOT chart on this entry -- for MONITORING) 1 each PRN DAILY PRN MC SEE COMMENTS; Start 09/05/17 at 14:15; Stop 09/07/17 at 14:14; Status DC Cefazolin Sodium 1 gm/Sodium Chloride 50 ml @ 100 mls/hr 1X ONCE IV ; Start 09/06/17 at 10:00; Stop 09/06/17 at 10:29; Status UNV Cefazolin Sodium 50 ml @ 100 mls/hr 1X ONCE IV ; Start 09/06/17 at 11:00; Stop 09/06/17 at 11:29; Status DC Ondansetron HCl (Zofran) 4 mg PRN Q6HRS PRN IV NAUSEA/VOMITING; Start at 07:00; Stop 09/07/17 at 06:59; Status DC Fentanyl Citrate (Fentanyl 2ml Vial) 25 mcg PRN Q5MIN PRN IV MILD PAIN; Start 09/06/17 at 07:00; Stop 09/07/17 at 06:59; Status DC Fentanyl Citrate (Fentanyl 2ml Vial) 50 mcg PRN Q5MIN PRN IV MODERATE PAIN; Start 09/06/17 at 07:00; Stop 09/07/17 at 06:59; Status DC Morphine Sulfate 1 mg PRN Q10MIN PRN IV SEVERE PAIN; Start 09/06/17 at 07:00; Stop 09/07/17 at 06:59; Status DC Ringer's Solution 1,000 ml @ 30 mls/hr Q24H IV Last administered on 16:14; Start 09/06/17 at 07:00; Stop 09/06/17 at 18:59; Status DC Lidocaine HCl (Xylocaine-Mpf 1% Vial) 2 ml PRN 1X PRN ID IV START; Start 09/06 at 07:00; Stop 09/07/17 at 06:59; Status DC Hydromorphone HCl (Dilaudid) 0.5 mg PRN Q10MIN PRN IV SEV PAIN, Second choice; Start 09/06/17 at 07:00; Stop 09/07/17 at 06:59; Status DC Prochlorperazine Edisylate (Compazine) 5 mg PACU PRN PRN IV NAUSEA, MRX1; Start 09/06/17 at 07:00; Stop 09/07/17 at 06:59; Status DC Cefazolin Sodium 1 gm/Sodium Chloride 500 ml @ 500 mls/hr 1X PERIOP ONCE IRR Last administered on 09/06/17 12:04; Start 09/06/17 at 10:00; Stop 09/06/17 at 10:59; Status DC Cellulose 1 each STK-MED ONCE .ROUTE ; Start 09/06/17 at 08:46; Stop 09/06/17 at 09:47; Status DC Dexamethasone Sodium Phosphate (Decadron) 20 mg STK-MED ONCE .ROUTE ; Start 10/13 at 10:45; Stop 09/06/17 at 10:46; Status DC Ondansetron HCl (Zofran) 4 mg STK-MED ONCE .ROUTE ; Start 09/06/17 at 10:45; Stop 09/06/17 at 10:46; Status DC Lidocaine HCl (Lidocaine Pf 2% Vial) 5 ml STK-MED ONCE .ROUTE ; Start 09/06/17 at 10:45; Stop 09/06/17 at 10:46; Status DC Etomidate (Amidate) 20 mg STK-MED ONCE IV ; Start 09/06/17 at 10:45; Stop 10/13 at 10:46; Status DC Lidocaine HCl (Xylocaine-Mpf 1% Vial) 5 ml STK-MED ONCE .ROUTE ; Start at 10:45; Stop 09/06/17 at 10:46; Status DC Fentanyl Citrate (Fentanyl 2ml Vial) 100 mcg STK-MED ONCE .ROUTE ; Start at 10:46; Stop 09/06/17 at 10:47; Status DC Rocuronium [place] (Zemuron) 100 mg STK-MED ONCE .ROUTE ; Start 09/06/17 at 10: 46; Stop 09/06/17 at 10:47; Status DC Talc (Sclerosol) 4 gm STK-MED ONCE IPL ; Start 09/06/17 at 09:46; Stop at 10:46; Status DC Phenylephrine HCl (Karri-Synephrine Inj) 10 mg STK-MED ONCE .ROUTE ; Start at 10:47; Stop 09/06/17 at 10:48; Status DC Ephedrine Sulfate (Akovaz) 50 mg STK-MED ONCE .ROUTE ; Start 09/06/17 at 10:48 ; Stop 09/06/17 at 10:49; Status DC Fentanyl Citrate (Fentanyl 2ml Vial) 100 mcg STK-MED ONCE .ROUTE ; Start at 10:57; Stop 09/06/17 at 10:58; Status DC Midazolam HCl (Versed) 2 mg STK-MED ONCE .ROUTE ; Start 09/06/17 at 10:57; Stop 09/06/17 at 10:58; Status DC Phenylephrine HCl (Karri-Synephrine Inj) 10 mg STK-MED ONCE .ROUTE ; Start at 12:20; Stop 09/06/17 at 12:21; Status DC Lidocaine HCl (Xylocaine-Mpf 1% Vial) 5 ml STK-MED ONCE .ROUTE ; Start at 12:35; Stop 09/06/17 at 12:36; Status DC Lidocaine HCl (Xylocaine-Mpf 1% Vial) 5 ml STK-MED ONCE .ROUTE ; Start at 12:36; Stop 09/06/17 at 12:37; Status DC Glycopyrrolate (Robinul) 1 mg STK-MED ONCE .ROUTE ; Start 09/06/17 at 13:52; Stop 09/06/17 at 13:53; Status DC Neostigmine Methylsulfate 5 mg STK-MED ONCE .ROUTE ; Start 09/06/17 at 13:52; Stop 09/06/17 at 13:53; Status DC Lidocaine HCl (Lidocaine Pf 2% Vial) 5 ml STK-MED ONCE .ROUTE ; Start 09/06/17 at 14:44; Stop 09/06/17 at 14:45; Status DC Lidocaine HCl (Lidocaine Pf 2% Vial) 5 ml STK-MED ONCE .ROUTE ; Start 09/06/17 at 14:44; Stop 09/06/17 at 14:45; Status DC Sodium Chloride 36.7 ml/Fentanyl Citrate 250 mcg/ Bupivacaine HCl 8.34 ml/ Epidural Dosage Infused (Pha) 50.04 ml @ 0 mls/hr CONT PRN EP SEE PROTOCOL TABLE Last administered on 09/06/17 18:00; Start 09/06/17 at 16:00; Stop 10/13 at 17:51; Status DC Diphenhydramine HCl (Benadryl) 25 mg PRN Q6HRS PRN PO ITCHING; Start 09/06/17 at 15:30 Famotidine (Pepcid) 20 mg BID PO Last administered on 09/12/17 09:16; Start 09/06/17 at 21:00 Naloxone HCl (Narcan) 0.1 mg PRN Q2MIN PRN IV ADMIN; Start 09/06/17 at 15:30 Info 1 ea DAILY MC Last administered on 09/10/17 09:00; Start 09/07/17 at 09 :00 Info 1 ea DAILY MC ; Start 09/07/17 at 09:00; Stop 09/12/17 at 11:09; Status DC Sodium Chloride (Normal Saline Flush) 3 ml QSHIFT PRN IV AFTER MEDS AND BLOOD DRAWS; Start 09/06/17 at 15:30 Sodium Chloride 1,000 ml @ 75 mls/hr [id number] IV Last administered on 05:17; Start 09/06/17 at 15:19 Oxycodone/ Acetaminophen (Percocet 5/325) 1 tab PRN Q4HRS PRN PO MILD PAIN, 1ST CHOICE; Start 09/06/17 at 15:30 Oxycodone/ Acetaminophen (Percocet 5/325) 2 tab PRN Q4HRS PRN PO MODERATE PAIN , SEVERE PAIN; Start 09/06/17 at 15:30 Ketorolac Tromethamine (Toradol) 15 mg PRN Q6HRS PRN IV PAIN; Start 09/06/17 at 15:30; Stop 09/11/17 at 15:29; Status DC Morphine Sulfate 2 mg PRN Q1HR PRN IV PAIN Last administered on 09/09/17 01: 38; Start 09/06/17 at 15:30 Ondansetron HCl (Zofran) 4 mg PRN Q6HRS PRN IV NAUESA, 1ST CHOICE; Start 09/06 at 15:30 Metoclopramide HCl (Reglan) 5 mg PRN Q6HRS PRN IV Nausea/Vomiting, 2nd Choice; Start 09/06/17 at 15:30 Senna/Docusate Sodium (Senna Plus) 1 tab BID PO Last administered on 09:16; Start 09/06/17 at 21:00 Bisacodyl (Dulcolax Supp) 10 mg PRN DAILY PRN WI CONSTIPATION; Start 09/06/17 at 15:30 Cefazolin Sodium 1 gm/Sodium Chloride 50 ml @ 100 mls/hr Q6H IV Last administered on 09/07/17 06:13; Start 09/06/17 at 18:00; Stop 09/07/17 at 06 :29; Status DC Propofol 20 ml @ As Directed STK-MED ONCE IV ; Start 09/06/17 at 15:29; Stop 09/06/17 at 15:30; Status DC Propofol 20 ml @ As Directed STK-MED ONCE IV ; Start 09/06/17 at 15:30; Stop 09/06/17 at 15:31; Status DC Phenylephrine HCl 20 mg/Sodium Chloride 252 ml @ 37.8 mls/hr 1X ONCE IV Last administered on 09/06/17 17:59; Start 09/06/17 at 16:00; Stop 09/06/17 at 22 :39; Status DC Sodium Chloride 36.7 ml/Fentanyl Citrate 250 mcg/ Bupivacaine HCl 8.34 ml/ Epidural Dosage Infused (Pha) 50.04 ml @ 0 mls/hr CONT PRN EP SEE PROTOCOL TABLE Last administered on 09/07/17 07:28; Start 09/06/17 at 18:00; Stop at 10:17; Status DC Potassium Chloride 100 ml @ 100 mls/hr Q1H IV Last administered on 09/06/17 22:50; Start 09/06/17 at 19:15; Stop 09/06/17 at 23:14; Status DC Magnesium Sulfate/ Dextrose 50 ml @ 25 mls/hr 1X ONCE IV Last administered on 09/06/17 20:12; Start 09/06/17 at 19:15; Stop 09/06/17 at 21:14; Status DC Phenylephrine HCl 20 mg/Sodium Chloride 252 ml @ 0 mls/hr CONT PRN IV HYPOTENSION Last administered on 09/07/17 09:10; Start 09/06/17 at 23:30 Thiamine Mononitrate (Vitamin B-1) 100 mg DAILY PO Last administered on 09:17; Start 09/07/17 at 11:30 Albumin Human 500 ml @ 125 mls/hr 1X ONCE IV Last administered on 09/07/17 12:04; Start 09/07/17 at 12:00; Stop 09/07/17 at 15:59; Status DC Heparin Sodium (Porcine) (Heparin Sq) 5,000 unit Q8HRS SQ Last administered on 09/11/17 14:00; Start 09/07/17 at 16:30 Metoprolol Tartrate (Lopressor) 25 mg BID PO Last administered on 09/12/17 09 :17; Start 09/07/17 at 15:00 Lorazepam (Ativan) 0.5 mg 1X ONCE IV ; Start 09/08/17 at 02:30; Stop at 02:31; Status Cancel Lorazepam (Ativan) 1 mg 1X ONCE IV Last administered on 09/08/17 02:16; Start 09/08/17 at 02:15; Stop 09/08/17 at 02:21; Status DC Lorazepam (Ativan) 1 mg PRN Q2HR PRN IV ANXIETY / AGITATION Last administered on 09/08/17 05:39; Start 09/08/17 at 04:30 Potassium Chloride (Klor-Con) 40 meq 1X ONCE PO Last administered on t 12:58; Start 09/09/17 at 08:00; Stop 09/09/17 at 08:01; Status DC Potassium Chloride (Klor-Con) 40 meq 1X ONCE PO ; Start 09/09/17 at 08:30; Stop 09/09/17 at 08:31; Status DC Potassium Chloride (Klor-Con) 40 meq 1X ONCE PO Last administered on t 09:34; Start 09/10/17 at 09:45; Stop 09/10/17 at 09:46; Status DC Active Scripts Active Reported Extra Strength Non-Aspirin (Acetaminophen) 500 Mg Tablet 500 Mg PO BID PRN Multivitamins (Multivitamin) 1 Each Tablet 1 Tab PO DAILY Melatonin 3 Mg Tablet 1 Tab PO QHS Vitals/I & O Vital Sign - Last 24 Hours 09/11/17 09/11/17 09/11/17 09/11/17 13:11 15:00 19:44 20:00 Temp 98.2 98.5 98.3 98.2 98.5 98.3 Pulse 102 93 101 Resp 16 20 20 B/P (MAP) 110/85 (93) 118/76 (90) 125/78 (94) Pulse Ox 96 97 91 O2 Delivery Nasal Cannula Nasal Cannula Room Air Nasal Cannula O2 Flow Rate 2.0 2.0 2.0 09/11/17 09/11/17 09/12/17 09/12/17 21:17 23:09 03:55 07:00 Temp 98.4 98.3 98.4 98.4 98.3 98.4 Pulse 101 100 95 90 Resp 20 17 19 B/P (MAP) 125/78 117/82 (94) 124/79 (94) 132/76 (94) Pulse Ox 96 94 97 O2 Delivery Nasal Cannula Nasal Cannula Nasal Cannula O2 Flow Rate 2.0 2.0 2.0 09/12/17 09/12/17 09/12/17 08:00 09:17 09:43 Pulse 90 B/P (MAP) 132/76 O2 Delivery Nasal Cannula Nasal Cannula O2 Flow Rate 2.0 2.0 Intake and Output 09/12/17 09/12/17 09/13/17 15:00 23:00 07:00 Intake Total 250 ml Balance 250 ml Nutrition Consultation Dietary Evaluation: Recommendations by RD: Increase Calorie Intake, Protein supplementation Comments: encourage protein supplementation between meals Expected Outcomes/Goals: to meet > 75% est nutr needs Malnutrition Findings: Body Fat Depletion (Non Severe: Mod to Severe Weight Status: Underweight Fluid Accumulation (Non-Severe: Mild depletion JENNIFER PAGAN III DO Sep 12, 2017 12:17
--- NOTE | 2017-09-14 12:10 | DS ---
DATE OF DISCHARGE: 09/12/2017 ADMISSION DIAGNOSIS: Pleural effusion. DISCHARGE DIAGNOSES: 1. Resolving pleural effusion, suspect this is an empyema. 2. History of lung cancer (this is not recurrent lung cancer, we have analyzed that thoroughly). HOSPITAL COURSE: The patient is a pleasant 67-year-old male who has a previous history of lung cancer on the right side but at this time, he presented with left-sided effusion. He has been admitted a couple times at this time, we did a VATS procedure. If the workup is still negative, is as baseline clinically, we will plan to discharge with close outpatient followup. DISPOSITION: [place]. ACTIVITY: As tolerated. DIET: Low sodium. MEDICATIONS: Please see the MRAD. TOTAL TIME ON DISCHARGE: Thirty-three minutes. JENNIFER PAGAN DO DR: BRI/nini JOB#: [id number] / [id number]
== END 2017-09-12 11:40 | DRG 853 ==
LOC: ER 12:40 → 6 SOUTH 14:17 → 1 WEST ICU 09-06 10:03 → 2 SOUTH 09-10 21:51
PROVIDERS: ADMIT Internal Medicine; ATTEND Internal Medicine
PROC: 0BCL0ZZ Extirpation of Matter from Left Lung, Open Approach (ICD-10-PCS; principal; 2017-09-04)
PROC: 0W9B3ZX Drainage of Left Pleural Cavity, Percutaneous Approach, Diagnostic (ICD-10-PCS; 2017-09-04)
PROC: 0W9B00Z Drainage of Left Pleural Cavity with Drainage Device, Open Approach (ICD-10-PCS; 2017-09-06)
DX: A41.9 Sepsis, unspecified organism (principal); J96.21 Acute and chronic respiratory failure with hypoxia; E43 Unspecified severe protein-calorie malnutrition; J86.9 Pyothorax without fistula; I50.33 Acute on chronic diastolic (congestive) heart failure; D69.6 Thrombocytopenia, unspecified; E87.1 Hypo-osmolality and hyponatremia; J90 Pleural effusion, not elsewhere classified; R64 Cachexia; J98.11 Atelectasis; F10.239 Alcohol dependence with withdrawal, unspecified; J44.9 Chronic obstructive pulmonary disease, unspecified; J94.1 Fibrothorax; D75.89 Other specified diseases of blood and blood-forming organs; Z85.118 Personal history of other malignant neoplasm of bronchus and lung; D53.9 Nutritional anemia, unspecified; D72.829 Elevated white blood cell count, unspecified; E11.9 Type 2 diabetes mellitus without complications; E87.6 Hypokalemia; F17.201 Nicotine dependence, unspecified, in remission; Z83.3 Family history of diabetes mellitus; M19.90 Unspecified osteoarthritis, unspecified site
CPT/HCPCS: 32555; 36415; 36600; 71010; 71260; 76705; 80048; 80053; 81001; 82805; 82962; 83605; 83615; 83735; 83880; 83986; 84132; 84157; 84439; 84443; 84484; 85007; 85025; 85027; 85610; 85730; 86850; 86900; 86901; 86920; 87015; 87040; 87071; 87075; 87102; 87116; 87186; 87205; 87641; 88112; 88305; 88312; 93005; 93970; 96365; 96375; J0690; J1100; J1940; J1956; J2060; J2250; J2270; J2405; J2704; J2710; J3010; J3480; J3490; J7030; J7040; J7050; J7060; J7120; P9045; Q9967; 97116; 97530; 99285-25; J2001

== ENCOUNTER → 2017-10-13 | Outpatient (CLI) | payer MEDICARE, OTHER ==
[~2017-10-13] MED LIST changes: +ACET-1571 PO; +MULT1TAB52 PO
--- NOTE | 2017-10-13 14:01 | RAD ---
2 views Views of the Chest 10/13/2017 2:00 AM Indication: PLEURAL EFFUSION ON LEFT Comparison: Chest radiograph September 09, 2017 Findings: Decreasing pleural effusion is noted on the left. Small amount of residual pleural thickening or trace effusion is noted. Underlying infiltrate is also decreased. Diffuse interstitial thickening and areas of scarring appear grossly similar. A surgical staple line is noted in the right upper lung. No pneumothorax is seen. Apical pleural thickening noted. Heart size is stable and within normal limits. No acute osseous changes are seen. Deformity of the left chest wall is stable. Impression: 1. Decrease in left pleural effusion. Possible trace residual fluid versus pleural thickening is seen on the left 2. Decrease in underlying left-sided infiltrate
== END | disposition home or self-care (01) ==
LOC: RAD 13:27
PROVIDERS: ATTEND Thoracic Surgery (Cardiothoracic Vascular Surgery)
DX: J90 Pleural effusion, not elsewhere classified (principal)
CPT/HCPCS: 71020

== ENCOUNTER → 2019-05-15 | Outpatient (CLI) | payer MEDICARE, OTHER ==
[~2019-05-15] MED LIST changes: +GADOTERATE 5 MMOL/10ML VIAL. IVP ONE; +LISI10TA2 PO
--- NOTE | 2019-05-15 11:39 | KCIC ---
MRI Brain with and without contrast History: Slurred speech starting 05/11/2019 Technique: Multiplanar, multi sequential pre and postcontrast MR imaging was performed of the brain. Comparison: Head CT exam May 13, 2019 Findings: There is motion degradation. There is 2 cm AP by 1.5 cm transverse focus of restricted diffusion with associated T2 and FLAIR hyperintense signal of the body of corpus callosum extending to the adjacent left cingulate gyrus. Ventricular size is proportionate to the sulcal spaces, mild generalized supratentorial involutional change. There is no significant midline shift, intraaxial mass effect, or focal abnormal extra-axial fluid collection. There is extensive T2 and FLAIR hyperintense signal abnormality of the supratentorial parenchyma bilaterally greatest of the frontoparietal lobes. There are small old lacunar infarcts of the basal ganglia bilaterally, also of the left cerebellum. There is very mild T2 and FLAIR hyperintense signal abnormality of the cr. There are multiple scattered foci of old microhemorrhage/hemosiderin deposition greatest of the bilateral cerebellum and bilateral temporal and parietal lobes. There is no nodular parenchymal or leptomeningeal enhancement. There is preservation of the major intracranial flow-voids at the skull base. The cerebellar tonsils are normal in location. There is no significant abnormality of the pineal gland or pituitary gland. There is mild bilateral ethmoid air cell mucosal thickening. The mastoid air cells are aerated. There is preserved marrow signal of the clivus. Impression: 1. There is a recent early subacute infarct centered in the body of corpus callosum, extent to the adjacent left cingulate gyrus. 2. There is extensive T2 and FLAIR hyperintense signal abnormality of the supratentorial parenchyma bilaterally which may be a component of chronic microvascular ischemic disease in combination with post therapeutic change. There are multiple old lacunar infarcts. There is no abnormal intracranial enhancement. There are multiple foci of old microhemorrhage in a bilateral distribution which may be due to sequela of hypertension. If there is no history of hypertension, sequela of cerebral amyloid disease would be in the differential considerations. 3. There is mild supratentorial involutional change. FOR INTERNAL CODING PURPOSES Critical result: Findings discussed with nurse Leo in the office of SUKHDEEP WOMACK at 05/15/2019 11:22 AM. RESULT CODE: (C) Electronically signed by: Dallin Cortes MD (05/15/2019 11:36 AM) [facility]
== END | disposition home or self-care (01) ==
LOC: KCIC MRI 09:58
PROVIDERS: ATTEND Physician Assistant Medical
DX: I63.89 Other cerebral infarction (principal); J34.89 Other specified disorders of nose and nasal sinuses; J44.9 Chronic obstructive pulmonary disease, unspecified; I10 Essential (primary) hypertension; Z79.01 Long term (current) use of anticoagulants
CPT/HCPCS: 70553; A9575

== ENCOUNTER 2021-08-14 12:52 | Inpatient (IN) | payer MEDICARE, OTHER ==
[~2021-08-14] VITALS: Ht 175.3 cm; Wt 51.0 kg
[2021-08-14 12:20] VITALS: BP 123/76
[~2021-08-14 12:52] MED LIST changes: -GADOTERATE 5 MMOL/10ML VIAL. IVP ONE; +LISI10TA16 PO; -LISI10TA2 PO; -MELA3TAB2 PO; +MELA3TAB4 PO; +MULT-445 PO; -MULT1TAB52 PO
[2021-08-14 15:00] VITALS: BP 107/66
--- NOTE | 2021-08-14 15:40 | PDOC1 ---
History and Physical Date of Admission Date of Admission DATE: 08/14/21 TIME: 15:40 History of Present Illness History of Present Illness Past Medical History: Arthritis, Cancer, COPD, CVA Additional Past Medical Histor: Hard of hearing;diarrhea; Past Surgical History: Cancer Surgery, Other Smoking: Quit Greater Than 1 Year Alcohol Use: Heavy Drug Use: None Adult General HPI HPI Patient is a 71-year-old male with a past medical history significant for cancer, COPD and stroke with significant deficits from the stroke who presents from [facility] for difficulty breathing. EMS states that according to the staff there, he has been having difficulty breathing over the course of the day and was just discharged from this hospital couple days ago. EMS stated when they got there he had oxygen sats in the 70s and got him up to 85% on 15 L. Patient unable to answer most questions due to residual stroke deficits but can acknowledge, say yes and no CT chest: Numerous solid and cavitary nodules and masses throughout bilateral lungs with the largest measuring up to 7.4 cm within the right upper lobe. This is highly concerning for pulmonary malignancy, infection is in the differential if felt to be less likely.. 3. Numerous enlarged hilar or mediastinal nodes concerning for german metastasis. 4. 3.8 cm hypoattenuating peripherally enhancing mass within the superior aspect of the spleen concerning for metastatic disease. 5. Catheter is in place with likely iatrogenic air. Correspond with urinalysis to exclude cystitis. 6. Redemonstrated soft tissue mass in the anterior perivesicular space. Past Medical History Past Medical History Arthritis, lung cancer, COPD, CVA, hearing impairment Cardiovascular: No pertinent hx Pulmonary: COPD, Other (Lung cancer) GI: No pertinent hx Heme/Onc: Cancer Hepatobiliary: No pertinent hx Psych: No pertinent hx Musculoskeletal: Osteoarthritis Rheumatologic: No pertinent hx Infectious disease: No pertinent hx Renal/: No pertinent hx Endocrine: No pertinent hx Past Surgical History Past Surgical History: Other (Right lung lobectomy) Family History Family History: Diabetes Social History Smoke: Quit ALCOHOL: heavy Drugs: None Current Medications Current Medications Active Scripts Active Reported Lisinopril 10 Mg Tablet 10 Mg PO DAILY Aspirin 81 Mg Tab.chew 81 Mg PO Extra Strength Non-Aspirin (Acetaminophen) 500 Mg Tablet 500 Mg PO BID PRN Multivitamins (Multivitamin) 1 Each Tablet 1 Tab PO DAILY Melatonin 3 Mg Tablet 1 Tab PO QHS Allergies Allergies: Coded Allergies: No Known Allergies (Verified Allergy, Unknown, 08/07/17) Physical Exam Physical Exam General: Somnolent but arousable, moderate distress HEENT: PERRLA, EOMI Lungs: Decreased breath sounds bilaterally, tachypneic, increased work of breathing Heart: Tachycardic. No murmurs. Cardiovascular: S1, S2 Abdomen: Normal bowel sounds, Soft, No tenderness Extremities: No clubbing, No cyanosis Skin: No rashes, No significant lesion Neuro: Normal tone, Sensation intact Psych/Mental Status: Lethargic Vitals Vitals Vital Signs Date Time Temp Pulse Resp B/P (MAP) Pulse Ox O2 Delivery O2 Flow Rate FiO2 08/14/21 15:28 99 BiPAP/CPAP 08/14/21 12:20 99.8 121 20 123/76 (92) 99.8 Images Images PATIENT: RAVINDER CHUNG ACCOUNT: [id number] : 1950 LOCATION: ER AGE: 71 SEX: M EXAM STATUS: REG ER ORD. PHYSICIAN: CAROLEE PITT MD REASON: OMNI 350,85ML IV.SOB, hypoxia, recent trauma PROCEDURE: CT ANGIO CHEST W ABD PEL W/ EXAM: CT chest with contrast - pulmonary embolus protocol CLINICAL HISTORY: Reason: OMNI 350,85ML IV.SOB, hypoxia, recent trauma / Spl. Instructions: / History: . COMPARISON: Pelvic CT from 08/08/2021. TECHNIQUE: CT of the chest following the administration of intravenous contrast during the pulmonary arterial phase. Axial, coronal and sagittal reformatted images were generated including MIP images. ---PQRS compliance statement - One or more of the following individualized dose reduction techniques were utilized for this study: 1. Automated exposure control 2. Adjustment of the mA and/or kV according to patient size 3. Use of iterative reconstruction technique--- FINDINGS: CHEST: Diagnostic quality: Adequate. Pulmonary emboli: No pulmonary emboli to the level of the segmental branches. More peripheral vessels are not well assessed. Right heart strain: None Pulmonary arteries: Normal in caliber. There is a 7.4 cm mass with central cavitations in the right upper lobe in a bronchovascular distribution with extension to the lateral pleura and also the superior aspect of the right hilum. Numerous solid and cavitary nodules are seen throughout bilateral lungs. Spiculated solid mass in the left upper lobe measures up to 3.3 cm in maximal diameter with extension to the lateral pleura. This mass has additional smaller satellite nodules well. Extensive interspersed groundglass nodules throughout both lungs as well. There is a moderate to severe centrilobular emphysematous changes noted as well. There is logically enlarged right hilar node measuring 2.17 m in maximal diameter additional conglomerate of normal-appearing subcarinal nodes measure up to 3.2 cm there is a left pleural effusion. There is S-shaped curvature of the thoracolumbar spine with chronic severe wedge-shaped deformity of the L1 vertebral body. No apparent sclerotic or lytic osseous lesions. Evaluation of the abdomen is degraded secondary to motion. The liver, gallbladder are unremarkable. There is a 3.8 cm enhancing mass extending off the inferior portion of the spleen the adrenal glands demonstrate a subtle nodular contour with no focal masses. Kidneys are unremarkable. There is a moderate hiatal hernia with circumferential wall thickening of the distal esophagus with no debris. There is no evidence of bowel obstruction or suspicious wall thickening. No logically enlarged abdominal or pelvic lymph nodes. There is extensive aortobiiliac atherosclerotic disease with no evidence of aneurysmal dilation. There is a Berumen catheter residing within the urinary bladder with likely iatrogenic foci of air. The prostate gland is enlarged and indenting the bladder base. There is chronic appearing compression deformities with retropulsion pronounced at L1 and L2 there is no apparent lytic or sclerotic osseous abnormalities. Acute appearing nondisplaced fracture of the left superior ramus of the junction of the left pubic bone is reidentified. Old healed fracture of the right obturator ring is again seen. Reidentified 2.5 cm soft tissue mass in the prevesical space in the left hemipelvis as visualized on image 113/7. IMPRESSION: 1. No evidence of pulmonary embolism to the level of the segmental pulmonary arteries. 2. Numerous solid and cavitary nodules and masses throughout bilateral lungs with the largest measuring up to 7.4 cm within the right upper lobe. This is highly concerning for pulmonary malignancy, infection is in the differential if felt to be less likely.. 3. Numerous enlarged hilar or mediastinal nodes concerning for german metastasis. 4. 3.8 cm hypoattenuating peripherally enhancing mass within the superior aspect of the spleen concerning for metastatic disease. 5. Catheter is in place with likely iatrogenic air. Correspond with urinalysis to exclude cystitis. 6. Redemonstrated soft tissue mass in the anterior perivesicular space. 7. Other chronic/incidental findings as above. VTE Prophylaxis Ordered VTE Prophylaxis Devices: No VTE Pharmacological Prophylaxi: Yes Assessment/Plan Assessment/Plan Bilateral lung cancer with metastasis History of lung cancer s/p lobectomy History COPD History CVA Macrocytic anemia Elevated troponins Severe malnutrition Plan: Discussed with patient's and confirmed DNR status She is in favor pulmonology consult but given stage IV lung cancer at this time she is not wanting aggressive treatment Consultation placed to pulmonology Elevated troponins likely secondary to demand ischemia; will place consultation to cardiology. Justifications for Admission Other Justification GILDA ALEGRE MD Aug 14, 2021 15:40
[2021-08-14] MEDS ORDERED: fentaNYL PF VIAL 100 MCG/2 ML VIAL IVP PRN (17:30)
[2021-08-14] MEDS ORDERED: ONDANSETRON PF 4 MG/2 ML VIAL. IV PRN (17:30)
[2021-08-14] MEDS: IV DEXTROSE 5 %-0.45 % NACL 1,000 ML IV SCH (18:18)
[2021-08-14 19:00] VITALS: BP 107/75
[2021-08-14 23:00] VITALS: BP 125/71
[2021-08-15 03:00] VITALS: BP 129/69
[2021-08-15 07:00] VITALS: BP 118/80
[2021-08-15] MEDS: IV DEXTROSE 5 %-0.45 % NACL 1,000 ML IV SCH ×2 (07:54→20:20)
[2021-08-15] MEDS: PANTOPRAZOLE IV PUSH 40 MG VIAL. IVP SCH (07:55)
--- NOTE | 2021-08-15 10:44 | PN ---
DATE: 08/15/2021 SUBJECTIVE: The patient is resting flat in bed, in no apparent distress, awake, alert, has severe expressive aphasia and he is also hard of hearing. He is off BiPAP machine, maintaining his oxygen saturation at 99% on 4 liters of oxygen, continued to complain of pain in his left groin area. PHYSICAL EXAMINATION: GENERAL: When I examined him, he was pale, cachectic, but not jaundiced or cyanosed. No thyromegaly. No jugular venous distention. No limb edema. VITAL SIGNS: His heart rate was 112, blood pressure was 118/80, temperature was 98.3, respiratory rate 21, oxygen saturation was 100% on 4 liters of oxygen via nasal cannula. The rest of physical exam stable. PLAN: Given the finding on his CT angio of the chest, abdomen and pelvis with metastatic disease, we have spoken to his who agreed to hospice care. We will continue with oxygen supplementation. Continue with pain management and we will consult with case management to arrange for hospice evaluation and treatment. Obviously, there is some doubt that the patient's would be able to take care of him at home or might have to go to hospice in a custodial. KELBY DR: Samantha TID: [id number]
[2021-08-15 11:16] VITALS: BP 121/70
--- NOTE | 2021-08-15 11:34 | HP ---
ADMIT DATE: 08/14/2021 HISTORY OF PRESENT ILLNESS: The patient is a 71-year-old male patient who was discharged from [facility] on 08/11/2021. He was admitted there with a history of fall sustaining bilateral superior and inferior pubic rami and left acetabular fracture. The patient needs no surgical intervention according to Dr. Thomas who reviewed the x-rays and the bone scan and he should be weightbearing as tolerated. At that time, he also had mild elevation of troponin, felt to be secondary to demand ischemia according to the Cardiology team. Unfortunately, the patient has left middle cerebral artery territory infarct with right-sided hemiplegia, aphasia and very difficult to understand. He is also a heavy alcohol drinker and apparently was brought to the Emergency Room of [facility] from [facility] where he was discharged with a complaint of difficulty breathing over the course of the day and he was discharged only on a couple of days ago. The emergency medical service personnel stated when they got there, his oxygen saturation in the 70s and got him up to 85% on 15 liters by nasal cannula. The patient is unable to answer most questions due to residual stroke deficits and expressive aphasia, but does acknowledge by saying yes or no. He was extensively investigated in the Emergency Room and has had lab work and imaging studies. His white cell count was slightly high at 13,000. His chemistry was mostly unremarkable and his blood gases also was unremarkable. In fact, his blood gas showed a pH of 7.44, pCO2 of 38, pO2 of 80 and his oxygen saturation was 96% on FiO2 of 45%. His urinalysis was essentially unremarkable. Urine was negative for blood, nitrite; negative for leukocyte esterase and no rbc's, no wbc's, and no bacteria. Given the fact that he was hypoxic and was released only recently, he underwent CT scan of the chest, abdomen and pelvis with IV contrast and this showed no evidence of pulmonary embolism to the level of the segmental pulmonary arteries, numerous solid and cavitary nodules and masses throughout bilateral lungs with the largest measuring up to 7.4 cm within the right upper lobe. This is highly concerning for pulmonary malignancy, infection is in the differential and felt to be less likely. 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 Other chronic incidental findings were mentioned also. His shoulder x-ray showed no evidence of acute osseous injury of the left shoulder. No evidence of acute osseous injury of the left wrist, there is ongoing pain and repeat radiographs in 7-10 days is appropriate. His left wrist x-ray showed no evidence of acute osseous injury of the left wrist. The patient was given fentanyl and started on BiPAP, was transferred to [facility] for further evaluation and treatment. PAST MEDICAL HISTORY: Significant for chronic obstructive pulmonary disease, hypertension. He also had a stroke with expressive aphasia, history of cancer. PAST SURGICAL HISTORY: Unrevealing. He has a history of lung cancer, status post upper lobectomy. PAST SURGICAL HISTORY: Significant for left upper lobectomy and also had tonsillectomy, colonoscopy and mediastinoscopy. ALLERGIES: He has no known drug allergies. FAMILY HISTORY: Had two sisters, both . The older sister of lung cancer at the age of 67. His younger sister after undergoing cholecystectomy. SOCIAL HISTORY: He is , has 1 daughter. He is an ex-smoker, quit about 7 years ago. He drinks alcohol on a daily basis. He drinks about 6 beers daily. Does not use any drugs. He worked for [employer] for about 39 years. He is retired. MEDICATIONS: He is currently on the following medications: He is on lisinopril 10 mg once a day, aspirin 81 mg once a day, Tylenol 650 mg once a day, multivitamin 1 tablet once a day, melatonin 3 mg at bedtime. He is also on oxycodone 5 mg every 4 hours. He was discharged also on melatonin 3 mg at bedtime, magnesium oxide 400 mg daily, thiamine 100 mg once a day, folic acid 1 mg once a day and multivitamin one tablet once a day. PHYSICAL EXAMINATION: GENERAL: On arrival to the Emergency Room, he was clearly tachypneic, tachycardic. He was pale, cachectic. His body mass index only 16.8 kilograms/square meter. He was pale. Not jaundiced or cyanosed. No lymphadenopathy, no thyromegaly, no jugular venous distention. No lower limb edema. VITAL SIGNS: His heart rate on arrival was 125, blood pressure is ____, temperature was 98.4, respiratory rate was 38 and oxygen saturation was 87% on 15 liters by nonrebreather mask. HEAD, EYES, EARS, NOSE, EYES, NOSE, AND THROAT: Normocephalic, atraumatic. NECK: Supple. HEART: Normal first and second heart sounds, no gallop or murmur. CHEST: Showed central trachea, equally reduced chest expansion, reduced air entry, vesicular breath sounds. I could not really appreciate any crepitation or rhonchi. ABDOMEN: Scaphoid, soft, nontender. NEUROLOGIC: He was awake, alert. All his cranial nerves intact. He has expressive aphasia. He has marked muscle wasting and fixed flexion contracture, particularly his left lower extremity. LABORATORY DATA: On arrival to the Emergency Room showed a white cell count of 13,300, hemoglobin 13, hematocrit 38, MCV 116, and a platelet count of 279,000 with a manual differential showed 73% polymorphs, 6% lymphocytes and 21% monocytes. His chemistry showed a serum sodium 137, potassium 3.4, chloride 99, bicarbonate 28, anion gap of 10, BUN 21, creatinine 0.5. Estimated GFR was 163 mL per minute. His glucose was 106, calcium was 0.9, magnesium 2.4. Total bilirubin, AST, ALT, alkaline phosphatase were normal. Total protein 6.2, albumin was 2.3. His blood gases yesterday showed a pH of 7.44, pCO2 of 38, pO2 of 80, bicarbonate 26, and oxygen saturation was 96% on FiO2 of 45%. His urinalysis was essentially unremarkable and his CT angio of the chest, abdomen and pelvis showed that he has numerous solid and cavitary nodules and masses throughout bilateral lungs with the largest measuring up to 7.4 cm within the right upper lobe. This is highly concerning for pulmonary malignancy, infection is in the differential, if felt to be less likely. He has numerous enlarged hilar and mediastinal nodes concerning for german metastases. He has also a 3.8 cm hypoattenuating peripheral enhancing mass within the superior aspect of the spleen concerning for metastatic disease. ASSESSMENT AND PLAN: The patient was put on BiPAP machine and was transferred to [facility] and continued on pain medication, IV fluid, antiemetic and Protonix. Given the finding, we will discusse with his the goals of care given that he seemed to be stage IV metastatic disease. He is extremely cachectic and has been very unsteady on his feet because of the cerebrovascular accident and alcoholism, probably a candidate for hospice and end of life care. MARCELA/GRANT DR: Samantha TID: [id number]
[2021-08-15 15:00] VITALS: BP 126/71
[2021-08-15 19:00] VITALS: BP 126/72
[2021-08-15 23:00] VITALS: BP 139/103
[2021-08-16 03:00] VITALS: BP 134/73
[2021-08-16 07:00] VITALS: BP 127/76
[2021-08-16] MEDS: PANTOPRAZOLE IV PUSH 40 MG VIAL. IVP SCH (09:06)
[2021-08-16] MEDS: IV DEXTROSE 5 %-0.45 % NACL 1,000 ML IV SCH (09:07)
--- NOTE | 2021-08-16 09:33 | SNU/HH DC ---
DISCHARGE ORDERS DISCHARGE INFORMATION: DISCHARGE DATE: Aug 16, 2021 FINAL DIAGNOSIS metastatic lung cancer COPD RIGHT SIDED HEMIPLEGIA AND APHASIA CACHEXIA CONDITION ON DISCHARGE: Guarded CODE STATUS: Code Status: DNR/DNI HOSPICE: HOSPICE: Yes HOSPICE EVAL & TREAT: Yes POST DISCHARGE ORDERS: ACTIVITY ORDERS: Activity as tolerated, Avoid exertion DIET AFTER DISCHARGE: Regular TREATMENT/EQUIPMENT ORDERS: ADAPTIVE EQUIPMENT NEEDED: Walker DISCHARGE MEDICATIONS: Home Meds Reported Medications Acetaminophen (Extra Strength Non-Aspirin) 500 Mg Tablet, 500 MG PO BID PRN for PAIN, TAB 09/04/17 Discontinued Reported Medications Lisinopril (LISINOPRIL) 10 Mg Tablet, 10 MG PO DAILY for FOR HYPERTENSION, #30 TAB 0 Refills 05/15/19 Aspirin (ASPIRIN) 81 Mg Tab.chew, 81 MG PO, TAB.CHEW 05/15/19 Multivitamin (MULTIVITAMINS) 1 Each Tablet, 1 TAB PO DAILY, #90 TAB 3 Refills 09/04/17 Melatonin (MELATONIN) 3 Mg Tablet, 1 TAB PO QHS 08/07/17 ANDI CORREA MD Aug 16, 2021 09:33
[2021-08-16] MEDS ORDERED: MOR20SL SL (10:46)
[2021-08-16] MEDS ORDERED: LORA2ORA7 PO (10:46)
--- NOTE | 2021-08-16 10:57 | NUR ---
SS following for discharge planning. SS reviewed pt chart and discussed with pt RN. Pt is from home with spouse and is currently requiring oxygen at four liters nasal canula. Pt has no home oxygen. Pt has metastatic lung cancer and family is requesting hospice at this time. Pt's spouse and daughter at bedside. SS met with pt's spouse and pt's daughter in room. Pt's spouse requesting that pt return to home today with hospice with no preference of company. Discharge orders received for hospice. Discharge orders and referral phoned and faxed to [facility], ; fax [phone]. Packet, ambulance form, and DNR form on the chart. Currently awaiting for hospice to meet with family, consents to be signed, and DME to be delivered. SS will continue to follow for discharge planning. Addendum: 08/16/21 at 1349 by PRIYANKA SALINAS Hospice meeting with family at 1400. Pt's RN notified. Addendum: 08/16/21 at 1446 by PRIYANKA SALINAS Pt's family met with hospice and consents signed. DME to be delivered to the home at 1600. Pt will discharge today and return to home with family and [facility] at 1600 via [facility] ambulance, . Discharge orders sent to [facility]. Packet, ambulance form, and DNR form on the chart. Pt's RN notified.
[2021-08-16 11:00] VITALS: BP 133/77
--- NOTE | 2021-08-16 12:08 | PDOC ---
[employer] PROGRESS NOTE Date of Service DOS: DATE: 08/16/21 TIME: 12:03 Chief Complaint Chief Complaint Chief complaint: Respiratory distress History of Present Illness History of Present Illness 08/16/2020 Patient seen and examined. Chart reviewed. Patient is aspirating on secretion and has an obvious cough at bed side examination. The patient is a 71-year-old male patient who was discharged from [facility] on 08/11/2021. He was admitted there with a history of fall sustaining bilateral superior and inferior pubic rami and left acetabular fracture. The patient needs no surgical intervention according to Dr. Thomas who reviewed the x-rays and the bone scan and he should be weightbearing as tolerated. At that time, he also had mild elevation of troponin, felt to be secondary to demand ischemia according to the Cardiology team. Unfortunately, the patient has left middle cerebral artery territory infarct with right-sided hemiplegia, aphasia and very difficult to understand. He is also a heavy alcohol drinker and apparently was brought to the Emergency Room of [facility] from [facility] where he was discharged with a complaint of difficulty breathing over the course of the day and he was discharged only on a couple of days ago. The emergency medical service personnel stated when they got there, his oxygen saturation in the 70s and got him up to 85% on 15 liters by nasal cannula. The patient is unable to answer most questions due to residual stroke deficits and expressive aphasia, but does acknowledge by saying yes or no. He was extensively investigated in the Emergency Room and has had lab work and imaging studies. His white cell count was slightly high at 13,000. His chemistry was mostly unremarkable and his blood gases also was unremarkable. In fact, his blood gas showed a pH of 7.44, pCO2 of 38, pO2 of 80 and his oxygen saturation was 96% on FiO2 of 45%. His urinalysis was essentially unremarkable. Urine was negative for blood, nitrite; negative for leukocyte esterase and no rbc's, no wbc's, and no bacteria. Given the fact that he was hypoxic and was released only recently, he underwent CT scan of the chest, abdomen and pelvis with IV contrast and this showed no evidence of pulmonary embolism to the level of the segmental pulmonary arteries, numerous solid and cavitary nodules and masses throughout bilateral lungs with the largest measuring up to 7.4 cm within the right upper lobe. This is highly concerning for pulmonary malignancy, infection is in the differential and felt to be less likely. 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 Other chronic incidental findings were mentioned also. His shoulder x-ray showed no evidence of acute osseous injury of the left shoulder. No evidence of acute osseous injury of the left wrist, there is ongoing pain and repeat radiographs in 7-10 days is appropriate. His left wrist x-ray showed no evidence of acute osseous injury of the left wrist. The patient was given fentanyl and started on BiPAP, was transferred to for further evaluation and treatment. Vitals/I&O Vitals/I&O: Vital Signs Date Time Temp Pulse Resp B/P (MAP) Pulse Ox O2 Delivery O2 Flow Rate FiO2 08/16/21 08:08 Nasal Cannula 4.0 08/16/21 07:00 98.9 100 16 127/76 (93) 94 98.9 I & O 08/15/21 08/15/21 08/16/21 15:00 23:00 07:00 Intake Total 50 ml 1000 ml 0 ml Output Total 200 ml 600 ml Balance 50 ml 800 ml -600 ml Physical Exam Lungs: Wheezing, Other (coughing) Review of Systems Review of Systems: unobtainable. Assessment and Plan Assessmemt and Plan Metastatic lung cancer COPD RIGHT SIDED HEMIPLEGIA AND APHASIA CACHEXIA Plan: As needed suctioning Supportive care Continue IVF. Trend labs. Cardiac monitoring. DVT prophylaxis. DNR. Prognosis guarded at best Comment Review of Relevant I have reviewed the following items tita (where applicable) has been applied. Justifications for Admission Other Justification JENNIFER PAGAN III DO Aug 16, 2021 12:08
[2021-08-16 15:00] VITALS: BP 133/72
--- NOTE | 2021-08-16 17:04 | NUR ---
DISCHARGE [facility] ARRIVES FOR EMS TRANSPORT HOME. SLID TO COT WITH DRAW SHEET. ORAL SUCTION PROVIDED FOR PT COMFORT PRIOR TO THEM LEAVING. INFO PACKET PROVIDED TO EMS PROVIDERS.
== END 2021-08-16 17:03 | disposition hospice, home (50) | DRG 180 ==
LOC: 6 SOUTH 12:52
PROVIDERS: ADMIT Family Medicine; ATTEND Family Medicine
PROC: 5A09357 Assistance with Respiratory Ventilation, Less than 24 Consecutive Hours, Continuous Positive Airway Pressure (ICD-10-PCS; principal; 2021-08-14)
DX: C34.90 Malignant neoplasm of unspecified part of unspecified bronchus or lung (principal); E43 Unspecified severe protein-calorie malnutrition; C79.9 Secondary malignant neoplasm of unspecified site; I24.8 Other forms of acute ischemic heart disease; R64 Cachexia; I69.351 Hemiplegia and hemiparesis following cerebral infarction affecting right dominant side; I69.320 Aphasia following cerebral infarction; F10.20 Alcohol dependence, uncomplicated; I10 Essential (primary) hypertension; J44.9 Chronic obstructive pulmonary disease, unspecified; Z80.1 Family history of malignant neoplasm of trachea, bronchus and lung; Z85.118 Personal history of other malignant neoplasm of bronchus and lung; Z87.891 Personal history of nicotine dependence; Z66 Do not resuscitate
CPT/HCPCS: 94660; 94760; C9113; J3010; J7042; G0378